=== PATIENT | female | born 1950 | race Caucasian/White ===

== ENCOUNTER → 2020-02-17 08:56 | Outpatient (BNVA) | payer MEDICARE, SELFPAY | PROVIDERS: PCP Family Medicine; Referring Provider Family Medicine; Visit Provider Family Medicine Adult Medicine | DX: M96.1 Postlaminectomy syndrome, not elsewhere classified (principal) | CPT/HCPCS: 99212 ==

== ENCOUNTER → 2020-04-25 08:55 | Outpatient (BNVA) | payer MEDICARE, SELFPAY | PROVIDERS: PCP Family Medicine; Visit Provider Family Medicine Adult Medicine | DX: M96.1 Postlaminectomy syndrome, not elsewhere classified (principal) | CPT/HCPCS: 99212 ==

== ENCOUNTER → 2020-06-08 09:25 | Outpatient (BNVA) | payer MEDICARE, SELFPAY | PROVIDERS: PCP Family Medicine; Visit Provider Family Medicine Adult Medicine | DX: M96.1 Postlaminectomy syndrome, not elsewhere classified (principal) | CPT/HCPCS: 99212 ==

== ENCOUNTER → 2020-07-18 10:34 | Outpatient (BNVA) | payer MEDICARE, SELFPAY | PROVIDERS: PCP Family Medicine; Visit Provider Family Medicine Adult Medicine | DX: M96.1 Postlaminectomy syndrome, not elsewhere classified (principal) | CPT/HCPCS: Q3014 ==

== ENCOUNTER 2020-07-26 15:55 | Outpatient (REF) | payer MEDICARE, SELFPAY ==
--- NOTE | ~2020-07-26 | MM_ITS ---
EXAMINATION: MM SCREENING DIGITAL BREAST TOMOSYNTHESIS, BILATERAL CLINICAL INFORMATION: Screening. Asymptomatic. The lifetime risk of breast cancer based on the Tyrer-Cuzick Model is 5%. COMPARISON: Mammography: 05/11/2019, 04/01/2018, 02/14/2017 TECHNIQUE: Digital breast tomosynthesis is performed in both the craniocaudal and mediolateral oblique views along with computer-aided detection (CAD). Synthesized 2D images are generated from the tomosynthesis. FINDINGS: There are scattered areas of fibroglandular density (ACR BI-RADS breast composition Category b). There are no significant masses, abnormal calcifications, or other abnormalities. There are grouped ductal secretory calcifications anterior central 3:00 left breast. The axilla and skin contours are unremarkable. MM/MM tomosynthesis screening BI IMPRESSION: No mammographic evidence of malignancy. ASSESSMENT: BI-RADS 2: Benign RECOMMENDATION: Routine annual mammography screening. This patient's information was entered into a reminder system with a target due date for their next mammogram.
== END 2020-07-26 15:56 | disposition home or self-care (01) ==
LOC: HO.MAMMO 15:55
PROVIDERS: PCP Family Medicine; Visit Provider Family Medicine
DX: Z12.31 Encounter for screening mammogram for malignant neoplasm of breast (principal)
CPT/HCPCS: 77063; 77067

== ENCOUNTER → 2020-08-29 08:56 | Outpatient (BNVA) | payer MEDICARE, SELFPAY | PROVIDERS: PCP Family Medicine; Visit Provider Family Medicine Adult Medicine | DX: M96.1 Postlaminectomy syndrome, not elsewhere classified (principal) | CPT/HCPCS: 99212 ==

== ENCOUNTER 2020-09-27 08:52 | Outpatient (REF) | payer MEDICARE, SELFPAY ==
--- NOTE | ~2020-09-27 | XR_ITS ---
EXAMINATION: XR CHEST 2 VIEWS CLINICAL INFORMATION: Wheezing and hypertension. COMPARISON: Radiographs dated 05/06/2017. TECHNIQUE: Frontal and lateral views of the chest were obtained. FINDINGS: The heart, great vessels, pulmonary vasculature and mediastinum are normal. The lungs show no focal infiltrate, effusion or pneumothorax. There is no acute osseous abnormality. There is multi-level thoracic degenerative disc disease and spondylosis. There is a mild thoracolumbar dextroscoliosis. XR/XR chest 2V IMPRESSION: No active cardiopulmonary disease.
[2020-09-27 10:05] LABS: MANUAL DIFF FLAG NO
[2020-09-27 10:13] LABS: Basophils Percent Auto 0.5 % (0-2); Eosinophils Absolute Auto 0.2 X10*3/uL (0.0-0.4); Eosinophils Percent Auto 2.8 % (0-4); Hematocrit 38.2 % (37-47); Hemoglobin 12.9 g/dl (12.0-16.0); Imm Gran Abs Auto 0.04 X10*3/uL (0.00-0.03); Imm Gran Pct Auto 0.6 % (0.0-0.4); Lymphocytes Absolute Auto 1.9 X10*3/uL (1.2-4.9); Lymphocytes Percent Auto 29.5 % (20-40); Mean Corpuscular HGB Conc 33.8 g/dl (31.0-35.0); Mean Corpuscular Hemoglobin 31.5 pg (27.0-33.0); Mean Corpuscular Volume 93.4 fL (80-98); Mean Platelet Volume 8.9 fL (9.4-12.3); Monocytes Absolute Auto 0.5 X10*3/uL (0.1-1.2); Monocytes Percent Auto 7.3 % (2-11); Neutrophils Absolute Auto 3.8 X10*3/uL (2.0-8.3); Neutrophils Percent Auto 59.3 % (45-73); Platelet Count 337 X10*3/uL (160-400); Red Blood Count 4.09 X10*6/uL (4.20-5.50); Red Cell Distribution Width 12.9 % (11.0-16.0); White Blood Count 6.5 X10*3/uL (4.8-10.8)
[2020-09-27 10:27] LABS: Anion Gap 11 (12-20); Blood Urea Nitrogen 10 mg/dL (9-16); Carbon Dioxide 27 mmol/L (22-29); Chloride 99 mmol/L (96-108); Estimated Glomerular Filt Rate > 60; Potassium 4.7 mmol/L (3.3-5.1); Sodium 132 mmol/L (135-145)
[2020-09-27 10:50] LABS: Free T4 (Free Thyroxine) 1.36 ng/dL (0.71-1.85); Thyroid Stimulating Hormone 1.59 uIU/mL (0.32-4.0)
== END 2020-09-27 08:53 | disposition home or self-care (01) ==
LOC: HO.LAB 08:52
PROVIDERS: PCP Family Medicine; Visit Provider Family Medicine
DX: R06.2 Wheezing (principal); I10 Essential (primary) hypertension; E03.9 Hypothyroidism, unspecified
CPT/HCPCS: 36415; 71046; 80051; 82565; 84439; 84443; 84520; 85025

== ENCOUNTER → 2020-10-10 09:05 | Outpatient (BNVA) | payer MEDICARE, SELFPAY | PROVIDERS: PCP Family Medicine; Visit Provider Family Medicine Adult Medicine | DX: M96.1 Postlaminectomy syndrome, not elsewhere classified (principal) | CPT/HCPCS: 99212 ==

== ENCOUNTER → 2020-11-07 10:00 | Outpatient (BNVA) | payer MEDICARE, SELFPAY | PROVIDERS: PCP Family Medicine; Visit Provider Family Medicine Adult Medicine | DX: M96.1 Postlaminectomy syndrome, not elsewhere classified (principal); Z79.899 Other long term (current) drug therapy | CPT/HCPCS: 99212 ==

== ENCOUNTER → 2020-12-12 10:03 | Outpatient (BNVA) | payer MEDICARE, SELFPAY | PROVIDERS: PCP Family Medicine; Visit Provider Family Medicine Adult Medicine | DX: M96.1 Postlaminectomy syndrome, not elsewhere classified (principal); Z79.891 Long term (current) use of opiate analgesic | CPT/HCPCS: 99212 ==

== ENCOUNTER → 2021-01-11 09:00 | Outpatient (BNVA) | payer MEDICARE, SELFPAY | PROVIDERS: PCP Family Medicine; Visit Provider Family Medicine Adult Medicine | DX: Z51.81 Encounter for therapeutic drug level monitoring (principal); M96.1 Postlaminectomy syndrome, not elsewhere classified | CPT/HCPCS: 99212 ==

== ENCOUNTER → 2021-02-08 09:29 | Outpatient (BNVA) | payer MEDICARE, SELFPAY | PROVIDERS: PCP Family Medicine; Visit Provider Family Medicine Adult Medicine | DX: Z51.81 Encounter for therapeutic drug level monitoring (principal); M96.1 Postlaminectomy syndrome, not elsewhere classified | CPT/HCPCS: Q3014 ==

== ENCOUNTER → 2021-02-15 10:28 | Outpatient (REF) | payer MEDICARE, SELFPAY ==
--- NOTE | 2021-02-15 10:32 | CA_ITS ---
Acquisition Time: 2021-02-15 10:36:49 Total Exercise Time: 00:04:27 Test Indications: Chest Pain Medications: Protocol: ABELINO Max HR: 122 BPM 81% of Pred: 149 BPM Max BP: 212/064 mmHG Max Work Load: 6.3 METS Exercise stress test with exercise 4 min 27 sec of Abelino protocol, mild sob, no chest discomfort, with request to stop due to leg fatigue, with isolated PVC, then at peak exercise she had 20 seconds of ventricular bigemny, with hypertensive response to exercise with max BP 212/ 64, with nondiagnostic EKG for ischemia due to suboptimal heart rate of 81% MPHR. In recovery her BP returned to 148/60 after 9 min of rest. Test reviewed with Dr Montes. Call placed to Dr Wadsworth office. Report given with recommendation for pharm nuclear stress test and echocardiogram. Referred By: Marcellus Patiño Overread By: ABRAHAM CORREA
== END ==
LOC: HO.CARD 10:28
PROVIDERS: PCP Family Medicine; Visit Provider Family Medicine
DX: R07.89 Other chest pain (principal)
CPT/HCPCS: 93017

== ENCOUNTER 2021-02-19 10:03 | Outpatient (REF) | payer MEDICARE, SELFPAY ==
--- NOTE | 2021-02-19 | PFT_ITS ---
Forced vital capacity, FEV1, [id number], and MVV are normal. Post bronchodilator therapy, there is a slight increase in [id number]. Total lung capacity and residual volume normal. Diffusion capacity only slightly decreased. CONCLUSION: Pulmonary function test is essentially within normal limits except for slight decrease in the diffusion capacity. Clinical correlation is recommended. MD CARLO Almeida/ANDREWS / [phone]
== END 2021-02-19 10:04 | disposition home or self-care (01) ==
LOC: HO.RESP 10:03
PROVIDERS: PCP Family Medicine; Visit Provider Family Medicine
DX: R06.02 Shortness of breath (principal); R06.2 Wheezing; F17.210 Nicotine dependence, cigarettes, uncomplicated
CPT/HCPCS: 94060; 94727; 94729

== ENCOUNTER → 2021-03-08 10:34 | Outpatient (BNVA) | payer MEDICARE, SELFPAY | PROVIDERS: PCP Family Medicine; Visit Provider Family Medicine Adult Medicine | DX: Z51.81 Encounter for therapeutic drug level monitoring (principal); M96.1 Postlaminectomy syndrome, not elsewhere classified | CPT/HCPCS: 99212 ==

== ENCOUNTER 2021-04-04 12:06 | Outpatient (REF) | payer MEDICARE, SELFPAY ==
[2021-04-04 12:51] LABS: Appearance Urine HAZY; Color Urine YELLOW; Glucose Urine UA NEG (NEG); Leukocyte Esterase Urine 3+ (NEG); Nitrite Urine NEG (NEG); UACC Culture Trigger YES; Urine Blood TRACE (NEG); Urine Ketones NEG (NEG); Urine Protein NEG (NEG-TRACE)
[2021-04-04 13:03] LABS: Bacteria Urine TRACE /LPF; Squamous Epithelial Cell Urine 1+ /LPF
[2021-04-04 13:04] LABS: RBC Urine 0 /HPF (0)
== END 2021-04-04 12:07 | disposition home or self-care (01) ==
LOC: HO.LAB 12:06
PROVIDERS: Visit Provider Family Medicine
DX: R30.0 Dysuria (principal)
CPT/HCPCS: 81001; 87086

== ENCOUNTER 2021-04-12 09:32 | Outpatient (REF) | payer MEDICARE, SELFPAY ==
[2021-04-12 10:57] LABS: Appearance Urine HAZY; Color Urine STRAW; Glucose Urine UA NEG (NEG); Leukocyte Esterase Urine 3+ (NEG); Nitrite Urine NEG (NEG); Specific Gravity - Urine 1.015 (1.005-1.025); UACC Culture Trigger YES; Urine Blood 2+ (NEG); Urine Ketones NEG (NEG); Urine Protein TRACE MG/DL (NEG-TRACE)
[2021-04-12 11:14] LABS: RBC Urine 30-49 /HPF (0); Squamous Epithelial Cell Urine 1+ /LPF; WBC Urine 50-75 /HPF (0-4)
[2021-04-12 11:15] LABS: Bacteria Urine TRACE /LPF
== END 2021-04-12 09:33 | disposition home or self-care (01) ==
LOC: CF 09:32
PROVIDERS: PCP Family Medicine; Visit Provider Nurse Practitioner Family
DX: M96.1 Postlaminectomy syndrome, not elsewhere classified (principal); M79.18 Myalgia, other site; R30.0 Dysuria
CPT/HCPCS: 81001; 87086; 99212

== ENCOUNTER → 2021-05-10 10:00 | Outpatient (BNVA) | payer MEDICARE, SELFPAY | PROVIDERS: PCP Family Medicine; Visit Provider Nurse Practitioner Family | DX: Z51.81 Encounter for therapeutic drug level monitoring (principal); F11.20 Opioid dependence, uncomplicated; M96.1 Postlaminectomy syndrome, not elsewhere classified; M79.18 Myalgia, other site; M54.16 Radiculopathy, lumbar region; N39.46 Mixed incontinence | CPT/HCPCS: 99212 ==

== ENCOUNTER → 2021-06-07 09:57 | Outpatient (BNVA) | payer MEDICARE, SELFPAY | PROVIDERS: PCP Family Medicine; Visit Provider Nurse Practitioner Family | DX: Z51.81 Encounter for therapeutic drug level monitoring (principal); F11.20 Opioid dependence, uncomplicated; M25.551 Pain in right hip; M25.552 Pain in left hip; M53.3 Sacrococcygeal disorders, not elsewhere classified; M54.16 Radiculopathy, lumbar region; M79.18 Myalgia, other site; M96.1 Postlaminectomy syndrome, not elsewhere classified | CPT/HCPCS: 99212 ==

== ENCOUNTER 2021-06-11 09:41 | Outpatient (REF) | payer MEDICARE, SELFPAY ==
--- NOTE | ~2021-06-11 | XR_ITS ---
EXAMINATION: XR SACRUM AND COCCYX XR PELVIS AND HIP, BILATERAL CLINICAL INFORMATION: Pain right hip. Sacrococcygeal disorders. COMPARISON: None TECHNIQUE: AP pelvis 3 views. AP pelvis and bilateral hips 5 views. FINDINGS: AP pelvis: There is a total left hip prosthesis. The right hip joint space is normal. No bony erosive changes. There is no lytic or sclerotic process. The soft tissues are normal. Mild right L4-L5 facet joint arthropathy noted. Right hip: AP and frog-leg views of right hip reveal no bony erosive changes. Normal joint space. No spurring. No fracture or dislocation. Left hip: There is a total left hip prosthesis with prosthetic components in satisfactory alignment. There are cerclage wires surrounding the proximal femoral prosthesis and the overlying bone. The soft tissues are normal. Sacrum and/or coccyx: There is normal symmetry of bilateral SI joints without sclerosis. There is no sacral or coccygeal fracture. There is minimal anterior subluxation of coccyx on the distal sacrum of indeterminate age. Soft tissue swelling is seen. XR/XR hip BI w PEL1V IMPRESSION: Mild anterior subluxation of coccyx in relation to the sacrum, ? age. No sacral or right hip fracture. There is a total left hip prosthesis with the prosthetic components in satisfactory alignment. No periprosthetic fracture is seen. The AP pelvis appears unremarkable. The SI joints are symmetrical and normal.
--- NOTE | ~2021-06-11 | XR_ITS ---
EXAMINATION: XR SACRUM AND COCCYX XR PELVIS AND HIP, BILATERAL CLINICAL INFORMATION: Pain right hip. Sacrococcygeal disorders. COMPARISON: None TECHNIQUE: AP pelvis 3 views. AP pelvis and bilateral hips 5 views. FINDINGS: AP pelvis: There is a total left hip prosthesis. The right hip joint space is normal. No bony erosive changes. There is no lytic or sclerotic process. The soft tissues are normal. Mild right L4-L5 facet joint arthropathy noted. Right hip: AP and frog-leg views of right hip reveal no bony erosive changes. Normal joint space. No spurring. No fracture or dislocation. Left hip: There is a total left hip prosthesis with prosthetic components in satisfactory alignment. There are cerclage wires surrounding the proximal femoral prosthesis and the overlying bone. The soft tissues are normal. Sacrum and/or coccyx: There is normal symmetry of bilateral SI joints without sclerosis. There is no sacral or coccygeal fracture. There is minimal anterior subluxation of coccyx on the distal sacrum of indeterminate age. Soft tissue swelling is seen. XR/XR sacrum coccyx min 2V IMPRESSION: Mild anterior subluxation of coccyx in relation to the sacrum, ? age. No sacral or right hip fracture. There is a total left hip prosthesis with the prosthetic components in satisfactory alignment. No periprosthetic fracture is seen. The AP pelvis appears unremarkable. The SI joints are symmetrical and normal.
== END 2021-06-11 09:42 | disposition home or self-care (01) ==
LOC: HO.XRAY 09:41
PROVIDERS: PCP Family Medicine; Visit Provider Nurse Practitioner Family
DX: M25.551 Pain in right hip (principal); M25.552 Pain in left hip; M53.3 Sacrococcygeal disorders, not elsewhere classified
CPT/HCPCS: 72220; 73521

== ENCOUNTER → 2021-06-18 10:31 | Outpatient (BNVA) | payer MEDICARE, SELFPAY | PROVIDERS: PCP Family Medicine; Visit Provider Nurse Practitioner Family | DX: M53.3 Sacrococcygeal disorders, not elsewhere classified (principal); M25.551 Pain in right hip; M25.552 Pain in left hip; Z79.891 Long term (current) use of opiate analgesic | CPT/HCPCS: 99212 ==

== ENCOUNTER → 2021-07-06 10:04 | Outpatient (BNVA) | payer MEDICARE, SELFPAY | PROVIDERS: PCP Family Medicine; Visit Provider Nurse Practitioner Family | DX: Z51.81 Encounter for therapeutic drug level monitoring (principal); F11.20 Opioid dependence, uncomplicated; M53.3 Sacrococcygeal disorders, not elsewhere classified; M54.16 Radiculopathy, lumbar region; M79.18 Myalgia, other site; M96.1 Postlaminectomy syndrome, not elsewhere classified | CPT/HCPCS: 99212 ==

== ENCOUNTER 2021-07-27 10:26 | Day surgery (SDC) | payer MEDICARE, SELFPAY ==
[2021-07-23 11:15] VITALS: BMI 26.8
--- NOTE | 2021-07-26 10:48 | HO.ANESPROP2 ---
Documented by User: Monica Lazar NP 07/26/21 10:48 HPI - Anesthesia Eval Consult details Narrative: 70yo F for Colonoscopy PMFSH Active Problems Active Problems: All Active Problems (Updated 07/23/21 @ 11:12 by Odilia Carbone RN) Myofascial pain (Acute) Urinary incontinence, mixed (Acute) Sacrococcygeal pain (Acute) Hip pain, bilateral (Acute) Coccygeal pain (Acute) Lumbar radiculopathy, chronic (Acute) Failed back syndrome, lumbar (Acute) Past Medical History Medical History (Updated 07/23/21 @ 11:12 by Odilia Carbone RN) Arthritis Benign essential HTN Failed back syndrome, lumbar GERD (gastroesophageal reflux disease) Hypothyroidism Lumbar radiculopathy, chronic Surgical History Surgical History (Updated 07/23/21 @ 11:12 by Odilia Carbone RN) History of hysterectomy History of lumbar surgery History of total left hip replacement Hx of bladder repair surgery Social History Social History (Updated 07/23/21 @ 11:13 by Odilia Carbone RN) Household Members: Spouse Patient Tobacco Use Status: Current everyday Tobacco user Tobacco use type: Cigarette Cigarettes Per Day: 4 Use of substances other than those prescribed or required for medical reasons: Yes Are you DNR?: No Advance Directives: No Advance Directives Information Provided: Yes Recently lost weight without trying: No Nutrition Risks: No Nutritional Risk Meds Allergies Allergy/AdvReac Type Severity Reaction Status Date / Time No Known Allergies Allergy Unknown Verified 07/06/21 10:11 Home Medications Medication Instructions Recorded Confirmed Last Taken Type albuterol sulfate 90 mcg/actuation INHALATION 02/17/20 03/08/21 Unknown History aerosol inhaler cimetidine 300 mg tablet 300 mg PO DAILY 02/17/20 07/23/21 Unknown History flu vacc [id number](65yr up)-PF 240 IM 02/17/20 03/08/21 Unknown History mcg/0.7 mL intramuscular syringe levothyroxine 88 mcg tablet 88 mcg PO DAILY 02/17/20 07/23/21 07/27/21 History lisinopril 10 mg tablet 10 mg PO DAILY 02/17/20 07/23/21 Unknown History lorazepam 0.5 mg tablet 0.5 mg PO DAILY PRN 02/17/20 03/08/21 Unknown History metoprolol succinate 25 mg 1 tab PO BEDTIME 07/23/21 07/23/21 Unknown History tablet,extended release 24 hr Exam Exam Date and Time: July 26, 2021 1048 Height,Weight and Vital Signs: Height 5 ft 1 in Weight 64.41 kg Assessment and Plan Assessment Anesthesia Assessment: Chart Reviewed Documented by User: Prabhakar Kim MD 07/27/21 12:56 PMFSH Past Medical History Medical History (Updated 07/23/21 @ 11:12 by Odilia Carbone RN) Arthritis Benign essential HTN Failed back syndrome, lumbar GERD (gastroesophageal reflux disease) Hypothyroidism Lumbar radiculopathy, chronic Family History Family history of problems with anesthesia: No Surgical History Surgical History (Updated 07/23/21 @ 11:12 by Odilia Carbone RN) History of hysterectomy History of lumbar surgery History of total left hip replacement Hx of bladder repair surgery History of Problems with Anesthesia: No Social History Social History (Updated 07/23/21 @ 11:13 by Odilia Carbone RN) Household Members: Spouse Patient Tobacco Use Status: Current everyday Tobacco user Tobacco use type: Cigarette Cigarettes Per Day: 4 Use of substances other than those prescribed or required for medical reasons: Yes Are you DNR?: No Advance Directives: No Advance Directives Information Provided: Yes Recently lost weight without trying: No Nutrition Risks: No Nutritional Risk Meds Allergies Allergy/AdvReac Type Severity Reaction Status Date / Time No Known Allergies Allergy Unknown Verified 07/06/21 10:11 Home Medications Medication Instructions Recorded Confirmed Last Taken Type albuterol sulfate 90 mcg/actuation INHALATION 02/17/20 03/08/21 Unknown History aerosol inhaler cimetidine 300 mg tablet 300 mg PO DAILY 02/17/20 07/23/21 Unknown History flu vacc [id number](65yr up)-PF 240 IM 02/17/20 03/08/21 Unknown History mcg/0.7 mL intramuscular syringe levothyroxine 88 mcg tablet 88 mcg PO DAILY 10/07/23/21 07/27/21 History lisinopril 10 mg tablet 10 mg PO DAILY 02/17/20 07/23/21 Unknown History lorazepam 0.5 mg tablet 0.5 mg PO DAILY PRN 02/17/20 03/08/21 Unknown History metoprolol succinate 25 mg 1 tab PO BEDTIME 07/23/21 07/23/21 Unknown History tablet,extended release 24 hr Exam Airway Mallampati Class: II TM Dist: >3cm Neck ROM: Full Partial: Upper Loose/Missing/Broken Teeth: Yes Heart: RRR Lungs: b/l breath sounds Assessment and Plan Assessment Anesthesia Assessment: Anesthesia Plan Discussed Final Anesthetic Review Family History of Problems with Anesthesia: No History of Problems with Anesthesia: No NPO: Yes ASA Class: II Final Preanesthetic Review: No Changes in Pt Med Stat, Meds/Allgs Chart Reviewed and Anes Risks/Benef Reviewed Patient Risk: Intermediate Procedure Risk: Intermediate Anesthetic Plan Anesthetic Plan: MAC: Disposition: Standard PACU
[2021-07-27 10:49] VITALS: BMI 26.0
[2021-07-27 10:56] VITALS: BP 143/70; PULSE 64; RESP 16; TEMP 36.9; O2SAT 95
[2021-07-27] MEDS: Lactated Ringers 1,000 ML 100 ML IVCONT (11:18)
--- NOTE | 2021-07-27 11:35 | MHC.SHP ---
Pre-Procedural Eval Section A Date of Service: 07/27/21 The patient is an INPATIENT: No Changes since office visit: No Cold of Flu in the past 2 weeks, No New Medical Problems, No Changes in Medication and No Patient answered all questions The History & Physical has been completed within 30 days and I have reviewed it.: Yes Section B Chief Complaint: screening Allergies: Allergies Allergy/AdvReac Type Severity Reaction Status Date / Time No Known Allergies Allergy Unknown Verified 07/06/21 10:11 Plan I have reviewed the history and physical and performed a pertinent physical examination on my patient. No changes have occurred unless specified.
--- NOTE | 2021-07-27 12:11 | PM.OP ---
Brief Operative Note Date of Service: 07/27/21 Pre-op diagnosis: screening Post-op diagnosis: same Procedure: colonsoocpy Surgeon: Ru Jackson Anesthesia: MAC Was an Instructor Decorating used for this Procedure?: No Estimated blood loss (mL): 0 Pathology: none sent Condition: stable Disposition: PACU
[2021-07-27 12:13] VITALS: BP 96/42; PULSE 78; RESP 17; TEMP 36.2; O2SAT 96
[2021-07-27 12:28] VITALS: BP 135/54; PULSE 66; RESP 18; TEMP 36.2; O2SAT 98
--- NOTE | 2021-07-27 12:37 | OP_ITS ---
SURGEON: Ru Jackson MD INDICATIONS: Colon cancer screening. PREOPERATIVE DIAGNOSIS: POSTOPERATIVE DIAGNOSIS: PROCEDURE PERFORMED: Colonoscopy to the terminal ileum. ESTIMATED BLOOD LOSS: COMPLICATIONS: ANESTHESIA: ASSISTANTS: SPECIMENS: MEDICATIONS: Monitored anesthesia care. DESCRIPTION OF PROCEDURE: History and physical were performed. The risks and benefits of the procedure were explained to the patient. Informed consent was obtained. The patient was placed in the left lateral decubitus position. A digital rectal exam was performed and was found to be normal. The Olympus pediatric video colonoscope was introduced into the rectum and advanced to the cecum without difficulty. The cecum was identified by transillumination, palpation, and identification of ileocecal valve. Examination was performed. The scope was removed. She tolerated the procedure well and was taken to recovery area in stable condition. FINDINGS: The terminal ileum was examined and appeared normal. The visualized colonic mucosa was normal. The quality of the prep was good. No polyps were identified. There was scattered diverticulosis throughout the colon. Retroflexed examination showed some small internal hemorrhoids. IMPRESSION: Normal colonoscopy. RECOMMENDATION: 1. Follow up as needed. 2. Repeat colonoscopy is recommended in 10 years for average risk individuals. This is optional based on her age. MD ROBERT Nathan/ANDREWS / [id number]
== END 2021-07-27 13:34 | disposition home or self-care (01) ==
PROVIDERS: PCP Family Medicine; Visit Provider Internal Medicine Gastroenterology
PROC: 0DJD8ZZ Inspection of Lower Intestinal Tract, Via Natural or Artificial Opening Endoscopic (ICD-10-PCS; CPT 45378; principal; 2021-07-27 11:30)
DX: Z12.11 Encounter for screening for malignant neoplasm of colon (principal); K57.30 Diverticulosis of large intestine without perforation or abscess without bleeding; K64.8 Other hemorrhoids; K21.9 Gastro-esophageal reflux disease without esophagitis; I10 Essential (primary) hypertension; E03.9 Hypothyroidism, unspecified; M19.90 Unspecified osteoarthritis, unspecified site; Z79.899 Other long term (current) drug therapy; Z96.642 Presence of left artificial hip joint; Z98.890 Other specified postprocedural states; F17.210 Nicotine dependence, cigarettes, uncomplicated
CPT/HCPCS: G0121

== ENCOUNTER 2021-08-01 10:11 | Outpatient (REF) | payer MEDICARE, SELFPAY ==
--- NOTE | ~2021-08-01 | MM_ITS ---
EXAMINATION: MM SCREENING DIGITAL BREAST TOMOSYNTHESIS, BILATERAL CLINICAL INFORMATION: Screening. Asymptomatic. The lifetime risk of breast cancer based on the Tyrer-Cuzick Model is 5%. COMPARISON: Mammography: 07/26/2020, 05/11/2019, 04/01/2018 TECHNIQUE: Digital breast tomosynthesis is performed in both the craniocaudal and mediolateral oblique views along with computer-aided detection (CAD). Synthesized 2D images are generated from the tomosynthesis. FINDINGS: There are scattered areas of fibroglandular density (ACR BI-RADS breast composition Category b). There are no significant masses, abnormal calcifications, or other abnormalities. There are grouped ductal secretory calcifications again seen anterior left breast. The bilateral parenchymal pattern is similar to prior studies. Incidental small intramammary node again seen mid upper outer right breast. No significant changes. MM/MM tomosynthesis screening BI IMPRESSION: No mammographic evidence of malignancy. ASSESSMENT: BI-RADS 2: Benign RECOMMENDATION: Routine annual mammography screening. This patient's information was entered into a reminder system with a target due date for their next mammogram.
== END 2021-08-01 10:12 | disposition home or self-care (01) ==
LOC: HO.MAMMO 10:11
PROVIDERS: Visit Provider Family Medicine
DX: Z12.31 Encounter for screening mammogram for malignant neoplasm of breast (principal)
CPT/HCPCS: 77063; 77067

== ENCOUNTER → 2021-08-03 10:04 | Outpatient (BNVA) | payer MEDICARE, SELFPAY | PROVIDERS: PCP Family Medicine; Visit Provider Nurse Practitioner Family | DX: Z51.81 Encounter for therapeutic drug level monitoring (principal); F11.20 Opioid dependence, uncomplicated | CPT/HCPCS: 99211 ==

== ENCOUNTER → 2021-08-31 09:56 | Outpatient (BNVA) | payer MEDICARE, SELFPAY | PROVIDERS: PCP Family Medicine; Visit Provider Nurse Practitioner Family | DX: Z51.81 Encounter for therapeutic drug level monitoring (principal); F11.20 Opioid dependence, uncomplicated; M54.16 Radiculopathy, lumbar region; M79.18 Myalgia, other site; M96.1 Postlaminectomy syndrome, not elsewhere classified | CPT/HCPCS: 99212 ==

== ENCOUNTER 2021-09-18 10:54 | Outpatient (REF) | payer MEDICARE, SELFPAY ==
--- NOTE | ~2021-09-18 | XR_ITS ---
EXAMINATION: XR CHEST CLINICAL INFORMATION: Coughing and wheezing. COMPARISON: 09/27/2018 TECHNIQUE: 2 views of the chest were obtained. FINDINGS: No pleural effusion. Heart and pulmonary vessels are normal. No congestive change. Lungs grossly clear. XR/XR chest 2V IMPRESSION: No active disease.
== END 2021-09-18 10:55 | disposition home or self-care (01) ==
LOC: HO.HMGCX 10:54
PROVIDERS: PCP Family Medicine; Visit Provider Family Medicine
DX: R06.2 Wheezing (principal); R05.9 Cough, unspecified; Z86.16 Personal history of COVID-19
CPT/HCPCS: 71046

== ENCOUNTER → 2021-10-12 10:02 | Outpatient (BNVA) | payer MEDICARE, SELFPAY | PROVIDERS: PCP Family Medicine; Visit Provider Nurse Practitioner Family | DX: M54.16 Radiculopathy, lumbar region (principal); M79.18 Myalgia, other site; M96.1 Postlaminectomy syndrome, not elsewhere classified; Z79.891 Long term (current) use of opiate analgesic | CPT/HCPCS: 99212 ==

== ENCOUNTER → 2021-12-03 09:12 | Outpatient (REF) | payer MEDICARE, SELFPAY ==
--- NOTE | 2021-12-03 09:16 | ECG_ITS ---
Test Reason : bradycardia Blood Pressure : / mmHG Vent. Rate : 042 BPM Atrial Rate : 042 BPM P-R Int : 174 ms QRS Dur : 086 ms QT Int : 496 ms P-R-T Axes : 040 051 070 degrees QTc Int : 414 ms Marked sinus bradycardia Abnormal ECG When compared with ECG of 29-DEC-2015 13:15, Heart rate has decreased Referred By: Danya Llanes Electronically Signed By:MARGARET CHOI
== END ==
LOC: HO.CARD 09:12
PROVIDERS: PCP Family Medicine; Visit Provider Nurse Practitioner Family
DX: R00.1 Bradycardia, unspecified (principal); Z98.891 History of uterine scar from previous surgery
CPT/HCPCS: 93005

== ENCOUNTER → 2021-12-06 10:05 | Outpatient (BNVA) | payer MEDICARE, SELFPAY | PROVIDERS: PCP Family Medicine; Visit Provider Nurse Practitioner Family | DX: Z51.81 Encounter for therapeutic drug level monitoring (principal); Z79.899 Other long term (current) drug therapy | CPT/HCPCS: 99211 ==

== ENCOUNTER → 2022-01-04 09:56 | Outpatient (BNVA) | payer MEDICARE, SELFPAY | PROVIDERS: PCP Family Medicine; Visit Provider Nurse Practitioner Family | DX: M54.16 Radiculopathy, lumbar region (principal); M96.1 Postlaminectomy syndrome, not elsewhere classified; M79.18 Myalgia, other site; Z79.891 Long term (current) use of opiate analgesic | CPT/HCPCS: 99212 ==

== ENCOUNTER → 2022-02-01 09:59 | Outpatient (BNVA) | payer MEDICARE, SELFPAY | PROVIDERS: PCP Family Medicine; Visit Provider Nurse Practitioner Family | DX: Z51.81 Encounter for therapeutic drug level monitoring (principal); Z79.899 Other long term (current) drug therapy | CPT/HCPCS: 99211 ==

== ENCOUNTER → 2022-03-07 09:36 | Outpatient (BNVA) | payer MEDICARE, SELFPAY | PROVIDERS: PCP Family Medicine; Visit Provider Nurse Practitioner Family | DX: Z51.81 Encounter for therapeutic drug level monitoring (principal); F11.20 Opioid dependence, uncomplicated; M54.16 Radiculopathy, lumbar region; M96.1 Postlaminectomy syndrome, not elsewhere classified; M79.18 Myalgia, other site | CPT/HCPCS: 99212 ==

== ENCOUNTER → 2022-04-01 10:29 | Outpatient (BNVA) | payer MEDICARE, SELFPAY | PROVIDERS: PCP Family Medicine; Referring Provider Family Medicine; Visit Provider Internal Medicine Cardiovascular Disease | DX: R00.1 Bradycardia, unspecified (principal) | CPT/HCPCS: 93005; 99202 ==

== ENCOUNTER → 2022-04-04 09:13 | Outpatient (BNVA) | payer MEDICARE, SELFPAY | PROVIDERS: PCP Family Medicine; Visit Provider Nurse Practitioner Family | DX: Z51.81 Encounter for therapeutic drug level monitoring (principal) | CPT/HCPCS: 99211 ==

== ENCOUNTER → 2022-05-01 10:55 | Outpatient (REF) | payer MEDICARE, SELFPAY | LOC: HO.CARD 10:55 | PROVIDERS: PCP Family Medicine; Visit Provider Internal Medicine Cardiovascular Disease | DX: R00.1 Bradycardia, unspecified (principal) | CPT/HCPCS: 93242 ==

== ENCOUNTER → 2022-05-09 13:26 | Outpatient (BNVA) | payer MEDICARE, SELFPAY | PROVIDERS: PCP Family Medicine; Visit Provider Nurse Practitioner Family | DX: M96.1 Postlaminectomy syndrome, not elsewhere classified (principal); M54.16 Radiculopathy, lumbar region; M79.18 Myalgia, other site; Z79.891 Long term (current) use of opiate analgesic | CPT/HCPCS: 99212 ==

== ENCOUNTER → 2022-05-27 09:41 | Outpatient (REF) | payer MEDICARE, SELFPAY ==
--- NOTE | 2022-05-27 09:44 | HM_ITS ---
* Total monitoring time approximately 3 days. * Underlying rhythm is sinus. Average ventricular rate 66/Min. Range 42 to 114/Min. * Rare supraventricular ectopy. Very brief runs. Longest 5 beats. * Rare ventricular ectopy. * No significant pauses or AV blocks. * No patient marker or events in diary. MTDD
[2022-05-27 11:08] LABS: Anion Gap 11 (12-20); Blood Urea Nitrogen 11 mg/dL (9-16); Carbon Dioxide 27 mmol/L (22-29); Chloride 100 mmol/L (96-108); Estimated Glomerular Filt Rate > 60; Potassium 4.4 mmol/L (3.3-5.1); Sodium 134 mmol/L (135-145)
[2022-05-27 11:26] LABS: Free T4 (Free Thyroxine) 1.32 ng/dL (0.71-1.85)
== END ==
LOC: HO.CARD 09:41
PROVIDERS: PCP Family Medicine; Visit Provider Internal Medicine Cardiovascular Disease
DX: R00.1 Bradycardia, unspecified (principal)
CPT/HCPCS: 36415; 80051; 82565; 84439; 84520; 93242

== ENCOUNTER → 2022-06-06 11:31 | Outpatient (BNVA) | payer MEDICARE, SELFPAY | PROVIDERS: PCP Family Medicine; Visit Provider Nurse Practitioner Family | DX: Z51.81 Encounter for therapeutic drug level monitoring (principal); M54.16 Radiculopathy, lumbar region; M96.1 Postlaminectomy syndrome, not elsewhere classified; M79.18 Myalgia, other site; Z79.891 Long term (current) use of opiate analgesic | CPT/HCPCS: 99212 ==

== ENCOUNTER → 2022-07-04 10:08 | Outpatient (BNVA) | payer MEDICARE, SELFPAY | PROVIDERS: PCP Family Medicine; Visit Provider Nurse Practitioner Family | DX: Z79.891 Long term (current) use of opiate analgesic (principal) | CPT/HCPCS: 99211 ==

== ENCOUNTER → 2022-07-11 11:31 | Outpatient (BNVA) | payer MEDICARE, SELFPAY | PROVIDERS: PCP Family Medicine; Referring Provider Family Medicine; Visit Provider Internal Medicine Cardiovascular Disease | DX: R00.1 Bradycardia, unspecified (principal); I10 Essential (primary) hypertension; F17.210 Nicotine dependence, cigarettes, uncomplicated | CPT/HCPCS: 99212 ==

== ENCOUNTER → 2022-08-01 09:59 | Outpatient (BNVA) | payer MEDICARE, SELFPAY | PROVIDERS: PCP Family Medicine; Visit Provider Nurse Practitioner Family | DX: Z51.81 Encounter for therapeutic drug level monitoring (principal); F11.20 Opioid dependence, uncomplicated; M54.16 Radiculopathy, lumbar region; M96.1 Postlaminectomy syndrome, not elsewhere classified; M79.18 Myalgia, other site | CPT/HCPCS: 99212 ==

== ENCOUNTER → 2022-08-26 11:34 | Outpatient (BNVA) | payer MEDICARE, SELFPAY | PROVIDERS: PCP Family Medicine; Visit Provider Nurse Practitioner Family | DX: M96.1 Postlaminectomy syndrome, not elsewhere classified (principal); M54.16 Radiculopathy, lumbar region; M79.18 Myalgia, other site; Z79.891 Long term (current) use of opiate analgesic | CPT/HCPCS: 99212 ==

== ENCOUNTER → 2022-10-01 09:37 | Outpatient (BNVA) | payer MEDICARE, SELFPAY | PROVIDERS: PCP Family Medicine; Visit Provider Nurse Practitioner Family | DX: Z51.81 Encounter for therapeutic drug level monitoring (principal); M54.16 Radiculopathy, lumbar region; M96.1 Postlaminectomy syndrome, not elsewhere classified; M79.18 Myalgia, other site; Z79.891 Long term (current) use of opiate analgesic | CPT/HCPCS: 99212 ==

== ENCOUNTER 2022-10-12 09:57 | Emergency (ER) | payer MEDICARE, SELFPAY ==
--- NOTE | ~2022-10-12 | XR_ITS ---
EXAMINATION: XR CHEST CLINICAL INFORMATION: Left flank pain. General body aches. COMPARISON: Chest x-ray dated 09/18/2021. TECHNIQUE: AP view of the chest was obtained. FINDINGS: The cardiomediastinal silhouette is within normal limits in size. Calcification of the aortic arch is seen. Mild chronic elevation of the right mid diaphragm is seen. Minimal bibasilar linear opacities are noted, consistent with linear atelectasis.. No focal consolidation, effusion or pneumothorax is seen. Bony structures are unremarkable. No definite rib fractures appreciated on portable film. XR/XR chest 1V IMPRESSION: Minimal bibasilar linear atelectasis. No focal pneumonia.
[2022-10-12 10:00] VITALS: BP 135/55; PULSE 68; RESP 16; TEMP 37.1; O2SAT 98; BMI 26.5
--- NOTE | 2022-10-12 10:11 | ECG_ITS ---
Test Reason : GEN BODY ACHES,COUGH,HTN TIMOTEO Blood Pressure : / mmHG Vent. Rate : 072 BPM Atrial Rate : 072 BPM P-R Int : 140 ms QRS Dur : 098 ms QT Int : 424 ms P-R-T Axes : 039 068 105 degrees QTc Int : 464 ms Artifact in tracing Sinus rhythm with Premature atrial complexes Septal infarct , age undetermined Abnormal ECG No significant changes when compared with the previous EKG of 03 dec 2021 Referred By: Generic ED Physician Electronically Signed By:JOSE HARRINGTON
[2022-10-12 10:59] LABS: Basophils Percent Auto 0.2 % (0-2); Eosinophils Percent Auto 0.2 % (0-4); Hematocrit 36.7 % (37.0-47.0); Hemoglobin 12.5 g/dl (12.0-16.0); Imm Gran Abs Auto 0.03 X10*3/uL (0.00-0.03); Imm Gran Pct Auto 0.6 % (0.0-0.4); Lymphocytes Absolute Auto 0.9 X10*3/uL (1.2-4.9); Lymphocytes Percent Auto 16.7 % (20-40); MANUAL DIFF FLAG SCAN; Mean Corpuscular HGB Conc 34.1 g/dl (31.0-35.0); Mean Corpuscular Hemoglobin 30.6 pg (27.0-33.0); Mean Platelet Volume 8.9 fL (9.4-12.3); Monocytes Absolute Auto 0.5 X10*3/uL (0.1-1.2); Monocytes Percent Auto 9.6 % (2-11); Neutrophils Absolute Auto 3.8 x10*3/uL (2.0-8.3); Neutrophils Percent Auto 72.7 % (45-73); Platelet Count 230 X10*3/uL (160-400); Red Blood Count 4.08 X10*6/uL (4.20-5.50); Red Cell Distribution Width 13.1 % (11.0-16.0); SCAN SMEAR FLAG 1; White Blood Count 5.2 X10*3/uL (4.8-10.8)
[2022-10-12 11:15] LABS: Lactic Acid 1.4 mmol/L (0.5-2.0)
[2022-10-12 11:19] LABS: IDNOW Serial# 08D9AD1C; Influenza A Negative (Negative); Influenza B2 Negative (Negative)
[2022-10-12 11:20] LABS: Alanine Aminotransferase 28 U/L (0-31); Alkaline Phosphatase 53 U/L (39-117); Anion Gap 14 (12-20); Aspartate Amino Transferase 29 U/L (5-31); Bilirubin Direct 0.2 mg/dL (0.0-0.5); Bilirubin Total 0.6 mg/dL (0.0-1.0); Blood Urea Nitrogen 8 mg/dL (9-16); Calcium 9.6 mg/dL (8.4-10.2); Carbon Dioxide 25 mmol/L (22-29); Chloride 94 mmol/L (96-108); Creatinine Clr Calc Pharmacy 57.9; Estimated Glomerular Filt Rate > 60; Glucose Random 127 mg/dL (60-115); Lipase 22 U/L (8-78); Potassium 4.2 mmol/L (3.3-5.1); Sodium 129 mmol/L (135-145); Total Protein 7.6 g/dL (6.5-8.0)
[2022-10-12 11:22] LABS: SLIDE REVIEW VERIFIED
[2022-10-12 11:32] LABS: COVID-19 Test Negative (Negative); IDNOW Serial# BCCEAD1C
[2022-10-12 11:34] LABS: Troponin-I High Sensitivity 43.9 ng/L (<3.5-17.0)
--- NOTE | 2022-10-12 11:38 | MHC.EDTECH ---
this pct completed ekg on patient but for some reason it wont cross over RN aware
--- NOTE | 2022-10-12 12:36 | ED_ITS ---
HPI - General Adult General Chief complaint: General Medical Stated complaint: fever chills Time Seen by Provider: 10/12/22 11:57 Source: patient and family Mode of arrival: ambulatory Limitations: no limitations History of Present Illness HPI narrative: 71-year-old female came in for evaluation of 3 days of fever and chills, generalized weakness, decreased p.o. intake. Patient was coughing seen by her PCP will start her on Augmentin. Headache, mild nausea, vomited x1 in the ED, no diarrhea, patient has been co ughing. Related Data Home Medications Medication Instructions Recorded Confirmed albuterol sulfate 90 mcg/actuation inhalation 02/17/20 07/11/22 aerosol inhaler flu vacc [id number](65yr up)-PF 240 IM 02/17/20 07/11/22 mcg/0.7 mL intramuscular syringe levothyroxine 88 mcg tablet 88 mcg PO DAILY 02/17/20 07/11/22 lisinopril 10 mg tablet 10 mg PO DAILY 02/17/20 07/11/22 docusate sodium 100 mg capsule 100 mg PO DAILY diarrhea 10/12/21 07/11/22 azithromycin 250 mg tablet 250 mg PO DAILY 08/01/22 desonide 0.05 % topical ointment topical BID 10/01/22 Previous Rx's Medication Instructions Recorded diclofenac sodium 1 % topical gel 4 g topical QID PRN pain 30 days 06/07/21 (Arthritis Pain (diclofenac)) #100 grams Donut pillow #1 ea 06/18/21 hydrocodone 5 mg-acetaminophen 325 1.5 tab PO DAILY PRN pain 30 days 10/01/22 mg tablet #40 tabs Allergies Allergy/AdvReac Type Severity Reaction Status Date / Time No Known Allergies Allergy Unknown Verified 10/01/22 09:47 Review of Systems Review of Systems: All other systems are reviewed and are negative Constitutional: Reports as per HPI and Reports no additional constitutional complaints Eyes: Reports as per HPI and Reports no additional eye complaints Reports system reviewed and no additional complaints, except as documented Cardiovascular: Reports as per HPI and Reports no additional cardiovascular complaints Respiratory: Reports as per HPI and Reports no additional respiratory complaints Gastrointestinal: Reports as per HPI and Reports no additional gastrointestinal complaints Genitourinary: Reports no additional female genitourinary complaints Musculoskeletal: Reports no additional musculoskeletal complaints Skin/Breast: Reports system reviewed and no additional complaints, except as docu Psychiatric: Reports no additional psychiatric complaints Endocrine: Reports no additional endocrine complaints Hematologic/Lymphatic: Reports no additional hematologic/lymphatic complaints Allergic/Immunologic: Reports no additional allergic/immunologic complaints Reports system reviewed and no additional complaints, except as documented and Reports Abnormal speech present [facility] Past Medical History Medical History Arthritis Benign essential HTN Failed back syndrome, lumbar GERD (gastroesophageal reflux disease) Hypothyroidism Lumbar radiculopathy, chronic Surgical History History of hysterectomy History of lumbar surgery History of total left hip replacement Hx of bladder repair surgery Family History Family History Mother Heart attack Father Pacemaker Leukemia Social History Social History Household Members: Spouse Alcohol intake: never Patient Tobacco Use Status: Current everyday Tobacco user Tobacco use type: Cigarette Cigarettes Per Day: 4 Years Smoked: 40 +/- Smoked in Last 30 Days: Yes Use of substances other than those prescribed or required for medical reasons: Yes Substance Use Type: Marijuana Substance Use Frequency: Occasionally Advance Directives: No Advance Directives Information Provided: No Physical Exam ED Vital Signs: Vital Signs - 24 hr 10/12/22 10:00 10/12/22 14:51 Temperature 98.7 F 101.3 F H Pulse Rate 68 72 Respiratory Rate 16 16 Blood Pressure 135/55 L 157/60 H Pulse Oximetry 98 95 Oxygen Delivery Method Room Air Room Air BMI result Body Mass Index 26.5 Vital signs have been reviewed as appeared to be correct. Blood pressure normal. Heart rate normal. Respiration rate normal. Temperature normal. Oxygen saturation normal. Appearance: Alert. Oriented X3. No acute distress. Head: Normal external exam. Normocephalic. Atraumatic. No Bentley signs noted. No raccoon eyes noted Eyes: PERRLA. EOMI. Conjunctiva and sclera normal. Eyelids normal. ENT: TM's Normal. Pharynx normal. Uvula midline. Moist mucous membranes. No trismus noted. No drooling noted. No muffled voice noted. Neck: Normal inspection. Neck supple. FROM. No adenopathy. Thyroid Normal. No meningeal signs. No neck mass noted. CVS: Normal heart rate and rhythm. Heart sound normal. No murmurs noted. Pulses normal throughout. Respiratory: No respiratory distress. Painless inspiration. Breath sounds normal. No wheezes/rales/rhonchi noted. Chest nontender. No accessory muscle usage noted or decreased air movement noted. Abdomen: Soft and nontender. Bowel sounds normal in all 4 quadrants. No distention noted. No organomegaly noted. No visible injury noted. Back: No CVA tenderness. Full range of motion noted. Skin: Skin warm and dry. Normal skin color. Normal skin turgor. No rashes /lesions/lacerations noted. Extremities: No lower extremity edema. Extremities exhibit normal range of motion. Extremities nontender. Neuro: Oriented X 3. Cranial nerve exam: II-XII are grossly intact No motor deficit. No sensory deficit. Reflexes normal. Course Course Course Narrative: A 71-year-old female came in for fever, generalized weakness, dehydration. Patient is receiving IV hydration still awaiting for UA and repeat electrolytes after hydration, he signed out to . Medications Administered Discontinued Medications Generic Name Dose Route Start Last Admin Trade Name Freq PRN Reason Stop Dose Admin Sodium Chloride 1,000 mls @ 999 mls/hr 10/12/22 12:29 10/12/22 14:02 Ns IV 10/12/22 13:29 Infused .Q1H1M ONE Infusion Sodium Chloride 1,000 mls @ 999 mls/hr 10/12/22 14:45 10/12/22 14:57 Ns IV 10/12/22 15:45 999 mls/hr .Q1H1M ONE Administration Lidocaine 1 patch 10/12/22 12:51 10/12/22 13:11 Lidocaine 4 % Patch Adh..Patch TRANSDERMA 10/12/22 12:52 1 patch ONCE ONE Administration Protocol Morphine Sulfate 1 mg 10/12/22 13:49 10/12/22 14:01 Morphine Sulfate 2 Mg/Ml Cartridge IVPUSH 10/12/22 13:50 1 mg ONCE ONE Administration Protocol Medical Decision Making Differential Diagnosis Differential Diagnoses: The differential diagnosis associated with the presentation includes (Electrolyte abnormalities, dehydration, UTI, pneumonia.) Admission/Observation Consideration of admission/observation: Escalation of care including admission/observation considered Lab Data MDM Lab Attestation statement: I reviewed the patient's lab results. 10/12/22 10:46 10/12/22 10:46 Labs: Lab Results 10/12/22 10/12/22 10/12/22 Range/Units 10:45 10:45 10:45 WBC (4.8-10.8) X10*3/uL RBC (4.20-5.50) X10*6/uL Hgb (12.0-16.0) g/dl Hct (37.0-47.0) % MCV (80.0-98.0) fL MCH (27.0-33.0) pg MCHC (31.0-35.0) g/dl RDW (11.0-16.0) % Plt Count (160-400) X10*3/uL MPV (9.4-12.3) fL Immature Gran % (Auto) (0.0-0.4) % Neut % (Auto) (45-73) % Lymph % (Auto) (20-40) % [place] % (Auto) (2-11) % Eos % (Auto) (0-4) % Baso % (Auto) (0-2) % Lymph # (Auto) (1.2-4.9) X10*3/uL [place] # (Auto) (0.1-1.2) X10*3/uL Eos # (Auto) (0.0-0.4) X10*3/uL Baso # (Auto) (0.0-0.2) X10*3/uL Abs Immat Gran (auto) (0.00-0.03) X10*3/uL Absolute Neuts (auto) (2.0-8.3) x10*3/uL Absolute Nucleated RBC (0.0-0.012) X10*3/uL Nucleated RBC % (auto) (0.0-0.2) /100WBC Smear Tech's Comments Sodium (135-145) mmol/L Potassium (3.3-5.1) mmol/L Chloride (96-108) mmol/L Carbon Dioxide (22-29) mmol/L Anion Gap (12-20) BUN (9-16) mg/dL Creatinine (0.5-1.4) mg/dL Estim Creat Clear Calc Estimated GFR Random Glucose (60-115) mg/dL Lactic Acid 1.4 (0.5-2.0) mmol/L Calcium (8.4-10.2) mg/dL Total Bilirubin (0.0-1.0) mg/dL Direct Bilirubin (0.0-0.5) mg/dL AST (5-31) U/L ALT (0-31) U/L Alkaline Phosphatase (39-117) U/L Troponin I High Sens 43.9 H (<3.5-17.0) ng/L Total Protein (6.5-8.0) g/dL Albumin (3.5-5.0) g/dL Lipase (8-78) U/L COVID-19 ([place]) Negative (Negative) COVID-19 Clin Com See Note Influenza Type A ([facility]) (Negative) Influenza Type B ([facility]) (Negative) Influenza A & B Note 10/12/22 10/12/22 10/12/22 Range/Units 10:46 10:46 10:46 WBC 5.2 (4.8-10.8) X10*3/uL RBC 4.08 L (4.20-5.50) X10*6/uL Hgb 12.5 (12.0-16.0) g/dl Hct 36.7 L (37.0-47.0) % MCV 90.0 (80.0-98.0) fL MCH 30.6 (27.0-33.0) pg MCHC 34.1 (31.0-35.0) g/dl RDW 13.1 (11.0-16.0) % Plt Count 230 (160-400) X10*3/uL MPV 8.9 L (9.4-12.3) fL Immature Gran % (Auto) 0.6 H (0.0-0.4) % Neut % (Auto) 72.7 (45-73) % Lymph % (Auto) 16.7 L (20-40) % [place] % (Auto) 9.6 (2-11) % Eos % (Auto) 0.2 (0-4) % Baso % (Auto) 0.2 (0-2) % Lymph # (Auto) 0.9 L (1.2-4.9) X10*3/uL [place] # (Auto) 0.5 (0.1-1.2) X10*3/uL Eos # (Auto) 0.0 (0.0-0.4) X10*3/uL Baso # (Auto) 0.0 (0.0-0.2) X10*3/uL Abs Immat Gran (auto) 0.03 (0.00-0.03) X10*3/uL Absolute Neuts (auto) 3.8 (2.0-8.3) x10*3/uL Absolute Nucleated RBC 0.000 (0.0-0.012) X10*3/uL Nucleated RBC % (auto) 0.0 (0.0-0.2) /100WBC Smear Tech's Comments VERIFIED Sodium 129 L (135-145) mmol/L Potassium 4.2 (3.3-5.1) mmol/L Chloride 94 L (96-108) mmol/L Carbon Dioxide 25 (22-29) mmol/L Anion Gap 14 (12-20) BUN 8 L (9-16) mg/dL Creatinine 0.75 (0.5-1.4) mg/dL Estim Creat Clear Calc 57.9 Estimated GFR > 60 Random Glucose 127 H (60-115) mg/dL Lactic Acid (0.5-2.0) mmol/L Calcium 9.6 (8.4-10.2) mg/dL Total Bilirubin 0.6 (0.0-1.0) mg/dL Direct Bilirubin 0.2 (0.0-0.5) mg/dL AST 29 (5-31) U/L ALT 28 (0-31) U/L Alkaline Phosphatase 53 (39-117) U/L Troponin I High Sens (<3.5-17.0) ng/L Total Protein 7.6 (6.5-8.0) g/dL Albumin 4.0 (3.5-5.0) g/dL Lipase 22 (8-78) U/L COVID-19 ([place]) (Negative) COVID-19 Clin Com Influenza Type A ([facility]) Negative (Negative) Influenza Type B ([facility]) Negative (Negative) Influenza A & B Note See Note Discharge Plan Discharge Clinical Impression: Fever Patient Disposition: Still a Patient Prescriptions: No Action lisinopril 10 mg tablet 10 mg PO DAILY flu vacc [id number](65yr up)-PF 240 mcg/0.7 mL syringe IM levothyroxine 88 mcg tablet 88 mcg PO DAILY albuterol sulfate 90 mcg/actuation HFA aerosol inhaler inhalation diclofenac sodium [Arthritis Pain (diclofenac)] 1 % gel 4 g topical QID PRN (Reason: pain) 30 Days Qty: 100 0RF Rx Instructions: apply to affected areas as needed up to four times per day. [facility] .Route Qty: 1 0RF Rx Instructions: As directed docusate sodium 100 mg capsule 100 mg PO DAILY azithromycin 250 mg tablet 250 mg PO DAILY desonide 0.05 % ointment topical BID hydrocodone-acetaminophen 5-325 mg tablet 1.5 tab PO DAILY PRN (Reason: pain) 30 Days Qty: 40 0RF Rx Instructions: Partial Fill upon patient request.
[2022-10-12] MEDS: 0.9 % Sodium Chloride 1,000 ML 999 ML IV ×2 (12:49→14:57)
[2022-10-12] MEDS: Lidocaine 4 % Patch ADH..PATCH 1 PATCH TRANSDERMA (13:11)
[2022-10-12] MEDS: Morphine Sulfate 2 MG/ML CARTRIDGE 1 MG IVPUSH (14:01)
[2022-10-12 14:51] VITALS: BP 157/60; PULSE 72; RESP 16; TEMP 38.5; O2SAT 95
[2022-10-12 16:12] VITALS: BP 155/72; PULSE 75; RESP 20; TEMP 37.3; O2SAT 96
[2022-10-12 16:20] LABS: Appearance Urine Clear; Color Urine Yellow; Glucose Urine UA Negative (Negative); Leukocyte Esterase Urine Trace (Negative); Nitrite Urine Negative (Negative); Specific Gravity - Urine 1.015 (1.005-1.025); UMIC TRIGGER UACC YES; Urine Blood Negative (Negative); Urine Ketones 15 mg/dL (Negative); Urine Protein Trace mg/dL (Neg-Trace)
[2022-10-12 16:25] LABS: Bacteria Urine None Seen (None Seen); Hyaline Casts Urine 0-2 /LPF (0-2); Squamous Epithelial Cell Urine 0-2 /HPF (0-2); WBC Urine 0-5 /HPF (0-5)
[2022-10-12 16:26] LABS: Anion Gap 17 (12-20); Blood Urea Nitrogen 8 mg/dL (9-16); Calcium 9.5 mg/dL (8.4-10.2); Carbon Dioxide 22 mmol/L (22-29); Chloride 94 mmol/L (96-108); Creatinine Clr Calc Pharmacy 60.3; Estimated Glomerular Filt Rate > 60; Glucose Random 125 mg/dL (60-115); Potassium 4.3 mmol/L (3.3-5.1); Sodium 129 mmol/L (135-145)
--- NOTE | 2022-10-12 16:28 | PC.NURSE ---
medicated per mar. labs drawn. denies pain. resting comfortably on stretcher in no apparent distress with at bedside. vss. wctm
[2022-10-12 16:33] LABS: Troponin-I High Sensitivity 16.8 ng/L (<3.5-17.0)
[2022-10-12 18:40] VITALS: BP 156/77; PULSE 63; RESP 12; TEMP 38.6; O2SAT 98
[2022-10-12] MEDS: Benzonatate 100 MG CAPSULE 200 MG PO (18:41)
[2022-10-12 18:44] VITALS: RESP 20
[2022-10-12] MEDS: Morphine Sulfate 2 MG/ML CARTRIDGE IVPUSH (18:44)
== END 2022-10-12 19:07 | disposition home or self-care (01) ==
PROVIDERS: Emergency Provider Emergency Medicine; PCP Family Medicine
DX: J40 Bronchitis, not specified as acute or chronic (principal); R50.9 Fever, unspecified; F17.210 Nicotine dependence, cigarettes, uncomplicated; F12.90 Cannabis use, unspecified, uncomplicated; Z20.822 Contact with and (suspected) exposure to COVID-19
CPT/HCPCS: 36415; 71045; 80048; 80076; 81001; 83605; 83690; 84484; 85025; 87040; 87502; 87635; 93005; 96361; 96374; 96376; 99284; J2270

== ENCOUNTER 2022-11-01 14:42 | Outpatient (AMB) | payer MEDICARE, SELFPAY ==
--- NOTE | 2022-11-01 14:44 | A.OFFVIS_ITS ---
Intake Vital Signs 11/01/22 14:52 Height 5 ft 1 in Weight 135 lb 6 oz BMI 25.6 BP 142/62 H Blood Pressure Location Lt brachial Position Sitting Pulse 77 Pulse Source Pulse Oximeter Pulse Oximetry (%) 96 Oxygen Delivery Method Room Air Intake Visit Reasons: Medication Count Intake Note: Katlyn comes in today for a pill count hydrocodone-acetaminophen, patient should have 25 tablets and presents with 36 tablets which she last took last night 10/31/22 at 8pm. 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 Patient is supposed to have #25 pills, in her possession has #36 pills. This demonstrates a responsible attitude in regards to the medication regimen. Patient reports adequate analgesia on her current regimen on as needed basis with no noted side effects. Denies any fever, chills, abdominal pain, dyspnea, chest pain, shortness of breaths, cough, malaise, weight loss, constipation, nausea, sedation, dizziness, or urinary retention. Patient states she has an increased ability to perform activities of daily living, interact socially and be more functional. Patient reports she was seen in [facility] [place] acute [place]itis after recent vacation trip to [place]. She reports catching a cold and COVID prior to vacation and feels exhausted and fatigued since then. [facility] Medical History Arthritis Benign essential HTN Failed back syndrome, lumbar GERD (gastroesophageal reflux disease) Hypothyroidism Lumbar radiculopathy, chronic Surgical History History of hysterectomy History of lumbar surgery History of total left hip replacement Hx of bladder repair surgery Family History Mother Heart attack Father Pacemaker Leukemia Social History Household Members: Spouse Alcohol intake: never Patient Tobacco Use Status: Current everyday Tobacco user Tobacco use type: Cigarette Cigarettes Per Day: 4 Years Smoked: 40 +/- Substance Use Type: Marijuana Review of Systems Const All systems reviewed & are unremarkable except as noted in HPI and below Physical Exam Vital Signs: Last Vital Signs Pulse 77 11/01/22 14:52 BP 142/62 H 11/01/22 14:52 Pulse Ox 96 11/01/22 14:52 Oxygen Delivery Method Room Air 11/01/22 14:52 BMI result Body Mass Index 25.6 General: Appears afebrile. Alert and oriented. Mood and affect appropriate. Follows and participates in conversation appropriately. Respiratory effort is unlabored. No cough. Able to transition from sit to stand unassisted. Ambulates with bilaterally normal heel strike and toe off. Resp Effort & Inspection: normal respiratory effort, able to speak in complete sentences, no audible wheezes, Actively coughing, no respiratory distress and symmetric chest movement Auscultation: diminished lung sounds bilateral in the lower lung espinosa Extrem General: Yes capillary refill normal and Yes no clubbing, cyanosis or edema Psych Appearance: grossly normal and well kempt Mental Status: mental status grossly normal Speech and movement: Normal speech and movement present and Clear speech present Affect: normal affect Attitude: cooperative Thought process: Normal thought process present Thought content: Normal thought content present, suicidality (none), no hallucinations and No Depressive thoughts present Insight: Good insight present (Psych) Judgement: Good judgement present (Psych) Results Reviewed Results Reviewed: XR CHEST 10/12/22 CLINICAL INFORMATION: Left flank pain. General body aches. COMPARISON: Chest x-ray dated 09/18/2021. FINDINGS: The cardiomediastinal silhouette is within normal limits in size. Calcification of the aortic arch is seen. Mild chronic elevation of the right mid diaphragm is seen. Minimal bibasilar linear opacities are noted, consistent with linear atelectasis.. No focal consolidation, effusion or pneumothorax is seen. Bony structures are unremarkable. No definite rib fractures appreciated on portable film. IMPRESSION: Minimal bibasilar linear atelectasis. No focal pneumonia. 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 [employer] reviewed. Will send in a prescription for hydrocodone-acetaminophen 5- 325 mg?#40/30 days with an advanced date of 11/25/22. She is aware of monitoring for side effects. Discussed with the patient the risks associated with benzodiazepine and opioid use. Follow up with your PCP regarding cough and bronchitis symptoms. Patient was instructed on Incentive Spirometry use today to assist her in taking deep, slow breaths and reverse atelectasis as noted on recent CXR in ER on 10/12/22. All questions and concerns were answered and the patient is in agreement with the plan. Will follow up in one month pill count and sooner if needed. Medications: Refilled hydrocodone-acetaminophen 5-325 mg Partial Fill upon patient request. 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
[2022-11-01 14:52] VITALS: BP 142/62; PULSE 77; O2SAT 96; BMI 25.6
== END 2022-11-01 15:15 | disposition home or self-care (01) ==
PROVIDERS: PCP Family Medicine; Visit Provider Nurse Practitioner Family
DX: M54.16 Radiculopathy, lumbar region (principal); Z79.891 Long term (current) use of opiate analgesic; M96.1 Postlaminectomy syndrome, not elsewhere classified; M79.18 Myalgia, other site; J98.11 Atelectasis
CPT/HCPCS: 99214

== ENCOUNTER → 2022-11-01 14:42 | Outpatient (BNVA) | payer MEDICARE, SELFPAY | PROVIDERS: PCP Family Medicine; Visit Provider Nurse Practitioner Family | DX: Z51.81 Encounter for therapeutic drug level monitoring (principal); M54.16 Radiculopathy, lumbar region; M96.1 Postlaminectomy syndrome, not elsewhere classified; M79.18 Myalgia, other site; J98.11 Atelectasis; Z79.891 Long term (current) use of opiate analgesic | CPT/HCPCS: 99212 ==

== ENCOUNTER 2022-11-05 15:39 | Outpatient (REF) | payer MEDICARE, SELFPAY ==
--- NOTE | ~2022-11-05 | XR_ITS ---
EXAMINATION: XR CHEST CLINICAL INFORMATION: Cough COMPARISON: Previous chest x-ray most recent September 2022 TECHNIQUE: 2 views of the chest were obtained. FINDINGS: The cardiac and mediastinal contours are stable. The lungs are clear. No pleural effusion or pneumothorax. Degenerative changes of the spine. XR/XR chest 2V IMPRESSION: No evidence for acute disease in the chest.
== END 2022-11-05 15:40 | disposition home or self-care (01) ==
LOC: HO.XRAY 15:39
PROVIDERS: PCP Family Medicine; Visit Provider Family Medicine
DX: R05.9 Cough, unspecified (principal); R06.2 Wheezing
CPT/HCPCS: 71046

== ENCOUNTER → 2022-12-02 10:07 | Outpatient (BNVA) | payer MEDICARE, SELFPAY | PROVIDERS: PCP Family Medicine; Visit Provider Nurse Practitioner Family | DX: Z79.891 Long term (current) use of opiate analgesic (principal) | CPT/HCPCS: 99211 ==

== ENCOUNTER 2023-01-14 10:31 | Outpatient (AMB) | payer MEDICARE, SELFPAY ==
--- NOTE | 2023-01-14 10:39 | MHC.OFFVIS ---
Intake Vital Signs 01/14/23 10:48 Height 5 ft 1 in Weight 140 lb 2 oz BMI 26.5 BP 140/84 H Blood Pressure Location Rt brachial Position Sitting Pulse 65 Pulse Source Pulse Oximeter Pulse Oximetry (%) 98 Oxygen Delivery Method Room Air Intake Visit Reasons: Pill count/ CONFIRMED Intake Note: Katlyn comes in today for a pill count to hydorcodone-acetaminophen, patient should have 34 tablets and presents with 38 tablets which she last took last night 01/13/23 at 5pm. Pain today 08/28 Columnist/Commentator Required: No Accompanied by: Self / Same As Patient Allergies No Known Allergies Allergy (Unknown, Verified 01/14/23 10:48) HPI HPI Comments History of Present Illness Details Patient returns today for a pill count. Patient is supposed to have #34 pills, in her possession has #38 pills. This demonstrates a responsible attitude in regards to the medication regimen. Patient reports mild to moderate analgesia on her current regimen on as needed basis with no noted side effects. Denies any fever, chills, abdominal pain, dyspnea, chest pain, shortness of breaths, cough, malaise, weight loss, constipation, nausea, sedation, dizziness, or urinary retention. Patient states she has an increased ability to perform activities of daily living, interact socially and be more functional. Patient requests referral for Physical Therapy for low back, bilateral hip and leg pain. She reports feeling physically deconditioned since COVID illness this summer and would like to strengthen her core, back and lower extremities. Denies any radicular symptoms into bilateral lower extremities, denies any bowel or bladder dysfunction or saddle anesthesia. [facility] Medical History Arthritis GERD (gastroesophageal reflux disease) Lumbar radiculopathy, chronic Hypothyroidism Benign essential HTN Failed back syndrome, lumbar Surgical History Hx of bladder repair surgery History of lumbar surgery History of hysterectomy History of total left hip replacement Family History Mother Heart attack Father Pacemaker Leukemia Social History Household Members: Spouse Alcohol intake: never Patient Tobacco Use Status: Current everyday Tobacco user Tobacco use type: Cigarette Cigarettes Per Day: 4 Years Smoked: 40 +/- Substance Use Type: Marijuana Review of Systems Const All systems reviewed & are unremarkable except as noted in HPI and below Physical Exam Vital Signs: Last Vital Signs Pulse 65 01/14/23 10:48 BP 140/84 H 01/14/23 10:48 Pulse Ox 98 01/14/23 10:48 Oxygen Delivery Method Room Air 01/14/23 10:48 BMI result Body Mass Index 26.5 General: Appears afebrile. Alert and oriented. Mood and affect appropriate. Follows and participates in conversation appropriately. Respiratory effort is unlabored. No cough. Able to transition from sit to stand unassisted. Ambulates with bilaterally normal heel strike and toe off. Psych Appearance: grossly normal Mental Status: mental status grossly normal Speech and movement: Normal speech and movement present Affect: normal affect Attitude: cooperative Thought process: Normal thought process present Thought content: Normal thought content present, suicidality (none), no hallucinations and No Depressive thoughts present Insight: Good insight present (Psych) Judgement: Good judgement present (Psych) Assessment & Plan Assessment & Plan (1) Hip pain, bilateral: Code(s): M25.551 - Pain in right hip; M25.552 - Pain in left hip (2) Failed back syndrome, lumbar: Code(s): M96.1 - Postlaminectomy syndrome, not elsewhere classified (3) Low back pain: Code(s): M54.50 - Low back pain, unspecified (4) Opioid contract exists: Code(s): 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 [employer] reviewed. Will send in a prescription for hydrocodone-acetaminophen 5-325 mg?#40/30 days with an advanced date of 02/08/23. She is aware of monitoring for side effects. Discussed with the patient the risks associated with benzodiazepine and opioid use. Script provided for physical therapy at patient's request. All questions and concerns were answered and the patient is in agreement with the plan. Will follow up in one month pill count and sooner if needed. Orders: Orders PT Evaluation and Treatment Today M25.551 - Pain in right hip, M25.552 - Pain in left hip, M54.50 - Low back pain, unspecified, M96.1 - Postlaminectomy syndrome, not elsewhere classified Medications: Refilled hydrocodone-acetaminophen 5-325 mg Partial Fill upon patient request. 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
[2023-01-14 10:48] VITALS: BP 140/84; PULSE 65; O2SAT 98; BMI 26.5
== END 2023-01-14 11:05 | disposition home or self-care (01) ==
PROVIDERS: PCP Family Medicine; Visit Provider Nurse Practitioner Family
DX: M25.551 Pain in right hip (principal); M25.552 Pain in left hip; M96.1 Postlaminectomy syndrome, not elsewhere classified; Z79.891 Long term (current) use of opiate analgesic; M54.50 Low back pain, unspecified; M54.16 Radiculopathy, lumbar region; M79.18 Myalgia, other site
CPT/HCPCS: 99214

== ENCOUNTER → 2023-01-14 10:31 | Outpatient (BNVA) | payer MEDICARE, SELFPAY | PROVIDERS: PCP Family Medicine; Visit Provider Nurse Practitioner Family | DX: M96.1 Postlaminectomy syndrome, not elsewhere classified (principal); M54.50 Low back pain, unspecified; M54.16 Radiculopathy, lumbar region; M25.551 Pain in right hip; M25.552 Pain in left hip; M79.18 Myalgia, other site; Z96.642 Presence of left artificial hip joint; Z79.891 Long term (current) use of opiate analgesic | CPT/HCPCS: 99212 ==

== ENCOUNTER 2023-02-04 10:28 | Outpatient (REF) | payer MEDICARE, SELFPAY ==
--- NOTE | ~2023-02-04 | MM_ITS ---
EXAMINATION: MM SCREENING DIGITAL BREAST TOMOSYNTHESIS, BILATERAL CLINICAL INFORMATION: Screening. Asymptomatic. COMPARISON: Mammography: This study is compared with prior exams dating back to 2017. TECHNIQUE: Digital breast tomosynthesis is performed in both the craniocaudal and mediolateral oblique views along with computer-aided detection (CAD). Synthesized 2D images are generated from the tomosynthesis. FINDINGS: There are scattered areas of fibroglandular density (ACR BI-RADS breast composition Category b). There are no significant masses, abnormal calcifications, or other abnormalities. There are benign secretory calcifications in the upper outer quadrant of the left breast. These have been slowly coarsening over time. MM/MM tomosynthesis screening BI IMPRESSION: No mammographic evidence of malignancy. ASSESSMENT: BI-RADS BI-RADS 2 - Benign Findings RECOMMENDATION: Routine annual mammography screening. 1 year F/U This examination should not preclude the clinical evaluation of a suspicious palpable abnormality. This patient's information was entered into a reminder system with a target due date for their next mammogram.
== END 2023-02-04 10:29 | disposition home or self-care (01) ==
LOC: HO.MAMMO 10:28
PROVIDERS: Visit Provider Family Medicine
DX: Z12.31 Encounter for screening mammogram for malignant neoplasm of breast (principal)
CPT/HCPCS: 77063; 77067

== ENCOUNTER → 2023-02-04 10:30 | Outpatient (BNV) | payer MEDICARE, SELFPAY | PROVIDERS: Visit Provider Radiology Diagnostic Radiology | DX: Z12.31 Encounter for screening mammogram for malignant neoplasm of breast (principal) | CPT/HCPCS: 77063; 77067 ==

== ENCOUNTER 2023-02-17 10:31 | Outpatient (AMB) | payer MEDICARE, SELFPAY ==
[2023-02-17 10:35] VITALS: BP 138/65; PULSE 66; O2SAT 98; BMI 25.6
--- NOTE | 2023-02-17 10:35 | MHC.OFFVIS ---
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 Patient is supposed to have #26.5 pills, in her possession has #32 pills. This demonstrates a responsible attitude in regards to the medication regimen. Patient reports mild to moderate analgesia on her current regimen on as needed basis with no noted side effects. Denies any fever, chills, abdominal pain, dyspnea, chest pain, shortness of breaths, cough, malaise, weight loss, constipation, nausea, sedation, dizziness, or urinary retention. Patient states she has an increased ability to perform activities of daily living, interact socially and be more functional. Patient started Physical Therapy for low back, bilateral hip and leg pain and completed 1 session without significant improvement. Previous lumbar spine MRI was done at 2012 prior to her back surgery by Dr. Ibarra. Denies any radicular symptoms into bilateral lower extremities, denies any bowel or bladder dysfunction or saddle anesthesia. [facility] Medical History Arthritis GERD (gastroesophageal reflux disease) Lumbar radiculopathy, chronic Hypothyroidism Benign essential HTN Failed back syndrome, lumbar Surgical History Hx of bladder repair surgery History of lumbar surgery History of hysterectomy History of total left hip replacement Family History Mother Heart attack Father Pacemaker Leukemia Social History Household Members: Spouse Alcohol intake: never Patient Tobacco Use Status: Current everyday Tobacco user Tobacco use type: Cigarette Cigarettes Per Day: 4 Years Smoked: 40 +/- Substance Use Type: Marijuana Review of Systems Const All systems reviewed & are unremarkable except as noted in HPI and below Physical Exam Vital Signs: Last Vital Signs Pulse 66 02/17/23 10:35 BP 138/65 02/17/23 10:35 Pulse Ox 98 02/17/23 10:35 Oxygen Delivery Method Room Air 02/17/23 10:35 BMI result Body Mass Index 25.6 General: Appears afebrile. Alert and oriented. Mood and affect appropriate. Follows and participates in conversation appropriately. Respiratory effort is unlabored. No cough. Able to transition from sit to stand unassisted. Ambulates with bilaterally normal heel strike and toe off. Back/Spine/Pelvis Cervical Spine: cervical ROM normal and No Cervical spine tenderness Thoracic/Lumbar Spine: thoracic and lumbar spine normal to inspection, Thoracic/lumbar spine scar(s), Lasegue's sign negative, straight leg raise negative bilaterally, pain with thoraco-lumbar ROM, paraspinal muscle tenderness, thoraco-lumbar ROM limited, No thoracic spinal tenderness and lumbar spinal tenderness at L4 and at L5 Sacroiliac joints: on the right nontender and on the left tender to palpation Psych Appearance: grossly normal Mental Status: mental status grossly normal Speech and movement: Normal speech and movement present Affect: normal affect Attitude: cooperative Thought process: Normal thought process present Thought content: Normal thought content present, suicidality (none), no hallucinations and No Depressive thoughts present Insight: Good insight present (Psych) Judgement: Good judgement present (Psych) Results Reviewed Results Reviewed: MRI OF THE LUMBAR SPINE AND SACRUM WITHOUT CONTRAST 06/15/2012 CLINICAL INFORMATION: 61-year-old woman with radiating sacral pain. COMPARISON: None. TECHNIQUE: MRI of the lumbar spine and sacrum was obtained using routine sequences without contrast. FINDINGS: Sacrum: Bone marrow is normal in signal intensity, demonstrating no abnormal edema to suggest an unhealed sacral insufficiency fracture. Exiting sacral nerve roots at S1, S2, S3, and S4 are unremarkable in their MR appearance. The SI joints appear intact and no unhealed superior or inferior pubic rami fractures are visualized. Lumbar spine: On the sagittal images, there is grade 1 anterolisthesis of L4 on L5 and of L5 on S1 without convincing identification of pars defects either side. Vertebral bodies remain normal in height. There is desiccation of the intervertebral discs with mild volume loss at L4-L5. The conus terminates at the L1-L2 level and appears intrinsically normal. There is however a suggestion of some clumping and/or thickening of nerve roots, especially around the L2-L3 level. L1-L2: A small diffuse disc bulge is eccentric to the right. The central and neural foramina remain patent. L2-L3: There is a diffuse disc bulge with a broad-based posterior to right anterolateral disc protrusion. There is moderate facet arthrosis and hypertrophy of the ligamentum flavum. In concert, these findings lead to moderate canal stenosis and mild left and at least moderate right foraminal narrowing with possible mass effect on the exiting right L2 nerve root. L3-L4: There is a small diffuse disc bulge and moderate facet arthrosis. The central canal remains patent. There is mild narrowing of the left neural foramen. L4-L5: The disc is slightly uncovered. There is marked bilateral facet arthrosis and hypertrophy of the ligamentum flavum, right greater than left. These findings lead to mild canal stenosis and also mild narrowing of the left neural foramen. L5-S1: The disc is slightly uncovered with a small superimposed bulge. The central canal remains patent. There is mild left foraminal narrowing. There is marked bilateral facet arthrosis. IMPRESSION: 1. Multifactorial degenerative changes at L2-L3 lead to moderate canal stenosis and mild left and at least moderate right foraminal narrowing with possible mass effect on the exiting right L2 nerve root. There is a suggestion of abnormal clumping/thickening of nerve roots around at this level that could relate to canal stenosis and some motion artifact. However repeat imaging utilizing contrast is probably prudent to exclude underlying pathology. 2. No imaging findings suggestive of an unhealed sacral insufficiency fracture. Assessment & Plan Assessment & Plan (1) Hip pain, bilateral: Code(s): M25.551 - Pain in right hip; M25.552 - Pain in left hip (2) Failed back syndrome, lumbar: Code(s): M96.1 - Postlaminectomy syndrome, not elsewhere classified (3) Low back pain: Code(s): M54.50 - Low back pain, unspecified (4) Opioid contract exists: Code(s): Z79.891 - [facility] (current) use of opiate analgesic (5) Lumbar radiculopathy, chronic: Code(s): M54.16 - Radiculopathy, lumbar region Plan Patient has shown accountability for her medication regimen and the pill count was accurate.?There is no evidence of misuse, abuse or diversion at this time. [employer] reviewed. Will send in a prescription for hydrocodone-acetaminophen 5-325 mg?#40/30 days with an advanced date of 03/11/23. She is aware of monitoring for side effects. Discussed with the patient the risks associated with benzodiazepine and opioid use. Script provided for physical therapy at patient's request. All questions and concerns were answered and the patient is in agreement with the plan. Will follow up in one month pill count and sooner if needed. Medications: Refilled hydrocodone-acetaminophen 5-325 mg Partial Fill upon patient request. 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
== END 2023-02-17 10:51 | disposition home or self-care (01) ==
PROVIDERS: PCP Family Medicine; Visit Provider Nurse Practitioner Family
DX: M25.551 Pain in right hip (principal); M25.552 Pain in left hip; M96.1 Postlaminectomy syndrome, not elsewhere classified; Z79.891 Long term (current) use of opiate analgesic; M54.50 Low back pain, unspecified; M54.16 Radiculopathy, lumbar region
CPT/HCPCS: 99214

== ENCOUNTER → 2023-02-17 10:31 | Outpatient (BNVA) | payer MEDICARE, SELFPAY | PROVIDERS: PCP Family Medicine; Visit Provider Nurse Practitioner Family | DX: Z51.81 Encounter for therapeutic drug level monitoring (principal); M25.551 Pain in right hip; M25.552 Pain in left hip; M96.1 Postlaminectomy syndrome, not elsewhere classified; M54.50 Low back pain, unspecified; M54.16 Radiculopathy, lumbar region; Z79.891 Long term (current) use of opiate analgesic | CPT/HCPCS: 99212 ==

== ENCOUNTER 2023-03-06 09:51 | Outpatient (REF) | payer MEDICARE, SELFPAY ==
[2023-03-06 13:11] LABS: MANUAL DIFF FLAG NO
[2023-03-06 13:24] LABS: Basophils Percent Auto 0.3 % (0-2); Eosinophils Absolute Auto 0.2 X10*3/uL (0.0-0.4); Eosinophils Percent Auto 3.2 % (0-4); Hematocrit 37.6 % (37.0-47.0); Hemoglobin 12.3 g/dl (12.0-16.0); Imm Gran Abs Auto 0.03 X10*3/uL (0.00-0.03); Imm Gran Pct Auto 0.5 % (0.0-0.4); Lymphocytes Absolute Auto 1.5 X10*3/uL (1.2-4.9); Lymphocytes Percent Auto 25.5 % (20-40); Mean Corpuscular HGB Conc 32.7 g/dl (31.0-35.0); Mean Corpuscular Hemoglobin 30.3 pg (27.0-33.0); Mean Corpuscular Volume 92.6 fL (80.0-98.0); Mean Platelet Volume 9.5 fL (9.4-12.3); Monocytes Absolute Auto 0.5 X10*3/uL (0.1-1.2); Monocytes Percent Auto 8.7 % (2-11); Neutrophils Absolute Auto 3.7 x10*3/uL (2.0-8.3); Neutrophils Percent Auto 61.8 % (45-73); Platelet Count 296 X10*3/uL (160-400); Red Blood Count 4.06 X10*6/uL (4.20-5.50); Red Cell Distribution Width 12.8 % (11.0-16.0)
[2023-03-06 13:43] LABS: Alanine Aminotransferase 13 U/L (0-31); Albumin Level 4.1 g/dL (3.5-5.0); Alkaline Phosphatase 60 U/L (39-117); Anion Gap 10 (12-20); Aspartate Amino Transferase 19 U/L (5-31); Bilirubin Total 0.3 mg/dL (0.0-1.0); Blood Urea Nitrogen 10 mg/dL (9-16); Calcium 9.4 mg/dL (8.4-10.2); Carbon Dioxide 26 mmol/L (22-29); Chloride 103 mmol/L (96-108); Estimated Glomerular Filt Rate > 60; Glucose Random 88 mg/dL (60-115); Potassium 4.2 mmol/L (3.3-5.1); Sodium 135 mmol/L (135-145)
== END 2023-03-06 09:52 | disposition home or self-care (01) ==
LOC: HO.HMGCLDS 09:51
PROVIDERS: PCP Family Medicine; Visit Provider Family Medicine
DX: E03.9 Hypothyroidism, unspecified (principal); R53.81 Other malaise; E87.1 Hypo-osmolality and hyponatremia
CPT/HCPCS: 36415; 80053; 84439; 85025

== ENCOUNTER 2023-03-17 11:09 | Outpatient (AMB) | payer MEDICARE, SELFPAY ==
--- NOTE | 2023-03-17 11:10 | MHC.OFFVIS ---
Intake Vital Signs 03/17/23 11:19 Height 5 ft 2 in Weight 137 lb 2 oz BMI 25.1 BP 145/68 H Blood Pressure Location Lt brachial Position Sitting Pulse 68 Pulse Source Pulse Oximeter Pulse Oximetry (%) 97 Oxygen Delivery Method Room Air Intake Visit Reasons: PILL COUNT/lvm Intake Note: Katlyn comes in today for a pill count to hydrocodone-acetaminophen, patient should have 32.5 tablets and presents with 35 tablets which she last took last night 03/16/23 at 7pm. Pain today 06/28 Net Manager Required: No Accompanied by: Self / Same As Patient Allergies No Known Allergies Allergy (Unknown, Verified 03/17/23 11:19) HPI HPI Comments History of Present Illness Details Patient returns today for a pill count. Patient is supposed to have #35 pills, in her possession has #32.5 pills. This demonstrates a responsible attitude in regards to the medication regimen. Patient reports mild to moderate analgesia on her current regimen on as needed basis with no noted side effects. Denies any fever, chills, abdominal pain, dyspnea, chest pain, shortness of breaths, cough, malaise, weight loss, constipation, nausea, sedation, dizziness, or urinary retention. Patient states she has an increased ability to perform activities of daily living, interact socially and be more functional. Patient reports she is completing course of Physical Therapy for low back, bilateral hip and leg pain tomorrow and will continue home exercise program. She notes mild improvement in her symptoms and better functioning. [facility] Medical History Arthritis GERD (gastroesophageal reflux disease) Lumbar radiculopathy, chronic Hypothyroidism Benign essential HTN Failed back syndrome, lumbar Surgical History Hx of bladder repair surgery History of lumbar surgery History of hysterectomy History of total left hip replacement Family History Mother Heart attack Father Pacemaker Leukemia Household Members: Spouse Alcohol intake: never Patient Tobacco Use Status: Current everyday Tobacco user Tobacco use type: Cigarette Cigarettes Per Day: 4 Years Smoked: 40 +/- Substance Use Type: Marijuana Review of Systems Const All systems reviewed & are unremarkable except as noted in HPI and below Physical Exam Vital Signs: Last Vital Signs Pulse 68 03/17/23 11:19 BP 145/68 H 03/17/23 11:19 Pulse Ox 97 03/17/23 11:19 Oxygen Delivery Method Room Air 03/17/23 11:19 BMI result Body Mass Index 25.1 General: Appears afebrile. Alert and oriented. Mood and affect appropriate. Follows and participates in conversation appropriately. Respiratory effort is unlabored. No cough. Able to transition from sit to stand unassisted. Ambulates with bilaterally normal heel strike and toe off. Psych Appearance: grossly normal Mental Status: mental status grossly normal Speech and movement: Normal speech and movement present Affect: normal affect Attitude: cooperative Thought process: Normal thought process present Thought content: Normal thought content present, suicidality (none), no hallucinations and No Depressive thoughts present Insight: Good insight present (Psych) Judgement: Good judgement present (Psych) Results Reviewed Results Reviewed: MRI OF THE LUMBAR SPINE AND SACRUM WITHOUT CONTRAST 06/15/2012 CLINICAL INFORMATION: 61-year-old woman with radiating sacral pain. COMPARISON: None. TECHNIQUE: MRI of the lumbar spine and sacrum was obtained using routine sequences without contrast. FINDINGS: Sacrum: Bone marrow is normal in signal intensity, demonstrating no abnormal edema to suggest an unhealed sacral insufficiency fracture. Exiting sacral nerve roots at S1, S2, S3, and S4 are unremarkable in their MR appearance. The SI joints appear intact and no unhealed superior or inferior pubic rami fractures are visualized. Lumbar spine: On the sagittal images, there is grade 1 anterolisthesis of L4 on L5 and of L5 on S1 without convincing identification of pars defects either side. Vertebral bodies remain normal in height. There is desiccation of the intervertebral discs with mild volume loss at L4-L5. The conus terminates at the L1-L2 level and appears intrinsically normal. There is however a suggestion of some clumping and/or thickening of nerve roots, especially around the L2-L3 level. L1-L2: A small diffuse disc bulge is eccentric to the right. The central and neural foramina remain patent. L2-L3: There is a diffuse disc bulge with a broad-based posterior to right anterolateral disc protrusion. There is moderate facet arthrosis and hypertrophy of the ligamentum flavum. In concert, these findings lead to moderate canal stenosis and mild left and at least moderate right foraminal narrowing with possible mass effect on the exiting right L2 nerve root. L3-L4: There is a small diffuse disc bulge and moderate facet arthrosis. The central canal remains patent. There is mild narrowing of the left neural foramen. L4-L5: The disc is slightly uncovered. There is marked bilateral facet arthrosis and hypertrophy of the ligamentum flavum, right greater than left. These findings lead to mild canal stenosis and also mild narrowing of the left neural foramen. L5-S1: The disc is slightly uncovered with a small superimposed bulge. The central canal remains patent. There is mild left foraminal narrowing. There is marked bilateral facet arthrosis. IMPRESSION: 1. Multifactorial degenerative changes at L2-L3 lead to moderate canal stenosis and mild left and at least moderate right foraminal narrowing with possible mass effect on the exiting right L2 nerve root. There is a suggestion of abnormal clumping/thickening of nerve roots around at this level that could relate to canal stenosis and some motion artifact. However repeat imaging utilizing contrast is probably prudent to exclude underlying pathology. 2. No imaging findings suggestive of an unhealed sacral insufficiency fracture. 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 [employer] reviewed. Script for hydrocodone-acetaminophen 5-325 mg?#40/30 days sent with an advanced date of 04/09/23. She is aware of monitoring for side effects. Discussed with the patient the risks associated with benzodiazepine and opioid use. Script provided for physical therapy at patient's request. All questions and concerns were answered and the patient is in agreement with the plan. Follow up in one month pill count and sooner if needed. Medications: Refilled hydrocodone-acetaminophen 5-325 mg Partial Fill upon patient request. 1.5 tabs PO DAILY PRN 40 tabs 0RF pain 30 days M54.16 - Radiculopathy, lumbar region, M96.1 - Postlaminectomy syndrome, not elsewhere classified, Z79.891 - [facility] ([facility]) use of opiate analgesic Coding Level of Care Code Est Pt Level 4 (53780) Diagnoses Failed back syndrome, lumbar M96.1 Low back pain M54.50 Opioid contract exists Z79.891 Lumbar radiculopathy, chronic M54.16
[2023-03-17 11:19] VITALS: BP 145/68; PULSE 68; O2SAT 97; BMI 25.1
== END 2023-03-17 11:23 | disposition home or self-care (01) ==
PROVIDERS: PCP Family Medicine; Visit Provider Nurse Practitioner Family
DX: M96.1 Postlaminectomy syndrome, not elsewhere classified (principal); M54.50 Low back pain, unspecified; Z79.891 Long term (current) use of opiate analgesic; M54.16 Radiculopathy, lumbar region
CPT/HCPCS: 99214

== ENCOUNTER → 2023-03-17 11:09 | Outpatient (BNVA) | payer MEDICARE, SELFPAY | PROVIDERS: PCP Family Medicine; Visit Provider Nurse Practitioner Family | DX: M54.16 Radiculopathy, lumbar region (principal); M54.50 Low back pain, unspecified; M96.1 Postlaminectomy syndrome, not elsewhere classified; Z79.891 Long term (current) use of opiate analgesic | CPT/HCPCS: 99212 ==

== ENCOUNTER 2023-03-18 10:00 | Outpatient (RCR) | payer MEDICARE, SELFPAY ==
--- NOTE | 2023-02-12 13:14 | MHC.PT.EP ---
[facility] [place] [facility] [place] Office [place] Office [address] Bertrand Lovett [address] [phone] F: [phone] F: [phone] F: [phone] F: [phone] Physical Therapy Plan of Care Date of Evaluation: 02/12/23 Date of Surgery: n/a Diagnosis: LBP, B hip pain Assessment: Patient is a 72 year old female presenting to PT with complaints of pain in her low back and B hips. Pt reports onset of pain began over the summer due to insidious onset but shortly after she was sick. She presents today with impairments in pain, core strength, hip strength, posture. Pt's current occupation is retired, with baseline physical activities including ambulating, stair negotiation, standing, prolonged sitting. Pt expresses snf goal of reducing pain, and is motivated to work towards this in PT. Clinical presentation today is most consistent with signs and sx associated with low back and hip pain and pt will benefit from skilled PT 2 week x 4 weeks to address the following problems and impairments noted upon evaluation: pain, core strength, hip strength, posture. These problems limit the patient with the following functional activities: ambulating, stair negotiation, standing, prolonged sitting. The prescribed treatment plan of care is medically necessary. Co-morbidities of HTN were identified and taken into considerations of plan of care. Pt was educated on HEP, role of PT, prognosis, POC. Frequency and Duration: The patient will be seen 2 x week x 4 weeks Short Term Goals: Pt will demonstrate improved hip abd strength by 1/3 grade in 2 weeks for improved lumbopelvic stability. Pt will demonstrate ability to perform PPT with good core control in 2 weeks. 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 Pt will demonstrate improved LEFI score by 9 points in 4 weeks for improved functional mobility. Pt will report less pain when standing for prolonged periods of time in 4 weeks. Treatment Plan: Modalities to reduce pain, spasms and effusion. Manual therapy to restore motion and function. Therapeutic exercise to improve strength and flexibility. Neuromuscular re-education for posture and balance. Therapeutic activities to return to functional activities of daily living. Electronically signed by: Tiffanie Mac, PT, DPT, ATC Please sign and return to therapist. Thank you for your referral.
--- NOTE | 2023-03-18 10:48 | MHC.PT.DC ---
[facility] [place] Office [place] Office [place] Office [address] Bertrand Lovett [address] [phone] F: [phone] F: [phone] F: [phone] F: [phone] Physical Therapy Discharge Report Diagnosis: LBP, B hip pain Date of Surgery: n/a Date of Evaluation: 02/12/23 Date of Discharge: 03/18/23 Treatments to Date: 4 Cancellations to Date: 0 No Shows to Date: 0 Discharge Status: Improved Function Patient Elected to Stop Discharge Summary: 03/18/2023: Pt reports she is feeling better since start of care. Her pain is slightly better overall but it is still present. She still feels a lot of sensitivity in her lateral thigh. She would prefer to continue with her exercises at home vs in the clinic. I feel this is reasonable as she is compliant with her program. Recommend following up with MD if sx do not continue to improve. Electronically signed by: Tiffanie Mac, PT, DPT, ATC Please sign and return to therapist. Thank you for your referral.
== END 2023-03-18 10:48 | disposition home or self-care (01) ==
LOC: HO.PTCHIC 10:00
PROVIDERS: PCP Family Medicine; Visit Provider Nurse Practitioner Family
DX: M96.1 Postlaminectomy syndrome, not elsewhere classified (principal); M54.50 Low back pain, unspecified; M25.511 Pain in right shoulder
CPT/HCPCS: 97110; 97161

== ENCOUNTER 2023-04-22 09:59 | Outpatient (AMB) | payer MEDICARE, SELFPAY ==
[2023-04-22 10:02] VITALS: BP 143/68; PULSE 72; RESP 12; O2SAT 99; BMI 25.1
--- NOTE | 2023-04-22 10:02 | MHC.OFFVIS ---
Intake Vital Signs 04/22/23 10:02 Height 5 ft 2 in Weight 137 lb BMI 25.1 BP 143/68 H Blood Pressure Location Lt brachial Position Sitting Respiration 12 Pulse 72 Pulse Source Pulse Oximeter Pulse Oximetry (%) 99 Oxygen Delivery Method Room Air Intake Visit Reasons: Medication Count/lvm Intake Note: Pt states she last took vicodin 04/21/23 @ 3:30pm Allergies No Known Allergies Allergy (Unknown, Verified 04/22/23 10:04) Medication List - Last Reconciled 04/22/23 by Sera Manriquez LPN albuterol sulfate 90 mcg/actuation inhalation benzonatate 200 mg PO TID PRN desonide 0.05% topical BID docusate sodium 100 mg PO DAILY Donut pillow As directed hydrocodone-acetaminophen 5-325 mg 1.5 tabs PO DAILY PRN 30 days levothyroxine 88 mcg PO DAILY lisinopril 10 mg PO DAILY HPI HPI Comments History of Present Illness Details Patient returns today for a pill count. Patient is supposed to have #20.5 pills, in her possession has #30 pills. This demonstrates a responsible attitude in regards to the medication regimen. Patient reports adequate analgesia on her current regimen on as needed basis with no noted side effects. Denies any fever, chills, abdominal pain, dyspnea, chest pain, shortness of breaths, weight loss, constipation, nausea, sedation, dizziness, or urinary retention. Patient reports several weeks of coughing and post nasal drip without fever. Reports generalized fatigue but is able to maintain adequate PO intake. She has upcoming follow up for this with her PCP this . Denies any other significant changes in medical history since last office visit. [facility] Medical History Arthritis GERD (gastroesophageal reflux disease) Lumbar radiculopathy, chronic Hypothyroidism Benign essential HTN Failed back syndrome, lumbar Surgical History Hx of bladder repair surgery History of lumbar surgery History of hysterectomy History of total left hip replacement Family History Mother Heart attack Father Pacemaker Leukemia Social History Household Members: Spouse Alcohol intake: never Patient Tobacco Use Status: Current everyday Tobacco user Tobacco use type: Cigarette Cigarettes Per Day: 4 Years Smoked: 40 +/- Substance Use Type: Marijuana Review of Systems Const All systems reviewed & are unremarkable except as noted in HPI and below Reports as per HPI, Denies body aches, Denies chills, Reports difficulty sleeping, Reports fatigue, Denies fever(s), Denies malaise, Denies weakness and Denies weight loss Card Denies chest pain with activity, Denies palpitations, Denies dyspnea and Denies dyspnea on exertion Resp Reports cough, Denies hemoptysis, Denies excessive phlegm production, Denies pain with cough, Denies dyspnea, Denies dyspnea on exertion and Denies wheezing Neuro Denies weakness Endo Reports fatigue and Denies palpitations Aller/Immun Denies wheezing Physical Exam Vital Signs: Last Vital Signs Pulse 72 04/22/23 10:02 Resp 12 04/22/23 10:02 BP 143/68 H 04/22/23 10:02 Pulse Ox 99 04/22/23 10:02 Oxygen Delivery Method Room Air 04/22/23 10:02 BMI result Body Mass Index 25.1 General: Appears afebrile. Alert and oriented. Mood and affect appropriate. Follows and participates in conversation appropriately. Respiratory effort is unlabored. No cough. Able to transition from sit to stand unassisted. Ambulates with bilaterally normal heel strike and toe off. Resp Effort & Inspection: normal respiratory effort, able to speak in complete sentences, Actively coughing Quality: dry, not labored, no respiratory distress and symmetric chest movement Psych Appearance: grossly normal Mental Status: mental status grossly normal Speech and movement: Normal speech and movement present Affect: normal affect Attitude: cooperative Thought process: Normal thought process present Thought content: Normal thought content present, suicidality (none), no hallucinations and No Depressive thoughts present Insight: Good insight present (Psych) Judgement: Good judgement present (Psych) Assessment & Plan Assessment & Plan (1) Failed back syndrome, lumbar: Code(s): M96.1 - Postlaminectomy syndrome, not elsewhere classified (2) Low back pain: Code(s): M54.50 - Low back pain, unspecified (3) Opioid contract exists: Code(s): 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 [employer] reviewed. Script for hydrocodone-acetaminophen 5-325 mg?#40/30 days sent with an advanced date of 05/19/23. Patient is aware of monitoring for side effects. Discussed with the patient the risks associated with benzodiazepine and opioid use. Follow up with PCP re:cough and post-nasal drip as planned. All questions and concerns were answered and the patient is in agreement with the plan. Follow up in one month pill count and sooner if needed. Medications: Refilled hydrocodone-acetaminophen 5-325 mg Partial Fill upon patient request. 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
== END 2023-04-22 10:13 | disposition home or self-care (01) ==
PROVIDERS: PCP Family Medicine; Visit Provider Nurse Practitioner Family
DX: M96.1 Postlaminectomy syndrome, not elsewhere classified (principal); M54.50 Low back pain, unspecified; M54.16 Radiculopathy, lumbar region; Z79.891 Long term (current) use of opiate analgesic
CPT/HCPCS: 99214

== ENCOUNTER → 2023-04-22 09:59 | Outpatient (BNVA) | payer MEDICARE, SELFPAY | PROVIDERS: PCP Family Medicine; Visit Provider Nurse Practitioner Family | DX: M96.1 Postlaminectomy syndrome, not elsewhere classified (principal); M54.16 Radiculopathy, lumbar region; M54.50 Low back pain, unspecified; Z79.891 Long term (current) use of opiate analgesic | CPT/HCPCS: 99212 ==

== ENCOUNTER 2023-05-27 10:02 | Outpatient (AMB) | payer MEDICARE, SELFPAY ==
--- NOTE | 2023-05-27 10:04 | MHC.OFFVIS ---
Intake Vital Signs 05/27/23 10:15 Height 5 ft 2 in Weight 137 lb 6 oz BMI 25.1 BP 140/71 H Blood Pressure Location Lt brachial Position Sitting Pulse 68 Pulse Source Pulse Oximeter Pulse Oximetry (%) 97 Oxygen Delivery Method Room Air Intake Visit Reasons: Medication Count/confirmed Intake Note: Katlyn comes in today for a pill count to hydrocodone-acetaminophe, patient should have 28 tablets and presents with 29 tablets which she last took last night 05/26/23 at 9pm. Pain today 07/29 Vp Marketing Required: No Accompanied by: Self / Same As Patient Allergies No Known Allergies Allergy (Unknown, Verified 05/27/23 10:16) HPI HPI Comments History of Present Illness Details Patient returns today for a pill count. Patient is supposed to have #28 pills, in her possession has #29 pills. This demonstrates a responsible attitude in regards to the medication regimen. Patient reports adequate analgesia on her current regimen on as needed basis with no noted side effects. Denies any fever, chills, abdominal pain, dyspnea, chest pain, shortness of breaths, weight loss, constipation, nausea, sedation, dizziness, or urinary retention. Patient reports increase in her lower back pain that extends to her sacral areas and lateral hips. She has moderate tenderness in the projections of bilateral sacroiliac joint areas and positive provocative testing. Patient reports she has pending lumbar spine xrays which she will complete in our [place] location this week. Patient reports occasional radiations of back pain into her buttocks and posterior thighs but not below knee level. She denies any abdominal or groin pain, weakness, foot drop, numbness, tingling, bladder or bowel dysfunction or saddle anesthesia. [facility] Medical History Arthritis GERD (gastroesophageal reflux disease) Lumbar radiculopathy, chronic Hypothyroidism Benign essential HTN Failed back syndrome, lumbar Surgical History Hx of bladder repair surgery History of lumbar surgery History of hysterectomy History of total left hip replacement Family History Mother Heart attack Father Pacemaker Leukemia Social History (Reviewed 05/27/23 @ 10:15 by LEW Herr Household Members: Spouse Alcohol intake: never Patient Tobacco Use Status: Current everyday Tobacco user Tobacco use type: Cigarette Cigarettes Per Day: 4 Years Smoked: 40 +/- Substance Use Type: Marijuana Review of Systems Const All systems reviewed & are unremarkable except as noted in HPI and below Physical Exam General: Appears afebrile. Alert and oriented. Mood and affect appropriate. Follows and participates in conversation appropriately. Respiratory effort is unlabored. No cough. Able to transition from sit to stand unassisted. Ambulates with bilaterally normal heel strike and toe off. Back/Spine/Pelvis Cervical Spine: cervical ROM normal and No Cervical spine tenderness Thoracic/Lumbar Spine: thoracic and lumbar spine normal to inspection, Lasegue's sign negative, straight leg raise negative bilaterally, pain with thoraco-lumbar ROM, thoraco-lumbar ROM limited, No thoracic spinal tenderness and lumbar spinal tenderness (L4-S1) Pelvis: buttock tenderness bilaterally Sacroiliac joints: bilaterally (+Nithin's, +Stinchfield, +Pelvic compression, left>right) tender to palpation Psych Appearance: grossly normal and well kempt Mental Status: mental status grossly normal Speech and movement: Normal speech and movement present and Clear speech present Affect: normal affect Attitude: cooperative Thought process: Normal thought process present Thought content: Normal thought content present, suicidality (none), no hallucinations and No Depressive thoughts present Insight: Good insight present (Psych) Judgement: Good judgement present (Psych) Results Reviewed Results Reviewed: MRI OF THE LUMBAR SPINE AND SACRUM WITHOUT CONTRAST 06/15/2012 CLINICAL INFORMATION: 61-year-old woman with radiating sacral pain. COMPARISON: None. TECHNIQUE: MRI of the lumbar spine and sacrum was obtained using routine sequences without contrast. FINDINGS: Sacrum: Bone marrow is normal in signal intensity, demonstrating no abnormal edema to suggest an unhealed sacral insufficiency fracture. Exiting sacral nerve roots at S1, S2, S3, and S4 are unremarkable in their MR appearance. The SI joints appear intact and no unhealed superior or inferior pubic rami fractures are visualized. Lumbar spine: On the sagittal images, there is grade 1 anterolisthesis of L4 on L5 and of L5 on S1 without convincing identification of pars defects either side. Vertebral bodies remain normal in height. There is desiccation of the intervertebral discs with mild volume loss at L4-L5. The conus terminates at the L1-L2 level and appears intrinsically normal. There is however a suggestion of some clumping and/or thickening of nerve roots, especially around the L2-L3 level. L1-L2: A small diffuse disc bulge is eccentric to the right. The central and neural foramina remain patent. L2-L3: There is a diffuse disc bulge with a broad-based posterior to right anterolateral disc protrusion. There is moderate facet arthrosis and hypertrophy of the ligamentum flavum. In concert, these findings lead to moderate canal stenosis and mild left and at least moderate right foraminal narrowing with possible mass effect on the exiting right L2 nerve root. L3-L4: There is a small diffuse disc bulge and moderate facet arthrosis. The central canal remains patent. There is mild narrowing of the left neural foramen. L4-L5: The disc is slightly uncovered. There is marked bilateral facet arthrosis and hypertrophy of the ligamentum flavum, right greater than left. These findings lead to mild canal stenosis and also mild narrowing of the left neural foramen. L5-S1: The disc is slightly uncovered with a small superimposed bulge. The central canal remains patent. There is mild left foraminal narrowing. There is marked bilateral facet arthrosis. IMPRESSION: 1. Multifactorial degenerative changes at L2-L3 lead to moderate canal stenosis and mild left and at least moderate right foraminal narrowing with possible mass effect on the exiting right L2 nerve root. There is a suggestion of abnormal clumping/thickening of nerve roots around at this level that could relate to canal stenosis and some motion artifact. However repeat imaging utilizing contrast is probably prudent to exclude underlying pathology. 2. No imaging findings suggestive of an unhealed sacral insufficiency fracture. XR SACRUM AND COCCYX XR PELVIS AND HIP, BILATERAL 06/11/21 CLINICAL INFORMATION: Pain right hip. Sacrococcygeal disorders. FINDINGS: AP pelvis: There is a total left hip prosthesis. The right hip joint space is normal. No bony erosive changes. There is no lytic or sclerotic process. The soft tissues are normal. Mild right L4-L5 facet joint arthropathy noted. Right hip: AP and frog-leg views of right hip reveal no bony erosive changes. Normal joint space. No spurring. No fracture or dislocation. Left hip: There is a total left hip prosthesis with prosthetic components in satisfactory alignment. There are cerclage wires surrounding the proximal femoral prosthesis and the overlying bone. The soft tissues are normal. Sacrum and/or coccyx: There is normal symmetry of bilateral SI joints without sclerosis. There is no sacral or coccygeal fracture. There is minimal anterior subluxation of coccyx on the distal sacrum of indeterminate age. Soft tissue swelling is seen. IMPRESSION: Mild anterior subluxation of coccyx in relation to the sacrum, ? age. No sacral or right hip fracture. There is a total left hip prosthesis with the prosthetic components in satisfactory alignment. No periprosthetic fracture is seen. The AP pelvis appears unremarkable. The SI joints are symmetrical and normal. 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 [employer] reviewed. Script for mild increase in hydrocodone-acetaminophen from 5-325 mg to 7.5-325 mg?#40/30 days sent with an advanced date of 06/13/23. Previous script for 5-325 mg is discontinued. Patient is aware of monitoring for side effects. Discussed with the patient the risks associated with benzodiazepine and opioid use. Patient has pending lumbar xray to address her low back symptoms. All questions and concerns were answered and the patient is in agreement with the plan. Follow up in one month pill count and sooner if needed. Medications: Changed From hydrocodone-acetaminophen 5-325 mg Partial Fill upon patient request. 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
[2023-05-27 10:15] VITALS: BP 140/71; PULSE 68; O2SAT 97; BMI 25.1
== END 2023-05-27 10:35 | disposition home or self-care (01) ==
PROVIDERS: PCP Family Medicine; Visit Provider Nurse Practitioner Family
DX: M54.50 Low back pain, unspecified (principal); Z79.891 Long term (current) use of opiate analgesic; M96.1 Postlaminectomy syndrome, not elsewhere classified; M53.3 Sacrococcygeal disorders, not elsewhere classified; M54.16 Radiculopathy, lumbar region
CPT/HCPCS: 99214

== ENCOUNTER → 2023-05-27 10:02 | Outpatient (BNVA) | payer MEDICARE, SELFPAY | PROVIDERS: PCP Family Medicine; Visit Provider Nurse Practitioner Family | DX: Z51.81 Encounter for therapeutic drug level monitoring (principal); M54.50 Low back pain, unspecified; M96.1 Postlaminectomy syndrome, not elsewhere classified; M53.3 Sacrococcygeal disorders, not elsewhere classified; M54.16 Radiculopathy, lumbar region; Z79.891 Long term (current) use of opiate analgesic | CPT/HCPCS: 99212 ==

== ENCOUNTER 2023-06-13 11:07 | Outpatient (REF) | payer MEDICARE, SELFPAY ==
--- NOTE | ~2023-06-13 | XR_ITS ---
EXAMINATION: Chest and lumbar spine. CLINICAL INDICATIONS: Cough. Low back pain. COMPARISON: Chest 11/05/2022. TECHNIQUE: Lumbar spine 3 views and chest 2 views. FINDINGS: CHEST: The lungs are fairly well-expanded and clear. Heart size and pulmonary vascularity is normal. No gross bony abnormality seen. LUMBAR SPINE: There is normal lumbar lordosis. There is grade 1 anterolisthesis L4-L5 and grade 1 retrolisthesis L2 over L3.. Rest of the vertebral alignment is normal. There is mild loss of L1-L2 and L2-L2 disc heights. No acute fracture, lytic or sclerotic process seen. There is a left total hip prosthesis in alignment. There is mild bilateral L5-S1 and L4-L5 facet joint arthropathy slightly greater on the right. The soft tissues are normal. SI joints are normal. XR/XR lumbar spine 2-3V IMPRESSION: Unremarkable chest exam. Grade 1 anterolisthesis L4 over 5 and grade 1 retrolisthesis L2 over L3. There are degenerative disc changes L1-L2 and L2-L2 disc levels. Moderate bilateral facet joint arthropathy and hypertrophy seen at the L5-S1 and L4-L5 disc levels.
--- NOTE | ~2023-06-13 | XR_ITS ---
EXAMINATION: Chest and lumbar spine. CLINICAL INDICATIONS: Cough. Low back pain. COMPARISON: Chest 11/05/2022. TECHNIQUE: Lumbar spine 3 views and chest 2 views. FINDINGS: CHEST: The lungs are fairly well-expanded and clear. Heart size and pulmonary vascularity is normal. No gross bony abnormality seen. LUMBAR SPINE: There is normal lumbar lordosis. There is grade 1 anterolisthesis L4-L5 and grade 1 retrolisthesis L2 over L3.. Rest of the vertebral alignment is normal. There is mild loss of L1-L2 and L2-L2 disc heights. No acute fracture, lytic or sclerotic process seen. There is a left total hip prosthesis in alignment. There is mild bilateral L5-S1 and L4-L5 facet joint arthropathy slightly greater on the right. The soft tissues are normal. SI joints are normal. XR/XR chest 2V IMPRESSION: Unremarkable chest exam. Grade 1 anterolisthesis L4 over 5 and grade 1 retrolisthesis L2 over L3. There are degenerative disc changes L1-L2 and L2-L2 disc levels. Moderate bilateral facet joint arthropathy and hypertrophy seen at the L5-S1 and L4-L5 disc levels.
== END 2023-06-13 11:08 | disposition home or self-care (01) ==
LOC: HO.HMGCX 11:07
PROVIDERS: PCP Family Medicine; Visit Provider Family Medicine
DX: R05.9 Cough, unspecified (principal); M54.9 Dorsalgia, unspecified; M47.817 Spondylosis without myelopathy or radiculopathy, lumbosacral region; Z96.642 Presence of left artificial hip joint
CPT/HCPCS: 71046; 72100

== ENCOUNTER 2023-06-23 08:43 | Outpatient (AMB) | payer MEDICARE, SELFPAY ==
[2023-06-23 08:49] VITALS: BP 150/84; PULSE 58; BMI 25.4
--- NOTE | 2023-06-23 08:49 | A.OFFVIS_ITS ---
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 Allergies No Known Allergies Allergy (Unknown, Verified 06/23/23 08:51) Medication List - Last Reconciled 06/23/23 by Janice Neri, [employer]-C albuterol sulfate 90 mcg/actuation inhalation aspirin 81 mg PO DAILY desonide 0.05% topical BID docusate sodium 100 mg PO DAILY Donut pillow As directed hydrocodone-acetaminophen 7.5-325 mg 1.5 tabs PO BID PRN 30 days levothyroxine 88 mcg PO DAILY lisinopril 10 mg PO DAILY HPI 1 Yr follow up HPI Details Katlyn is a 72-year-old female past medical history of hypertension, chronic back discomfort, sinus bradycardia who presents for follow-up. Today she reports that she has done well over the last year without any hospitalizations or ER trips. She has had issues with chronic back discomfort and attends the pain clinic here at [facility]. This limits her physical activity. She denies chest discomfort with exertional activities. She did have an episode of chest tightness last week which occurred randomly and lasted a few minutes before relieving. She describes having something similar approximately a year ago. She did have an episode in the past where she had fallen onto her chest after tripping over a dog. Since then she has had issues with muscle cramping in her chest region. She feels this may be contributing to that symptom. No shortness of breath, palpitations, lightheadedness, presyncope, syncope, PND, orthopnea or edema. Taking meds as directed. [facility] Medical History (Updated 06/23/23 @ 09:46 by Janice Neri, STEPHANIE-C) Benign essential HTN Arthritis GERD (gastroesophageal reflux disease) Lumbar radiculopathy, chronic Hypothyroidism Failed back syndrome, lumbar Surgical History Hx of bladder repair surgery History of lumbar surgery History of hysterectomy History of total left hip replacement Family History Mother Heart attack Father Pacemaker Leukemia Social History Household Members: Spouse Alcohol intake: never Patient Tobacco Use Status: Current everyday Tobacco user Tobacco use type: Cigarette Cigarettes Per Day: 4 Years Smoked: 40 +/- Substance Use Type: Marijuana Review of Systems Const All systems reviewed & are unremarkable except as noted in HPI and below ENT Denies dizziness Card Details: episode of tightness around chest Denies chest pain, Denies chest pain at rest, Denies chest pain with activity, Denies rapid heart rate, Denies pedal edema, Denies edema, Denies leg edema, Denies lightheadedness, Denies palpitations, Denies dyspnea, Denies dyspnea on exertion and Denies orthopnea Resp Denies cough, Denies dyspnea and Denies dyspnea on exertion GI Denies hematochezia and Denies change in stool character Musc Details: low back discomfort Denies abnormal gait, Denies limited range of motion, Denies muscle cramps, Denies muscle weakness, Denies numbness, Reports radiating pain into limb, Denies stiffness and Denies tingling Neuro Denies abnormal gait, Denies dizziness, Denies numbness and Denies tingling Endo Denies palpitations Physical Exam Vital Signs: Last Vital Signs Pulse 58 06/23/23 08:49 BP 150/84 H 06/23/23 08:49 BMI result Body Mass Index 25.4 Const General: cooperative, healthy appearing, comfortable and no acute distress Orientation/consciousness: patient oriented x3 Neck Neck: Yes normal visual inspection Resp Effort & Inspection: normal respiratory effort Auscultation: clear to auscultation bilaterally, no crackles, no rales, no rhonchi and no wheezes Cardio Jugular venous distension: no JVD Rate: regular rate Rhythm: regular rhythm Heart sounds: S1 normal heart sound present, S2 normal heart sound present, no murmurs and no rubs Neuro General: patient oriented x3 Extrem General: Yes normal to inspection, No no pedal edema and No calf tenderness Psych Appearance: grossly normal Mental Status: mental status grossly normal Speech and movement: Normal speech and movement present Office Procedures EKG Details: Today, read by me, sinus bradycardia no acute ST/ T wav abn, rate 58 [id number], Complete Assessment & Plan Assessment & Plan (1) Bradycardia: Code(s): R00.1 - Bradycardia, unspecified Plan: History of bradycardia, asymptomatic. Previously had been on metoprolol which was stopped. Her heart rates improved after this change. Last Holter monitor done on 05/27/2022 showed sinus rhythm with average heart rate 66, SVE, rare with brief runs. EKG done today showing sinus bradycardia, no acute ST or T-wave abnormalities, rate 58. No reports of lightheadedness, presyncope, syncope, falls. She has currently not on any rate slowing agents. No changes made at this time. (2) Chest pain, atypical: Code(s): R07.89 - Other chest pain Plan: Report of 1 episode of chest tightness that occurred a week ago. She has no exertional symptoms. Her symptom could be chest wall related. She had a similar episode a year ago. Spent time reviewing signs and symptoms of angina with her. She will call us if she has recurrent episodes of chest tightness or other chest discomfort. At which time a nuclear stress test could be performed. She tells me she would not be able to walk on his treadmill as she has low back discomfort. Emergency care if ever needed for sustained symptoms (3) Benign essential HTN: Code(s): I10 - Essential (primary) hypertension Plan: Mildly elevated initially this visit. Recheck done by me 136/80. Continue current med managed. If blood pressure is more elevated at follow-up visits her lisinopril dose can be increased. Plan Time spent on chart review, documentation, interview and assessment Coding Level of Care Code Est Pt Level 3 (86167) Diagnoses Bradycardia R00.1 Chest pain, atypical R07.89 Benign essential HTN I10 CPT Codes EKG - CPT: [id number], Complete ([id number]) Time Spent (min) 24
== END 2023-06-23 09:19 | disposition home or self-care (01) ==
PROVIDERS: PCP Family Medicine; Visit Provider Nurse Practitioner Family
DX: R00.1 Bradycardia, unspecified (principal); R07.89 Other chest pain; I10 Essential (primary) hypertension
CPT/HCPCS: 93010; 99213

== ENCOUNTER → 2023-06-23 08:43 | Outpatient (BNVA) | payer MEDICARE, SELFPAY | PROVIDERS: PCP Family Medicine; Visit Provider Nurse Practitioner Family | DX: R00.1 Bradycardia, unspecified (principal); R07.89 Other chest pain; I10 Essential (primary) hypertension | CPT/HCPCS: 93005; 99212 ==

== ENCOUNTER 2023-06-26 10:29 | Outpatient (AMB) | payer MEDICARE, SELFPAY ==
--- NOTE | 2023-06-26 10:35 | A.OFFVIS_ITS ---
Intake Vital Signs 06/26/23 10:46 Height 5 ft 2 in Weight 138 lb BMI 25.2 BP 144/68 H Blood Pressure Location Rt brachial Position Sitting Pulse 88 Pulse Source Pulse Oximeter Pulse Oximetry (%) 99 Oxygen Delivery Method Room Air Intake Visit Reasons: Pill Count Intake Note: Katlyn comes in today for a pill count to hydrocodone-acetaminophen. Patient should have 1 tab and presents with 26 tablets which she last took yesterday 06/25/23 at 4pm. Pain today 07/29. Recreation Aide Required: No Accompanied by: Self / Same As Patient Allergies No Known Allergies Allergy (Unknown, Verified 06/26/23 10:47) HPI HPI Comments History of Present Illness Details Patient returns today for a pill count. Patient is supposed to have #1 pills, in her possession has #26 pills. This demonstrates a responsible attitude in regards to the medication regimen. Patient reports adequate analgesia on her current regimen on as needed basis with no noted side effects. Last visit we increased her medication from 5 mg to 7.5 mg tabs with #40 pills per months. Patient reports she has been taking half of tab once to twice daily for most of the days. Denies any fever, chills, abdominal pain, dyspnea, chest pain, shortness of breaths, weight loss, constipation, nausea, sedation, dizziness, or urinary retention. Patient reports increase in her lower back pain that extends to her sacral areas and lateral hips. She has moderate tenderness in the projections of bilateral sacroiliac joint areas. Patient reports occasional radiations of back pain into her buttocks and posterior thighs but not below knee level. Reports increasing left sided radicular symptoms into her posterior RLE. Lumbar xray reviewed today and is noted below. Denies any abdominal or groin pain, weakness, foot drop, numbness, tingling, bladder or bowel dysfunction or saddle anesthesia. [facility], [facility] Medical History Benign essential HTN Arthritis GERD (gastroesophageal reflux disease) Lumbar radiculopathy, chronic Hypothyroidism Failed back syndrome, lumbar Surgical History Hx of bladder repair surgery History of lumbar surgery History of hysterectomy History of total left hip replacement Family History Mother Heart attack Father Pacemaker Leukemia Social History Household Members: Spouse Alcohol intake: never Patient Tobacco Use Status: Current everyday Tobacco user Tobacco use type: Cigarette Cigarettes Per Day: 4 Years Smoked: 40 +/- Substance Use Type: Marijuana Review of Systems Const All systems reviewed & are unremarkable except as noted in HPI and below Physical Exam Vital Signs: Last Vital Signs Pulse 88 06/26/23 10:46 BP 144/68 H 06/26/23 10:46 Pulse Ox 99 06/26/23 10:46 Oxygen Delivery Method Room Air 06/26/23 10:46 BMI result Body Mass Index 25.2 General: Appears afebrile. Alert and oriented. Mood and affect appropriate. Follows and participates in conversation appropriately. Respiratory effort is unlabored. No cough. Able to transition from sit to stand unassisted. Ambulates with bilaterally normal heel strike and toe off. Back/Spine/Pelvis Cervical Spine: cervical ROM normal and No Cervical spine tenderness Thoracic/Lumbar Spine: thoracic and lumbar spine normal to inspection, Lasegue's sign negative, straight leg raise negative bilaterally, pain with thoraco-lumbar ROM, thoraco-lumbar ROM limited, No thoracic spinal tenderness and lumbar spinal tenderness (L4-S1) Pelvis: buttock tenderness bilaterally Sacroiliac joints: bilaterally (+Nithin's, +Stinchfield, +Pelvic compression, left>right) tender to palpation Psych Appearance: grossly normal and well kempt Mental Status: mental status grossly normal Speech and movement: Normal speech and movement present and Clear speech present Affect: normal affect Attitude: cooperative Thought process: Normal thought process present Thought content: Normal thought content present, suicidality (none), no hallucinations and No Depressive thoughts present Insight: Good insight present (Psych) Judgement: Good judgement present (Psych) Results Reviewed Results Reviewed: MRI OF THE LUMBAR SPINE AND SACRUM WITHOUT CONTRAST 06/15/2012 CLINICAL INFORMATION: 61-year-old woman with radiating sacral pain. COMPARISON: None. TECHNIQUE: MRI of the lumbar spine and sacrum was obtained using routine sequences without contrast. FINDINGS: Sacrum: Bone marrow is normal in signal intensity, demonstrating no abnormal edema to suggest an unhealed sacral insufficiency fracture. Exiting sacral nerve roots at S1, S2, S3, and S4 are unremarkable in their MR appearance. The SI joints appear intact and no unhealed superior or inferior pubic rami fractures are visualized. Lumbar spine: On the sagittal images, there is grade 1 anterolisthesis of L4 on L5 and of L5 on S1 without convincing identification of pars defects either side. Vertebral bodies remain normal in height. There is desiccation of the intervertebral discs with mild volume loss at L4-L5. The conus terminates at the L1-L2 level and appears intrinsically normal. There is however a suggestion of some clumping and/or thickening of nerve roots, especially around the L2-L3 level. L1-L2: A small diffuse disc bulge is eccentric to the right. The central and neural foramina remain patent. L2-L3: There is a diffuse disc bulge with a broad-based posterior to right anterolateral disc protrusion. There is moderate facet arthrosis and hypertrophy of the ligamentum flavum. In concert, these findings lead to moderate canal stenosis and mild left and at least moderate right foraminal narrowing with possible mass effect on the exiting right L2 nerve root. L3-L4: There is a small diffuse disc bulge and moderate facet arthrosis. The central canal remains patent. There is mild narrowing of the left neural foramen. L4-L5: The disc is slightly uncovered. There is marked bilateral facet arthrosis and hypertrophy of the ligamentum flavum, right greater than left. These findings lead to mild canal stenosis and also mild narrowing of the left neural foramen. L5-S1: The disc is slightly uncovered with a small superimposed bulge. The central canal remains patent. There is mild left foraminal narrowing. There is marked bilateral facet arthrosis. IMPRESSION: 1. Multifactorial degenerative changes at L2-L3 lead to moderate canal stenosis and mild left and at least moderate right foraminal narrowing with possible mass effect on the exiting right L2 nerve root. There is a suggestion of abnormal clumping/thickening of nerve roots around at this level that could relate to canal stenosis and some motion artifact. However repeat imaging utilizing contrast is probably prudent to exclude underlying pathology. 2. No imaging findings suggestive of an unhealed sacral insufficiency fracture. XR SACRUM AND COCCYX XR PELVIS AND HIP, BILATERAL 06/11/21 CLINICAL INFORMATION: Pain right hip. Sacrococcygeal disorders. FINDINGS: AP pelvis: There is a total left hip prosthesis. The right hip joint space is normal. No bony erosive changes. There is no lytic or sclerotic process. The soft tissues are normal. Mild right L4-L5 facet joint arthropathy noted. Right hip: AP and frog-leg views of right hip reveal no bony erosive changes. Normal joint space. No spurring. No fracture or dislocation. Left hip: There is a total left hip prosthesis with prosthetic components in satisfactory alignment. There are cerclage wires surrounding the proximal femoral prosthesis and the overlying bone. The soft tissues are normal. Sacrum and/or coccyx: There is normal symmetry of bilateral SI joints without sclerosis. There is no sacral or coccygeal fracture. There is minimal anterior subluxation of coccyx on the distal sacrum of indeterminate age. Soft tissue swelling is seen. IMPRESSION: Mild anterior subluxation of coccyx in relation to the sacrum, ? age. No sacral or right hip fracture. There is a total left hip prosthesis with the prosthetic components in satisfactory alignment. No periprosthetic fracture is seen. The AP pelvis appears unremarkable. The SI joints are symmetrical and normal. Chest and lumbar spine. 06/13/23 CLINICAL INDICATIONS: Cough. Low back pain. COMPARISON: Chest 11/05/2022. TECHNIQUE: Lumbar spine 3 views and chest 2 views. FINDINGS: CHEST: The lungs are fairly well-expanded and clear. Heart size and pulmonary vascularity is normal. No gross bony abnormality seen. LUMBAR SPINE: There is normal lumbar lordosis. There is grade 1 anterolisthesis L4-L5 and grade 1 retrolisthesis L2 over L3.. Rest of the vertebral alignment is normal. There is mild loss of L1-L2 and L2-L2 disc heights. No acute fracture, lytic or sclerotic process seen. There is a left total hip prosthesis in alignment. There is mild bilateral L5-S1 and L4-L5 facet joint arthropathy slightly greater on the right. The soft tissues are normal. SI joints are normal. IMPRESSION: Unremarkable chest exam. Grade 1 anterolisthesis L4 over 5 and grade 1 retrolisthesis L2 over L3. There are degenerative disc changes L1-L2 and L2-L2 disc levels. Moderate bilateral facet joint arthropathy and hypertrophy seen at the L5-S1 and L4-L5 disc levels. Assessment & Plan Assessment & Plan (1) Lumbar radiculopathy, chronic: Code(s): M54.16 - Radiculopathy, lumbar region (2) Failed back syndrome, lumbar: Code(s): M96.1 - Postlaminectomy syndrome, not elsewhere classified (3) Low back pain: Code(s): M54.50 - Low back pain, unspecified (4) Opioid contract exists: Code(s): Z79.891 - [facility] (current) use of opiate analgesic (5) Sacroiliac joint pain: Code(s): M53.3 - Sacrococcygeal disorders, not elsewhere classified (6) Spondylolisthesis of lumbar region: Code(s): M43.16 - Spondylolisthesis, lumbar region Plan Patient has shown accountability for her medication regimen and the pill count was accurate.?There is no evidence of misuse, abuse or diversion at this time. [facility] reviewed. I will hold off on refilling her opioid medication due to surplus medication.? Patient will call us to let us know when she is down to 5 pills, and I will send a refill at that time. Patient is aware of monitoring for side effects. Discussed with the patient the risks associated with benzodiazepine and opioid use. MRI of the lumbar spine to assess for neural integrity and compression and follow up on previous MRI and xray findings. All questions and concerns were answered and the patient is in agreement with the plan. Follow up in one month pill count and sooner if needed. Orders: Orders MR lumbar spine wo con Today M54.16 - Radiculopathy, lumbar region, M96.1 - Pos tlaminectomy syndrome, not elsewhere classified Coding Level of Care Code Est Pt Level 4 (26310) Diagnoses Lumbar radiculopathy, chronic M54.16 Failed back syndrome, lumbar M96.1 Low back pain M54.50 Opioid contract exists Z79.891 Sacroiliac joint pain M53.3 Spondylolisthesis of lumbar region M43.16
[2023-06-26 10:46] VITALS: BP 144/68; PULSE 88; O2SAT 99; BMI 25.2
== END 2023-06-26 11:07 | disposition home or self-care (01) ==
PROVIDERS: PCP Family Medicine; Visit Provider Nurse Practitioner Family
DX: M54.16 Radiculopathy, lumbar region (principal); M96.1 Postlaminectomy syndrome, not elsewhere classified; M54.50 Low back pain, unspecified; Z79.891 Long term (current) use of opiate analgesic; M53.3 Sacrococcygeal disorders, not elsewhere classified; M43.16 Spondylolisthesis, lumbar region
CPT/HCPCS: 99214

== ENCOUNTER → 2023-06-26 10:29 | Outpatient (BNVA) | payer MEDICARE, SELFPAY | PROVIDERS: PCP Family Medicine; Visit Provider Nurse Practitioner Family | DX: Z51.81 Encounter for therapeutic drug level monitoring (principal); M54.16 Radiculopathy, lumbar region; M96.1 Postlaminectomy syndrome, not elsewhere classified; M54.50 Low back pain, unspecified; M53.3 Sacrococcygeal disorders, not elsewhere classified; M43.16 Spondylolisthesis, lumbar region; Z79.891 Long term (current) use of opiate analgesic | CPT/HCPCS: 99212 ==

== ENCOUNTER 2023-07-24 09:45 | Outpatient (AMB) | payer MEDICARE, SELFPAY ==
--- NOTE | 2023-07-24 09:44 | A.OFFVIS_ITS ---
Intake Vital Signs 07/24/23 09:52 Height 5 ft 2 in Weight 138 lb BMI 25.2 BP 146/71 H Blood Pressure Location Lt brachial Position Sitting Pulse 75 Pulse Source Pulse Oximeter Pulse Oximetry (%) 96 Oxygen Delivery Method Room Air Intake Visit Reasons: Pill Count Intake Note: Katlyn comes in today for a pill count to hydrocodone-acetaminophen, patient should have 13 tablets and presents with 34 tablets which she last took last night 07/23/23 at 4pm. Pain today 07/29. Retail Performance Specialist Required: No Accompanied by: Self / Same As Patient Allergies No Known Allergies Allergy (Unknown, Verified 07/24/23 09:53) HPI HPI Comments History of Present Illness Details Patient returns today for a pill count. Patient is supposed to have #13 pills, in her possession has #34 pills. This demonstrates a responsible attitude in regards to the medication regimen. Patient reports mild to moderate analgesia on her current regimen on as needed basis with no noted side effects. Last visit we increased her medication from 5 mg to 7.5 mg tabs with #40 pills per months. Patient reports she has been taking half of tab once to twice daily for most of the days. Denies any fever, chills, abdominal pain, dyspnea, chest pain, shortness of breaths, weight loss, constipation, nausea, sedation, dizziness, or urinary retention. Patient continues to endorse worsening low back pain with radiation into her left lower extremity in L5 distribution. She has decreased sensations to left lower extremity with light palpation in comparing with right lower extremity. Reports increased leg cramps in LLE which are similar when she had them prior to her previous back surgery. Reports increased gait imbalances and weakness in left leg with walking. HEP has not improve her functioning or reduce pain symptoms. Unfortunately recent MRI order was denied by her insurance. Patient has completed formal PT and has continued home exercise program at home since 03/18/23 with minimal improvement in her functioning, mobility or pain reduction. I will resubmit lumbar spine MRI for prior authorization. PT discharge summary is noted below. Denies any abdominal or groin pain, weakness, foot drop, numbness, tingling, bladder or bowel dysfunction or saddle anesthesia. Physical Therapy Discharge Report 03/18/23 Diagnosis: LBP, B hip pain Date of Surgery: n/a Date of Evaluation: 02/12/23 Date of Discharge: 03/18/23 Treatments to Date: 4 Cancellations to Date: 0 No Shows to Date: 0 Discharge Status: Improved Function Patient Elected to Stop Discharge Summary: 03/18/2023: Pt reports she is feeling better since start of care. Her pain is slightly better overall but it is still present. She still feels a lot of sensitivity in her lateral thigh. She would prefer to continue with her exercises at home vs in the clinic. I feel this is reasonable as she is compliant with her program. Recommend following up with MD if sx do not continue to improve. Electronically signed by: Tiffanie Mac, PT, DPT, [facility] Medical History Benign essential HTN Arthritis GERD (gastroesophageal reflux disease) Lumbar radiculopathy, chronic Hypothyroidism Failed back syndrome, lumbar Surgical History Hx of bladder repair surgery History of lumbar surgery History of hysterectomy History of total left hip replacement Family History Mother Heart attack Father Pacemaker Leukemia Social History Household Members: Spouse Alcohol intake: never Patient Tobacco Use Status: Current everyday Tobacco user Tobacco use type: Cigarette Cigarettes Per Day: 4 Years Smoked: 40 +/- Substance Use Type: Marijuana Review of Systems Const All systems reviewed & are unremarkable except as noted in HPI and below Physical Exam General: Appears afebrile. Alert and oriented. Mood and affect appropriate. Follows and participates in conversation appropriately. Respiratory effort is unlabored. No cough. Able to transition from sit to stand unassisted. Ambulates with bilaterally normal heel strike and toe off on the right, reports unsteadiness and gait imbalance on the left. Back/Spine/Pelvis Other: Limited lumbar ROM due to pain. Antalgic gait with mild limping. Lumbar flexion and extension reproduce moderate pain. Demonstrates 5/5 right and 4/5 left strength of quadriceps bilaterally as well as flexion/dorsiflexion of bilateral feet against resistance. 2+ pedal pulses bilaterally. Seated straight leg rise with dorsiflexion positive on the left. Diminished patellar and achilles reflexes bilaterally. Facet loading test positive bilaterally. Nithin?s, Pelvic compression and Stinchfield tests are positive on the left, unequivocal. No groin pain with I/E hip rotations. Valsalva maneuver negative. Cervical Spine: cervical ROM normal and No Cervical spine tenderness Thoracic/Lumbar Spine: thoracic and lumbar spine normal to inspection, Thoracic/lumbar spine scar(s), Lasegue's sign positive on the left and diffuse, pain with thoraco-lumbar ROM, paraspinal muscle tenderness on the left greater than right, thoraco-lumbar ROM limited, No thoracic spinal tenderness and lumbar spinal tenderness (L4-S1) Pelvis: buttock tenderness bilaterally Sacroiliac joints: bilaterally (+Nithin's, +Stinchfield, +Pelvic compression, left>right) tender to palpation Psych Appearance: grossly normal and well kempt Mental Status: mental status grossly normal Speech and movement: Normal speech and movement present and Clear speech present Affect: normal affect Attitude: cooperative Thought process: Normal thought process present Thought content: Normal thought content present, suicidality (none), no hallucinations and No Depressive thoughts present Insight: Good insight present (Psych) Judgement: Good judgement present (Psych) Results Reviewed Results Reviewed: MRI OF THE LUMBAR SPINE AND SACRUM WITHOUT CONTRAST 06/15/2012 CLINICAL INFORMATION: 61-year-old woman with radiating sacral pain. COMPARISON: None. TECHNIQUE: MRI of the lumbar spine and sacrum was obtained using routine sequences without contrast. FINDINGS: Sacrum: Bone marrow is normal in signal intensity, demonstrating no abnormal edema to suggest an unhealed sacral insufficiency fracture. Exiting sacral nerve roots at S1, S2, S3, and S4 are unremarkable in their MR appearance. The SI joints appear intact and no unhealed superior or inferior pubic rami fractures are visualized. Lumbar spine: On the sagittal images, there is grade 1 anterolisthesis of L4 on L5 and of L5 on S1 without convincing identification of pars defects either side. Vertebral bodies remain normal in height. There is desiccation of the intervertebral discs with mild volume loss at L4-L5. The conus terminates at the L1-L2 level and appears intrinsically normal. There is however a suggestion of some clumping and/or thickening of nerve roots, especially around the L2-L3 level. L1-L2: A small diffuse disc bulge is eccentric to the right. The central and neural foramina remain patent. L2-L3: There is a diffuse disc bulge with a broad-based posterior to right anterolateral disc protrusion. There is moderate facet arthrosis and hypertrophy of the ligamentum flavum. In concert, these findings lead to moderate canal stenosis and mild left and at least moderate right foraminal narrowing with possible mass effect on the exiting right L2 nerve root. L3-L4: There is a small diffuse disc bulge and moderate facet arthrosis. The central canal remains patent. There is mild narrowing of the left neural foramen. L4-L5: The disc is slightly uncovered. There is marked bilateral facet arthrosis and hypertrophy of the ligamentum flavum, right greater than left. These findings lead to mild canal stenosis and also mild narrowing of the left neural foramen. L5-S1: The disc is slightly uncovered with a small superimposed bulge. The central canal remains patent. There is mild left foraminal narrowing. There is marked bilateral facet arthrosis. IMPRESSION: 1. Multifactorial degenerative changes at L2-L3 lead to moderate canal stenosis and mild left and at least moderate right foraminal narrowing with possible mass effect on the exiting right L2 nerve root. There is a suggestion of abnormal clumping/thickening of nerve roots around at this level that could relate to canal stenosis and some motion artifact. However repeat imaging utilizing contrast is probably prudent to exclude underlying pathology. 2. No imaging findings suggestive of an unhealed sacral insufficiency fracture. XR SACRUM AND COCCYX XR PELVIS AND HIP, BILATERAL 06/11/21 CLINICAL INFORMATION: Pain right hip. Sacrococcygeal disorders. FINDINGS: AP pelvis: There is a total left hip prosthesis. The right hip joint space is normal. No bony erosive changes. There is no lytic or sclerotic process. The soft tissues are normal. Mild right L4-L5 facet joint arthropathy noted. Right hip: AP and frog-leg views of right hip reveal no bony erosive changes. Normal joint space. No spurring. No fracture or dislocation. Left hip: There is a total left hip prosthesis with prosthetic components in satisfactory alignment. There are cerclage wires surrounding the proximal femoral prosthesis and the overlying bone. The soft tissues are normal. Sacrum and/or coccyx: There is normal symmetry of bilateral SI joints without sclerosis. There is no sacral or coccygeal fracture. There is minimal anterior subluxation of coccyx on the distal sacrum of indeterminate age. Soft tissue swelling is seen. IMPRESSION: Mild anterior subluxation of coccyx in relation to the sacrum, ? age. No sacral or right hip fracture. There is a total left hip prosthesis with the prosthetic components in satisfactory alignment. No periprosthetic fracture is seen. The AP pelvis appears unremarkable. The SI joints are symmetrical and normal. Chest and lumbar spine. 06/13/23 CLINICAL INDICATIONS: Cough. Low back pain. COMPARISON: Chest 11/05/2022. TECHNIQUE: Lumbar spine 3 views and chest 2 views. FINDINGS: CHEST: The lungs are fairly well-expanded and clear. Heart size and pulmonary vascularity is normal. No gross bony abnormality seen. LUMBAR SPINE: There is normal lumbar lordosis. There is grade 1 anterolisthesis L4-L5 and grade 1 retrolisthesis L2 over L3.. Rest of the vertebral alignment is normal. There is mild loss of L1-L2 and L2-L2 disc heights. No acute fracture, lytic or sclerotic process seen. There is a left total hip prosthesis in alignment. There is mild bilateral L5-S1 and L4-L5 facet joint arthropathy slightly greater on the right. The soft tissues are normal. SI joints are normal. IMPRESSION: Unremarkable chest exam. Grade 1 anterolisthesis L4 over 5 and grade 1 retrolisthesis L2 over L3. There are degenerative disc changes L1-L2 and L2-L2 disc levels. Moderate bilateral facet joint arthropathy and hypertrophy seen at the L5-S1 and L4-L5 disc levels. Assessment & Plan Assessment & Plan (1) Failed back syndrome, lumbar: Code(s): M96.1 - Postlaminectomy syndrome, not elsewhere classified (2) Opioid contract exists: Code(s): Z79.891 - skilled nursing (current) use of opiate analgesic (3) Sacroiliac joint pain: Code(s): M53.3 - Sacrococcygeal disorders, not elsewhere classified (4) Spondylolisthesis of lumbar region: Code(s): M43.16 - Spondylolisthesis, lumbar region (5) Intractable low back pain: Code(s): M54.59 - Other low back pain Plan Patient has shown accountability for her medication regimen and the pill count was accurate.?There is no evidence of misuse, abuse or diversion at this time. [facility] reviewed. I will hold off on refilling her opioid medication due to surplus medication.? Patient will call us to let us know when she is down to #5 pills, and I will send a refill at that time. Patient is aware of monitoring for side effects. Discussed with the patient the risks associated with benzodiazepine and opioid use. Will resubmit MRI of the lumbar spine to assess for neural integrity and compression and follow up on recent xray findings. All questions and concerns were answered and the patient is in agreement with the plan. Follow up in one month pill count and sooner if needed. Orders: Orders MR lumbar spine wo con Today M43.16 - Spondylolisthesis, lumbar region, M54.16 - Radiculopathy, lumbar region, M54.59 - Other low back pain, M96.1 - Postlaminectomy syndrome, not elsewhere classified Coding Level of Care Code Est Pt Level 4 (66127) Diagnoses Failed back syndrome, lumbar M96.1 Opioid contract exists Z79.891 Sacroiliac joint pain M53.3 Spondylolisthesis of lumbar region M43.16 Intractable low back pain M54.59
[2023-07-24 09:52] VITALS: BP 146/71; PULSE 75; O2SAT 96; BMI 25.2
== END 2023-07-24 10:03 | disposition home or self-care (01) ==
PROVIDERS: PCP Family Medicine; Visit Provider Nurse Practitioner Family
DX: M96.1 Postlaminectomy syndrome, not elsewhere classified (principal); M53.3 Sacrococcygeal disorders, not elsewhere classified; M43.16 Spondylolisthesis, lumbar region; Z79.891 Long term (current) use of opiate analgesic; M54.59 Other low back pain
CPT/HCPCS: 99214

== ENCOUNTER → 2023-07-24 09:45 | Outpatient (BNVA) | payer MEDICARE, SELFPAY | PROVIDERS: PCP Family Medicine; Visit Provider Nurse Practitioner Family | DX: Z51.81 Encounter for therapeutic drug level monitoring (principal); M96.1 Postlaminectomy syndrome, not elsewhere classified; M53.3 Sacrococcygeal disorders, not elsewhere classified; M43.16 Spondylolisthesis, lumbar region; M54.59 Other low back pain; Z79.891 Long term (current) use of opiate analgesic | CPT/HCPCS: 99212 ==

== ENCOUNTER 2023-08-21 09:59 | Outpatient (AMB) | payer MEDICARE, SELFPAY ==
--- NOTE | 2023-08-21 10:00 | MHC.OFFVIS ---
Vital Signs 08/21/23 10:13 Height 5 ft 2 in Weight 137 lb 8 oz BMI 25.1 BP 134/90 H Blood Pressure Location Lt brachial Position Sitting Pulse 64 Pulse Source Pulse Oximeter Pulse Oximetry (%) 98 Oxygen Delivery Method Room Air Intake Visit Reasons: PILL COUNT Intake Note: Katlyn comes in today for a pill count to hydrocodone-acetaminophen, patient should have 19 tablets and presents with 34 tablets which she last took last night 08/20/23 at 6pm. Pain today 06/28 Capture Manager Required: No Accompanied by: Self / Same As Patient Allergies No Known Allergies Allergy (Unknown, Verified 08/21/23 10:13) HPI Comments Details: Katlyn is a very pleasant 72 year old female who presents to the office today for follow up chronic pain and chronic opioid medication management. Patient is prescribed hydrocodone acetaminophen 7.5-325mg take 1.5 tablets twice a day as needed. Patient arrived today with the expectation of having 19 pills, she presented 34 pills which were counted in the presence of 2 staff and return to the patient in the original prescription bottle. This demonstrates responsible attitude toward patient's opioid medications. Pain is reported today as 06/28 and last dose of pain medication was taken at 6pm yesterday. Pain is well managed on current opioid regimen. Patient denies any recent changes or exacerbations of chronic back pain and states she is able to engage in activities of daily living with minimal interruption due to chronic pain. Patient denies side effects including somnolence, constipation, itching, dyspnea, rash, dizziness or weakness. Prior visit with Danya Chin NP: Patient returns today for a pill count. Patient is supposed to have #13 pills, in her possession has #34 pills. This demonstrates a responsible attitude in regards to the medication regimen. Patient reports mild to moderate analgesia on her current regimen on as needed basis with no noted side effects. Last visit we increased her medication from 5 mg to 7.5 mg tabs with #40 pills per months. Patient reports she has been taking half of tab once to twice daily for most of the days. Denies any fever, chills, abdominal pain, dyspnea, chest pain, shortness of breaths, weight loss, constipation, nausea, sedation, dizziness, or urinary retention. Patient continues to endorse worsening low back pain with radiation into her left lower extremity in L5 distribution. She has decreased sensations to left lower extremity with light palpation in comparing with right lower extremity. Reports increased leg cramps in LLE which are similar when she had them prior to her previous back surgery. Reports increased gait imbalances and weakness in left leg with walking. HEP has not improve her functioning or reduce pain symptoms. Unfortunately recent MRI order was denied by her insurance. Patient has completed formal PT and has continued home exercise program at home since 03/18/23 with minimal improvement in her functioning, mobility or pain reduction. I will resubmit lumbar spine MRI for prior authorization. PT discharge summary is noted below. Denies any abdominal or groin pain, weakness, foot drop, numbness, tingling, bladder or bowel dysfunction or saddle anesthesia. Physical Therapy Discharge Report 03/18/23 Diagnosis: LBP, B hip pain Date of Surgery: n/a Date of Evaluation: 02/12/23 Date of Discharge: 03/18/23 Treatments to Date: 4 Cancellations to Date: 0 No Shows to Date: 0 Discharge Status: Improved Function Patient Elected to Stop Discharge Summary: 03/18/2023: Pt reports she is feeling better since start of care. Her pain is slightly better overall but it is still present. She still feels a lot of sensitivity in her lateral thigh. She would prefer to continue with her exercises at home vs in the clinic. I feel this is reasonable as she is compliant with her program. Recommend following up with MD if sx do not continue to improve. Electronically signed by: Tiffanie Mac, PT, DPT, ATC [facility] Medical History Benign essential HTN Arthritis GERD (gastroesophageal reflux disease) Lumbar radiculopathy, chronic Hypothyroidism Failed back syndrome, lumbar Surgical History Hx of bladder repair surgery History of lumbar surgery History of hysterectomy History of total left hip replacement Family History Mother Heart attack Father Pacemaker Leukemia Social History Household Members: Spouse Alcohol intake: never Patient Tobacco Use Status: Current everyday Tobacco user Tobacco use type: Cigarette Cigarettes Per Day: 4 Years Smoked: 40 +/- Substance Use Type: Marijuana Review of Systems Const All systems reviewed & are unremarkable except as noted in HPI and below Physical Exam Vital Signs: Last Vital Signs Pulse 64 08/21/23 10:13 BP 134/90 H 08/21/23 10:13 Pulse Ox 98 08/21/23 10:13 Oxygen Delivery Method Room Air 08/21/23 10:13 BMI result Body Mass Index 25.1 General: awake, alert, oriented. Answers questions appropriately. Fully engaged in examination. Skin: warm, dry, intact HEENT: Normocephalic. Hearing intact. Cardiac: External chest normal in appearance. Respiratory: No cough, audible wheezing or stridor. Abdomen: without gross distension. MS: No obvious swelling or deformities. Able to transition from sit to stand unassisted. Ambulates with bilaterally normal heel strike and toe off Neurological: Oriented to person, place, time and situation. Thought process intact. No gait abnormalities appreciated. Psychiatric: Appropriate mood and affect. Good judgment and insight. Results Reviewed Results Reviewed: MRI OF THE LUMBAR SPINE AND SACRUM WITHOUT CONTRAST 06/15/2012 CLINICAL INFORMATION: 61-year-old woman with radiating sacral pain. COMPARISON: None. TECHNIQUE: MRI of the lumbar spine and sacrum was obtained using routine sequences without contrast. FINDINGS: Sacrum: Bone marrow is normal in signal intensity, demonstrating no abnormal edema to suggest an unhealed sacral insufficiency fracture. Exiting sacral nerve roots at S1, S2, S3, and S4 are unremarkable in their MR appearance. The SI joints appear intact and no unhealed superior or inferior pubic rami fractures are visualized. Lumbar spine: On the sagittal images, there is grade 1 anterolisthesis of L4 on L5 and of L5 on S1 without convincing identification of pars defects either side. Vertebral bodies remain normal in height. There is desiccation of the intervertebral discs with mild volume loss at L4-L5. The conus terminates at the L1-L2 level and appears intrinsically normal. There is however a suggestion of some clumping and/or thickening of nerve roots, especially around the L2-L3 level. L1-L2: A small diffuse disc bulge is eccentric to the right. The central and neural foramina remain patent. L2-L3: There is a diffuse disc bulge with a broad-based posterior to right anterolateral disc protrusion. There is moderate facet arthrosis and hypertrophy of the ligamentum flavum. In concert, these findings lead to moderate canal stenosis and mild left and at least moderate right foraminal narrowing with possible mass effect on the exiting right L2 nerve root. L3-L4: There is a small diffuse disc bulge and moderate facet arthrosis. The central canal remains patent. There is mild narrowing of the left neural foramen. L4-L5: The disc is slightly uncovered. There is marked bilateral facet arthrosis and hypertrophy of the ligamentum flavum, right greater than left. These findings lead to mild canal stenosis and also mild narrowing of the left neural foramen. L5-S1: The disc is slightly uncovered with a small superimposed bulge. The central canal remains patent. There is mild left foraminal narrowing. There is marked bilateral facet arthrosis. IMPRESSION: 1. Multifactorial degenerative changes at L2-L3 lead to moderate canal stenosis and mild left and at least moderate right foraminal narrowing with possible mass effect on the exiting right L2 nerve root. There is a suggestion of abnormal clumping/thickening of nerve roots around at this level that could relate to canal stenosis and some motion artifact. However repeat imaging utilizing contrast is probably prudent to exclude underlying pathology. 2. No imaging findings suggestive of an unhealed sacral insufficiency fracture. XR SACRUM AND COCCYX XR PELVIS AND HIP, BILATERAL 06/11/21 CLINICAL INFORMATION: Pain right hip. Sacrococcygeal disorders. FINDINGS: AP pelvis: There is a total left hip prosthesis. The right hip joint space is normal. No bony erosive changes. There is no lytic or sclerotic process. The soft tissues are normal. Mild right L4-L5 facet joint arthropathy noted. Right hip: AP and frog-leg views of right hip reveal no bony erosive changes. Normal joint space. No spurring. No fracture or dislocation. Left hip: There is a total left hip prosthesis with prosthetic components in satisfactory alignment. There are cerclage wires surrounding the proximal femoral prosthesis and the overlying bone. The soft tissues are normal. Sacrum and/or coccyx: There is normal symmetry of bilateral SI joints without sclerosis. There is no sacral or coccygeal fracture. There is minimal anterior subluxation of coccyx on the distal sacrum of indeterminate age. Soft tissue swelling is seen. IMPRESSION: Mild anterior subluxation of coccyx in relation to the sacrum, ? age. No sacral or right hip fracture. There is a total left hip prosthesis with the prosthetic components in satisfactory alignment. No periprosthetic fracture is seen. The AP pelvis appears unremarkable. The SI joints are symmetrical and normal. Chest and lumbar spine. 06/13/23 CLINICAL INDICATIONS: Cough. Low back pain. COMPARISON: Chest 11/05/2022. TECHNIQUE: Lumbar spine 3 views and chest 2 views. FINDINGS: CHEST: The lungs are fairly well-expanded and clear. Heart size and pulmonary vascularity is normal. No gross bony abnormality seen. LUMBAR SPINE: There is normal lumbar lordosis. There is grade 1 anterolisthesis L4-L5 and grade 1 retrolisthesis L2 over L3.. Rest of the vertebral alignment is normal. There is mild loss of L1-L2 and L2-L2 disc heights. No acute fracture, lytic or sclerotic process seen. There is a left total hip prosthesis in alignment. There is mild bilateral L5-S1 and L4-L5 facet joint arthropathy slightly greater on the right. The soft tissues are normal. SI joints are normal. IMPRESSION: Unremarkable chest exam. Grade 1 anterolisthesis L4 over 5 and grade 1 retrolisthesis L2 over L3. There are degenerative disc changes L1-L2 and L2-L2 disc levels. Moderate bilateral facet joint arthropathy and hypertrophy seen at the L5-S1 and L4-L5 disc levels. Assessment & Plan Assessment & Plan (1) Failed back syndrome, lumbar: Code(s): M96.1 - Postlaminectomy syndrome, not elsewhere classified Category: Medical (2) Opioid contract exists: Code(s): Z79.891 - terminal manager (current) use of opiate analgesic Category: Medical (3) Sacroiliac joint pain: Code(s): M53.3 - Sacrococcygeal disorders, not elsewhere classified Category: Medical (4) Spondylolisthesis of lumbar region: Code(s): M43.16 - Spondylolisthesis, lumbar region Category: Medical (5) Intractable low back pain: Code(s): M54.59 - Other low back pain Category: Medical Plan [place] was reviewed and without concerns. No obvious signs of diversion, abuse or misuse of the opioid medications. Patient has excess pills. she only takes as needed. Patient will call the office when she has 3-5 days of medication left and refill will be sent at that time. Patient to follow-up in the office in 1 month, sooner if needed. All questions and concerns have been answered and patient agrees with the plan. Coding Level of Care Code Est Pt Level 4 (22260) Diagnoses Failed back syndrome, lumbar M96.1 Opioid contract exists Z79.891 Sacroiliac joint pain M53.3 Spondylolisthesis of lumbar region M43.16 Intractable low back pain M54.59
[2023-08-21 10:13] VITALS: BP 134/90; PULSE 64; O2SAT 98; BMI 25.1
== END 2023-08-21 10:27 | disposition home or self-care (01) ==
PROVIDERS: PCP Family Medicine; Visit Provider Registered Nurse Emergency
DX: M96.1 Postlaminectomy syndrome, not elsewhere classified (principal); Z79.891 Long term (current) use of opiate analgesic; M53.3 Sacrococcygeal disorders, not elsewhere classified; M43.16 Spondylolisthesis, lumbar region; M54.59 Other low back pain
CPT/HCPCS: 99214

== ENCOUNTER → 2023-08-21 09:59 | Outpatient (BNVA) | payer MEDICARE, SELFPAY | PROVIDERS: PCP Family Medicine; Visit Provider Registered Nurse Emergency | DX: Z51.81 Encounter for therapeutic drug level monitoring (principal); M96.1 Postlaminectomy syndrome, not elsewhere classified; M53.3 Sacrococcygeal disorders, not elsewhere classified; M43.16 Spondylolisthesis, lumbar region; M54.59 Other low back pain; Z79.891 Long term (current) use of opiate analgesic | CPT/HCPCS: 99212 ==

== ENCOUNTER 2023-09-18 10:05 | Outpatient (REF) | payer MEDICARE, SELFPAY ==
--- NOTE | ~2023-09-18 | XR_ITS ---
EXAMINATION: XR CERVICAL SPINE CLINICAL INFORMATION: Spondylosis without myelopathy or radiculopathy, cervical region COMPARISON: None available. TECHNIQUE: 4 views of the cervical spine were obtained. FINDINGS: The tip of the odontoid is obscured on the open-mouth view. The bones are diffusely demineralized. No fracture. Prevertebral soft tissues are within normal limits. The height of vertebral bodies is well-maintained. There is marked disc space narrowing with anterior marginal osteophyte formation at C3-C4, C4-C5, C5-C6 and C6-C7 there is mild retrolisthesis of C3 with respect to C4, C4 respect to C5 and C5 respect to C6. XR/XR cervical spine 3V IMPRESSION: 1. Marked multilevel degenerative disc disease. 2. Multilevel retrolisthesis.
--- NOTE | ~2023-09-18 | XR_ITS ---
EXAMINATION: XR SHOULDER, RIGHT CLINICAL INFORMATION: Pain in right shoulder COMPARISON: None available. TECHNIQUE: AP external rotation, Grashey, scapular Y, and axillary views of the right shoulder. FINDINGS: The bones are diffusely demineralized. No fracture. Glenohumeral and acromioclavicular alignment is anatomic with normal glenohumeral joint space. There is mild degenerative change of the acromioclavicular joint. No abnormal soft tissue calcifications. XR/XR shoulder RT min 2V IMPRESSION: Mild degenerative change of the acromioclavicular joint.
== END 2023-09-18 10:06 | disposition home or self-care (01) ==
LOC: HO.XRAY 10:05
PROVIDERS: PCP Family Medicine; Visit Provider Nurse Practitioner Family
DX: M47.812 Spondylosis without myelopathy or radiculopathy, cervical region (principal); M79.18 Myalgia, other site; M54.2 Cervicalgia; M25.511 Pain in right shoulder; M54.50 Low back pain, unspecified; M96.1 Postlaminectomy syndrome, not elsewhere classified; M54.16 Radiculopathy, lumbar region; Z51.81 Encounter for therapeutic drug level monitoring; Z79.891 Long term (current) use of opiate analgesic
CPT/HCPCS: 72040; 73030; 99212

== ENCOUNTER 2023-09-18 10:05 | Outpatient (AMB) | payer MEDICARE, SELFPAY ==
--- NOTE | 2023-09-18 10:06 | MHC.OFFVIS ---
Vital Signs 09/18/23 10:14 Height 5 ft 2 in Weight 137 lb BMI 25.1 BP 136/62 Blood Pressure Location Lt brachial Position Sitting Pulse 70 Pulse Source Pulse Oximeter Pulse Oximetry (%) 98 Oxygen Delivery Method Room Air Intake Visit Reasons: PILL COUNT Intake Note: Katlyn comes in today for a pill count to hydrocodone-acetaminophen, patient should have 31 tablets and presents with 34 tablets which last took yesterday 09/17/23 at 5pm. Director Presales Required: No Accompanied by: Self / Same As Patient Allergies No Known Allergies Allergy (Unknown, Verified 09/18/23 10:15) HPI Comments Details: Patient returns today for a pill count. Patient is supposed to have #31 pills, in her possession has #34 pills. This demonstrates a responsible attitude in regards to the medication regimen. Patient reports mild to moderate analgesia on her current regimen on as needed basis with no noted side effects. Denies any fever, chills, abdominal pain, dyspnea, chest pain, shortness of breaths, weight loss, constipation, nausea, sedation, dizziness, or urinary retention. Patient reports increased neck and right shoulder pain for past few weeks. Denies any inciting events. Reports she recently started home exercises program with lifting weights. Denies any recent cough, cold, infection, fever, any significant changes in her medical history, medications or recent hospitalizations. PRIOR: Katlyn is a very pleasant 72 year old female who presents to the office today for follow up chronic pain and chronic opioid medication management. Patient is prescribed hydrocodone acetaminophen 7.5-325mg take 1.5 tablets twice a day as needed. Patient arrived today with the expectation of having 19 pills, she presented 34 pills which were counted in the presence of 2 staff and return to the patient in the original prescription bottle. This demonstrates responsible attitude toward patient's opioid medications. Pain is reported today as 3/10 and last dose of pain medication was taken at 6pm yesterday. Pain is well managed on current opioid regimen. Patient denies any recent changes or exacerbations of chronic back pain and states she is able to engage in activities of daily living with minimal interruption due to chronic pain. Patient denies side effects including somnolence, constipation, itching, dyspnea, rash, dizziness or weakness. Prior visit with Danya Chin NP: Patient returns today for a pill count. Patient is supposed to have #13 pills, in her possession has #34 pills. This demonstrates a responsible attitude in regards to the medication regimen. Patient reports mild to moderate analgesia on her current regimen on as needed basis with no noted side effects. Last visit we increased her medication from 5 mg to 7.5 mg tabs with #40 pills per months. Patient reports she has been taking half of tab once to twice daily for most of the days. Denies any fever, chills, abdominal pain, dyspnea, chest pain, shortness of breaths, weight loss, constipation, nausea, sedation, dizziness, or urinary retention. Patient continues to endorse worsening low back pain with radiation into her left lower extremity in L5 distribution. She has decreased sensations to left lower extremity with light palpation in comparing with right lower extremity. Reports increased leg cramps in LLE which are similar when she had them prior to her previous back surgery. Reports increased gait imbalances and weakness in left leg with walking. HEP has not improve her functioning or reduce pain symptoms. Unfortunately recent MRI order was denied by her insurance. Patient has completed formal PT and has continued home exercise program at home since 03/18/23 with minimal improvement in her functioning, mobility or pain reduction. I will resubmit lumbar spine MRI for prior authorization. PT discharge summary is noted below. Denies any abdominal or groin pain, weakness, foot drop, numbness, tingling, bladder or bowel dysfunction or saddle anesthesia. Physical Therapy Discharge Report 03/18/23 Diagnosis: LBP, B hip pain Date of Surgery: n/a Date of Evaluation: 02/12/23 Date of Discharge: 03/18/23 Treatments to Date: 4 Cancellations to Date: 0 No Shows to Date: 0 Discharge Status: Improved Function Patient Elected to Stop Discharge Summary: 03/18/2023: Pt reports she is feeling better since start of care. Her pain is slightly better overall but it is still present. She still feels a lot of sensitivity in her lateral thigh. She would prefer to continue with her exercises at home vs in the clinic. I feel this is reasonable as she is compliant with her program. Recommend following up with MD if sx do not continue to improve. Electronically signed by: Tiffanie Mac, PT, DPT, ATC [facility] Medical History Benign essential HTN Arthritis GERD (gastroesophageal reflux disease) Lumbar radiculopathy, chronic Hypothyroidism Failed back syndrome, lumbar Surgical History Hx of bladder repair surgery History of lumbar surgery History of hysterectomy History of total left hip replacement Family History Mother Heart attack Father Pacemaker Leukemia Social History Household Members: Spouse Alcohol intake: never Patient Tobacco Use Status: Current everyday Tobacco user Tobacco use type: Cigarette Cigarettes Per Day: 4 Years Smoked: 40 +/- Substance Use Type: Marijuana Review of Systems Const All systems reviewed & are unremarkable except as noted in HPI and below Physical Exam Vital Signs: Last Vital Signs Pulse 70 09/18/23 10:14 BP 136/62 09/18/23 10:14 Pulse Ox 98 09/18/23 10:14 Oxygen Delivery Method Room Air 09/18/23 10:14 BMI result Body Mass Index 25.1 General: Appears afebrile. Alert and oriented. Mood and affect appropriate. Follows and participates in conversation appropriately. Respiratory effort is unlabored. No cough. Able to transition from sit to stand unassisted. Ambulates with bilaterally normal heel strike and toe off on the right, reports unsteadiness and gait imbalance on the left. Neck Neck: Yes no lymphadenopathy, Yes supple, Yes anterior neck swelling and Yes no JVD Back/Spine/Pelvis Cervical Spine: cervical muscular tenderness, pain with cervical ROM, No Cervical spine scars present and No Cervical spine tenderness Thoracic/Lumbar Spine: thoracic and lumbar spine normal to inspection, Thoracic/lumbar spine scar(s), Lasegue's sign negative, pain with thoraco-lumbar ROM, paraspinal muscle tenderness on the left greater than right, thoraco-lumbar ROM limited, No thoracic spinal tenderness and lumbar spinal tenderness (L4-S1) Extrem General: Yes capillary refill normal, Yes no clubbing, cyanosis or edema and Yes no calf tenderness Right upper extremity: shoulder/upper arm (Limited ROM, difficulty with overhead reach or reaching her back pockets.) Details: tenderness Location: of the A-C joint, over the biceps tendon and over the subacromial bursa and crepitus; no swelling, no ecchymosis and no unusual warmth Psych Appearance: grossly normal Mental Status: mental status grossly normal Speech and movement: Normal speech and movement present Affect: normal affect Attitude: cooperative Thought process: Normal thought process present Thought content: Normal thought content present, suicidality (none), no hallucinations and Depressive thoughts present Insight: Good insight present (Psych) Judgement: Good judgement present (Psych) Results Reviewed Results Reviewed: No imaging reports are available for review. Assessment & Plan Assessment & Plan (1) Myofascial pain: Code(s): M79.18 - Myalgia, other site Category: Medical (2) Cervicalgia: Code(s): M54.2 - Cervicalgia Category: Medical (3) Cervical spondylosis: Code(s): M47.812 - Spondylosis without myelopathy or radiculopathy, cervical region Category: Medical (4) Right shoulder pain: Code(s): M25.511 - Pain in right shoulder Category: Medical (5) Low back pain: Code(s): M54.50 - Low back pain, unspecified Category: Medical (6) Opioid contract exists: Code(s): Z79.891 - terminal operations supervisor (current) use of opiate analgesic Category: Medical (7) Failed back syndrome, lumbar: Code(s): M96.1 - Postlaminectomy syndrome, not elsewhere classified Category: Medical (8) Lumbar radiculopathy, chronic: Code(s): M54.16 - Radiculopathy, lumbar region Category: Medical Plan Patient has shown accountability for her medication regimen and the pill count was accurate.?There is no evidence of misuse, abuse or diversion at this time. [employer] reviewed. Script for hydrocodone-acetaminophen 7.5-325 mg?#40/30 days sent with an advanced date of 10/12/23. Patient is aware of monitoring for side effects. Discussed with the patient the risks associated with benzodiazepine and opioid use. Cervical spine and right shoulder imaging to assess degree of degenerative changes, any subluxation, listhesis, compression fractures or pars defects.?Briefly discussed interventional treatments for both acute pain generators. Recommend formal PT and HEP. All questions and concerns were answered and the patient is in agreement with the plan. Follow up in one month pill count and sooner if needed. Orders: Orders XR cervical spine 3V Today M25.511 - Pain in right shoulder, M47.812 - Spondylosis without myelopathy or radiculopathy, cervical region, M54.2 - Cervicalgia XR shoulder RT min 2V Today M25.511 - Pain in right shoulder, M47.812 - Spondylosis without myelopathy or radiculopathy, cervical region, M54.2 - Cervicalgia Medications: Refilled hydrocodone-acetaminophen 7.5-325 mg Partial Fill upon patient request. 1.5 tabs PO BID 30 days PRN 40 tabs 0RF pain M53.3 - Sacrococcygeal disorders, not elsewhere classified, M54.50 - Low back pain, unspecified, M96.1 - Postlaminectomy syndrome, not elsewhere classified, Z79.891 - terminal operations supervisor (current) use of opiate analgesic Coding Level of Care Code Est Pt Level 4 (74116) Diagnoses Myofascial pain M79.18 Cervicalgia M54.2 Cervical spondylosis M47.812 Right shoulder pain M25.511 Low back pain M54.50 Opioid contract exists Z79.891 Failed back syndrome, lumbar M96.1 Lumbar radiculopathy, chronic M54.16
[2023-09-18 10:14] VITALS: BP 136/62; PULSE 70; O2SAT 98; BMI 25.1
== END 2023-09-18 10:31 | disposition home or self-care (01) ==
PROVIDERS: PCP Family Medicine; Visit Provider Nurse Practitioner Family
DX: M79.18 Myalgia, other site (principal); M54.2 Cervicalgia; M47.812 Spondylosis without myelopathy or radiculopathy, cervical region; Z79.891 Long term (current) use of opiate analgesic; M25.511 Pain in right shoulder; M54.50 Low back pain, unspecified; M96.1 Postlaminectomy syndrome, not elsewhere classified; M54.16 Radiculopathy, lumbar region
CPT/HCPCS: 99214

== ENCOUNTER 2023-10-16 09:58 | Outpatient (AMB) | payer MEDICARE, SELFPAY ==
--- NOTE | 2023-10-16 09:59 | MHC.OFFVIS ---
Vital Signs 10/16/23 10:06 Height 5 ft 2 in Weight 138 lb BMI 25.2 BP 163/72 H Blood Pressure Location Lt brachial Position Sitting Pulse 61 Pulse Source Pulse Oximeter Pulse Oximetry (%) 98 Oxygen Delivery Method Room Air Intake Visit Reasons: PILL COUNT Intake Note: Katlyn comes in today for a pill count to hydrocodone-acetaminophen. Patient should have 34 tablets and presents with 37 tablets which she last took last night 10/15/23 at 5pm. Pain today 08/28 Allergies No Known Allergies Allergy (Unknown, Verified 10/16/23 10:07) HPI Comments Details: Patient returns today for a pill count. Patient is supposed to have #34 pills, in her possession has #37 pills. This demonstrates a responsible attitude in regards to the medication regimen. Patient reports mild to moderate analgesia on her current regimen on as needed basis with no noted side effects. Denies any fever, chills, abdominal pain, dyspnea, chest pain, shortness of breaths, weight loss, constipation, nausea, sedation, dizziness, or urinary retention. Patient reports continues to endorse neck and right shoulder and upper arm pain. Denies any inciting events. Attributes pain started last month after home exercises program with lifting weights. Patient is interested to start physical therapy prior to interventional treatments. Xray results were reviewed with patient and are noted below. Denies any recent cough, cold, infection, fever, any significant changes in her medical history, medications or recent hospitalizations. [facility]LY [facility] Medical History Benign essential HTN Arthritis GERD (gastroesophageal reflux disease) Lumbar radiculopathy, chronic Hypothyroidism Failed back syndrome, lumbar Surgical History Hx of bladder repair surgery History of lumbar surgery History of hysterectomy History of total left hip replacement Family History Mother Heart attack Father Pacemaker Leukemia Social History Household Members: Spouse Alcohol intake: never Patient Tobacco Use Status: Current everyday Tobacco user Tobacco use type: Cigarette Cigarettes Per Day: 4 Years Smoked: 40 +/- Substance Use Type: Marijuana Review of Systems Const All systems reviewed & are unremarkable except as noted in HPI and below Physical Exam Vital Signs: Last Vital Signs Pulse 61 10/16/23 10:06 BP 163/72 H 10/16/23 10:06 Pulse Ox 98 10/16/23 10:06 Oxygen Delivery Method Room Air 10/16/23 10:06 BMI result Body Mass Index 25.2 General: Appears afebrile. Alert and oriented. Mood and affect appropriate. Follows and participates in conversation appropriately. Respiratory effort is unlabored. No cough. Able to transition from sit to stand unassisted. Ambulates with bilaterally normal heel strike and toe off on the right, reports unsteadiness and gait imbalance on the left. Neck Neck: Yes normal visual inspection, Yes no lymphadenopathy, Yes supple, Yes anterior neck swelling and Yes no JVD Back/Spine/Pelvis Cervical Spine: loss of normal cervical lordosis, cervical muscular tenderness, pain with cervical ROM, No Cervical spine scars present, No Cervical spine tenderness and No step off deformity Thoracic/Lumbar Spine: thoracic and lumbar spine normal to inspection, Thoracic/lumbar spine scar(s), Lasegue's sign negative, pain with thoraco-lumbar ROM, paraspinal muscle tenderness on the left greater than right, thoraco-lumbar ROM limited, No thoracic spinal tenderness and lumbar spinal tenderness (L4-S1) Extrem General: Yes capillary refill normal, Yes no clubbing, cyanosis or edema and Yes no calf tenderness Right upper extremity: shoulder/upper arm (Limited ROM, difficulty with overhead reach or reaching her back pockets.) Details: tenderness Location: of the A-C joint, over the biceps tendon and over the subacromial bursa and crepitus; no swelling, no ecchymosis and no unusual warmth Psych Appearance: grossly normal and well kempt Mental Status: mental status grossly normal Speech and movement: Normal speech and movement present and Clear speech present Affect: normal affect Attitude: cooperative Thought process: Normal thought process present Thought content: Normal thought content present, suicidality (none), no hallucinations and Depressive thoughts present Insight: Good insight present (Psych) Judgement: Good judgement present (Psych) Results Reviewed Results Reviewed: XR CERVICAL SPINE 09/18/23 CLINICAL INFORMATION: Spondylosis without myelopathy or radiculopathy, cervical region FINDINGS: The tip of the odontoid is obscured on the open-mouth view. The bones are diffusely demineralized. No fracture. Prevertebral soft tissues are within normal limits. The height of vertebral bodies is well-maintained. There is marked disc space narrowing with anterior marginal osteophyte formation at C3-C4, C4-C5, C5-C6 and C6-C7 there is mild retrolisthesis of C3 with respect to C4, C4 respect to C5 and C5 respect to C6. IMPRESSION: 1. Marked multilevel degenerative disc disease. 2. Multilevel retrolisthesis. XR SHOULDER, RIGHT 09/18/23 CLINICAL INFORMATION: Pain in right shoulder FINDINGS: The bones are diffusely demineralized. No fracture. Glenohumeral and acromioclavicular alignment is anatomic with normal glenohumeral joint space. There is mild degenerative change of the acromioclavicular joint. No abnormal soft tissue calcifications. IMPRESSION: Mild degenerative change of the acromioclavicular joint. Assessment & Plan Assessment & Plan (1) Cervical spondylosis: Code(s): M47.812 - Spondylosis without myelopathy or radiculopathy, cervical region Category: Medical (2) Right shoulder pain: Code(s): M25.511 - Pain in right shoulder Category: Medical (3) Degeneration, intervertebral disc, cervical: Code(s): M50.30 - Other cervical disc degeneration, unspecified cervical region Category: Medical (4) Biceps tendonitis on right: Code(s): M75.21 - Bicipital tendinitis, right shoulder Category: Medical (5) Myofascial pain: Code(s): M79.18 - Myalgia, other site Category: Medical (6) Opioid contract exists: Code(s): 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 [employer] reviewed. Script for hydrocodone-acetaminophen 7.5-325 mg?#40/30 days sent with an advanced date of 11/10/23. Patient is aware of monitoring for side effects. Discussed with the patient the risks associated with benzodiazepine and opioid use. Cervical spine and right shoulder imaging reviewed today. Recommend formal PT and HEP. Script provided. If no pain relief or function improvement, will consider interventional treatments as indicated. All questions and concerns were answered and the patient is in agreement with the plan. Follow up in one month pill count and sooner if needed. Orders: Orders PT Evaluation and Treatment Today M25.511 - Pain in right shoulder, M47.812 - Spondylosis without myelopathy or radiculopathy, cervical region, M50.30 - Other cervical disc degeneration, unspecified cervical region, M54.2 - Cervicalgia, M75.21 - Bicipital tendinitis, right shoulder Medications: Refilled hydrocodone-acetaminophen 7.5-325 mg Partial Fill upon patient request. 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
[2023-10-16 10:06] VITALS: BP 163/72; PULSE 61; O2SAT 98; BMI 25.2
== END 2023-10-16 10:23 | disposition home or self-care (01) ==
PROVIDERS: PCP Family Medicine; Visit Provider Nurse Practitioner Family
DX: M47.812 Spondylosis without myelopathy or radiculopathy, cervical region (principal); M25.511 Pain in right shoulder; M50.30 Other cervical disc degeneration, unspecified cervical region; M75.21 Bicipital tendinitis, right shoulder; M79.18 Myalgia, other site; Z79.891 Long term (current) use of opiate analgesic; M96.1 Postlaminectomy syndrome, not elsewhere classified
CPT/HCPCS: 99214

== ENCOUNTER → 2023-10-16 09:58 | Outpatient (BNVA) | payer MEDICARE, SELFPAY | PROVIDERS: PCP Family Medicine; Visit Provider Nurse Practitioner Family | DX: M25.511 Pain in right shoulder (principal); M75.21 Bicipital tendinitis, right shoulder; M50.30 Other cervical disc degeneration, unspecified cervical region; M47.812 Spondylosis without myelopathy or radiculopathy, cervical region; M79.18 Myalgia, other site; M96.1 Postlaminectomy syndrome, not elsewhere classified; Z79.891 Long term (current) use of opiate analgesic | CPT/HCPCS: 99212 ==

== ENCOUNTER → 2023-11-13 10:01 | Outpatient (BNVA) | payer MEDICARE, SELFPAY | PROVIDERS: PCP Family Medicine; Visit Provider Nurse Practitioner Family ==

== ENCOUNTER 2023-12-03 16:33 | Outpatient (REF) | payer MEDICARE, SELFPAY ==
--- NOTE | ~2023-12-03 | MR_ITS ---
EXAMINATION: MR LUMBAR SPINE WITHOUT CONTRAST CLINICAL INFORMATION: Spondylolisthesis COMPARISON: Lumbar spine radiographs June 13, 2023. Images from prior lumbar spine MRI from June 13, 2012 are not available in PACS at time of dictation TECHNIQUE: MRI of the lumbar spine was obtained using routine sequences without contrast. FINDINGS: Slight lumbar levocurvature. Preserved lumbar lordosis. Grade 1 retrolisthesis at L1-L2 3 and grade 1 anterolisthesis at L4-L5 and L5-S1. Vertebral body heights are maintained. There is no suspicious osseous lesion. Diffusely coarsened appearance of the bony trabeculae throughout the spinal column and imaged pelvis can be correlated clinically for osteopenia. Diffuse desiccation with moderate to severe disc height loss posteriorly at L2-L3, to a lesser extent at L1-L2, and otherwise mild multilevel disc height loss. Marginally edematous Schmorl's node along the left aspect of the posterior L2 inferior endplate. Trace type I endplate changes posteriorly at L1-L2. Multilevel anterior osteophytic spurring is seen. Stress related marrow edema within the bilateral L5 pedicles. Level by level detail as follows: L1-L2: Disc bulge with superiorly migrated right subarticular/foraminal disc extrusion and moderate bilateral facet arthrosis with ligamentum flavum thickening. Moderate to severe spinal canal stenosis and asymmetric right subarticular zone narrowing with compression along the traversing right L2 nerve root. Severe right neural foraminal stenosis with compression of the exiting right L1 nerve root and mild left neural foraminal stenosis. L2-L3: Post laminectomy changes. Retrolisthesis with disc osteophyte complex. Moderate right and mild left facet arthrosis. The spinal canal is decompressed. Moderate to severe left and moderate right neural foraminal stenosis with mass effect along the exiting left greater than right L2 nerve roots. L3-L4: Disc bulge eccentric to the right with ventral annular fissure and moderate facet arthrosis with ligamentum flavum thickening. Mild spinal canal and mild bilateral neural foraminal narrowing. L4-L5: Advanced bilateral facet arthrosis with ligament flavum thickening, diastatic right facet joint effusion, and 1.0 cm craniocaudal dorsal epidural cyst presumably reflecting interspinous bursitis. Hypertrophied L4 and L5 spinous processes with obliterated interspinous interval and fluid distended interspinous bursa projecting into the adjacent paraspinal soft tissues. Unroofing of posterior disc material. 7 mm synovial cyst along the ventrolateral margin of the left facet joint projecting into the posterior left neural foramen. Moderate spinal canal and mild left greater than right neural foraminal stenosis. L5-S1: Advanced bilateral facet arthrosis with unroofing of posterior disc material. No spinal canal stenosis. Mild left without right neural foraminal stenosis. The conus medullaris terminates at the level of L1. The distal spinal cord is normal in appearance. No epidural fluid collection, hematoma, or mass. Moderate to severe fatty atrophy of the lower paraspinal musculature. Limited evaluation of the intra-abdominal structures without significant abnormalities. The abdominal aorta is of normal contour and caliber. Susceptibility artifact from left hip arthroplasty with asymmetric atrophy of the short left-sided external rotator and left psoas/iliopsoas muscles. Degenerative osteophytosis bridging the ventral sacroiliac joints. MR/MR lumbar spine wo con IMPRESSION: 1. At L1-L2, there is a superiorly migrated right subarticular/foraminal disc extrusion contributing to moderate to severe spinal canal stenosis and asymmetric right lateral recess narrowing with compression along the traversing right L2 nerve root. Severe right neural foraminal stenosis with compression of the exiting right L1 nerve root. 2. At L2-L3, there are post laminectomy changes. Moderate to severe left and moderate right neural foraminal stenosis with mass effect along the exiting left greater than right L2 nerve roots. 3. At L4-L5, there is advanced bilateral facet arthrosis with a diastatic right facet joint effusion which may reflect hypermobility and can be correlated with flexion and extension views. 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 7 mm synovial cyst along the ventrolateral margin of the left facet joint projecting into the posterior left neural foramen. Moderate spinal canal stenosis and mild left greater than right neural foraminal stenosis. 4. Diffusely coarsened appearance of the bony trabeculae throughout the spinal column and imaged pelvis can be correlated clinically for osteopenia. Electronically signed by: Rashida Campbell MD 12/18/2023 07:46 PM EDT
== END 2023-12-03 16:34 | disposition home or self-care (01) ==
LOC: HO.MRI 16:33
PROVIDERS: PCP Family Medicine; Visit Provider Nurse Practitioner Family
DX: M43.16 Spondylolisthesis, lumbar region (principal); M54.59 Other low back pain; M54.16 Radiculopathy, lumbar region; M96.1 Postlaminectomy syndrome, not elsewhere classified
CPT/HCPCS: 72148

== ENCOUNTER → 2023-12-04 10:47 | Outpatient (BNVA) | payer MEDICARE, SELFPAY | PROVIDERS: PCP Family Medicine; Visit Provider Nurse Practitioner Family ==

== ENCOUNTER → 2023-12-05 09:49 | Outpatient (BNVA) | payer MEDICARE, SELFPAY | PROVIDERS: PCP Family Medicine; Visit Provider Nurse Practitioner Family ==

== ENCOUNTER 2024-01-01 10:01 | Outpatient (AMB) | payer MEDICARE, SELFPAY ==
--- NOTE | 2024-01-01 10:10 | MHC.OFFVIS ---
Vital Signs 01/01/24 10:19 Height 5 ft 2 in Weight 132 lb 8 oz BMI 24.2 BP 142/74 H Blood Pressure Location Lt brachial Position Sitting Pulse 72 Pulse Source Pulse Oximeter Pulse Oximetry (%) 98 Oxygen Delivery Method Room Air Intake Visit Reasons: Pill Count Intake Note: Katlyn comes in today for ap ill count to hydrocodone-acetaminophen, patient should have 10 tablets and presents with 20 tablets which she last took 1/2 tablet yesterday 12/31/23 at 6pm. Pain today 08/28 Pump Rebuilder Required: No Accompanied by: Self / Same As Patient Allergies No Known Allergies Allergy (Unknown, Verified 01/01/24 10:19) HPI Comments Details: Patient returns today for a pill count. Patient is supposed to have #10 pills, in her possession has #20 pills. This demonstrates a responsible attitude in regards to the medication regimen. Patient reports mild to moderate analgesia on her current regimen on as needed basis with no noted side effects. Denies any fever, chills, abdominal pain, dyspnea, chest pain, shortness of breaths, weight loss, constipation, nausea, sedation, dizziness, or urinary retention. Patient reports continues to endorse neck and right shoulder, upper arm pain and low back pain. She started physical therapy for neck and shoulder. Recent lumbar spine MRI resutls were discussed with patient on 12/19/2023 and neurosurgical referral was placed. Patient reports she also made appointment with Dr. Ibarra last and was recommended to start physical therapy. Patient also has pending evaluation by Dr. Mohamud on 01/16/2024 and would like to keep that appointment as well. Denies any recent cough, cold, infection, fever, any significant changes in her medical history, medications or recent hospitalizations. [facility] Medical History Benign essential HTN Arthritis GERD (gastroesophageal reflux disease) Lumbar radiculopathy, chronic Hypothyroidism Failed back syndrome, lumbar Surgical History Hx of bladder repair surgery History of lumbar surgery History of hysterectomy History of total left hip replacement Family History Mother Heart attack Father Pacemaker Leukemia Social History Household Members: Spouse Alcohol intake: never Patient Tobacco Use Status: Current everyday Tobacco user Tobacco use type: Cigarette Cigarettes Per Day: 4 Years Smoked: 40 +/- Substance Use Type: Marijuana Review of Systems Const All systems reviewed & are unremarkable except as noted in HPI and below Physical Exam Vital Signs: Last Vital Signs Pulse 72 01/01/24 10:19 BP 142/74 H 01/01/24 10:19 Pulse Ox 98 01/01/24 10:19 Oxygen Delivery Method Room Air 01/01/24 10:19 BMI result Body Mass Index 24.2 General: Appears afebrile. Alert and oriented. Mood and affect appropriate. Follows and participates in conversation appropriately. Respiratory effort is unlabored. No cough. Able to transition from sit to stand unassisted. Ambulates with bilaterally normal heel strike and toe off on the right, reports unsteadiness and gait imbalance on the left. Neck Neck: Yes normal visual inspection, Yes no lymphadenopathy, Yes supple, Yes anterior neck swelling and Yes no JVD Back/Spine/Pelvis Cervical Spine: loss of normal cervical lordosis, cervical muscular tenderness, pain with cervical ROM, No Cervical spine scars present, No Cervical spine tenderness and No step off deformity Thoracic/Lumbar Spine: thoracic and lumbar spine normal to inspection, Thoracic/lumbar spine scar(s), Lasegue's sign negative, pain with thoraco-lumbar ROM, paraspinal muscle tenderness on the left greater than right, thoraco-lumbar ROM limited, No thoracic spinal tenderness and lumbar spinal tenderness (L4-S1) Extrem General: Yes capillary refill normal, Yes no clubbing, cyanosis or edema and Yes no calf tenderness Right upper extremity: shoulder/upper arm (Limited ROM, difficulty with overhead reach or reaching her back pockets.) Details: tenderness Location: of the A-C joint, over the biceps tendon and over the subacromial bursa and crepitus; no swelling, no ecchymosis and no unusual warmth Psych Appearance: grossly normal and well kempt Mental Status: mental status grossly normal Speech and movement: Normal speech and movement present and Clear speech present Affect: normal affect Attitude: cooperative Thought process: Normal thought process present Thought content: Normal thought content present, suicidality (none), no hallucinations and Depressive thoughts present Insight: Good insight present (Psych) Judgement: Good judgement present (Psych) Results Reviewed Results Reviewed: XR CERVICAL SPINE 09/18/23 CLINICAL INFORMATION: Spondylosis without myelopathy or radiculopathy, cervical region FINDINGS: The tip of the odontoid is obscured on the open-mouth view. The bones are diffusely demineralized. No fracture. Prevertebral soft tissues are within normal limits. The height of vertebral bodies is well-maintained. There is marked disc space narrowing with anterior marginal osteophyte formation at C3-C4, C4-C5, C5-C6 and C6-C7 there is mild retrolisthesis of C3 with respect to C4, C4 respect to C5 and C5 respect to C6. IMPRESSION: 1. Marked multilevel degenerative disc disease. 2. Multilevel retrolisthesis. XR SHOULDER, RIGHT 09/18/23 CLINICAL INFORMATION: Pain in right shoulder FINDINGS: The bones are diffusely demineralized. No fracture. Glenohumeral and acromioclavicular alignment is anatomic with normal glenohumeral joint space. There is mild degenerative change of the acromioclavicular joint. No abnormal soft tissue calcifications. IMPRESSION: Mild degenerative change of the acromioclavicular joint. MR LUMBAR SPINE WITHOUT CONTRAST 12/03/23 CLINICAL INFORMATION: Spondylolisthesis COMPARISON: Lumbar spine radiographs June 13, 2023. Images from prior lumbar spine MRI from June 13, 2012 are not available in PACS at time of dictation FINDINGS: Slight lumbar levocurvature. Preserved lumbar lordosis. Grade 1 retrolisthesis at L1-L2 3 and grade 1 anterolisthesis at L4-L5 and L5-S1. Vertebral body heights are maintained. There is no suspicious osseous lesion. Diffusely coarsened appearance of the bony trabeculae throughout the spinal column and imaged pelvis can be correlated clinically for osteopenia. Diffuse desiccation with moderate to severe disc height loss posteriorly at L2-L3, to a lesser extent at L1-L2, and otherwise mild multilevel disc height loss. Marginally edematous Schmorl's node along the left aspect of the posterior L2 inferior endplate. Trace type I endplate changes posteriorly at L1-L2. Multilevel anterior osteophytic spurring is seen. Stress related marrow edema within the bilateral L5 pedicles. Level by level detail as follows: L1-L2: Disc bulge with superiorly migrated right subarticular/foraminal disc extrusion and moderate bilateral facet arthrosis with ligamentum flavum thickening. Moderate to severe spinal canal stenosis and asymmetric right subarticular zone narrowing with compression along the traversing right L2 nerve root. Severe right neural foraminal stenosis with compression of the exiting right L1 nerve root and mild left neural foraminal stenosis. L2-L3: Post laminectomy changes. Retrolisthesis with disc osteophyte complex. Moderate right and mild left facet arthrosis. The spinal canal is decompressed. Moderate to severe left and moderate right neural foraminal stenosis with mass effect along the exiting left greater than right L2 nerve roots. L3-L4: Disc bulge eccentric to the right with ventral annular fissure and moderate facet arthrosis with ligamentum flavum thickening. Mild spinal canal and mild bilateral neural foraminal narrowing. L4-L5: Advanced bilateral facet arthrosis with ligament flavum thickening, diastatic right facet joint effusion, and 1.0 cm craniocaudal dorsal epidural cyst presumably reflecting interspinous bursitis. Hypertrophied L4 and L5 spinous processes with obliterated interspinous interval and fluid distended interspinous bursa projecting into the adjacent paraspinal soft tissues. Unroofing of posterior disc material. 7 mm synovial cyst along the ventrolateral margin of the left facet joint projecting into the posterior left neural foramen. Moderate spinal canal and mild left greater than right neural foraminal stenosis. L5-S1: Advanced bilateral facet arthrosis with unroofing of posterior disc material. No spinal canal stenosis. Mild left without right neural foraminal stenosis. The conus medullaris terminates at the level of L1. The distal spinal cord is normal in appearance. No epidural fluid collection, hematoma, or mass. Moderate to severe fatty atrophy of the lower paraspinal musculature. Limited evaluation of the intra-abdominal structures without significant abnormalities. The abdominal aorta is of normal contour and caliber. Susceptibility artifact from left hip arthroplasty with asymmetric atrophy of the short left-sided external rotator and left psoas/iliopsoas muscles. Degenerative osteophytosis bridging the ventral sacroiliac joints. IMPRESSION: 1. At L1-L2, there is a superiorly migrated right subarticular/foraminal disc extrusion contributing to moderate to severe spinal canal stenosis and asymmetric right lateral recess narrowing with compression along the traversing right L2 nerve root. Severe right neural foraminal stenosis with compression of the exiting right L1 nerve root. 2. At L2-L3, there are post laminectomy changes. Moderate to severe left and moderate right neural foraminal stenosis with mass effect along the exiting left greater than right L2 nerve roots. 3. At L4-L5, there is advanced bilateral facet arthrosis with a diastatic right facet joint effusion which may reflect hypermobility and can be correlated with flexion and extension views. 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 7 mm synovial cyst along the ventrolateral margin of the left facet joint projecting into the posterior left neural foramen. Moderate spinal canal stenosis and mild left greater than right neural foraminal stenosis. 4. Diffusely coarsened appearance of the bony trabeculae throughout the spinal column and imaged pelvis can be correlated clinically for osteopenia. Assessment & Plan Assessment & Plan (1) Low back pain: Code(s): M54.50 - Low back pain, unspecified Category: Medical (2) Sacroiliac joint pain: Code(s): M53.3 - Sacrococcygeal disorders, not elsewhere classified Category: Medical (3) Lumbar radiculopathy: Code(s): M54.16 - Radiculopathy, lumbar region Category: Medical (4) Lumbar spinal stenosis: Code(s): M48.061 - Spinal stenosis, lumbar region without neurogenic claudication Category: Medical (5) Cervical spondylosis: Code(s): M47.812 - Spondylosis without myelopathy or radiculopathy, cervical region Category: Medical (6) Right shoulder pain: Code(s): M25.511 - Pain in right shoulder Category: Medical (7) Degeneration, intervertebral disc, cervical: Code(s): M50.30 - Other cervical disc degeneration, unspecified cervical region Category: Medical (8) Opioid contract exists: Code(s): Z79.891 - intermediate (current) use of opiate analgesic Category: Medical (9) Failed back syndrome, lumbar: Code(s): M96.1 - Postlaminectomy syndrome, not elsewhere classified Category: Medical Plan Patient has shown accountability for her medication regimen and the pill count was accurate.?There is no evidence of misuse, abuse or diversion at this time. [employer] reviewed. Script for hydrocodone-acetaminophen 7.5-325 mg?#40/30 days sent with an advanced date of 01/10/24. Patient is aware of monitoring for side effects. Discussed with the patient the risks associated with benzodiazepine and opioid use. Lumbar spine MRI results were discussed with patient on 12/19/23 and Neurosurgery referral was placed. She was seen by Dr. Ibarra at [facility] last week and was recommended to start PT. Patient is also scheduled to see Dr. Mohamud on 01/16/24 for second opinion. She is currently in PT for shoulder and neck pain. PT script provided for lower back pain. All questions and concerns were answered and the patient is in agreement with the plan. Follow up in one month pill count and sooner if needed. Orders: Orders PT Evaluation and Treatment Today M48.061 - Spinal stenosis, lumbar region without neurogenic claudication, M53.3 - Sacrococcygeal disorders, not elsewhere classified, M54.16 - Radiculopathy, lumbar region, M54.50 - Low back pain, unspecified Medications: Refilled hydrocodone-acetaminophen 7.5-325 mg Partial Fill upon patient request. 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
[2024-01-01 10:19] VITALS: BP 142/74; PULSE 72; O2SAT 98; BMI 24.2
== END 2024-01-01 10:37 | disposition home or self-care (01) ==
PROVIDERS: PCP Family Medicine; Visit Provider Nurse Practitioner Family
DX: M54.50 Low back pain, unspecified (principal); M53.3 Sacrococcygeal disorders, not elsewhere classified; M54.16 Radiculopathy, lumbar region; M48.061 Spinal stenosis, lumbar region without neurogenic claudication; M47.812 Spondylosis without myelopathy or radiculopathy, cervical region; M25.511 Pain in right shoulder; M50.30 Other cervical disc degeneration, unspecified cervical region; Z79.891 Long term (current) use of opiate analgesic; M96.1 Postlaminectomy syndrome, not elsewhere classified
CPT/HCPCS: 99214; G2211

== ENCOUNTER → 2024-01-01 10:01 | Outpatient (BNVA) | payer MEDICARE, SELFPAY | PROVIDERS: PCP Family Medicine; Visit Provider Nurse Practitioner Family | DX: M54.50 Low back pain, unspecified (principal); M53.3 Sacrococcygeal disorders, not elsewhere classified; M54.16 Radiculopathy, lumbar region; M48.061 Spinal stenosis, lumbar region without neurogenic claudication; M47.812 Spondylosis without myelopathy or radiculopathy, cervical region; M25.511 Pain in right shoulder; M50.30 Other cervical disc degeneration, unspecified cervical region; M96.1 Postlaminectomy syndrome, not elsewhere classified; Z79.891 Long term (current) use of opiate analgesic | CPT/HCPCS: 99212 ==

== ENCOUNTER 2024-01-07 10:00 | Outpatient (RCR) | payer MEDICARE, SELFPAY ==
--- NOTE | 2023-11-19 11:35 | MHC.PT.EP ---
[facility] [place] [facility] [place] [facility] [place] [facility] [address] Bertrand Lovett [address] [phone] F: [phone] F: [phone] F: [phone] F: [phone] Physical Therapy Plan of Care Date of Evaluation: 11/19/23 Date of Surgery: Diagnosis: cervical spondylosis without myelopathy or radiculopathy, cervicalgia, RIGHT shoulder pain (MD Dx) cervical radiculopathy (PT Dx) On cervical x-ray; anterior marginal osteophyte formation at C3-C7 there is mild retrolisthesis of C3-C6 Assessment: Patient is a pleasant 72 y.o. female who is referred to PT by Dr. Danya Llanes MD of [facility] with Dx of cervical spondylosis without myelopathy or radiculopathy, cervicalgia, RIGHT shoulder pain. Her x-ray imaging reveals; There is marked disc space narrowing with anterior marginal osteophyte formation at C3-C4, C4-C5, C5-C6 and C6-C7 there is mild retrolisthesis of C3 with respect to C4, C4 respect to C5 and C5 respect to C6. She does appear to have impingement occurring in bilateral shoulders which also cannot be ruled out as cervical radiculopathy due to being bilateral in nature. Patient impairments include neck and shoulder pain, limited cervical and shoulder ROM, weakness in shoulders and scapular stabilizers, poor posture. Patient current functional limitations are lift/carry groceries, difficulty getting on bra, reach overhead, prolonged sitting/standing, driving. Patient will benefit from skilled PT to address aforementioned impairments and functional limitations to meet established goals. Frequency and Duration: The patient will be seen 1-2x/week for 4 weeks Short Term Goals: 2 weeks Patient demonstrates consistency and independence with HEP to self manage symptoms and reduce familiar pain by 2 points on NPRS. Patient presents with improves posture without elevated shoulder girdle and cervical spine in neutral to improve sitting posture and tolerance for prolonged sitting. Longterm Goals: 4 weeks Patient presents with increased bilateral shoulder flexion 4+/5 to be able to reach overhead to put 2# on high shelf. Patient presents with increased cervical rotation 55 degrees bilaterally to improve driving. Treatment Plan: Modalities to reduce pain, spasms and effusion. Manual therapy to restore motion and function. Therapeutic exercise to improve strength and flexibility. Neuromuscular re-education for posture and balance. Therapeutic activities to return to functional activities of daily living. Electronically signed by: Marshall Melo PT, DPT Please sign and return to therapist. Thank you for your referral.
--- NOTE | 2024-03-24 09:27 | MHC.PT.DC ---
[facility] [place] Office [place] Office [place] Office [address] Bertrand Lovett [address] [phone] F: [phone] F: [phone] F: [phone] F: [phone] Physical Therapy Discharge Report Diagnosis: cervical spondylosis without myelopathy or radiculopathy, cervicalgia, RIGHT shoulder pain (MD Dx) cervical radiculopathy (PT Dx) On cervical x-ray; anterior marginal osteophyte formation at C3-C7 there is mild retrolisthesis of C3-C6 Date of Surgery: Date of Evaluation: 11/19/23 Date of Discharge: 03/24/24 Treatments to Date: 6 Cancellations to Date: 2 No Shows to Date: 0 Discharge Status: Independent with HEP Patient Elected to Stop Discharge Summary: Pt reported mild relief with PT interventions including modalities, manual therapy, therapautic exercise and activities. She ceased attending on her own accord as of 01/07/24 as she called to cancel her visits due to being hospitalized. Therefore she is dsicharged from PT at this time. Electronically signed by: Marshall Melo, PT, DPT Please sign and return to therapist. Thank you for your referral.
== END 2024-03-24 09:27 | disposition home or self-care (01) ==
LOC: HO.PT 10:00
PROVIDERS: PCP Family Medicine; Visit Provider Nurse Practitioner Family
DX: M47.812 Spondylosis without myelopathy or radiculopathy, cervical region (principal); M54.2 Cervicalgia; M25.511 Pain in right shoulder
CPT/HCPCS: 97035; 97110; 97140; 97162

== ENCOUNTER 2024-01-16 10:17 | Outpatient (REF) | payer MEDICARE, SELFPAY ==
--- NOTE | ~2024-01-16 | XR_ITS ---
EXAMINATION: XR LUMBOSACRAL SPINE CLINICAL INFORMATION: M85.80 - Other specified disorders of bone density and structure, unspec... COMPARISON: X-ray dated June 13, 2023. TECHNIQUE: Three views of the lumbosacral spine. FINDINGS: Submitted for interpretation on March 26, 2024. Multilevel endplate sclerosis and decreased intervertebral disc height. Grade 1 anterolisthesis L4-5 and L5-S1 levels. Grade 1 retrolisthesis L1-2 and L2 3 levels. No acute cortical disruption. No lytic or blastic lesions. Levoconvex curvature apex at L4. Facet joint hypertrophy at L5-S1. Osteopenia versus osteoporosis. Vascular calcifications. Metallic prosthesis left hip no fully included. XR/XR lumbar spine 2-3V IMPRESSION: Multilevel thoracolumbar spondylosis resulting in grade 1 anterolisthesis L4-5 and L5-S1 and grade 1 retrolisthesis L2-3 and L1-2 Electronically signed by: Zaid Russo MD 03/26/2024 02:46 PM KAIT
== END 2024-01-16 10:18 | disposition home or self-care (01) ==
LOC: HO.HOSX 10:17
PROVIDERS: PCP Family Medicine; Visit Provider Neurological Surgery
DX: M54.59 Other low back pain (principal); M85.80 Other specified disorders of bone density and structure, unspecified site
CPT/HCPCS: 72100; 99202

== ENCOUNTER 2024-01-16 10:17 | Outpatient (AMB) | payer MEDICARE, SELFPAY ==
--- NOTE | 2024-01-16 10:26 | A.SPINEOV_ITS ---
Intake Visit Reasons: low and mid back pain/burning sensation lower back Intake Note: Ms. Annabelle Rdz is here today c/o low and mif back pain with burning sensation. [employer] Required: No Allergies No Known Allergies Allergy (Unknown, Verified 01/01/24 10:19) Assessment & Plan Assessment & Plan (1) Intractable low back pain: Code(s): M54.59 - Other low back pain Category: Medical Plan Dear colleague Thank you for referring Katlyn Rich for 2nd opinion to the office today with a chief complaint of back pain. HPI: This 73-year-old female developed a red acute burning pain in the upper lumbar region 2 or 3 months ago. The pain was severe and unbearable. She saw Dr. Giang, at [facility] who did her previous lumbar laminotomy, who recommended physical therapy. No imaging was obtained. The patient denies radiation down her legs. The good news is, that the pain disappeared 2 weeks ago. The patient has a known history of decreased bone density and is scheduled for a bone scan. On exam, she is awake alert. She ambulates without difficulties. There are no deficits for motor sensation or reflexes. Radiological Studies: MRI done at [facility] on 12/15/2023 shows moderate to severe L4- 5 spinal stenosis. There is also a right-sided L1-L2 disc herniation. Impression/Plan: This patient is suffering from acute burning pain in her back. Differential diagnosis is a small compression fracture or maybe the L1-L2 disc herniation with symptomatic. The good news is that her symptoms have improved spontaneously. I recommend no further treatment. I did order an x-ray of the lumbar spine to rule out a compression fracture. Thank you for allowing me to participate in your patients care. total time spent was 40 minutes in counseling ,coordination of plan, personal review of imaging, surgical decision making and subsequent plan Kailash Mohamud MD, PhD Spine Fellowship Trained Neurosurgeon Director, [facility] Orders: Orders XR lumbar spine 2-3V Today M85.80 - Other specified disorders of bone density and structure, unspecified site Coding Level of Care Code New Pt Level 3 (42040) Diagnoses Intractable low back pain M54.59
== END 2024-01-16 11:47 | disposition home or self-care (01) ==
PROVIDERS: PCP Family Medicine; Referring Provider Nurse Practitioner Family; Visit Provider Neurological Surgery
DX: M54.59 Other low back pain (principal)
CPT/HCPCS: 99203

== ENCOUNTER → 2024-01-16 11:00 | Outpatient (BNV) | payer MEDICARE, SELFPAY | PROVIDERS: PCP Family Medicine; Visit Provider Radiology Diagnostic Radiology | DX: M85.80 Other specified disorders of bone density and structure, unspecified site (principal) | CPT/HCPCS: 72100 ==

== ENCOUNTER 2024-02-12 13:06 | Outpatient (AMB) | payer MEDICARE, SELFPAY ==
--- NOTE | 2024-02-12 13:07 | MHC.OFFVIS ---
Vital Signs 02/12/24 13:09 Height 5 ft 2 in Weight 132 lb 11.492 oz BMI 24.3 BP 120/66 Blood Pressure Location Lt brachial Position Sitting Pulse 73 Pulse Source Pulse Oximeter Intake Visit Reasons: f/up- Cath/[facility] discharge Police Judge Required: No Accompanied by: Spouse Allergies No Known Allergies Allergy (Unknown, Verified 01/01/24 10:19) Medication List - Last Reconciled 02/12/24 by Bobo Montes MD albuterol sulfate 90 mcg/actuation inhalation aspirin 81 mg PO DAILY atorvastatin 80 mg PO DAILY clopidogrel (Plavix) 75 mg PO DAILY desonide 0.05% topical BID docusate sodium 100 mg PO DAILY Donut pillow As directed hydrocodone-acetaminophen 7.5-325 mg 1.5 tabs PO DAILY PRN 30 days levothyroxine 88 mcg PO DAILY lisinopril 10 mg PO DAILY nitroglycerin 0.4 mg sublingual Q5M PRN HPI Comments Details: Pleasant 73-year-old female who is referred to us for sinus bradycardia. She was seen previously in another office primarily for fatigue and was noticed to have a heart rate of 40. She said she was on metoprolol which was stopped and heart rate recovered and her symptoms also improved. She had syncope in the past year or 2 ago when she had severe abdominal pain and she passed out at that stage which sounds like vasovagal syncope. Otherwise she does not have any dizziness or lightheadedness. She has had lower heart rates are her life and has never had any issues with that. When her heart rate was 40 she was feeling fatigue and tired but since stopping the metoprolol her symptoms have improved significantly. She is here for follow-up. Her heart rate in the office 68 beats per minute. She has no chest discomfort shortness of breath. No dizziness or syncope in recently. Exercising and has no exertional symptoms. 02/13/24: She is here for f/u. She was [facility] when she had CP and burning sensation. She was taken to hospital and ruled in for NSTEMI. Cath was done which showed plaque rupture in the dominant LCx which was treated with NEHEMIAH. Echo EF was preserved. She has been doing well since then. She has been taking medications regularly. She is interested in cardiac rehab. [facility] Medical History (Updated 02/12/24 @ 13:38 by Bobo Montes MD) Benign essential HTN Arthritis GERD (gastroesophageal reflux disease) Lumbar radiculopathy, chronic Hypothyroidism Failed back syndrome, lumbar Surgical History (Updated 02/12/24 @ 13:38 by Bobo Montes MD) History of cardiac cath Hx of bladder repair surgery History of lumbar surgery History of hysterectomy History of total left hip replacement Family History Mother Heart attack Father Pacemaker Leukemia Social History (Updated 02/12/24 @ 13:15 by Salena Pedroza CMA) Household Members: Spouse Alcohol intake: never Patient Tobacco Use Status: Former Tobacco user Tobacco use type: Cigarette Cigarettes Per Day: 4 Years Smoked: 40 +/- Substance Use Type: Marijuana Review of Systems Const Denies chills, Denies fatigue, Denies fever(s), Denies weight gain and Denies weight loss ENT Denies dizziness Card Denies chest pain, Denies leg edema, Denies lightheadedness, Denies palpitations, Denies dyspnea on exertion, Denies orthopnea and Denies other Resp Denies cough and Denies dyspnea on exertion GI Denies hematochezia and Denies change in stool character Musc Denies abnormal gait, Denies muscle weakness, Denies numbness, Denies radiating pain into limb and Denies tingling Neuro Denies abnormal gait, Denies dizziness, Denies numbness and Denies tingling Endo Denies fatigue and Denies palpitations Physical Exam Vital Signs: Last Vital Signs Pulse 73 02/12/24 13:09 BP 120/66 02/12/24 13:09 BMI result Body Mass Index 24.3 GENERAL APPEARANCE: in no acute distress, pleasant. NECK: no carotid bruit, no jugular venous distention. SKIN: no suspicious lesions, warm and dry. HEART: no murmurs, regular rate and rhythm. LUNGS: clear to auscultation bilaterally. ABDOMEN: soft, nontender. EXTREMITIES: no edema. PERIPHERAL PULSES: equal. NEUROLOGIC: No gross deficits, AAO X 3 Assessment & Plan Assessment & Plan (1) S/P coronary angioplasty: Code(s): Z98.61 - Coronary angioplasty status Category: Surgical (2) NSTEMI (non-ST elevated myocardial infarction): Code(s): I21.4 - Non-ST elevation (NSTEMI) myocardial infarction Category: Medical Plan 73 female with recent NSTEMI. She is on ASA and Plavix. Clinically stable. Refer to cardiac rehab. Echo EF was preserved. f/u 3-4 months. Orders: Orders Cardiac Rehab 02/12/24 Z98.61 - Coronary angioplasty status Coding Level of Care Code Est Pt Level 4 (79323) Diagnoses S/P coronary angioplasty Z98.61 NSTEMI (non-ST elevated myocardial infarction) I21.4
[2024-02-12 13:09] VITALS: BP 120/66; PULSE 73; BMI 24.3
== END 2024-02-12 13:40 | disposition home or self-care (01) ==
PROVIDERS: PCP Family Medicine; Visit Provider Internal Medicine Cardiovascular Disease
DX: Z98.61 Coronary angioplasty status (principal); I21.4 Non-ST elevation (NSTEMI) myocardial infarction
CPT/HCPCS: 99214

== ENCOUNTER → 2024-02-12 13:06 | Outpatient (BNVA) | payer MEDICARE, SELFPAY | PROVIDERS: PCP Family Medicine; Visit Provider Internal Medicine Cardiovascular Disease | DX: I21.4 Non-ST elevation (NSTEMI) myocardial infarction (principal); Z98.61 Coronary angioplasty status | CPT/HCPCS: 99212 ==

== ENCOUNTER 2024-02-13 11:03 | Outpatient (AMB) | payer MEDICARE, SELFPAY ==
--- NOTE | 2024-02-13 11:05 | A.OFFVIS_ITS ---
Vital Signs 02/13/24 11:14 Height 5 ft 2 in Weight 132 lb BMI 24.1 BP 158/70 H Blood Pressure Location Lt brachial Position Sitting Pulse 76 Pulse Source Pulse Oximeter Pulse Oximetry (%) 98 Oxygen Delivery Method Room Air Intake Visit Reasons: Pill count Intake Note: Katlyn comes in today for a pill count to hydrocodone-acetaminophen, patient should have 0 tablets and presents with 16 tablets which she last took 1/2 tablet on 02/12/24 at 1pm. 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 Patient is supposed to have #0 pills, in her possession has #16 pills. This demonstrates a responsible attitude in regards to the medication regimen. Patient reports mild analgesia on her current regimen on as needed basis with no noted side effects. Denies any fever, chills, abdominal pain, dyspnea, chest pain, shortness of breaths, weight loss, constipation, nausea, sedation, dizziness, or urinary retention. Patient reports she was recently admitted to [facility] due to chest pain with burning sensation and was diagnosed with NSTEMI. She underwent cardiac catheterization which showed plaque which was treated with drug eluting stents. Her Echo EF was preserved. She continues to take Aspirin and Plavix and will be starting Cardiac Rehab per recent evaluation by Cardiology. Patient reports her right hip and lower back pain has been significantly exacerbated by recent hospital stay when she was on bed rest for 5 days. She also suffers from significant multi-level spinal stenosis as noted on recent lumbar MRI and was seen by Dr. Mohamud on 01/16/24 at which time her symptoms significantly improved and no surgical intervention was indicated. [facility] Medical History Benign essential HTN Arthritis GERD (gastroesophageal reflux disease) Lumbar radiculopathy, chronic Hypothyroidism Failed back syndrome, lumbar Surgical History History of cardiac cath Hx of bladder repair surgery History of lumbar surgery History of hysterectomy History of total left hip replacement Family History Mother Heart attack Father Pacemaker Leukemia Social History Household Members: Spouse Alcohol intake: never Patient Tobacco Use Status: Former Tobacco user Tobacco use type: Cigarette Cigarettes Per Day: 4 Years Smoked: 40 +/- Substance Use Type: Marijuana Review of Systems Const All systems reviewed & are unremarkable except as noted in HPI and below Card Reports as per HPI, Denies chest pain at rest, Denies chest pain with activity, Denies leg edema and Denies dyspnea on exertion Resp Denies dyspnea on exertion Physical Exam Vital Signs: Last Vital Signs Pulse 76 02/13/24 11:14 BP 158/70 H 02/13/24 11:14 Pulse Ox 98 02/13/24 11:14 Oxygen Delivery Method Room Air 02/13/24 11:14 BMI result Body Mass Index 24.1 General: Appears afebrile. Alert and oriented. Mood and affect appropriate. Follows and participates in conversation appropriately. Respiratory effort is unlabored. No cough. Able to transition from sit to stand unassisted. Ambulates with bilaterally normal heel strike and toe off on the right, reports unsteadiness and gait imbalance on the left. Resp Effort & Inspection: able to speak in complete sentences, no audible wheezes, no cough, no respiratory distress and symmetric chest movement Back/Spine/Pelvis Cervical Spine: loss of normal cervical lordosis, cervical muscular tenderness, pain with cervical ROM, No Cervical spine scars present, No Cervical spine tenderness and No step off deformity Thoracic/Lumbar Spine: thoracic and lumbar spine normal to inspection, Thoracic/lumbar spine scar(s), Lasegue's sign negative, pain with thoraco-lumbar ROM, paraspinal muscle tenderness on the left greater than right, thoraco-lumbar ROM limited, No thoracic spinal tenderness and lumbar spinal tenderness (L4-S1) Extrem General: Yes capillary refill normal, Yes no clubbing, cyanosis or edema and Yes no calf tenderness Psych Appearance: grossly normal and well kempt Mental Status: mental status grossly normal Speech and movement: Normal speech and movement present and Clear speech present Affect: normal affect Attitude: cooperative Thought process: Normal thought process present Thought content: Normal thought content present, suicidality (none), no hallucinations and Depressive thoughts present Insight: Good insight present (Psych) Judgement: Good judgement present (Psych) Results Reviewed Results Reviewed: MR LUMBAR SPINE WITHOUT CONTRAST 12/03/23 CLINICAL INFORMATION: Spondylolisthesis COMPARISON: Lumbar spine radiographs June 13, 2023. Images from prior lumbar spine MRI from June 13, 2012 are not available in PACS at time of dictation TECHNIQUE: MRI of the lumbar spine was obtained using routine sequences without contrast. FINDINGS: Slight lumbar levocurvature. Preserved lumbar lordosis. Grade 1 retrolisthesis at L1-L2 3 and grade 1 anterolisthesis at L4-L5 and L5-S1. Vertebral body heights are maintained. There is no suspicious osseous lesion. Diffusely coarsened appearance of the bony trabeculae throughout the spinal column and imaged pelvis can be correlated clinically for osteopenia. Diffuse desiccation with moderate to severe disc height loss posteriorly at L2-L3, to a lesser extent at L1-L2, and otherwise mild multilevel disc height loss. Marginally edematous Schmorl's node along the left aspect of the posterior L2 inferior endplate. Trace type I endplate changes posteriorly at L1-L2. Multilevel anterior osteophytic spurring is seen. Stress related marrow edema within the bilateral L5 pedicles. Level by level detail as follows: L1-L2: Disc bulge with superiorly migrated right subarticular/foraminal disc extrusion and moderate bilateral facet arthrosis with ligamentum flavum thickening. Moderate to severe spinal canal stenosis and asymmetric right subarticular zone narrowing with compression along the traversing right L2 nerve root. Severe right neural foraminal stenosis with compression of the exiting right L1 nerve root and mild left neural foraminal stenosis. L2-L3: Post laminectomy changes. Retrolisthesis with disc osteophyte complex. Moderate right and mild left facet arthrosis. The spinal canal is decompressed. Moderate to severe left and moderate right neural foraminal stenosis with mass effect along the exiting left greater than right L2 nerve roots. L3-L4: Disc bulge eccentric to the right with ventral annular fissure and moderate facet arthrosis with ligamentum flavum thickening. Mild spinal canal and mild bilateral neural foraminal narrowing. L4-L5: Advanced bilateral facet arthrosis with ligament flavum thickening, diastatic right facet joint effusion, and 1.0 cm craniocaudal dorsal epidural cyst presumably reflecting interspinous bursitis. Hypertrophied L4 and L5 spinous processes with obliterated interspinous interval and fluid distended interspinous bursa projecting into the adjacent paraspinal soft tissues. Unroofing of posterior disc material. 7 mm synovial cyst along the ventrolateral margin of the left facet joint projecting into the posterior left neural foramen. Moderate spinal canal and mild left greater than right neural foraminal stenosis. L5-S1: Advanced bilateral facet arthrosis with unroofing of posterior disc material. No spinal canal stenosis. Mild left without right neural foraminal stenosis. The conus medullaris terminates at the level of L1. The distal spinal cord is normal in appearance. No epidural fluid collection, hematoma, or mass. Moderate to severe fatty atrophy of the lower paraspinal musculature. Limited evaluation of the intra-abdominal structures without significant abnormalities. The abdominal aorta is of normal contour and caliber. Susceptibility artifact from left hip arthroplasty with asymmetric atrophy of the short left-sided external rotator and left psoas/iliopsoas muscles. Degenerative osteophytosis bridging the ventral sacroiliac joints. IMPRESSION: 1. At L1-L2, there is a superiorly migrated right subarticular/foraminal disc extrusion contributing to moderate to severe spinal canal stenosis and asymmetric right lateral recess narrowing with compression along the traversing right L2 nerve root. Severe right neural foraminal stenosis with compression of the exiting right L1 nerve root. 2. At L2-L3, there are post laminectomy changes. Moderate to severe left and moderate right neural foraminal stenosis with mass effect along the exiting left greater than right L2 nerve roots. 3. At L4-L5, there is advanced bilateral facet arthrosis with a diastatic right facet joint effusion which may reflect hypermobility and can be correlated with flexion and extension views. 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 7 mm synovial cyst along the ventrolateral margin of the left facet joint projecting into the posterior left neural foramen. Moderate spinal canal stenosis and mild left greater than right neural foraminal stenosis. 4. Diffusely coarsened appearance of the bony trabeculae throughout the spinal column and imaged pelvis can be correlated clinically for osteopenia. Assessment & Plan Assessment & Plan (1) Sacroiliac joint pain: Code(s): M53.3 - Sacrococcygeal disorders, not elsewhere classified Category: Medical (2) Lumbar radiculopathy: Code(s): M54.16 - Radiculopathy, lumbar region Category: Medical (3) Lumbar spinal stenosis: Code(s): M48.061 - Spinal stenosis, lumbar region without neurogenic claudication Category: Medical (4) Degeneration, intervertebral disc, cervical: Code(s): M50.30 - Other cervical disc degeneration, unspecified cervical region Category: Medical (5) Opioid contract exists: Code(s): Z79.891 - skilled nursing (current) use of opiate analgesic Category: Medical (6) Failed back syndrome, lumbar: Code(s): M96.1 - Postlaminectomy syndrome, not elsewhere classified Category: Medical Plan Patient has shown accountability for her medication regimen and the pill count was accurate.?There is no evidence of misuse, abuse or diversion at this time. [employer] reviewed. Script for hydrocodone-acetaminophen 7.5-325 mg?#40/30 days sent with an advanced date of 02/21/24. Patient is aware of monitoring for side effects. Discussed with the patient the risks associated with benzodiazepine and opioid use. All questions and concerns were answered and the patient is in agreement with the plan. Follow up in one month pill count and sooner if needed. Medications: Refilled hydrocodone-acetaminophen 7.5-325 mg Partial Fill upon patient request. 1.5 tabs PO DAILY 30 days PRN 40 tabs 0RF pain M53.3 - Sacrococcygeal disorders, not elsewhere classified, M54.50 - Low back pain, unspecified, M96.1 - Postlaminectomy syndrome, not elsewhere classified, Z79.891 - skilled nursing (current) use of opiate analgesic Coding Level of Care Code Est Pt Level 4 (02768) Complex EM visit Add On G2211 Diagnoses Sacroiliac joint pain M53.3 Lumbar radiculopathy M54.16 Lumbar spinal stenosis M48.061 Degeneration, intervertebral disc, cervical M50.30 Opioid contract exists Z79.891 Failed back syndrome, lumbar M96.1
[2024-02-13 11:14] VITALS: BP 158/70; PULSE 76; O2SAT 98; BMI 24.1
== END 2024-02-13 11:27 | disposition home or self-care (01) ==
PROVIDERS: PCP Family Medicine; Visit Provider Nurse Practitioner Family
DX: M53.3 Sacrococcygeal disorders, not elsewhere classified (principal); M54.16 Radiculopathy, lumbar region; M48.061 Spinal stenosis, lumbar region without neurogenic claudication; M50.30 Other cervical disc degeneration, unspecified cervical region; Z79.891 Long term (current) use of opiate analgesic; M96.1 Postlaminectomy syndrome, not elsewhere classified
CPT/HCPCS: 99214; G2211

== ENCOUNTER → 2024-02-13 11:03 | Outpatient (BNVA) | payer MEDICARE, SELFPAY | PROVIDERS: PCP Family Medicine; Visit Provider Nurse Practitioner Family | DX: Z51.81 Encounter for therapeutic drug level monitoring (principal); M53.3 Sacrococcygeal disorders, not elsewhere classified; M54.16 Radiculopathy, lumbar region; M48.061 Spinal stenosis, lumbar region without neurogenic claudication; M50.30 Other cervical disc degeneration, unspecified cervical region; Z79.891 Long term (current) use of opiate analgesic | CPT/HCPCS: 99212 ==

== ENCOUNTER 2024-03-11 09:56 | Outpatient (AMB) | payer MEDICARE, SELFPAY ==
--- NOTE | 2024-03-11 09:58 | MHC.OFFVIS ---
Vital Signs 03/11/24 10:06 Height 5 ft 2 in Weight 132 lb BMI 24.1 BP 148/70 H Blood Pressure Location Lt brachial Position Sitting Pulse 65 Pulse Source Pulse Oximeter Pulse Oximetry (%) 97 Oxygen Delivery Method Room Air Intake Visit Reasons: Pill Count Intake Note: Katlyn comes in today for a pill count to hydrocodone-acetaminophen, patient should have 11.5 tablets and presents with 26 tablets which she last took last night 03/10/24 at 6:30pm. 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 Patient is supposed to have #11.5 pills, in her possession has #26 pills. This demonstrates a responsible attitude in regards to the medication regimen. Patient reports reasonable analgesia on her current regimen on as needed basis with no noted side effects. Denies any fever, chills, abdominal pain, dyspnea, chest pain, shortness of breaths, weight loss, constipation, nausea, sedation, dizziness, or urinary retention. She is awaiting to start cardiac rehab s/p having NSTEMI and cardiac catheterization in January. Patient also suffers from significant multi-level spinal stenosis as noted on recent lumbar MRI and was seen by Dr. Mohamud on 01/16/24 at which time her symptoms significantly improved and no surgical intervention was indicated. [facility] Medical History Benign essential HTN Arthritis GERD (gastroesophageal reflux disease) Lumbar radiculopathy, chronic Hypothyroidism Failed back syndrome, lumbar Surgical History History of cardiac cath Hx of bladder repair surgery History of lumbar surgery History of hysterectomy History of total left hip replacement Family History Mother Heart attack Father Pacemaker Leukemia Social History Household Members: Spouse Alcohol intake: never Patient Tobacco Use Status: Former Tobacco user Tobacco use type: Cigarette Cigarettes Per Day: 4 Years Smoked: 40 +/- Substance Use Type: Marijuana Review of Systems Const All systems reviewed & are unremarkable except as noted in HPI and below Physical Exam Vital Signs: Last Vital Signs Pulse 65 03/11/24 10:06 BP 148/70 H 03/11/24 10:06 Pulse Ox 97 03/11/24 10:06 Oxygen Delivery Method Room Air 03/11/24 10:06 BMI result Body Mass Index 24.1 General: Appears afebrile. Alert and oriented. Mood and affect appropriate. Follows and participates in conversation appropriately. Respiratory effort is unlabored. No cough. Able to transition from sit to stand unassisted. Ambulates with normal heel strike and toe off on the right, reports occasional unsteadiness on the left with pain. Neck Neck: Yes no lymphadenopathy, Yes supple, No anterior neck swelling, Yes no JVD and No prominent dorsocervical fat pad Resp Effort & Inspection: able to speak in complete sentences, no audible wheezes, no cough, no respiratory distress and symmetric chest movement Back/Spine/Pelvis Cervical Spine: loss of normal cervical lordosis, cervical muscular tenderness, pain with cervical ROM, No Cervical spine tenderness and No step off deformity Thoracic/Lumbar Spine: thoracic and lumbar spine normal to inspection, Thoracic/lumbar spine scar(s), Lasegue's sign negative, pain with thoraco-lumbar ROM, paraspinal muscle tenderness on the left greater than right, thoraco-lumbar ROM limited, No thoracic spinal tenderness and lumbar spinal tenderness (L4-S1) Extrem General: Yes capillary refill normal, Yes no clubbing, cyanosis or edema and Yes no calf tenderness Psych Appearance: grossly normal and well kempt Mental Status: mental status grossly normal Speech and movement: Normal speech and movement present and Clear speech present Affect: normal affect and Sad affect present Attitude: cooperative Thought process: Normal thought process present Thought content: Normal thought content present, suicidality (none), no hallucinations and Depressive thoughts present Insight: Good insight present (Psych) Judgement: Good judgement present (Psych) Results Reviewed Results Reviewed: MR LUMBAR SPINE WITHOUT CONTRAST 12/03/23 CLINICAL INFORMATION: Spondylolisthesis COMPARISON: Lumbar spine radiographs June 13, 2023. Images from prior lumbar spine MRI from June 13, 2012 are not available in PACS at time of dictation TECHNIQUE: MRI of the lumbar spine was obtained using routine sequences without contrast. FINDINGS: Slight lumbar levocurvature. Preserved lumbar lordosis. Grade 1 retrolisthesis at L1-L2 3 and grade 1 anterolisthesis at L4-L5 and L5-S1. Vertebral body heights are maintained. There is no suspicious osseous lesion. Diffusely coarsened appearance of the bony trabeculae throughout the spinal column and imaged pelvis can be correlated clinically for osteopenia. Diffuse desiccation with moderate to severe disc height loss posteriorly at L2-L3, to a lesser extent at L1-L2, and otherwise mild multilevel disc height loss. Marginally edematous Schmorl's node along the left aspect of the posterior L2 inferior endplate. Trace type I endplate changes posteriorly at L1-L2. Multilevel anterior osteophytic spurring is seen. Stress related marrow edema within the bilateral L5 pedicles. Level by level detail as follows: L1-L2: Disc bulge with superiorly migrated right subarticular/foraminal disc extrusion and moderate bilateral facet arthrosis with ligamentum flavum thickening. Moderate to severe spinal canal stenosis and asymmetric right subarticular zone narrowing with compression along the traversing right L2 nerve root. Severe right neural foraminal stenosis with compression of the exiting right L1 nerve root and mild left neural foraminal stenosis. L2-L3: Post laminectomy changes. Retrolisthesis with disc osteophyte complex. Moderate right and mild left facet arthrosis. The spinal canal is decompressed. Moderate to severe left and moderate right neural foraminal stenosis with mass effect along the exiting left greater than right L2 nerve roots. L3-L4: Disc bulge eccentric to the right with ventral annular fissure and moderate facet arthrosis with ligamentum flavum thickening. Mild spinal canal and mild bilateral neural foraminal narrowing. L4-L5: Advanced bilateral facet arthrosis with ligament flavum thickening, diastatic right facet joint effusion, and 1.0 cm craniocaudal dorsal epidural cyst presumably reflecting interspinous bursitis. Hypertrophied L4 and L5 spinous processes with obliterated interspinous interval and fluid distended interspinous bursa projecting into the adjacent paraspinal soft tissues. Unroofing of posterior disc material. 7 mm synovial cyst along the ventrolateral margin of the left facet joint projecting into the posterior left neural foramen. Moderate spinal canal and mild left greater than right neural foraminal stenosis. L5-S1: Advanced bilateral facet arthrosis with unroofing of posterior disc material. No spinal canal stenosis. Mild left without right neural foraminal stenosis. The conus medullaris terminates at the level of L1. The distal spinal cord is normal in appearance. No epidural fluid collection, hematoma, or mass. Moderate to severe fatty atrophy of the lower paraspinal musculature. Limited evaluation of the intra-abdominal structures without significant abnormalities. The abdominal aorta is of normal contour and caliber. Susceptibility artifact from left hip arthroplasty with asymmetric atrophy of the short left-sided external rotator and left psoas/iliopsoas muscles. Degenerative osteophytosis bridging the ventral sacroiliac joints. IMPRESSION: 1. At L1-L2, there is a superiorly migrated right subarticular/foraminal disc extrusion contributing to moderate to severe spinal canal stenosis and asymmetric right lateral recess narrowing with compression along the traversing right L2 nerve root. Severe right neural foraminal stenosis with compression of the exiting right L1 nerve root. 2. At L2-L3, there are post laminectomy changes. Moderate to severe left and moderate right neural foraminal stenosis with mass effect along the exiting left greater than right L2 nerve roots. 3. At L4-L5, there is advanced bilateral facet arthrosis with a diastatic right facet joint effusion which may reflect hypermobility and can be correlated with flexion and extension views. 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 7 mm synovial cyst along the ventrolateral margin of the left facet joint projecting into the posterior left neural foramen. Moderate spinal canal stenosis and mild left greater than right neural foraminal stenosis. 4. Diffusely coarsened appearance of the bony trabeculae throughout the spinal column and imaged pelvis can be correlated clinically for osteopenia. 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 [employer] reviewed. Script for hydrocodone-acetaminophen 7.5-325 mg?#40/30 days sent with an advanced date of 03/24/24. Patient is aware of monitoring for side effects. Discussed with the patient the risks associated with benzodiazepine and opioid use. All questions and concerns were answered and the patient is in agreement with the plan. Follow up in one month pill count and sooner if needed. Medications: Refilled hydrocodone-acetaminophen 7.5-325 mg Partial Fill upon patient request. 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
[2024-03-11 10:06] VITALS: BP 148/70; PULSE 65; O2SAT 97; BMI 24.1
== END 2024-03-11 10:24 | disposition home or self-care (01) ==
PROVIDERS: PCP Family Medicine; Visit Provider Nurse Practitioner Family
DX: M53.3 Sacrococcygeal disorders, not elsewhere classified (principal); M54.16 Radiculopathy, lumbar region; M48.061 Spinal stenosis, lumbar region without neurogenic claudication; M50.30 Other cervical disc degeneration, unspecified cervical region; Z79.891 Long term (current) use of opiate analgesic; M96.1 Postlaminectomy syndrome, not elsewhere classified
CPT/HCPCS: 99214; G2211

== ENCOUNTER → 2024-03-11 09:56 | Outpatient (BNVA) | payer MEDICARE, SELFPAY | PROVIDERS: PCP Family Medicine; Visit Provider Nurse Practitioner Family | DX: Z51.81 Encounter for therapeutic drug level monitoring (principal); M53.3 Sacrococcygeal disorders, not elsewhere classified; M54.16 Radiculopathy, lumbar region; M48.061 Spinal stenosis, lumbar region without neurogenic claudication; M50.30 Other cervical disc degeneration, unspecified cervical region; M96.1 Postlaminectomy syndrome, not elsewhere classified; Z79.891 Long term (current) use of opiate analgesic | CPT/HCPCS: 99212 ==

== ENCOUNTER 2024-03-23 13:12 | Outpatient (REF) | payer MEDICARE, SELFPAY ==
--- NOTE | ~2024-03-23 | MM_ITS ---
EXAMINATION: MM SCREENING DIGITAL BREAST TOMOSYNTHESIS, BILATERAL CLINICAL INFORMATION: Screening. Asymptomatic. COMPARISON: Mammography: Comparison is made with available priors TECHNIQUE: Digital breast mammography with tomosynthesis is performed in both the craniocaudal and mediolateral oblique views along with computer-aided detection (CAD). FINDINGS: There are scattered areas of fibroglandular density (ACR BI-RADS breast composition Category b). Left retroareolar calcifications probable secretory and stable dating back to 2019. There are no significant masses, abnormal calcifications, or other abnormalities. MM/MM tomosynthesis screening BI IMPRESSION: No mammographic evidence of malignancy. ASSESSMENT: BI-RADS BI-RADS 2 - Benign Findings RECOMMENDATION: Routine annual mammography screening. 1 year F/U This examination should not preclude the clinical evaluation of a suspicious palpable abnormality. This patient's information was entered into a reminder system with a target due date for their next mammogram. Electronically signed by: Roseanna Parham DO 03/29/2024 05:25 PM [facility]
--- NOTE | ~2024-03-23 | MM_ITS ---
EXAMINATION: BONE DENSITOMETRY CLINICAL INDICATION: Other specified disorders of bone density and structure, unspecified site. COMPARISON: This is the patient's baseline examination. TECHNIQUE: Using a [employer] DXA System (software version: 13.1) manufactured by [employer], dual-energy x-ray absorptiometry was performed of the lumbar spine and right hip. The patient has had a left hip replacement. The images are of good technical quality. Summary results are attached. FINDINGS: AP SPINE L1-L4: BMD 1.182 g/cm2, Z-score 1.9, T-score 0.0, normal. RIGHT FEMUR, NECK: BMD 0.698 g/cm2, Z-score -0.5, T-score -2.4, osteopenia. RIGHT FEMUR, TOTAL: BMD 0.747 g/cm2, Z-score -0.3, T-score -2.1, osteopenia. IDENTIFIED RISK FACTORS: Height loss. Low calcium intake. Menopause. Hysterectomy. HISTORY OF FRACTURE: None listed. MEDICATIONS: None listed. MM/XR DEXA axial skeleton IMPRESSION: 1. DIAGNOSIS: Osteopenia based on the lowest T-score value of -2.4 in the femoral neck applying World Health Organization criteria. 2. 10-YEAR FRACTURE RISK PREDICTION, FRAX: Major osteoporotic fracture (clinical spine, forearm, hip or shoulder) 16.3%. Hip fracture 5.0%. 3. Treatment Recommendations: NOF guidelines recommend consideration for treatment in postmenopausal women and men age 50 and older presenting with the following: -A hip or vertebral (clinical or morphometric) fracture. -T-score less than or equal to -2.5 at the femoral neck or spine after appropriate evaluation to exclude secondary causes. -Low bone mass at the hip or spine and a 10-year fracture probability by FRAX of greater than or equal to 3% for hip fracture or greater than or equal to 20% for major osteoporotic fracture based on the [place] adapted WHO algorithm. 4. Other Recommendations: All treatment decisions require clinical judgment and consideration of individual patient factors, including patient preferences, comorbidities, previous drug use, risk factors not captured in the FRAX model (e.g. frailty, falls, vitamin D deficiency, increased bone turnover, interval significant decline in bone density) and possible under or overestimation of fracture risk by FRAX. Additional medical evaluation for secondary cause of low bone mineral density may be appropriate. FUTURE SCAN RECOMMENDATION: People with diagnosed cases of osteoporosis or at high risk for fracture should have regular bone mineral density tests. For patients eligible for Medicare, routine testing is allowed once every 2 years. The testing frequency can be increased to one year for patients who have rapidly progressing disease, those who are receiving or discontinuing medical therapy to restore bone mass, or have additional risk factors. Electronically signed by: Clyde Leon MD 03/23/2024 02:37 PM [facility]
== END 2024-03-23 13:13 | disposition home or self-care (01) ==
LOC: HO.MAMMO 13:12
PROVIDERS: PCP Family Medicine; Visit Provider Nurse Practitioner Family
DX: Z12.31 Encounter for screening mammogram for malignant neoplasm of breast (principal); Z13.820 Encounter for screening for osteoporosis; Z78.0 Asymptomatic menopausal state; M85.80 Other specified disorders of bone density and structure, unspecified site
CPT/HCPCS: 77063; 77067; 77080

== ENCOUNTER → 2024-03-23 13:15 | Outpatient (BNV) | payer MEDICARE, SELFPAY | PROVIDERS: PCP Family Medicine; Visit Provider Internal Medicine | DX: Z12.31 Encounter for screening mammogram for malignant neoplasm of breast (principal) | CPT/HCPCS: 77063; 77067 ==

== ENCOUNTER 2024-03-30 13:01 | Outpatient (REF) | payer MEDICARE, SELFPAY ==
--- NOTE | ~2024-03-30 | XR_ITS ---
EXAMINATION: XR CHEST CLINICAL INFORMATION: COUGH, WHEEZE, COPD COMPARISON: Most recent chest radiograph dated 06/13/2023. TECHNIQUE: 2 views of the chest were obtained. FINDINGS: The lungs are clear. The cardiomediastinal silhouette is normal in size. There is no pleural effusion or pneumothorax. No acute osseous abnormality. XR/XR chest 2V IMPRESSION: No acute cardiopulmonary findings. Electronically signed by: Davy Cui MD 03/30/2024 04:13 PM [facility]
== END 2024-03-30 13:02 | disposition home or self-care (01) ==
LOC: HO.XRAY 13:01
PROVIDERS: PCP Family Medicine; Visit Provider Family Medicine
DX: R05.9 Cough, unspecified (principal); J44.9 Chronic obstructive pulmonary disease, unspecified; R06.2 Wheezing
CPT/HCPCS: 71046

== ENCOUNTER 2024-04-08 10:19 | Outpatient (AMB) | payer MEDICARE, SELFPAY ==
--- NOTE | 2024-04-08 10:21 | A.OFFVIS_ITS ---
Vital Signs 04/08/24 10:29 Height 5 ft 2 in Weight 133 lb BMI 24.3 BP 132/61 Blood Pressure Location Lt brachial Position Sitting Pulse 66 Pulse Source Pulse Oximeter Pulse Oximetry (%) 97 Oxygen Delivery Method Room Air Intake Visit Reasons: Medication Count Intake Note: Katlyn comes in today for a pill count to hydrocodone-acetaminophen, patient should have 19 tablets and presents with 26 tablets which she last took last night 04/07/24 at 5pm. Pain today 5/10 Supervisor Volunteer Services Required: No Accompanied by: Self / Same As Patient Allergies No Known Allergies Allergy (Unknown, Verified 04/08/24 10:29) HPI Comments Details: Patient returns today for a pill count. Patient is supposed to have #19 pills, in her possession has #26 pills. This demonstrates a responsible attitude in regards to the medication regimen. Patient reports reasonable analgesia on her current regimen on as needed basis with no noted side effects. Pain is rated at 5/10. Denies any fever, chills, abdominal pain, dyspnea, chest pain, shortness of breaths, weight loss, constipation, nausea, sedation, dizziness, or urinary retention except recently treated for bronchitis with Amoxicillin, albuterol, and tessalon perles. She continues with non-productive cough and takes guifanacin syrup as needed with mild relief. Reports intermittent wheezing. Declined Pulmonary evaluation as she recently started cardiac rehab s/p having NSTEMI and cardiac catheterization in January. Patient also suffers from significant multi-level spinal stenosis as noted on recent lumbar MRI and was seen by Dr. Mohamud on 01/16/24 at which time her symptoms significantly improved and no surgical intervention was indicated. [facility] Medical History Benign essential HTN Arthritis GERD (gastroesophageal reflux disease) Lumbar radiculopathy, chronic Hypothyroidism Failed back syndrome, lumbar Surgical History History of cardiac cath Hx of bladder repair surgery History of lumbar surgery History of hysterectomy History of total left hip replacement Family History Mother Heart attack Father Pacemaker Leukemia Social History Household Members: Spouse Alcohol intake: never Patient Tobacco Use Status: Former Tobacco user Tobacco use type: Cigarette Cigarettes Per Day: 4 Years Smoked: 40 +/- Substance Use Type: Marijuana Review of Systems Const All systems reviewed & are unremarkable except as noted in HPI and below Physical Exam Vital Signs: Last Vital Signs Pulse 66 04/08/24 10:29 BP 132/61 04/08/24 10:29 Pulse Ox 97 04/08/24 10:29 Oxygen Delivery Method Room Air 04/08/24 10:29 BMI result Body Mass Index 24.3 General: Appears afebrile. Alert and oriented. Mood and affect appropriate. Follows and participates in conversation appropriately. Respiratory effort is unlabored. No cough. Able to transition from sit to stand unassisted. Ambulates with normal heel strike and toe off on the right, reports occasional unsteadiness on the left with pain. Neck Neck: Yes no lymphadenopathy, Yes supple, No anterior neck swelling, Yes no JVD and No prominent dorsocervical fat pad Resp Effort & Inspection: able to speak in complete sentences, no audible wheezes, Actively coughing Quality: dry, not labored, no nasal flaring, no respiratory distress, no stridor, No prolonged expiratory phase and symmetric chest movement Back/Spine/Pelvis Cervical Spine: pain with cervical ROM and No Cervical spine tenderness Thoracic/Lumbar Spine: thoracic and lumbar spine normal to inspection, pain with thoraco-lumbar ROM, thoraco-lumbar ROM limited, No thoracic spinal tenderness and No lumbar spinal tenderness Extrem General: Yes capillary refill normal, Yes no clubbing, cyanosis or edema and Yes no calf tenderness Psych Appearance: grossly normal and well kempt Mental Status: mental status grossly normal Speech and movement: Normal speech and movement present and Clear speech present Affect: normal affect and Sad affect present Attitude: cooperative Thought process: Normal thought process present Thought content: Normal thought content present, suicidality (none), no hallucinations and Depressive thoughts present Insight: Good insight present (Psych) Judgement: Good judgement present (Psych) Results Reviewed Results Reviewed: MR LUMBAR SPINE WITHOUT CONTRAST 12/03/23 CLINICAL INFORMATION: Spondylolisthesis COMPARISON: Lumbar spine radiographs June 13, 2023. Images from prior lumbar spine MRI from June 13, 2012 are not available in PACS at time of dictation TECHNIQUE: MRI of the lumbar spine was obtained using routine sequences without contrast. FINDINGS: Slight lumbar levocurvature. Preserved lumbar lordosis. Grade 1 retrolisthesis at L1-L2 3 and grade 1 anterolisthesis at L4-L5 and L5-S1. Vertebral body heights are maintained. There is no suspicious osseous lesion. Diffusely coarsened appearance of the bony trabeculae throughout the spinal column and imaged pelvis can be correlated clinically for osteopenia. Diffuse desiccation with moderate to severe disc height loss posteriorly at L2-L3, to a lesser extent at L1-L2, and otherwise mild multilevel disc height loss. Marginally edematous Schmorl's node along the left aspect of the posterior L2 inferior endplate. Trace type I endplate changes posteriorly at L1-L2. Multilevel anterior osteophytic spurring is seen. Stress related marrow edema within the bilateral L5 pedicles. Level by level detail as follows: L1-L2: Disc bulge with superiorly migrated right subarticular/foraminal disc extrusion and moderate bilateral facet arthrosis with ligamentum flavum thickening. Moderate to severe spinal canal stenosis and asymmetric right subarticular zone narrowing with compression along the traversing right L2 nerve root. Severe right neural foraminal stenosis with compression of the exiting right L1 nerve root and mild left neural foraminal stenosis. L2-L3: Post laminectomy changes. Retrolisthesis with disc osteophyte complex. Moderate right and mild left facet arthrosis. The spinal canal is decompressed. Moderate to severe left and moderate right neural foraminal stenosis with mass effect along the exiting left greater than right L2 nerve roots. L3-L4: Disc bulge eccentric to the right with ventral annular fissure and moderate facet arthrosis with ligamentum flavum thickening. Mild spinal canal and mild bilateral neural foraminal narrowing. L4-L5: Advanced bilateral facet arthrosis with ligament flavum thickening, diastatic right facet joint effusion, and 1.0 cm craniocaudal dorsal epidural cyst presumably reflecting interspinous bursitis. Hypertrophied L4 and L5 spinous processes with obliterated interspinous interval and fluid distended interspinous bursa projecting into the adjacent paraspinal soft tissues. Unroofing of posterior disc material. 7 mm synovial cyst along the ventrolateral margin of the left facet joint projecting into the posterior left neural foramen. Moderate spinal canal and mild left greater than right neural foraminal stenosis. L5-S1: Advanced bilateral facet arthrosis with unroofing of posterior disc material. No spinal canal stenosis. Mild left without right neural foraminal stenosis. The conus medullaris terminates at the level of L1. The distal spinal cord is normal in appearance. No epidural fluid collection, hematoma, or mass. Moderate to severe fatty atrophy of the lower paraspinal musculature. Limited evaluation of the intra-abdominal structures without significant abnormalities. The abdominal aorta is of normal contour and caliber. Susceptibility artifact from left hip arthroplasty with asymmetric atrophy of the short left-sided external rotator and left psoas/iliopsoas muscles. Degenerative osteophytosis bridging the ventral sacroiliac joints. IMPRESSION: 1. At L1-L2, there is a superiorly migrated right subarticular/foraminal disc extrusion contributing to moderate to severe spinal canal stenosis and asymmetric right lateral recess narrowing with compression along the traversing right L2 nerve root. Severe right neural foraminal stenosis with compression of the exiting right L1 nerve root. 2. At L2-L3, there are post laminectomy changes. Moderate to severe left and moderate right neural foraminal stenosis with mass effect along the exiting left greater than right L2 nerve roots. 3. At L4-L5, there is advanced bilateral facet arthrosis with a diastatic right facet joint effusion which may reflect hypermobility and can be correlated with flexion and extension views. 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 7 mm synovial cyst along the ventrolateral margin of the left facet joint projecting into the posterior left neural foramen. Moderate spinal canal stenosis and mild left greater than right neural foraminal stenosis. 4. Diffusely coarsened appearance of the bony trabeculae throughout the spinal column and imaged pelvis can be correlated clinically for osteopenia. 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 [employer] reviewed. Script for hydrocodone-acetaminophen 7.5-325 mg?#40/30 days sent with an advanced date of 04/23/24. Patient is aware of monitoring for side effects. Discussed with the patient the risks associated with benzodiazepine and opioid use. Patient is aware to follow up with PCP or go to ER/Urgent Clinic if cough symptoms are worsening. All questions and concerns were answered and the patient is in agreement with the plan. Follow up in 4-5 weeks pill count and sooner if needed. Medications: Refilled hydrocodone-acetaminophen 7.5-325 mg Partial Fill upon patient request. 1.5 tabs PO DAILY 30 days PRN 40 tabs 0RF pain M53.3 - Sacrococcygeal disorders, not elsewhere classified, M54.50 - Low back pain, unspecified, M96.1 - Postlaminectomy syndrome, not elsewhere classified, Z79.891 - half-way (current) use of opiate analgesic Coding Level of Care Code Est Pt Level 4 (56834) Complex EM visit Add On G2211 Diagnoses Lumbar radiculopathy M54.16 Lumbar spinal stenosis M48.061 Degeneration, intervertebral disc, cervical M50.30 Opioid contract exists Z79.891 Failed back syndrome, lumbar M96.1
[2024-04-08 10:29] VITALS: BP 132/61; PULSE 66; O2SAT 97; BMI 24.3
== END 2024-04-08 10:40 | disposition home or self-care (01) ==
PROVIDERS: PCP Family Medicine; Visit Provider Nurse Practitioner Family
DX: M54.16 Radiculopathy, lumbar region (principal); M48.061 Spinal stenosis, lumbar region without neurogenic claudication; M50.30 Other cervical disc degeneration, unspecified cervical region; Z79.891 Long term (current) use of opiate analgesic; M96.1 Postlaminectomy syndrome, not elsewhere classified
CPT/HCPCS: 99214; G2211

== ENCOUNTER → 2024-04-08 10:19 | Outpatient (BNVA) | payer MEDICARE, SELFPAY | PROVIDERS: PCP Family Medicine; Visit Provider Nurse Practitioner Family | DX: M54.16 Radiculopathy, lumbar region (principal); M48.061 Spinal stenosis, lumbar region without neurogenic claudication; M50.30 Other cervical disc degeneration, unspecified cervical region; M96.1 Postlaminectomy syndrome, not elsewhere classified; Z51.81 Encounter for therapeutic drug level monitoring; Z79.891 Long term (current) use of opiate analgesic | CPT/HCPCS: 99212 ==

== ENCOUNTER 2024-04-16 13:29 | Outpatient (REF) | payer MEDICARE, SELFPAY ==
--- NOTE | ~2024-04-16 | XR_ITS ---
EXAMINATION: XR CHEST CLINICAL INFORMATION: Cough. Coronary artery disease. Wheezing. COMPARISON: Rest recent chest radiograph dated 03/30/2024. TECHNIQUE: 2 views of the chest were obtained. FINDINGS: The lungs are clear. The cardiomediastinal silhouette is normal in size. There is no pleural effusion or pneumothorax. No acute osseous abnormality. XR/XR chest 2V IMPRESSION: No acute cardiopulmonary findings. Electronically signed by: Davy Cui MD 04/16/2024 02:20 PM [facility]
== END 2024-04-16 13:30 | disposition home or self-care (01) ==
LOC: HO.XRAY 13:29
PROVIDERS: PCP Family Medicine; Visit Provider Family Medicine
DX: R05.9 Cough, unspecified (principal); R06.2 Wheezing; I25.10 Atherosclerotic heart disease of native coronary artery without angina pectoris
CPT/HCPCS: 71046

== ENCOUNTER 2024-04-22 10:41 | Outpatient (REF) | payer MEDICARE, SELFPAY ==
--- NOTE | ~2024-04-22 | CT_ITS ---
EXAMINATION: CT CHEST WITHOUT AND WITH CONTRAST CLINICAL INFORMATION: Chronic cough, shortness of breath COMPARISON: None available. TECHNIQUE: Multidetector volumetric CT imaging of the chest was obtained before and after the administration of 50 mL of Omnipaque 350 intravenous contrast without immediate adverse reactions. Axial MIP volume rendering provided. Sagittal and coronal reformatted images were obtained. This CT examination was performed using dose optimization techniques as appropriate, variously including the following: *Automated exposure control *Adjustment of mA and/or kV according to patient size (this includes techniques or standardized protocols for targeted exams where dose is matched to indication/reason for exam; i.e. extremities or head) *Use of iterative reconstruction technique FINDINGS: SHOER: Unremarkable. LUNGS: The lungs are well-expanded and clear acute pneumonic process. There is left basilar platelike atelectasis. There is a 3 mm nodule left lung base image 40/8 . No additional nodule seen. There is left lower lobe medial basal segment platelike atelectasis. MEDIASTINUM: The thyroid lobes are symmetric and normal. The central trachea and the bronchi are widely patent. Heart size and the great vessels are normal caliber. No pericardial effusion seen. Central trachea and the bronchi is widely patent. CORONARY ARTERY CALCIFICATION: There is mild coronary artery calcifications present. PLEURA: There is no pleural effusion. No pleural mass or thickening. AXILLA: No lymphadenopathy. UPPER ABDOMEN: Visualized liver, spleen, pancreas and adrenal glands are unremarkable. No radiopaque gallstones seen. OSSEOUS STRUCTURES: There is exaggerated thoracic kyphosis. Vertebral heights and alignment is normal. There is ventral spondylosis mid dorsal spine. No lytic or sclerotic process seen. CT/CT chest wo/w IV con IMPRESSION: 3 mm pulmonary nodule left lower lobe. No abnormal mediastinal adenopathy. No acute intrathoracic process seen. Fleischner guidelines were followed. Electronically signed by: Ephraim Ace MD 04/22/2024 03:58 PM [facility]
[2024-04-22 11:04] LABS: MANUAL DIFF FLAG NO
[2024-04-22 11:17] LABS: Basophils Percent Auto 0.4 % (0-2); Eosinophils Absolute Auto 0.2 X10*3/uL (0.0-0.4); Eosinophils Percent Auto 2.8 % (0-4); Hematocrit 36.6 % (37.0-47.0); Hemoglobin 12.2 g/dl (12.0-16.0); Imm Gran Abs Auto 0.11 X10*3/uL (0.00-0.03); Imm Gran Pct Auto 1.5 % (0.0-0.4); Lymphocytes Absolute Auto 1.6 X10*3/uL (1.2-4.9); Lymphocytes Percent Auto 21.7 % (20-40); Mean Corpuscular HGB Conc 33.3 g/dl (31.0-35.0); Mean Corpuscular Hemoglobin 31.6 pg (27.0-33.0); Mean Corpuscular Volume 94.8 fL (80.0-98.0); Mean Platelet Volume 8.2 fL (9.4-12.3); Monocytes Absolute Auto 0.7 X10*3/uL (0.1-1.2); Monocytes Percent Auto 10.1 % (2-11); Neutrophils Absolute Auto 4.5 x10*3/uL (2.0-8.3); Neutrophils Percent Auto 63.5 % (45-73); Platelet Count 340 X10*3/uL (160-400); Red Blood Count 3.86 X10*6/uL (4.20-5.50); Red Cell Distribution Width 13.9 % (11.0-16.0); White Blood Count 7.1 X10*3/uL (4.8-10.8)
[2024-04-22 11:49] LABS: Alanine Aminotransferase 23 U/L (0-31); Anion Gap 10 (12-20); Aspartate Amino Transferase 28 U/L (5-31); Blood Urea Nitrogen 12 mg/dL (9-16); Carbon Dioxide 27 mmol/L (22-29); Chloride 105 mmol/L (96-108); Cholesterol 140 mg/dL (<200); Estimated Glomerular Filt Rate > 60; HDL Cholesterol 63 mg/dL (>40); LDL Cholesterol Calculated 39 mg/dL (<100); Potassium 4.7 mmol/L (3.3-5.1); Sodium 137 mmol/L (135-145); Triglycerides 190 mg/dL (<150)
[2024-04-22] MEDS: iohexoL 350 MG/ML 100 ML INFUS..BTL IV (14:08)
== END 2024-04-22 10:42 | disposition home or self-care (01) ==
LOC: HO.CT 10:41
PROVIDERS: PCP Family Medicine; Visit Provider Family Medicine
DX: R05.3 Chronic cough (principal); R06.02 Shortness of breath; I10 Essential (primary) hypertension; D64.9 Anemia, unspecified; E78.00 Pure hypercholesterolemia, unspecified; Z87.891 Personal history of nicotine dependence; Z79.899 Other long term (current) drug therapy
CPT/HCPCS: 36415; 71270; 80051; 80061; 82550; 82565; 84450; 84460; 84520; 85025; Q9967

== ENCOUNTER → 2024-04-22 11:10 | Outpatient (BNV) | payer MEDICARE, SELFPAY | PROVIDERS: PCP Family Medicine; Visit Provider Radiology Diagnostic Radiology | DX: R91.1 Solitary pulmonary nodule (principal) | CPT/HCPCS: 71270 ==

== ENCOUNTER 2024-04-28 13:08 | Outpatient (AMB) | payer MEDICARE, SELFPAY ==
[2024-04-28 13:37] VITALS: BP 120/62; PULSE 57; BMI 24.9
--- NOTE | 2024-04-28 13:37 | MHC.OFFVIS ---
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 Accompanied by: Self / Same As Patient Allergies No Known Allergies Allergy (Unknown, Verified 04/08/24 10:29) Medication List - Last Reconciled 04/28/24 by Bobo Montes MD albuterol sulfate 90 mcg/actuation inhalation aspirin 81 mg PO DAILY atorvastatin 80 mg PO DAILY clopidogrel (Plavix) 75 mg PO DAILY desonide 0.05% topical BID docusate sodium 100 mg PO DAILY Donut pillow As directed hydrocodone-acetaminophen 7.5-325 mg 1.5 tabs PO DAILY PRN 30 days levothyroxine 88 mcg PO DAILY lisinopril 10 mg PO DAILY nitroglycerin 0.4 mg sublingual Q5M PRN HPI Comments Details: Pleasant 73-year-old female who is referred to us for sinus bradycardia. She was seen previously in another office primarily for fatigue and was noticed to have a heart rate of 40. She said she was on metoprolol which was stopped and heart rate recovered and her symptoms also improved. She had syncope in the past year or 2 ago when she had severe abdominal pain and she passed out at that stage which sounds like vasovagal syncope. Otherwise she does not have any dizziness or lightheadedness. She has had lower heart rates are her life and has never had any issues with that. When her heart rate was 40 she was feeling fatigue and tired but since stopping the metoprolol her symptoms have improved significantly. She is here for follow-up. Her heart rate in the office 68 beats per minute. She has no chest discomfort shortness of breath. No dizziness or syncope in recently. Exercising and has no exertional symptoms. 02/13/24: She is here for f/u. She was in [facility] recently when she had CP and burning sensation. She was taken to hospital and ruled in for NSTEMI. Cath was done which showed plaque rupture in the dominant LCx which was treated with NEHEMIAH. Echo EF was preserved. She has been doing well since then. She has been taking medications regularly. She is interested in cardiac rehab. 04/28/2024: On April 14 she had chest discomfort lasting for 5 minutes. She took 2 nitroglycerin tablets. She said she was down with a viral illness and stayed sick for long time requiring antibiotics as well as steroids. She has not had any further chest discomfort. She is still recovering from the viral illness at this stage. [facility] Medical History Benign essential HTN Arthritis GERD (gastroesophageal reflux disease) Lumbar radiculopathy, chronic Hypothyroidism Failed back syndrome, lumbar Surgical History History of cardiac cath Hx of bladder repair surgery History of lumbar surgery History of hysterectomy History of total left hip replacement Family History Mother Heart attack Father Pacemaker Leukemia Social History Household Members: Spouse Alcohol intake: never Patient Tobacco Use Status: Former Tobacco user Tobacco use type: Cigarette Cigarettes Per Day: 4 Years Smoked: 40 +/- Substance Use Type: Marijuana Review of Systems Const Denies chills, Denies fatigue, Denies fever(s), Denies frequent falls, Denies weakness, Denies weight gain and Denies weight loss ENT Denies dizziness Card Denies chest pain, Denies leg edema, Denies lightheadedness, Denies palpitations, Denies dyspnea and Denies dyspnea on exertion Resp Denies cough, Denies dyspnea and Denies dyspnea on exertion GI Denies hematochezia Musc Denies abnormal gait, Denies muscle weakness, Denies numbness, Denies radiating pain into limb and Denies tingling Neuro Denies abnormal gait, Denies dizziness, Denies frequent falls, Denies numbness, Denies tingling and Denies weakness Endo Denies fatigue and Denies palpitations Physical Exam Vital Signs: Last Vital Signs Pulse 57 04/28/24 13:37 BP 120/62 04/28/24 13:37 BMI result Body Mass Index 24.9 GENERAL APPEARANCE: in no acute distress, pleasant. NECK: no carotid bruit, no jugular venous distention. SKIN: no suspicious lesions, warm and dry. HEART: no murmurs, regular rate and rhythm. LUNGS: clear to auscultation bilaterally. ABDOMEN: soft, nontender. EXTREMITIES: no edema. PERIPHERAL PULSES: equal. NEUROLOGIC: No gross deficits, AAO X 3 Office Procedures EKG Details: Sinus bradycardia 57 beats per minute, normal axis, normal ECG, QTC 434 milliseconds. [id number], Complete Assessment & Plan Assessment & Plan (1) S/P coronary angioplasty: Code(s): Z98.61 - Coronary angioplasty status Category: Medical (2) Stable angina: Code(s): I20.89 - Other forms of angina pectoris Category: Medical Plan 73 year female who is here for follow-up. She had NSTEMI recently and underwent circumflex PCI. She is on aspirin and Plavix. In March she had viral illness and bronchitis. She was quite sick and required antibiotics as well as prednisone. She had 1 episode of chest tightness. She has not had any further chest discomfort. EKGs normal. Currently I do not advise doing any stress testing. As she recovers completely from the viral illness then we can consider stress testing if she has recurrent symptoms. She will report to us if she has any further episode of chest discomfort. Thank you for allowing me to participate in the care of your patient. Please feel free to contact me if you have any questions. Coding Level of Care Code Est Pt Level 4 (10903) Diagnoses S/P coronary angioplasty Z98.61 Stable angina I20.89 CPT Codes EKG - CPT: [id number], Complete ([id number])
== END 2024-04-28 14:19 | disposition home or self-care (01) ==
PROVIDERS: PCP Family Medicine; Visit Provider Internal Medicine Cardiovascular Disease
DX: Z98.61 Coronary angioplasty status (principal); I20.89 Other forms of angina pectoris
CPT/HCPCS: 93010; 99214

== ENCOUNTER → 2024-04-28 13:08 | Outpatient (BNVA) | payer MEDICARE, SELFPAY | PROVIDERS: PCP Family Medicine; Visit Provider Internal Medicine Cardiovascular Disease | DX: I20.89 Other forms of angina pectoris (principal); Z98.61 Coronary angioplasty status; R00.1 Bradycardia, unspecified | CPT/HCPCS: 93005; 99212 ==

== ENCOUNTER 2024-05-06 10:32 | Outpatient (AMB) | payer MEDICARE, SELFPAY ==
--- NOTE | 2024-05-06 10:34 | MHC.OFFVIS ---
Vital Signs 05/06/24 10:45 05/06/24 10:46 Height 5 ft 2 in Weight 137 lb BMI 25.1 BP 150/70 H 125/63 Blood Pressure Location Rt brachial Lt brachial Position Sitting Sitting Pulse 66 Pulse Source Pulse Oximeter Pulse Oximetry (%) 97 Oxygen Delivery Method Room Air Comment bp recheck Intake Visit Reasons: Pill Count/ random UDS Intake Note: Katlyn comes in today for a pill count to hydrocodone-acetaminophen, patient should have 22 tablets and presents with 30 tablets which she last took last night 05/05/24 at dinner time. Pain today 4 Patient resigned opioid contract in office today, copy of signed contract was provided to patient. Katlyn was also sent for a random UDS, aware that she will need to go to the lab on the first floor of this building today 05/06/24 before 12pm. Felt Strip Finisher Required: No Accompanied by: Self / Same As Patient Allergies No Known Allergies Allergy (Unknown, Verified 05/06/24 10:46) HPI Comments Details: Patient returns today for a pill count. Patient is supposed to have #22 pills, in her possession has #30 pills. This demonstrates a responsible attitude in regards to the medication regimen. Patient reports reasonable analgesia on her current regimen on as needed basis with no noted side effects. Pain is rated at 4/10. Denies any fever, cough, chills, abdominal pain, dyspnea, chest pain, shortness of breaths, weight loss, constipation, nausea, sedation, dizziness, or urinary retention. She recently started Cardiac rehab at [facility] rehab s/p having NSTEMI and cardiac catheterization in January. Patient reports she is still recovering from viral upper respiratory illness and bronchitis last month which required treatment with antibiotics and prednisone. [facility], [facility] Medical History Benign essential HTN Arthritis GERD (gastroesophageal reflux disease) Lumbar radiculopathy, chronic Hypothyroidism Failed back syndrome, lumbar Surgical History History of cardiac cath Hx of bladder repair surgery History of lumbar surgery History of hysterectomy History of total left hip replacement Family History Mother Heart attack Father Pacemaker Leukemia Social History Household Members: Spouse Alcohol intake: never Patient Tobacco Use Status: Former Tobacco user Tobacco use type: Cigarette Cigarettes Per Day: 4 Years Smoked: 40 +/- Substance Use Type: Marijuana Review of Systems Const All systems reviewed & are unremarkable except as noted in HPI and below Physical Exam Vital Signs: Last Vital Signs Pulse 66 05/06/24 10:45 BP 125/63 05/06/24 10:46 Pulse Ox 97 05/06/24 10:45 Oxygen Delivery Method Room Air 05/06/24 10:45 BMI result Body Mass Index 25.1 General: Appears afebrile. No acute distress. Alert and oriented. Mood and affect appropriate. Follows and participates in conversation appropriately. Respiratory effort is unlabored. No cough. Able to transition from sit to stand unassisted. Ambulates with normal heel strike and toe off on the right, reports occasional unsteadiness on the left with pain. Neck Neck: Yes no lymphadenopathy, Yes supple, No anterior neck swelling, Yes no JVD and No prominent dorsocervical fat pad Resp Effort & Inspection: normal respiratory effort, no cough, not labored, no respiratory distress and symmetric chest movement Back/Spine/Pelvis Cervical Spine: pain with cervical ROM and No Cervical spine tenderness Thoracic/Lumbar Spine: thoracic and lumbar spine normal to inspection, pain with thoraco-lumbar ROM, thoraco-lumbar ROM limited, No thoracic spinal tenderness and No lumbar spinal tenderness Extrem General: Yes capillary refill normal, Yes no clubbing, cyanosis or edema and Yes no calf tenderness Psych Appearance: grossly normal and well kempt Mental Status: mental status grossly normal Speech and movement: Normal speech and movement present and Clear speech present Affect: normal affect and Sad affect present Attitude: cooperative Thought process: Normal thought process present Thought content: Normal thought content present, suicidality (none), no hallucinations and Depressive thoughts present Insight: Good insight present (Psych) Judgement: Good judgement present (Psych) Results Reviewed Results Reviewed: MR LUMBAR SPINE WITHOUT CONTRAST 12/03/23 CLINICAL INFORMATION: Spondylolisthesis COMPARISON: Lumbar spine radiographs June 13, 2023. Images from prior lumbar spine MRI from June 13, 2012 are not available in PACS at time of dictation TECHNIQUE: MRI of the lumbar spine was obtained using routine sequences without contrast. FINDINGS: Slight lumbar levocurvature. Preserved lumbar lordosis. Grade 1 retrolisthesis at L1-L2 3 and grade 1 anterolisthesis at L4-L5 and L5-S1. Vertebral body heights are maintained. There is no suspicious osseous lesion. Diffusely coarsened appearance of the bony trabeculae throughout the spinal column and imaged pelvis can be correlated clinically for osteopenia. Diffuse desiccation with moderate to severe disc height loss posteriorly at L2-L3, to a lesser extent at L1-L2, and otherwise mild multilevel disc height loss. Marginally edematous Schmorl's node along the left aspect of the posterior L2 inferior endplate. Trace type I endplate changes posteriorly at L1-L2. Multilevel anterior osteophytic spurring is seen. Stress related marrow edema within the bilateral L5 pedicles. Level by level detail as follows: L1-L2: Disc bulge with superiorly migrated right subarticular/foraminal disc extrusion and moderate bilateral facet arthrosis with ligamentum flavum thickening. Moderate to severe spinal canal stenosis and asymmetric right subarticular zone narrowing with compression along the traversing right L2 nerve root. Severe right neural foraminal stenosis with compression of the exiting right L1 nerve root and mild left neural foraminal stenosis. L2-L3: Post laminectomy changes. Retrolisthesis with disc osteophyte complex. Moderate right and mild left facet arthrosis. The spinal canal is decompressed. Moderate to severe left and moderate right neural foraminal stenosis with mass effect along the exiting left greater than right L2 nerve roots. L3-L4: Disc bulge eccentric to the right with ventral annular fissure and moderate facet arthrosis with ligamentum flavum thickening. Mild spinal canal and mild bilateral neural foraminal narrowing. L4-L5: Advanced bilateral facet arthrosis with ligament flavum thickening, diastatic right facet joint effusion, and 1.0 cm craniocaudal dorsal epidural cyst presumably reflecting interspinous bursitis. Hypertrophied L4 and L5 spinous processes with obliterated interspinous interval and fluid distended interspinous bursa projecting into the adjacent paraspinal soft tissues. Unroofing of posterior disc material. 7 mm synovial cyst along the ventrolateral margin of the left facet joint projecting into the posterior left neural foramen. Moderate spinal canal and mild left greater than right neural foraminal stenosis. L5-S1: Advanced bilateral facet arthrosis with unroofing of posterior disc material. No spinal canal stenosis. Mild left without right neural foraminal stenosis. The conus medullaris terminates at the level of L1. The distal spinal cord is normal in appearance. No epidural fluid collection, hematoma, or mass. Moderate to severe fatty atrophy of the lower paraspinal musculature. Limited evaluation of the intra-abdominal structures without significant abnormalities. The abdominal aorta is of normal contour and caliber. Susceptibility artifact from left hip arthroplasty with asymmetric atrophy of the short left-sided external rotator and left psoas/iliopsoas muscles. Degenerative osteophytosis bridging the ventral sacroiliac joints. IMPRESSION: 1. At L1-L2, there is a superiorly migrated right subarticular/foraminal disc extrusion contributing to moderate to severe spinal canal stenosis and asymmetric right lateral recess narrowing with compression along the traversing right L2 nerve root. Severe right neural foraminal stenosis with compression of the exiting right L1 nerve root. 2. At L2-L3, there are post laminectomy changes. Moderate to severe left and moderate right neural foraminal stenosis with mass effect along the exiting left greater than right L2 nerve roots. 3. At L4-L5, there is advanced bilateral facet arthrosis with a diastatic right facet joint effusion which may reflect hypermobility and can be correlated with flexion and extension views. 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 7 mm synovial cyst along the ventrolateral margin of the left facet joint projecting into the posterior left neural foramen. Moderate spinal canal stenosis and mild left greater than right neural foraminal stenosis. 4. Diffusely coarsened appearance of the bony trabeculae throughout the spinal column and imaged pelvis can be correlated clinically for osteopenia. Assessment & Plan Assessment & Plan (1) Lumbar radiculopathy: Code(s): M54.16 - Radiculopathy, lumbar region Category: Medical (2) Lumbar spinal stenosis: Code(s): M48.061 - Spinal stenosis, lumbar region without neurogenic claudication Category: Medical (3) Degeneration, intervertebral disc, cervical: Code(s): M50.30 - Other cervical disc degeneration, unspecified cervical region Category: Medical (4) Opioid contract exists: Code(s): Z79.891 - [facility]-way (current) use of opiate analgesic Category: Medical (5) Failed back syndrome, lumbar: Code(s): M96.1 - Postlaminectomy syndrome, not elsewhere classified Category: Medical Plan Patient has shown accountability for her medication regimen and the pill count was accurate.?There is no evidence of misuse, abuse or diversion at this time. [employer] reviewed. Script for hydrocodone-acetaminophen 7.5-325 mg?#40/30 days sent with an advanced date of 05/24/24. Patient is aware of monitoring for side effects. Discussed with the patient the risks associated with benzodiazepine and opioid use. All questions and concerns were answered and the patient is in agreement with the plan. Follow up in one month pill count and sooner if needed. Medications: New naloxone 4 mg/actuation (Narcan) spray 1 dose into ONE nostril; alternate nostrils w each dose until help arrives 4 mg intranasal Q2M PRN 2 ea 0RF opioid overdose Refilled hydrocodone-acetaminophen 7.5-325 mg Partial Fill upon patient request. 1.5 tabs PO DAILY 30 days PRN 40 tabs 0RF pain M53.3 - Sacrococcygeal disorders, not elsewhere classified, M54.50 - Low back pain, unspecified, M96.1 - Postlaminectomy syndrome, not elsewhere classified, Z79.891 - [employer] (current) use of opiate analgesic Coding Level of Care Code Est Pt Level 4 (67595) Complex EM visit Add On G2211 Diagnoses Lumbar radiculopathy M54.16 Lumbar spinal stenosis M48.061 Degeneration, intervertebral disc, cervical M50.30 Opioid contract exists Z79.891 Failed back syndrome, lumbar M96.1
[2024-05-06 10:45] VITALS: BP 150/70; PULSE 66; O2SAT 97; BMI 25.1
[2024-05-06 10:46] VITALS: BP 125/63
== END 2024-05-06 10:54 | disposition home or self-care (01) ==
PROVIDERS: PCP Family Medicine; Visit Provider Nurse Practitioner Family
DX: M54.16 Radiculopathy, lumbar region (principal); M48.061 Spinal stenosis, lumbar region without neurogenic claudication; M50.30 Other cervical disc degeneration, unspecified cervical region; Z79.891 Long term (current) use of opiate analgesic; M96.1 Postlaminectomy syndrome, not elsewhere classified
CPT/HCPCS: 99214; G2211

== ENCOUNTER → 2024-05-06 10:32 | Outpatient (BNVA) | payer MEDICARE, SELFPAY | PROVIDERS: PCP Family Medicine; Visit Provider Nurse Practitioner Family | DX: M54.16 Radiculopathy, lumbar region (principal); M48.061 Spinal stenosis, lumbar region without neurogenic claudication; M50.30 Other cervical disc degeneration, unspecified cervical region; M96.1 Postlaminectomy syndrome, not elsewhere classified; M53.3 Sacrococcygeal disorders, not elsewhere classified; Z51.81 Encounter for therapeutic drug level monitoring; Z79.891 Long term (current) use of opiate analgesic | CPT/HCPCS: 99212 ==

== ENCOUNTER 2024-06-10 10:28 | Outpatient (AMB) | payer MEDICARE, SELFPAY ==
--- NOTE | 2024-06-10 10:30 | MHC.OFFVIS ---
Vital Signs 06/10/24 10:38 06/10/24 10:39 Height 5 ft 2 in Weight 137 lb BMI 25.1 BP 173/74 H 134/69 Blood Pressure Location Lt brachial Rt brachial Position Sitting Sitting Pulse 67 Pulse Source Pulse Oximeter Pulse Oximetry (%) 95 Oxygen Delivery Method Room Air Comment bp recheck Intake Visit Reasons: Pill Count Intake Note: Katlyn comes in today for a pill count to hydrocodone-acetaminophen, patient should have 14.5 tablets and presents with 26 tablets which she last took yesterday 06/09/24 at 5pm. Malware Analyst Required: No Accompanied by: Self / Same As Patient Allergies No Known Allergies Allergy (Unknown, Verified 06/10/24 10:39) HPI Comments Details: Patient returns today for a pill count. Patient is supposed to have #14.5 pills, in her possession has #26 pills. This demonstrates a responsible attitude in regards to the medication regimen. Patient reports reasonable analgesia on her current regimen on as needed basis with no noted side effects. Pain is rated at 4/10. Patient also utilizes marijuana edibles and smokes a joint which she obtains in local dispensary and has medical marijuana card. Denies any fever, cough, chills, abdominal pain, dyspnea, chest pain, shortness of breaths, weight loss, constipation, nausea, sedation, dizziness, or urinary retention. [facility] Medical History Benign essential HTN Arthritis GERD (gastroesophageal reflux disease) Lumbar radiculopathy, chronic Hypothyroidism Failed back syndrome, lumbar Surgical History History of cardiac cath Hx of bladder repair surgery History of lumbar surgery History of hysterectomy History of total left hip replacement Family History Mother Heart attack Father Pacemaker Leukemia Social History Household Members: Spouse Alcohol intake: never Patient Tobacco Use Status: Former Tobacco user Tobacco use type: Cigarette Cigarettes Per Day: 4 Years Smoked: 40 +/- Substance Use Type: Marijuana Review of Systems Const All systems reviewed & are unremarkable except as noted in HPI and below Physical Exam Vital Signs: Last Vital Signs Pulse 67 06/10/24 10:38 BP 134/69 06/10/24 10:39 Pulse Ox 95 06/10/24 10:38 Oxygen Delivery Method Room Air 06/10/24 10:38 BMI result Body Mass Index 25.1 General: Appears afebrile. No acute distress. Alert and oriented. Mood and affect appropriate. Follows and participates in conversation appropriately. Respiratory effort is unlabored. No cough. Able to transition from sit to stand unassisted. Ambulates with normal heel strike and toe off on the right, reports occasional unsteadiness on the left with pain. Neck Neck: Yes no lymphadenopathy, Yes supple, No anterior neck swelling, Yes no JVD and No prominent dorsocervical fat pad Resp Effort & Inspection: normal respiratory effort, no cough, not labored, no respiratory distress and symmetric chest movement Back/Spine/Pelvis Cervical Spine: pain with cervical ROM and No Cervical spine tenderness Thoracic/Lumbar Spine: thoracic and lumbar spine normal to inspection, pain with thoraco-lumbar ROM, thoraco-lumbar ROM limited, No thoracic spinal tenderness and No lumbar spinal tenderness Extrem General: Yes capillary refill normal, Yes no clubbing, cyanosis or edema and Yes no calf tenderness Psych Appearance: grossly normal and well kempt Mental Status: mental status grossly normal Speech and movement: Normal speech and movement present and Clear speech present Affect: normal affect and Sad affect present Attitude: cooperative Thought process: Normal thought process present Thought content: Normal thought content present, suicidality (none), no hallucinations and Depressive thoughts present Insight: Good insight present (Psych) Judgement: Good judgement present (Psych) Results Reviewed Results Reviewed: MR LUMBAR SPINE WITHOUT CONTRAST 12/03/23 CLINICAL INFORMATION: Spondylolisthesis COMPARISON: Lumbar spine radiographs June 13, 2023. Images from prior lumbar spine MRI from June 13, 2012 are not available in PACS at time of dictation TECHNIQUE: MRI of the lumbar spine was obtained using routine sequences without contrast. FINDINGS: Slight lumbar levocurvature. Preserved lumbar lordosis. Grade 1 retrolisthesis at L1-L2 3 and grade 1 anterolisthesis at L4-L5 and L5-S1. Vertebral body heights are maintained. There is no suspicious osseous lesion. Diffusely coarsened appearance of the bony trabeculae throughout the spinal column and imaged pelvis can be correlated clinically for osteopenia. Diffuse desiccation with moderate to severe disc height loss posteriorly at L2-L3, to a lesser extent at L1-L2, and otherwise mild multilevel disc height loss. Marginally edematous Schmorl's node along the left aspect of the posterior L2 inferior endplate. Trace type I endplate changes posteriorly at L1-L2. Multilevel anterior osteophytic spurring is seen. Stress related marrow edema within the bilateral L5 pedicles. Level by level detail as follows: L1-L2: Disc bulge with superiorly migrated right subarticular/foraminal disc extrusion and moderate bilateral facet arthrosis with ligamentum flavum thickening. Moderate to severe spinal canal stenosis and asymmetric right subarticular zone narrowing with compression along the traversing right L2 nerve root. Severe right neural foraminal stenosis with compression of the exiting right L1 nerve root and mild left neural foraminal stenosis. L2-L3: Post laminectomy changes. Retrolisthesis with disc osteophyte complex. Moderate right and mild left facet arthrosis. The spinal canal is decompressed. Moderate to severe left and moderate right neural foraminal stenosis with mass effect along the exiting left greater than right L2 nerve roots. L3-L4: Disc bulge eccentric to the right with ventral annular fissure and moderate facet arthrosis with ligamentum flavum thickening. Mild spinal canal and mild bilateral neural foraminal narrowing. L4-L5: Advanced bilateral facet arthrosis with ligament flavum thickening, diastatic right facet joint effusion, and 1.0 cm craniocaudal dorsal epidural cyst presumably reflecting interspinous bursitis. Hypertrophied L4 and L5 spinous processes with obliterated interspinous interval and fluid distended interspinous bursa projecting into the adjacent paraspinal soft tissues. Unroofing of posterior disc material. 7 mm synovial cyst along the ventrolateral margin of the left facet joint projecting into the posterior left neural foramen. Moderate spinal canal and mild left greater than right neural foraminal stenosis. L5-S1: Advanced bilateral facet arthrosis with unroofing of posterior disc material. No spinal canal stenosis. Mild left without right neural foraminal stenosis. The conus medullaris terminates at the level of L1. The distal spinal cord is normal in appearance. No epidural fluid collection, hematoma, or mass. Moderate to severe fatty atrophy of the lower paraspinal musculature. Limited evaluation of the intra-abdominal structures without significant abnormalities. The abdominal aorta is of normal contour and caliber. Susceptibility artifact from left hip arthroplasty with asymmetric atrophy of the short left-sided external rotator and left psoas/iliopsoas muscles. Degenerative osteophytosis bridging the ventral sacroiliac joints. IMPRESSION: 1. At L1-L2, there is a superiorly migrated right subarticular/foraminal disc extrusion contributing to moderate to severe spinal canal stenosis and asymmetric right lateral recess narrowing with compression along the traversing right L2 nerve root. Severe right neural foraminal stenosis with compression of the exiting right L1 nerve root. 2. At L2-L3, there are post laminectomy changes. Moderate to severe left and moderate right neural foraminal stenosis with mass effect along the exiting left greater than right L2 nerve roots. 3. At L4-L5, there is advanced bilateral facet arthrosis with a diastatic right facet joint effusion which may reflect hypermobility and can be correlated with flexion and extension views. 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 7 mm synovial cyst along the ventrolateral margin of the left facet joint projecting into the posterior left neural foramen. Moderate spinal canal stenosis and mild left greater than right neural foraminal stenosis. 4. Diffusely coarsened appearance of the bony trabeculae throughout the spinal column and imaged pelvis can be correlated clinically for osteopenia. Assessment & Plan Assessment & Plan (1) Lumbar radiculopathy: Code(s): M54.16 - Radiculopathy, lumbar region Category: Medical (2) Lumbar spinal stenosis: Code(s): M48.061 - Spinal stenosis, lumbar region without neurogenic claudication Category: Medical (3) Degeneration, intervertebral disc, cervical: Code(s): M50.30 - Other cervical disc degeneration, unspecified cervical region Category: Medical (4) Opioid contract exists: Code(s): Z79.891 - [facility] (current) use of opiate analgesic Category: Medical (5) Failed back syndrome, lumbar: Code(s): M96.1 - Postlaminectomy syndrome, not elsewhere classified Category: Medical Plan Patient has shown accountability for her medication regimen and the pill count was accurate.?There is no evidence of misuse, abuse or diversion at this time. [employer] reviewed. Script for hydrocodone-acetaminophen 7.5-325 mg?#40/30 days sent with an advanced date of 06/22/24. Patient is aware of monitoring for side effects. Discussed with the patient the risks associated with benzodiazepine and opioid use. All questions and concerns were answered and the patient is in agreement with the plan. Follow up in one month pill count and sooner if needed. Medications: Refilled hydrocodone-acetaminophen 7.5-325 mg Partial Fill upon patient request. 1.5 tabs PO DAILY PRN 40 tabs 0RF pain 30 days M53.3 - Sacrococcygeal disorders, not elsewhere classified, M54.50 - Low back pain, unspecified, M96.1 - Postlaminectomy syndrome, not elsewhere classified, Z79.891 - [facility] (current) use of opiate analgesic Coding Level of Care Code Est Pt Level 4 (88010) Complex EM visit Add On G2211 Diagnoses Lumbar radiculopathy M54.16 Lumbar spinal stenosis M48.061 Degeneration, intervertebral disc, cervical M50.30 Opioid contract exists Z79.891 Failed back syndrome, lumbar M96.1
[2024-06-10 10:38] VITALS: BP 173/74; PULSE 67; O2SAT 95; BMI 25.1
[2024-06-10 10:39] VITALS: BP 134/69
--- OUTSIDE RECORDS SUMMARY | 2024-06-10 11:39 | XMS_ITS | Patient Health Record ---
Author Organization [facility] Address [address] [place] [address] Care Team Providers Care Sustainability Manager Name Role Phone Haroon JACKSON, Marcellus Primary Care Provider Ru Rollins Jr Unavailable ALLERGIES Allergen (clinical drug ingredient) Drug/Non Drug Allergy documented on EMR Reaction Allergy Type Onset Date Status zinc oxide Skin Protectant Unknown Drug Allergy Active REASON FOR REFERRAL No Information MEDICATIONS Medication SIG (Take, Route, Frequency, Duration) Notes Start Date End Date Status Lisinopril 10 MG TAKE 1 TABLET BY MILAGRO TH ONCE A DAY Oral for 90 Active HYDROcodone-Acetaminophen 7.5-325 MG Oral for 30 Active Diclofenac Sodium 1 % External for 30 Active Metoprolol Succinate ER 25 MG TAKE 1 TABLET BY MOUTH EVERY DAY AT BEDTIME DIRECTED Oral for 90 Active Golytely 236 GM as directed before colonoscopy Orally every 15 minutes for 1 day(s) 07/02/2021 Active Cimetidine 300 MG TAKE 1 TABLET BY MILAGRO TH EVERY DAY Oral for 90 Active Levothyroxine Sodium 88 MCG TAKE 1 TABLE T BY MOUTH EVERY DAY Oral for 90 Active IMMUNIZATIONS Vaccine Route Administration Date Status Comme nts Influenza Unknown 02/07/2021 Administered SOCIAL HISTORY Tobacco Use: Social History Observation Description Date Details (start date - stop date) Current Smoker NA - NA Sex Assigned At : Social History Observation Description Sex Assigned At Unknown Tobacco Use/Smoking Question Answer Notes Patient is a current smoker How often do you smoke cigarettes? every day How many cigarettes a day do you smoke? 5 or les s How soon after you wake up do you smoke your fir st cigarette? 31-60 minutes Alcohol Screen Question Answer Notes Did you have a drink containing alcohol in the p ast year? No Points 0 Interpretation Negative PROBLEMS Problem Type ICD Code Onset Dates Problem Status W/U Status Risk SNOMED Code Notes Problem Colon cancer screening (Z12.11) Active confirmed 944697371 Problem Constipation, unspecified constipation type (K59.00) Active confirmed 96490681 PLAN OF TREATMENT Future Test Test Name Order Date COLONOSCOPY 07/02/2021 Insurance Providers Payer Name Payer Address Payer Phone Subscriber Number Group Number Insured Name Patient Relationship to Insured Coverage Start Date Coverage End Date [facility] [address] [place] [phone] [id number] JIM MCGINNIS Self - patient is the insured MEDICAL (GENERAL) HISTORY Medical History History ICD Code Hypothyroidism Hypertension Arthritis Gastroesophageal reflux disease Surgical History Surgery Date(Month/Year) hysterectomy , uterine prolapse 2008 back surgery 2012 hip replacement 2019
--- OUTSIDE RECORDS SUMMARY | 2024-06-10 11:39 | XMS_ITS | Clinical Summary ---
Author Organization [facility] ity Address [address] [place] [address] Care Team Providers Care Supervisor Joiners Name Role Phone Unavailable Primary Care Provider Unavailabl e Social History Tobacco Use Types Packs/Day Years Used Date Smoking Tobacco: Never Assessed Comments Unknown Sex and Gender Information Value Date Recorded Sex Assigned at Not on file Legal Sex Female 11:39 AM EDT Gender Identity Not on file Sexual Orientation Not on file Plan of Treatment Health Maintenance Due Date Last Done Comments Breast Cancer Screening 1950 DTaP,Tdap,and Td Vaccines (1 - Tdap) 1968 Pneumococcal Vaccine: 50+ Ye ars (1 of 1 - PCV) 11/28/1999 Zoster Vaccines (1 of 2) 11/28/1999 COVID-19 Vaccine ( - 2023-2 5 season) 2023 Influenza Vaccine (#1) 2023 Colorectal Cancer Screening: Colonoscopy 01/29/2024 Depression Screening 01/29/2024 Falls Risk Assessment 01/29/2024 Hepatitis C Screening 01/29/2024 Osteoporosis Screening (Bone Density Screening) 01/29/2024 Social Influencers of Health Screening 01/29/2024 RSV Immunization Patients 60 + Years Old (1 - 1-dose 75+ series) 2024 HIB Vaccines Aged Out No longer eligi ble based on patient's age to complete this topic HPV Vaccines Aged Out No longer eligi ble based on patient's age to complete this topic Hepatitis A Vaccines Aged Out No long er eligible based on patient's age to complete this topic Hepatitis B Vaccines Aged Out No long er eligible based on patient's age to complete this topic IPV Vaccines Aged Out No longer eligi ble based on patient's age to complete this topic MMR Vaccines Aged Out No longer eligi ble based on patient's age to complete this topic Meningococcal ACWY Vaccine Aged Out N o longer eligible based on patient's age to complete this topic Meningococcal B Vacine Aged Out No lo nger eligible based on patient's age to complete this topic RSV Immunization Patients Un ailyn 20 months Aged Out No longer eligible b ased on patient's age to complete this topic Varicella Vaccines Aged Out No longer eligible based on patient's age to complete this topic
== END 2024-06-10 10:58 | disposition home or self-care (01) ==
PROVIDERS: PCP Family Medicine; Visit Provider Nurse Practitioner Family
DX: M54.16 Radiculopathy, lumbar region (principal); M48.061 Spinal stenosis, lumbar region without neurogenic claudication; M50.30 Other cervical disc degeneration, unspecified cervical region; Z79.891 Long term (current) use of opiate analgesic; M96.1 Postlaminectomy syndrome, not elsewhere classified
CPT/HCPCS: 99214; G2211

== ENCOUNTER → 2024-06-10 10:28 | Outpatient (BNVA) | payer MEDICARE, SELFPAY | PROVIDERS: PCP Family Medicine; Visit Provider Nurse Practitioner Family | DX: Z51.81 Encounter for therapeutic drug level monitoring (principal); M48.061 Spinal stenosis, lumbar region without neurogenic claudication; M54.16 Radiculopathy, lumbar region; M50.30 Other cervical disc degeneration, unspecified cervical region; M96.1 Postlaminectomy syndrome, not elsewhere classified; Z79.891 Long term (current) use of opiate analgesic | CPT/HCPCS: 99212 ==

== ENCOUNTER 2024-06-29 10:27 | Outpatient (AMB) | payer MEDICARE, SELFPAY ==
--- NOTE | 2024-06-29 10:28 | A.OFFVIS_ITS ---
Vital Signs 06/29/24 10:29 Height 5 ft 2 in Weight 141 lb 1.533 oz BMI 25.8 BP 140/92 H Blood Pressure Location Rt brachial Position Sitting Pulse 58 Pulse Source Pulse Oximeter Pulse Oximetry (%) 98 Oxygen Delivery Method Room Air Intake Visit Reasons: copd/cough Allergies No Known Allergies Allergy (Unknown, Verified 06/29/24 10:32) HPI Comments Details: The patient is here for pulmonary evaluation. The patient is a 73 year woman who is a former smoker. She quit back in January when she developed a heart attack. She has been having increasing cough chest congestion and episodes of bronchitis. Because of the frequent episodes she was referred to Pulmonary. Apparently the patient has had multiple x-rays back in March because of worsening cough. Ultimately in April she did undergo a CT scan of the chest demonstrating a pulmonary nodule measuring about 4 mm in size. I did personally reviewed. No significant other findings except for some emphysema and some atherosclerosis. The patient also had pulmonary function studies back in 2020 demonstrating no obstructive ventilatory defect that time. She is participating in the cardiac rehabilitation at this time. Will have her get PFTs again in the near future and then likely pulmonary rehabilitation will be also helpful for her. For now she can continue her rescue inhaler as needed and will provide her with an Acapella valve for her chronic bronchitis. [facility] Medical History (Updated 06/29/24 @ 21:39 by Bimal Ivan MD) Pulmonary nodule Chronic cough Chronic bronchitis Benign essential HTN Arthritis GERD (gastroesophageal reflux disease) Lumbar radiculopathy, chronic Hypothyroidism Failed back syndrome, lumbar Surgical History History of cardiac cath Hx of bladder repair surgery History of lumbar surgery History of hysterectomy History of total left hip replacement Family History Mother Heart attack Father Pacemaker Leukemia Social History Household Members: Spouse Alcohol intake: never Patient Tobacco Use Status: Former Tobacco user Tobacco use type: Cigarette Cigarettes Per Day: 4 Years Smoked: 40 +/- Substance Use Type: Marijuana Review of Systems Const Denies fatigue and Denies fever(s) ENT Denies dizziness Card Denies chest pain and Denies dyspnea on exertion Resp Reports chest congestion, Reports cough and Denies dyspnea on exertion GI Denies hematochezia Musc Denies abnormal gait and Denies muscle weakness Neuro Denies abnormal gait and Denies dizziness Endo Denies fatigue Physical Exam Vital Signs: Last Vital Signs Pulse 58 06/29/24 10:29 BP 140/92 H 06/29/24 10:29 Pulse Ox 98 06/29/24 10:29 Oxygen Delivery Method Room Air 06/29/24 10:29 BMI result Body Mass Index 25.8 Const General: comfortable HEENT Head: Yes normocephalic Neck Neck: Yes supple Chest Chest palpation & inspection: normal inspection of the chest Resp Effort & Inspection: normal respiratory effort Auscultation: no rales, no rhonchi, no wheezes and diminished lung sounds Cardio Heart sounds: S1 normal heart sound present and S2 normal heart sound present GI Palpation (GI): Soft to palpation Skin General skin exam: no rashes or lesions noted Extrem General: Yes no clubbing, cyanosis or edema Assessment & Plan Assessment & Plan (1) Chronic bronchitis: Code(s): J42 - Unspecified chronic bronchitis Category: Medical Qualifiers: Chronic bronchitis type: mixed simple and mucopurulent Qualified Code(s): J41.8 - Mixed simple and mucopurulent chronic bronchitis (2) Chronic cough: Code(s): R05.3 - Chronic cough Category: Medical (3) Pulmonary nodule: Comment: 4-5mm LLL Code(s): R91.1 - Solitary pulmonary nodule Category: Medical Plan [place] as needed consider maintenace inhaler PFTs CPT with acapella valve F/U 3-[address] chest 04/2025 F/U 3-4 months Orders: Orders CT chest wo IV con 04/25/25 R91.1 - Solitary pulmonary nodule PFT pulmonary function test 3 Months R05.3 - Chronic cough Coding Level of Care Code New Pt Level 4 (98779) Diagnoses Mixed simple and mucopurulent chronic bronchitis J41.8 Chronic bronchitis type: mixed simple and mucopurulent Chronic cough R05.3 Pulmonary nodule R91.1 Time Spent (min) 45
[2024-06-29 10:29] VITALS: BP 140/92; PULSE 58; O2SAT 98; BMI 25.8
--- OUTSIDE RECORDS SUMMARY | 2024-06-29 12:31 | XMS_ITS | Clinical Summary ---
Author Organization [facility] ity Address [address] [place] [address] Care Team Providers Care Wringer And Setter Name Role Phone Unavailable Primary Care Provider [...]
--- OUTSIDE RECORDS SUMMARY | 2024-06-29 12:31 | XMS_ITS | Patient Health Record ---
Author Organization [facility] Address [address] [place] [address] Care Team Providers Care Oil Field Equipment Mechanic Name Role Phone Haroon JACKSON, Marcellus Primary Care Provider Ru Rollins Jr Unavailable Allergies Allergen (clinical drug ingredient) Drug/Non Drug Allergy documented on EMR Reaction Allergy Type Onset Date Status zinc oxide Skin Protectant Unknown Drug Allergy Active Reason For Referral No Information Medications Medication SIG (Take, Route, Frequency, Duration) Notes [...] MOUTH EVERY DAY Oral for 90 Active Immunizations Vaccine Route Administration Date Status Comme nts Influenza Unknown 02/07/2021 Administered Social History Tobacco Use: Social History Observation Description Date Details (start date - stop date) Current Smoker NA - NA Tobacco Use/Smoking Question Answer Notes Patient is [...] ast year? No Points 0 Interpretation Negative Problems Problem Type SNOMED Code ICD Code Onset Dates Problem Status W/U Status Risk Notes Problem [id number] Colon cancer screening (Z12.11) Active confirmed Problem [id number] Constipation, unspecified constipation type (K59.00) Active confirmed Plan Of Treatment Future Test Test Name Order Date COLONOSCOPY 07/02/2021 Insurance Providers Payer Name Payer Address Payer Phone Subscriber Number Group Number Insured Name Patient Relationship to Insured Coverage Start Date Coverage End Date [facility] [address] [place] [address] [id number] JIM MCGINNIS Self - patient is the insured Medical (General) History Medical History History ICD Code Hypothyroidism Hypertension Arthritis Gastroesophageal reflux disease Surgical History Surgery Date(Month/Year) hysterectomy , uterine prolapse 2008 back surgery 2012 hip replacement 2019
== END 2024-06-29 10:57 | disposition home or self-care (01) ==
LOC: HO.HPS 10:28
PROVIDERS: PCP Family Medicine; Visit Provider Hospitalist
DX: J41.8 Mixed simple and mucopurulent chronic bronchitis (principal); R05.3 Chronic cough; R91.1 Solitary pulmonary nodule
CPT/HCPCS: 99204

== ENCOUNTER → 2024-06-29 10:27 | Outpatient (BNVA) | payer MEDICARE, SELFPAY | PROVIDERS: PCP Family Medicine; Visit Provider Hospitalist | DX: J41.8 Mixed simple and mucopurulent chronic bronchitis (principal); R91.1 Solitary pulmonary nodule; R05.3 Chronic cough | CPT/HCPCS: 99202 ==

== ENCOUNTER 2024-07-08 10:13 | Outpatient (AMB) | payer MEDICARE, SELFPAY ==
--- NOTE | 2024-07-08 10:19 | A.OFFVIS_ITS ---
Vital Signs 07/08/24 10:27 Height 5 ft 2 in Weight 139 lb 2 oz BMI 25.4 BP 152/72 H Blood Pressure Location Rt brachial Position Sitting Pulse 67 Pulse Source Pulse Oximeter Pulse Oximetry (%) 97 Oxygen Delivery Method Room Air Intake Visit Reasons: Pill count form Intake Note: Katlyn comes in today for a pill count to hydrocodone-acetaminophen, patient should have 16 tablets and presents with 25 tablets which she last took last night 07/07/24 at 6pm. Pain today 5/10 Grinder Operator Tool Required: No Accompanied by: Self / Same As Patient Allergies No Known Allergies Allergy (Unknown, Verified 07/08/24 10:27) HPI Comments Details: Patient returns today for a pill count. Patient is supposed to have #16 pills, in her possession has #25 pills. This demonstrates a responsible attitude in regards to the medication regimen. Patient reports reasonable analgesia on her current regimen on as needed basis with no noted side effects. Pain is rated at 5/10. Patient also utilizes marijuana edibles and smokes a joint which she obtains in local dispensary and has medical marijuana card. Despite continuing with her medication as prescribed and also takes OTC Tylenol and Ibuprofen, the patient experiences soreness and and general tiredness, with a notable impact on her back, left knee and left thigh during activity and exercises on elliptical machine. She engages in biweekly cardio rehabilitation but finds that certain activities exacerbate her symptoms, specifically causing her left knee and anterior left thigh to burn. Previous attempts at pain relief through back injections were unsuccessful. While surgical intervention was discussed with Dr. Mohamud, it was agreed that if the symptoms do not worsen, they will refrain from pursuing this option at present. Her condition remains without serious neurological deficits, as she denies numbness, tingling, or incontinence. Denies any fever, cough, chills, abdominal pain, dyspnea, chest pain, shortness of breaths, weight loss, constipation, nausea, sedation, dizziness, or urinary retention. [facility] Medical History (Updated 06/29/24 @ 21:39 by Bimal Ivan MD) Pulmonary nodule Chronic cough Chronic bronchitis Benign essential HTN Arthritis GERD (gastroesophageal reflux disease) Lumbar radiculopathy, chronic Hypothyroidism Failed back syndrome, lumbar Surgical History History of cardiac cath Hx of bladder repair surgery History of lumbar surgery History of hysterectomy History of total left hip replacement Family History Mother Heart attack Father Pacemaker Leukemia Social History Household Members: Spouse Alcohol intake: never Patient Tobacco Use Status: Former Tobacco user Tobacco use type: Cigarette Cigarettes Per Day: 4 Years Smoked: 40 +/- Substance Use Type: Marijuana Review of Systems Const All systems reviewed & are unremarkable except as noted in HPI and below Physical Exam Vital Signs: Last Vital Signs Pulse 67 07/08/24 10:27 BP 152/72 H 07/08/24 10:27 Pulse Ox 97 07/08/24 10:27 Oxygen Delivery Method Room Air 07/08/24 10:27 BMI result Body Mass Index 25.4 General: Appears afebrile. No acute distress. Alert and oriented. Mood and affect appropriate. Follows and participates in conversation appropriately. Respiratory effort is unlabored. No cough. Able to transition from sit to stand unassisted. Ambulates with normal heel strike and toe off on the right, reports occasional unsteadiness on the left with pain. Neck Neck: Yes no lymphadenopathy, Yes supple, No anterior neck swelling, Yes no JVD and No prominent dorsocervical fat pad Resp Effort & Inspection: normal respiratory effort, no cough, not labored, no respiratory distress and symmetric chest movement Back/Spine/Pelvis Cervical Spine: pain with cervical ROM and No Cervical spine tenderness Thoracic/Lumbar Spine: thoracic and lumbar spine normal to inspection, Lasegue's sign positive on the left and localized, pain with thoraco-lumbar ROM, thoraco- lumbar ROM limited, No thoracic spinal tenderness and lumbar spinal tenderness at L3, at L4 and at L5 Pelvis: no buttock tenderness Sacroiliac joints: bilaterally nontender Extrem General: Yes capillary refill normal, Yes no clubbing, cyanosis or edema and Yes no calf tenderness Psych Appearance: grossly normal and well kempt Mental Status: mental status grossly normal Speech and movement: Normal speech and movement present and Clear speech present Affect: normal affect and Sad affect present Attitude: cooperative Thought process: Normal thought process present Thought content: Normal thought content present, suicidality (none), no hallucinations and Depressive thoughts present Insight: Good insight present (Psych) Judgement: Good judgement present (Psych) Results Reviewed Results Reviewed: MR LUMBAR SPINE WITHOUT CONTRAST 12/03/23 CLINICAL INFORMATION: Spondylolisthesis COMPARISON: Lumbar spine radiographs June 13, 2023. Images from prior lumbar spine MRI from June 13, 2012 are not available in PACS at time of dictation TECHNIQUE: MRI of the lumbar spine was obtained using routine sequences without contrast. FINDINGS: Slight lumbar levocurvature. Preserved lumbar lordosis. Grade 1 retrolisthesis at L1-L2 3 and grade 1 anterolisthesis at L4-L5 and L5-S1. Vertebral body heights are maintained. There is no suspicious osseous lesion. Diffusely coarsened appearance of the bony trabeculae throughout the spinal column and imaged pelvis can be correlated clinically for osteopenia. Diffuse desiccation with moderate to severe disc height loss posteriorly at L2-L3, to a lesser extent at L1-L2, and otherwise mild multilevel disc height loss. Marginally edematous Schmorl's node along the left aspect of the posterior L2 inferior endplate. Trace type I endplate changes posteriorly at L1-L2. Multilevel anterior osteophytic spurring is seen. Stress related marrow edema within the bilateral L5 pedicles. Level by level detail as follows: L1-L2: Disc bulge with superiorly migrated right subarticular/foraminal disc extrusion and moderate bilateral facet arthrosis with ligamentum flavum thickening. Moderate to severe spinal canal stenosis and asymmetric right subarticular zone narrowing with compression along the traversing right L2 nerve root. Severe right neural foraminal stenosis with compression of the exiting right L1 nerve root and mild left neural foraminal stenosis. L2-L3: Post laminectomy changes. Retrolisthesis with disc osteophyte complex. Moderate right and mild left facet arthrosis. The spinal canal is decompressed. Moderate to severe left and moderate right neural foraminal stenosis with mass effect along the exiting left greater than right L2 nerve roots. L3-L4: Disc bulge eccentric to the right with ventral annular fissure and moderate facet arthrosis with ligamentum flavum thickening. Mild spinal canal and mild bilateral neural foraminal narrowing. L4-L5: Advanced bilateral facet arthrosis with ligament flavum thickening, diastatic right facet joint effusion, and 1.0 cm craniocaudal dorsal epidural cyst presumably reflecting interspinous bursitis. Hypertrophied L4 and L5 spinous processes with obliterated interspinous interval and fluid distended interspinous bursa projecting into the adjacent paraspinal soft tissues. Unroofing of posterior disc material. 7 mm synovial cyst along the ventrolateral margin of the left facet joint projecting into the posterior left neural foramen. Moderate spinal canal and mild left greater than right neural foraminal stenosis. L5-S1: Advanced bilateral facet arthrosis with unroofing of posterior disc material. No spinal canal stenosis. Mild left without right neural foraminal stenosis. The conus medullaris terminates at the level of L1. The distal spinal cord is normal in appearance. No epidural fluid collection, hematoma, or mass. Moderate to severe fatty atrophy of the lower paraspinal musculature. Limited evaluation of the intra-abdominal structures without significant abnormalities. The abdominal aorta is of normal contour and caliber. Susceptibility artifact from left hip arthroplasty with asymmetric atrophy of the short left-sided external rotator and left psoas/iliopsoas muscles. Degenerative osteophytosis bridging the ventral sacroiliac joints. IMPRESSION: 1. At L1-L2, there is a superiorly migrated right subarticular/foraminal disc extrusion contributing to moderate to severe spinal canal stenosis and asymmetric right lateral recess narrowing with compression along the traversing right L2 nerve root. Severe right neural foraminal stenosis with compression of the exiting right L1 nerve root. 2. At L2-L3, there are post laminectomy changes. Moderate to severe left and moderate right neural foraminal stenosis with mass effect along the exiting left greater than right L2 nerve roots. 3. At L4-L5, there is advanced bilateral facet arthrosis with a diastatic right facet joint effusion which may reflect hypermobility and can be correlated with flexion and extension views. 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 7 mm synovial cyst along the ventrolateral margin of the left facet joint projecting into the posterior left neural foramen. Moderate spinal canal stenosis and mild left greater than right neural foraminal stenosis. 4. Diffusely coarsened appearance of the bony trabeculae throughout the spinal column and imaged pelvis can be correlated clinically for osteopenia. Assessment & Plan Assessment & Plan (1) Lumbar radiculopathy: Code(s): M54.16 - Radiculopathy, lumbar region Category: Medical (2) Lumbar spinal stenosis: Code(s): M48.061 - Spinal stenosis, lumbar region without neurogenic claudication Category: Medical (3) Degeneration, intervertebral disc, cervical: Code(s): M50.30 - Other cervical disc degeneration, unspecified cervical region Category: Medical (4) Opioid contract exists: Code(s): Z79.891 - senior living (current) use of opiate analgesic Category: Medical (5) Failed back syndrome, lumbar: Code(s): M96.1 - Postlaminectomy syndrome, not elsewhere classified Category: Medical Plan Patient has shown accountability for her medication regimen and the pill count was accurate.?There is no evidence of misuse, abuse or diversion at this time. [employer] reviewed. Script for hydrocodone-acetaminophen 7.5-325 mg?#40/30 days sent with an advanced date of 07/23/24. Patient is aware of monitoring for side effects. Discussed with the patient the risks associated with benzodiazepine and opioid use. All questions and concerns were answered and the patient is in agreement with the plan. Follow up in one month pill count and sooner if needed. Patient was informed and verbally consented to the use of an ambient scribe for clinic note documentation during this visit. Medications: Refilled hydrocodone-acetaminophen 7.5-325 mg Partial Fill upon patient request. 1.5 tabs PO DAILY 30 days PRN 40 tabs 0RF pain M53.3 - Sacrococcygeal disorders, not elsewhere classified, M54.50 - Low back pain, unspecified, M96.1 - Postlaminectomy syndrome, not elsewhere classified, Z79.891 - senior living (current) use of opiate analgesic Patient Instructions: - Continue taking hydrocodone/acetaminophen as prescribed. - Activity restrictions as tolerated; avoid exercises and activities that exacerbate pain. - Monitor for any signs of neurological changes, such as numbness, weakness, gait disturbance, saddle anesthesia or incontinence, and seek immediate attention if these arise. - Follow up in 4-5 weeks or sooner if symptoms worsen or new symptoms develop. Coding Level of Care Code Est Pt Level 4 (01253) Complex EM visit Add On G2211 Diagnoses Lumbar radiculopathy M54.16 Lumbar spinal stenosis M48.061 Degeneration, intervertebral disc, cervical M50.30 Opioid contract exists Z79.891 Failed back syndrome, lumbar M96.1
[2024-07-08 10:27] VITALS: BP 152/72; PULSE 67; O2SAT 97; BMI 25.4
--- OUTSIDE RECORDS SUMMARY | 2024-07-08 11:38 | XMS_ITS | Clinical Summary ---
Author Organization [facility] ity Address [address] [place] [address] Care Team Providers Care Rehabilitation Manager Name Role Phone Unavailable Primary Care Provider [...]
--- OUTSIDE RECORDS SUMMARY | 2024-07-08 11:38 | XMS_ITS | Patient Health Record ---
Author Organization [facility] Address [address] [place] [address] Care Team Providers Care Thread Checker Name Role Phone Haroon JACKSON, Marcellus Primary Care Provider Ru Rollins Jr Unavailable [phone] Allergies Allergen (clinical drug ingredient) Drug/Non Drug [...] Problem Status W/U Status Risk Notes Problem [id number] Colon cancer screening (Z12.11) Active confirmed Problem [id number] Constipation, unspecified constipation type (K59.00) Active confirmed Plan Of Treatment Future Test Test Name Order Date COLONOSCOPY 07/02/2021 Insurance Providers Payer Name Payer Address Payer Phone Subscriber Number Group Number Insured Name Patient Relationship to Insured Coverage Start Date Coverage End Date [facility] [address] [place] [address] [id number] JIM MCGINNIS Self - patient is the insured Medical (General) History Medical History History ICD Code Hypothyroidism Hypertension Arthritis Gastroesophageal reflux disease Surgical History Surgery Date(Month/Year) hysterectomy , uterine prolapse 2008 back surgery 2012 hip replacement 2019
== END 2024-07-08 10:39 | disposition home or self-care (01) ==
LOC: HO.PMC 10:13
PROVIDERS: PCP Family Medicine; Visit Provider Nurse Practitioner Family
DX: M54.16 Radiculopathy, lumbar region (principal); M48.061 Spinal stenosis, lumbar region without neurogenic claudication; M50.30 Other cervical disc degeneration, unspecified cervical region; Z79.891 Long term (current) use of opiate analgesic; M96.1 Postlaminectomy syndrome, not elsewhere classified
CPT/HCPCS: 99214; G2211

== ENCOUNTER → 2024-07-08 10:13 | Outpatient (BNVA) | payer MEDICARE, SELFPAY | PROVIDERS: PCP Family Medicine; Visit Provider Nurse Practitioner Family | DX: Z51.81 Encounter for therapeutic drug level monitoring (principal); M54.16 Radiculopathy, lumbar region; M48.061 Spinal stenosis, lumbar region without neurogenic claudication; M50.30 Other cervical disc degeneration, unspecified cervical region; M96.1 Postlaminectomy syndrome, not elsewhere classified; Z79.891 Long term (current) use of opiate analgesic | CPT/HCPCS: 99212 ==

== ENCOUNTER 2024-07-19 11:09 | Outpatient (AMB) | payer MEDICARE, SELFPAY ==
--- NOTE | 2024-07-19 11:34 | A.OFFVIS_ITS ---
VS Expanded 07/19/24 11:37 07/19/24 11:47 Height 5 ft 2 in 5 ft 2 in Weight 139 lb 5.314 oz 139 lb BMI 25.5 25.4 Intake Visit Reasons: Non-ST elevation (NSTEMI) myocardial infarction Allergies No Known Allergies Allergy (Unknown, Verified 07/08/24 10:27) Nutrition Presentation Details: Pt presents for MNT for non St elevated myocardial infarction Pt reports having stopped smoking and now is working on reducing on sugars has increased appetite, in between meals 9 am B: oatmeal/yogurt/banana or toast with butter, coffee 1/2 and half 11:30- 12:30: sandwiches 2pmcookie, pasta salad or fast food meal eating out 1-2 (pizza) water/caffeine free diet sodas participating in cardiac rehab food frequency fruit 0-1/d vex/d dairy 3+ starches>20 fish:0-1/wk BS Monitoring Most Recent Diabetes Results: No Data to Display PVC-Larzwsa-Wz.Jeor Equation Height: 5 ft 2 in Weight: 139 lb Resting Metabolic Rate: 1089.03 Calculated Activity Level: Sedentary Calories Needed to Maintain Weight: 1306.84 Diagnosis Nutrition problem #1: altered nutrition labs As related to (etiology) #1: diagnosis As evidenced by (sign/symptom) #1: knowledge deficit of diet [facility] Medical History (Updated 07/19/24 @ 13:44 by Bobo Montes MD) Pulmonary nodule Chronic cough Chronic bronchitis Benign essential HTN Arthritis GERD (gastroesophageal reflux disease) Lumbar radiculopathy, chronic Hypothyroidism Failed back syndrome, lumbar Surgical History History of cardiac cath Hx of bladder repair surgery History of lumbar surgery History of hysterectomy History of total left hip replacement Family History Mother Heart attack Father Pacemaker Leukemia Social History Household Members: Spouse Alcohol intake: never Patient Tobacco Use Status: Former Tobacco user Tobacco use type: Cigarette Cigarettes Per Day: 4 Years Smoked: 40 +/- Substance Use Type: Marijuana Assessment & Plan Assessment & Plan (1) Essential hypertension: Code(s): I10 - Essential (primary) hypertension Category: Medical Plan wt 63kg (07/13) est kcal needs: 9020-3625 est fluid needs 1900 (30 ml/kg bw) est prot needs 63 g/d (1g/kg bw) Recommend fiber intake : 8-10 g per day and gradually increase to 25-28 g per day for women and 35-38 g for men or as tolerated Recommend sodium intake per day : less than 2000 mg Educated patient on: ( R = reviewed V = verbalizes understanding N/R = needs review N/A = not applicable * Food sources of carbohydrate, adequate serving sizes and its role in various health conditions: R * Differences between complex carbohydrates a simple carbohydrates, role of fiber in diet: R * Lean protein sources of foods: R * Differences between types of fats and role in diet (mono on saturated fat fatty acids, saturated fatty acids, trans fats): R V N/R * Food sources of sodium in salt and healthy modifications for heart health in kidney health: R basic naturally low Na * Vitamins and minerals: R V N/R * Healthy plate method concept: R * Physical activity: Benefits a precaution: R V N/R * Patient Instructions: Have yogurt with nuts as mid afternoon snack see meal ideas /snack ideas as reference Coding Level of Care Code Nutr Indiv Intake (52821) Diagnoses Essential hypertension I10
[2024-07-19 11:37] VITALS: BMI 25.5
[2024-07-19 11:47] VITALS: BMI 25.4
--- OUTSIDE RECORDS SUMMARY | 2024-07-19 12:46 | XMS_ITS | Patient Health Record ---
Author Organization [facility] Address [address] [place] [address] Care Team Providers Care Helix Coil Winder Name Role Phone Haroon JACKSON, Marcellus Primary [...] Problem Status W/U Status Risk Notes Problem [id number] Colon cancer screening (Z12.11) Active confirmed Problem 08095830 Constipation, unspecified constipation type (K59.00) Active confirmed Plan Of Treatment Future Test Test Name Order Date COLONOSCOPY 07/02/2021 Insurance Providers Payer Name Payer Address Payer Phone Subscriber Number Group Number Insured Name Patient Relationship to Insured Coverage Start Date Coverage End Date [facility] [address] [facility] [place] [address] [id number] JIM MCGINNIS Self - patient is the insured Medical (General) History Medical History History ICD Code Hypothyroidism Hypertension Arthritis Gastroesophageal reflux disease Surgical History Surgery Date(Month/Year) hysterectomy , uterine prolapse 2008 back surgery 2012 hip replacement 2019
--- OUTSIDE RECORDS SUMMARY | 2024-07-19 12:46 | XMS_ITS | Clinical Summary ---
Author Organization [facility] ity Address [address] [place] [address] Care Team Providers Care Slip Presser Name Role Phone Unavailable Primary Care Provider [...]
== END 2024-07-19 12:13 | disposition home or self-care (01) ==
LOC: HO.ENCR 11:10
PROVIDERS: PCP Family Medicine; Visit Provider Dietitian, Registered
DX: I10 Essential (primary) hypertension (principal)

== ENCOUNTER 2024-07-19 13:12 | Outpatient (AMB) | payer MEDICARE, SELFPAY ==
--- NOTE | 2024-07-19 13:20 | MHC.OFFVIS ---
Vital Signs 07/19/24 13:22 Height 5 ft 2 in Weight 139 lb 5.314 oz BMI 25.5 BP 132/60 Blood Pressure Location Lt brachial Position Sitting Pulse 74 Pulse Source Pulse Oximeter Intake Visit Reasons: 2 mth f/up Intake Note: 2 mth f/up Turkey Egg Gatherer Required: No Accompanied by: Self / Same As Patient Allergies No Known Allergies Allergy (Unknown, Verified 07/08/24 10:27) Medication List - Last Reconciled 07/19/24 by Bobo Montes MD albuterol sulfate 90 mcg/actuation inhalation aspirin 81 mg PO DAILY atorvastatin 80 mg PO DAILY clopidogrel (Plavix) 75 mg PO DAILY desonide 0.05% topical BID docusate sodium 100 mg PO DAILY Donut pillow As directed hydrocodone-acetaminophen 7.5-325 mg 1.5 tabs PO DAILY PRN 30 days levothyroxine 88 mcg PO DAILY lisinopril 10 mg PO DAILY nitroglycerin 0.4 mg sublingual Q5M PRN ondansetron HCl mg PO HPI Comments Details: Pleasant 73-year-old female who is referred to us for sinus bradycardia. She was seen previously in another office primarily for fatigue and was noticed to have a heart rate of 40. She said she was on metoprolol which was stopped and heart rate recovered and her symptoms also improved. She had syncope in the past year or 2 ago when she had severe abdominal pain and she passed out at that stage which sounds like vasovagal syncope. Otherwise she does not have any dizziness or lightheadedness. She has had lower heart rates are her life and has never had any issues with that. When her heart rate was 40 she was feeling fatigue and tired but since stopping the metoprolol her symptoms have improved significantly. She is here for follow-up. Her heart rate in the office 68 beats per minute. She has no chest discomfort shortness of breath. No dizziness or syncope in recently. Exercising and has no exertional symptoms. 02/13/24: She is here for f/u. She was in [facility] recently when she had CP and burning sensation. She was taken to hospital and ruled in for NSTEMI. Cath was done which showed plaque rupture in the dominant LCx which was treated with NEHEMIAH. Echo EF was preserved. She has been doing well since then. She has been taking medications regularly. She is interested in cardiac rehab. 04/28/2024: On April 14 she had chest discomfort lasting for 5 minutes. She took 2 nitroglycerin tablets. She said she was down with a viral illness and stayed sick for long time requiring antibiotics as well as steroids. She has not had any further chest discomfort. She is still recovering from the viral illness at this stage. 07/19/2024: She is here for follow-up. She has been doing well since she recovered from the viral illness. No further chest discomfort. She is going to cardiac rehabilitation and exercising regularly without any exertional symptoms. [facility] Medical History (Updated 07/19/24 @ 13:44 by Bobo Montes MD) Pulmonary nodule Chronic cough Chronic bronchitis Benign essential HTN Arthritis GERD (gastroesophageal reflux disease) Lumbar radiculopathy, chronic Hypothyroidism Failed back syndrome, lumbar Surgical History History of cardiac cath Hx of bladder repair surgery History of lumbar surgery History of hysterectomy History of total left hip replacement Family History Mother Heart attack Father Pacemaker Leukemia Social History Household Members: Spouse Alcohol intake: never Patient Tobacco Use Status: Former Tobacco user Tobacco use type: Cigarette Cigarettes Per Day: 4 Years Smoked: 40 +/- Substance Use Type: Marijuana Review of Systems Const Denies chills, Denies fatigue, Denies fever(s), Denies frequent falls, Denies weakness, Denies weight gain and Denies weight loss ENT Denies dizziness Card Denies chest pain, Denies leg edema, Denies lightheadedness, Denies palpitations, Denies dyspnea and Denies dyspnea on exertion Resp Denies cough, Denies dyspnea and Denies dyspnea on exertion GI Denies hematochezia Musc Denies abnormal gait, Denies muscle weakness, Denies numbness, Denies radiating pain into limb and Denies tingling Neuro Denies abnormal gait, Denies dizziness, Denies frequent falls, Denies numbness, Denies tingling and Denies weakness Endo Denies fatigue and Denies palpitations Physical Exam Vital Signs: Last Vital Signs Pulse 74 07/19/24 13:22 BP 132/60 07/19/24 13:22 BMI result Body Mass Index 25.5 GENERAL APPEARANCE: in no acute distress, pleasant. NECK: no carotid bruit, no jugular venous distention. SKIN: no suspicious lesions, warm and dry. HEART: no murmurs, regular rate and rhythm. LUNGS: clear to auscultation bilaterally. ABDOMEN: soft, nontender. EXTREMITIES: no edema. PERIPHERAL PULSES: equal. NEUROLOGIC: No gross deficits, AAO X 3 Assessment & Plan Assessment & Plan (1) S/P coronary angioplasty: Code(s): Z98.61 - Coronary angioplasty status Category: Medical (2) Essential hypertension: Code(s): I10 - Essential (primary) hypertension Category: Medical Plan Pleasant 73-year-old lady who is here for follow-up. She had NSTEMI while she was in [facility] and had circumflex PCI. She has been on aspirin and Plavix. Her last. She was complaining of some chest discomfort for which she took nitroglycerin. She was actively sick with flu-like illness at that time. She said since she recovered from the viral illness she has not had any further symptoms. Clinically stable. Same medications for now. Blood pressure well controlled. We will see her back in 4 months. She will continue cardiac rehabilitation as before. Thank you for allowing me to participate in the care of your patient. Please feel free to contact me if you have any questions. Coding Level of Care Code Est Pt Level 4 (19889) Complex EM visit Add On G2211 Diagnoses S/P coronary angioplasty Z98.61 Essential hypertension I10
[2024-07-19 13:22] VITALS: BP 132/60; PULSE 74; BMI 25.5
--- OUTSIDE RECORDS SUMMARY | 2024-07-19 14:56 | XMS_ITS | Clinical Summary ---
Author Organization [facility] Address [address] [place] [address] Care Team Providers Care Optical Element Coater Name Role Phone Unavailable Primary Care Provider [...]
== END 2024-07-19 13:42 | disposition home or self-care (01) ==
PROVIDERS: PCP Family Medicine; Visit Provider Internal Medicine Cardiovascular Disease
DX: Z98.61 Coronary angioplasty status (principal); I10 Essential (primary) hypertension
CPT/HCPCS: 99214; G2211

== ENCOUNTER → 2024-07-19 13:12 | Outpatient (BNVA) | payer MEDICARE, SELFPAY | PROVIDERS: PCP Family Medicine; Visit Provider Internal Medicine Cardiovascular Disease | DX: I10 Essential (primary) hypertension (principal); I25.2 Old myocardial infarction; Z87.891 Personal history of nicotine dependence; Z98.61 Coronary angioplasty status; Z71.3 Dietary counseling and surveillance | CPT/HCPCS: 97802; 99212 ==

== ENCOUNTER 2024-08-12 10:12 | Outpatient (AMB) | payer MEDICARE, SELFPAY ==
--- NOTE | 2024-08-12 10:15 | MHC.OFFVIS ---
Vital Signs 08/12/24 10:21 Height 5 ft 2 in Weight 138 lb 6 oz BMI 25.3 BP 138/92 H Blood Pressure Location Lt brachial Position Sitting Pulse 64 Pulse Source Pulse Oximeter Pulse Oximetry (%) 98 Oxygen Delivery Method Room Air Intake Visit Reasons: Pill count Intake Note: Katlyn comes in today for a pill count to hydrocodone-acetaminophen, patient should have 8.5 tablets and presents with 20 tablets which she last took last night 08/11/24 at 5pm. Pain today 07/29 Delivery Specialist Required: No Accompanied by: Self / Same As Patient Allergies No Known Allergies Allergy (Unknown, Verified 08/12/24 10:22) HPI Comments Details: Patient returns today for a pill count. Patient is supposed to have #8.5 pills, in her possession has #20 pills. This demonstrates a responsible attitude in regards to the medication regimen. Patient reports adequate analgesia on her current regimen on as needed basis with no noted side effects. Pain is rated at 4-5/10, worse in her lower back with left sided radiculopathy, has resulted in occasional disruptions to her balance due to associated foot issues. She has upcoming Podiatry evaluation per patient. Patient also utilizes marijuana edibles and smokes a joint which she obtains in local dispensary and has medical marijuana card. The chronic pain is longstanding, with no recent significant changes in her general medical history or additional procedures, aside from continuous participation in cardiac rehabilitation. Given additional lumbar MRI studies suggestions, the patient has undergone neurosurgery evaluation with Dr. Mohamud last fall, however expressing a preference for continuing with conservative management therapies like physical therapy and potential injections if needed. There is an acknowledgment that if pain exacerbates and becomes unmanageable, further interventions may be necessary. Previous attempts at pain relief through back injections were unsuccessful. Her condition remains without serious neurological deficits, as she denies numbness, tingling, or incontinence. Denies any fever, cough, chills, abdominal pain, dyspnea, chest pain, shortness of breaths, weight loss, constipation, nausea, sedation, dizziness, or urinary retention. [facility] Medical History Pulmonary nodule Chronic cough Chronic bronchitis Benign essential HTN Arthritis GERD (gastroesophageal reflux disease) Lumbar radiculopathy, chronic Hypothyroidism Failed back syndrome, lumbar Surgical History History of cardiac cath Hx of bladder repair surgery History of lumbar surgery History of hysterectomy History of total left hip replacement Family History Mother Heart attack Father Pacemaker Leukemia Social History Household Members: Spouse Alcohol intake: never Patient Tobacco Use Status: Former Tobacco user Tobacco use type: Cigarette Cigarettes Per Day: 4 Years Smoked: 40 +/- Substance Use Type: Marijuana Review of Systems Const All systems reviewed & are unremarkable except as noted in HPI and below Physical Exam Vital Signs: Last Vital Signs Pulse 64 08/12/24 10:21 BP 138/92 H 08/12/24 10:21 Pulse Ox 98 08/12/24 10:21 Oxygen Delivery Method Room Air 08/12/24 10:21 BMI result Body Mass Index 25.3 General: Appears afebrile. No acute distress. Alert and oriented. Mood and affect appropriate. Follows and participates in conversation appropriately. Respiratory effort is unlabored. No cough. Able to transition from sit to stand unassisted. Ambulates with normal heel strike and toe off on the right, reports occasional unsteadiness on the left with pain. Neck Neck: Yes no lymphadenopathy, Yes supple, No anterior neck swelling, Yes no JVD and No prominent dorsocervical fat pad Resp Effort & Inspection: normal respiratory effort, no cough, not labored, no respiratory distress and symmetric chest movement General: Yes no CVA tenderness Back/Spine/Pelvis Other: Limited lumbar ROM due to pain. Lumbar flexion, bending and axial rotations reproduce moderate pain. Positive facet loading bilaterally. Back: no CVA tenderness Cervical Spine: cervical ROM normal, cervical muscular tenderness, pain with cervical ROM and No Cervical spine tenderness Thoracic/Lumbar Spine: thoracic and lumbar spine normal to inspection, Lasegue's sign positive on the left and localized, pain with thoraco-lumbar ROM, thoraco-lumbar ROM limited, No thoracic spinal tenderness and lumbar spinal tenderness at L3, at L4 and at L5 Pelvis: no buttock tenderness Sacroiliac joints: bilaterally nontender Extrem General: Yes capillary refill normal, Yes no clubbing, cyanosis or edema and Yes no calf tenderness Psych Appearance: grossly normal and well kempt Mental Status: mental status grossly normal Speech and movement: Normal speech and movement present and Clear speech present Affect: normal affect and Sad affect present Attitude: cooperative Thought process: Normal thought process present Thought content: Normal thought content present, suicidality (none), no hallucinations and Depressive thoughts present Insight: Good insight present (Psych) Judgement: Good judgement present (Psych) Assessment & Plan Assessment & Plan (1) Lumbar radiculopathy: Code(s): M54.16 - Radiculopathy, lumbar region Category: Medical (2) Lumbar spinal stenosis: Code(s): M48.061 - Spinal stenosis, lumbar region without neurogenic claudication Category: Medical (3) Degeneration, intervertebral disc, cervical: Code(s): M50.30 - Other cervical disc degeneration, unspecified cervical region Category: Medical (4) Opioid contract exists: Code(s): Z79.891 - halfway (current) use of opiate analgesic Category: Medical (5) Failed back syndrome, lumbar: Code(s): M96.1 - Postlaminectomy syndrome, not elsewhere classified Category: Medical Plan Patient has shown accountability for her medication regimen and the pill count was accurate.?There is no evidence of misuse, abuse or diversion at this time. [employer] reviewed. Script for hydrocodone-acetaminophen 7.5-325 mg?#4030 days sent with an advanced date of 08/26/24. Patient is aware of monitoring for side effects. Discussed with the patient the risks associated with benzodiazepine and opioid use. In today's appointment, I reviewed the patient's medication regimen for pain management and emphasized the importance of responsible Vicodin use given her ongoing surplus. We discussed non-surgical options to address her chronic neck and left leg pain, such as physical therapy and injections, underscoring the potential risks and benefits of escalating treatment if pain becomes intractable. The importance of monitoring for any abrupt neurological changes was underscored, ensuring timely medical intervention if necessary. We agreed on a follow-up visit in five weeks, providing an interval for the patient to monitor her pain levels and report any significant changes in her condition. All questions and concerns were answered and the patient is in agreement with the plan. Follow up in one month pill count and sooner if needed. Patient was informed and verbally consented to the use of an ambient scribe for clinic note documentation during this visit. Medications: Refilled hydrocodone-acetaminophen 7.5-325 mg Partial Fill upon patient request. 1.5 tabs PO DAILY 30 days PRN 40 tabs 0RF pain M53.3 - Sacrococcygeal disorders, not elsewhere classified, M54.50 - Low back pain, unspecified, M96.1 - Postlaminectomy syndrome, not elsewhere classified, Z79.891 - halfway (current) use of opiate analgesic Coding Level of Care Code Est Pt Level 4 (89670) Complex EM visit Add On G2211 Diagnoses Lumbar radiculopathy M54.16 Lumbar spinal stenosis M48.061 Degeneration, intervertebral disc, cervical M50.30 Opioid contract exists Z79.891 Failed back syndrome, lumbar M96.1
[2024-08-12 10:21] VITALS: BP 138/92; PULSE 64; O2SAT 98; BMI 25.3
--- OUTSIDE RECORDS SUMMARY | 2024-08-12 11:43 | XMS_ITS | Patient Health Record ---
Author Organization [facility] Address [address] [place] [address] Care Team Providers Care Applications Support Specialist Name Role Phone Haroon JAKCSON, Marcellus Primary Care Provider Ru Rollins Jr [...] Problem Status W/U Status Risk Notes Problem [id number] Colon cancer screening (Z12.11) Active confirmed Problem 85403687 Constipation, unspecified constipation type (K59.00) Active confirmed Plan Of Treatment Future Test Test Name Order Date COLONOSCOPY 07/02/2021 Insurance Providers Payer Name Payer Address Payer Phone Subscriber Number Group Number Insured Name Patient Relationship to Insured Coverage Start Date Coverage End Date [facility] [address] [place] [address] [id number] JIM MCGINNIS Self - patient is the insured Medical (General) History Medical History History ICD Code Hypothyroidism Hypertension Arthritis Gastroesophageal reflux disease Surgical History Surgery Date(Month/Year) hysterectomy , uterine prolapse 2008 back surgery 2012 hip replacement 2019
--- OUTSIDE RECORDS SUMMARY | 2024-08-12 11:43 | XMS_ITS | Clinical Summary ---
Author Organization [facility] ity Address [address] [place] [address] Care Team Providers Care Cns Name Role Phone Unavailable Primary Care Provider [...] Vaccine ( - 2023-2 5 season) 2023 Colorectal Cancer Screening: Colonoscopy 01/29/2024 Depression Screening 01/29/2024 Falls Risk Assessment 01/29/2024 Hepatitis C Screening 01/29/2024 Osteoporosis Screening (Bone Density Screening) 01/29/2024 Social Influencers of Health Screening 01/29/2024 RSV Immunization Adult Patie nts (1 - 1-dose 75+ series) 2024 Influenza Vaccine (Season Ended) 2024 HIB Vaccines Aged Out No longer [...] age to complete this topic Meningococcal B Vaccine Aged Out No l onger eligible based on patient's age to complete this topic RSV Immunization Patients Un ailyn 20 months Aged Out No longer eligible b ased on patient's age to complete this topic Varicella Vaccines Aged Out No longer eligible based on patient's age to complete this topic
== END 2024-08-12 10:36 | disposition home or self-care (01) ==
LOC: HO.PMC 10:12
PROVIDERS: PCP Family Medicine; Visit Provider Nurse Practitioner Family
DX: M54.16 Radiculopathy, lumbar region (principal); M48.061 Spinal stenosis, lumbar region without neurogenic claudication; M50.30 Other cervical disc degeneration, unspecified cervical region; Z79.891 Long term (current) use of opiate analgesic; M96.1 Postlaminectomy syndrome, not elsewhere classified
CPT/HCPCS: 99214; G2211

== ENCOUNTER → 2024-08-12 10:12 | Outpatient (BNVA) | payer MEDICARE, SELFPAY | PROVIDERS: PCP Family Medicine; Visit Provider Nurse Practitioner Family | DX: M54.16 Radiculopathy, lumbar region (principal); M50.30 Other cervical disc degeneration, unspecified cervical region; M96.1 Postlaminectomy syndrome, not elsewhere classified; M48.061 Spinal stenosis, lumbar region without neurogenic claudication; M53.3 Sacrococcygeal disorders, not elsewhere classified; M54.50 Low back pain, unspecified; Z51.81 Encounter for therapeutic drug level monitoring; Z79.891 Long term (current) use of opiate analgesic | CPT/HCPCS: 99212 ==

== ENCOUNTER 2024-09-06 10:00 | Outpatient (RCR) | payer MEDICARE, SELFPAY | END 2024-09-16 13:29 | disposition home or self-care (01) | LOC: HO.CR 10:00 | PROVIDERS: PCP Family Medicine; Visit Provider Internal Medicine Cardiovascular Disease | DX: Z98.61 Coronary angioplasty status (principal) | CPT/HCPCS: 93798 ==

== ENCOUNTER 2024-09-06 10:47 | Emergency (ER) | payer MEDICARE, SELFPAY ==
--- NOTE | ~2024-09-06 | XR_ITS ---
EXAMINATION: XR HIP 1 VIEW LEFT WITH PELVIS HISTORY: Fall COMPARISON: Comparison is made with the prior examination dated 06/11/2021. FINDINGS: A single AP view of the pelvis and 2 views of the left hip are submitted. The patient is again noted to be status post left total hip arthroplasty. The orthopedic elements are in anatomic alignment. There is no radiographic evidence of loosening. There is no fracture or dislocation. There are vascular calcifications. XR/XR hip LT w PEL1V IMPRESSION: Status post left total hip arthroplasty. Electronically signed by: Hola Dunham MD 09/06/2024 01:28 PM EDT
--- NOTE | ~2024-09-06 | XR_ITS ---
EXAMINATION: XR KNEE 3 VIEWS LEFT, XR TIBIA FIBULA 2 VIEWS LEFT HISTORY: Fall COMPARISON: There are no prior studies available for comparison. FINDINGS: Four views of the left knee and AP and lateral views of the left tibia and fibula are submitted. The bones are osteopenic. There is no fracture or dislocation. The joint spaces are preserved. There are vascular calcifications. XR/XR knee LT 3V IMPRESSION: Osteopenia. No evidence of fracture of the left knee or tibia and fibula. Electronically signed by: Hola Dunham MD 09/06/2024 01:32 PM EDT
--- NOTE | ~2024-09-06 | XR_ITS ---
EXAMINATION: XR FINGERS RIGHT HISTORY: 3rd digit pain COMPARISON: There are no prior studies available for comparison. FINDINGS: Three views of the right middle finger are submitted. The bones are osteopenic. There is no fracture or dislocation. 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 The soft tissues are unremarkable. XR/XR finger RT min 2V IMPRESSION: Osteopenia. 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 Electronically signed by: Hola Dunham MD 09/06/2024 01:29 PM EDT
--- NOTE | ~2024-09-06 | XR_ITS ---
EXAMINATION: XR KNEE 3 VIEWS LEFT, XR TIBIA FIBULA 2 VIEWS LEFT HISTORY: Fall COMPARISON: There are no prior studies available for comparison. FINDINGS: Four views of the left knee and AP and lateral views of the left tibia and fibula are submitted. The bones are osteopenic. There is no fracture or dislocation. The joint spaces are preserved. There are vascular calcifications. XR/XR tibia fibula LT 2V IMPRESSION: Osteopenia. No evidence of fracture of the left knee or tibia and fibula. Electronically signed by: Hola Dunham MD 09/06/2024 01:32 PM EDT
[2024-09-06 11:05] VITALS: BP 144/58; PULSE 64; RESP 18; TEMP 36.2; O2SAT 97; BMI 25.7
--- OUTSIDE RECORDS SUMMARY | 2024-09-06 12:01 | XMS_ITS | Clinical Summary ---
Author Organization [facility] it[facility] Address [address] [place] [address] Care Team Providers Care Managing Manager Name Role Phone Unavailable Primary Care [...]
--- OUTSIDE RECORDS SUMMARY | 2024-09-06 12:01 | XMS_ITS | Patient Health Record ---
Author Organization [facility] Address [address] [place] [address] Care Team Providers Care Oracle Adf Developer Name Role Phone Haroon JACKSON, Marcellus Primary Care Provider Ru Rollins Jr Unavailable [phone] Allergies Allergen (clinical drug ingredient) Drug/Non Drug [...] Problem Status W/U Status Risk Notes Problem [id number] Colon cancer screening (Z12.11) Active confirmed Problem 32113653 Constipation, unspecified constipation type (K59.00) Active confirmed Plan Of Treatment Future Test Test Name Order Date COLONOSCOPY 07/02/2021 Insurance Providers Payer Name Payer Address Payer Phone Subscriber Number Group Number Insured Name Patient Relationship to Insured Coverage Start Date Coverage End Date [facility] [address] [facility] [place] [address] [phone] [id number] JIM MCGINNIS Self - patient is the insured Medical (General) History Medical History History ICD Code Hypothyroidism Hypertension Arthritis Gastroesophageal reflux disease Surgical History Surgery Date(Month/Year) hysterectomy , uterine prolapse 2008 back surgery 2012 hip replacement 2019
--- NOTE | 2024-09-06 12:10 | ECG_ITS ---
Test Reason : FALL Blood Pressure : */* mmHG Vent. Rate : 57 BPM Atrial Rate : 57 BPM P-R Int : 186 ms QRS Dur : 96 ms QT Int : 454 ms P-R-T Axes : 65 29 54 degrees QTcB Int : 441 ms Sinus bradycardia Otherwise normal ECG When compared with ECG of 12-Oct-2022 10:21, No significant changes seen Referred By: Generic ED Physician Electronically Signed By: Bobo Montes
[2024-09-06 12:41] VITALS: BP 199/87; PULSE 68; RESP 18; TEMP 36.4; O2SAT 98
--- NOTE | 2024-09-06 12:58 | ED.GENADULT ---
HPI - General Adult General Chief complaint: Fall Stated complaint: Fall at Cardiac Rehab Time Seen by Provider: 09/06/24 11:35 History of Present Illness ED Provider: Dr. Mittal HPI narrative: 73 y/o F patient; PMH HTN, CAD; presents from the cardiac rehab center for an accidental fall immediately prior to arrival. The patient states she was walking on the treadmill when she turned to answer her phone and fell onto her left-side. She did not hit her head or lose consciousness. She primarily complains of right forearm pain, right knee pain, and right calf pain. She has been ambulatory since the event. She also reports a fall yesterday in which she tripped over a curb. She injured her right middle finger at that time. She otherwise denies: nausea/vomiting, abdominal pain, neck pain, SOB, cough/congestion, chest pain, headache, neck pain. Related Data Home Medications ?Medication ?Instructions ?Recorded ?Confirmed albuterol sulfate 90 mcg/actuation inhalation 02/17/20 07/19/24 aerosol inhaler levothyroxine 88 mcg tablet 88 mcg PO DAILY 02/17/20 07/19/24 lisinopril 10 mg tablet 10 mg PO DAILY 02/17/20 07/19/24 docusate sodium 100 mg capsule 100 mg PO DAILY diarrhea 10/12/21 07/19/24 desonide 0.05 % topical ointment topical BID 10/01/22 07/19/24 aspirin 81 mg tablet,delayed 81 mg PO DAILY 06/23/23 07/19/24 release nitroglycerin 0.4 mg sublingual 0.4 mg sublingual Q5M PRN 02/12/24 07/19/24 tablet ondansetron HCl 4 mg tablet mg PO 05/06/24 07/19/24 Previous Rx's ?Medication ?Instructions ?Recorded Donut pillow #1 ea 06/18/21 atorvastatin 80 mg tablet 80 mg PO DAILY #90 tabs 05/06/24 clopidogrel 75 mg tablet (Plavix) 75 mg PO DAILY #90 tabs 05/06/24 hydrocodone 7.5 mg-acetaminophen 1.5 tab PO DAILY PRN pain 30 days 08/12/24 325 mg tablet #40 tabs Allergies Allergy/AdvReac Type Severity Reaction Status Date / Time No Known Allergies Allergy Unknown Verified 09/06/24 11:11 Review of Systems Review of Systems: Yes all other systems are reviewed and are negative [facility] Past Medical History Attestation statement: The following information was validated with the patient. Source: old records reviewed Medical History Pulmonary nodule Chronic cough Chronic bronchitis Benign essential HTN Arthritis GERD (gastroesophageal reflux disease) Lumbar radiculopathy, chronic Hypothyroidism Failed back syndrome, lumbar Surgical History History of cardiac cath Hx of bladder repair surgery History of lumbar surgery History of hysterectomy History of total left hip replacement Family History Family History Mother Heart attack Father Pacemaker Leukemia Social History Social History Household Members: Spouse Alcohol intake: never Patient Tobacco Use Status: Former Tobacco user Tobacco use type: Cigarette Cigarettes Per Day: 4 Years Smoked: 40 +/- Substance Use Type: Marijuana Advance Directives: No Advance Directives Information Provided: Yes Physical Exam ED Vital Signs: Vital Signs - 24 hr 09/06/24 11:05 09/06/24 12:41 Temperature 97.2 F 97.5 F Pulse Rate 64 68 Respiratory Rate 18 18 Blood Pressure 144/58 H 199/87 H Pulse Oximetry 97 98 Oxygen Delivery Method Room Air Room Air BMI result Body Mass Index 25.7 Patient is afebrile and hemodynamically stable. Const General: cooperative and no acute distress HENMT Head: Yes normal to inspection and Yes atraumatic Eyes General: appearance normal, both eyes and all related structures Pupils: Equal, round and reactive pupils present EOM: EOMs intact bilaterally Neck Neck: Yes normal visual inspection, Yes full ROM, Yes supple and No tender Chest Chest palpation & inspection: normal inspection of the chest and normal palpation of entire chest wall Resp Effort & Inspection: normal respiratory effort, able to speak in complete sentences, no cough and no respiratory distress Auscultation: clear to auscultation bilaterally Cardio Palpation: normal PMI Rate: regular rate Peripheral pulses: Peripheral pulses 2+ throughout GI Inspection: Yes normal to inspection, No Abdominal wall edema and No distended Palpation (GI): Soft to palpation, not firm, nontender, no guarding and not rigid Auscultation: normal bowel sounds Back/Spine/Pelvis Back: No back tenderness Neuro Cranial nerves: Yes Equal, round and reactive pupils present Extrem Other: Right 3rd digit ecchymosis and mild swelling, FROM. Right forearm ecchymosis and swelling, FROM, no focal wrist or elbow tenderness. Left lateral knee and lateral calf tenderness without ecchymosis, has FROM. NVI. Able to ambulate with limping gait. Course Course Course Narrative: Patient is afebrile and hemodynamically stable. Ordered for XR Right 3rd digit, XR Left Pelvis/Knee/Tibia/Fibula. Provided tylenol for pain control. Reviewed patient's XRs which are negative for fx or dislocation. Patient is ambulating with a steady gait. Khoa wrap applied to right knee for comfort. Plan: Discharge to home with PCP follow up Return precautions given Medical Decision Making Independent Interpretation I performed an independent interpretation of an: EKG Interpretation: NSR 57BPM without ischemic changes, normal intervals Radiology Impression Discussion of test interpretation with radiology: I have reviewed the radiologist's reading. Radiologist Impression: EXAMINATION: XR HIP 1 VIEW LEFT WITH PELVIS HISTORY: Fall COMPARISON: Comparison is made with the prior examination dated 06/11/2021. FINDINGS: A single AP view of the pelvis and 2 views of the left hip are submitted. The patient is again noted to be status post left total hip arthroplasty. The orthopedic elements are in anatomic alignment. There is no radiographic evidence of loosening. There is no fracture or dislocation. There are vascular calcifications. XR/XR hip LT w PEL1V IMPRESSION: Status post left total hip arthroplasty. Electronically signed by: Hola Dunham MD 09/06/2024 01:28 PM EDT EXAMINATION: XR FINGERS RIGHT HISTORY: 3rd digit pain COMPARISON: There are no prior studies available for comparison. FINDINGS: Three views of the right middle finger are submitted. The bones are osteopenic. There is no fracture or dislocation. 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 The soft tissues are unremarkable. XR/XR finger RT min 2V IMPRESSION: Osteopenia. 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 Electronically signed by: Hola Dunham MD 09/06/2024 01:29 PM EDT EXAMINATION: XR KNEE 3 VIEWS LEFT, XR TIBIA FIBULA 2 VIEWS LEFT HISTORY: Fall COMPARISON: There are no prior studies available for comparison. FINDINGS: Four views of the left knee and AP and lateral views of the left tibia and fibula are submitted. The bones are osteopenic. There is no fracture or dislocation. The joint spaces are preserved. There are vascular calcifications. XR/XR knee LT 3V IMPRESSION: Osteopenia. No evidence of fracture of the left knee or tibia and fibula. Electronically signed by: Hola Dunham MD 09/06/2024 01:32 PM EDT RP Discharge Plan Discharge Clinical Impression: Fall Patient Disposition: Home, Self-Care Instructions: Knee Sprain (ED) Prescriptions: No Action clopidogrel [Plavix] 75 mg tablet 75 mg PO DAILY Qty: 90 2RF atorvastatin 80 mg tablet 80 mg PO DAILY Qty: 90 2RF lisinopril 10 mg tablet 10 mg PO DAILY levothyroxine 88 mcg tablet 88 mcg PO DAILY albuterol sulfate 90 mcg/actuation HFA aerosol inhaler inhalation (DME) [facility] [place] .Route Qty: 1 0RF Rx Instructions: As directed docusate sodium 100 mg capsule 100 mg PO DAILY ondansetron HCl 4 mg tablet PO hydrocodone-acetaminophen 7.5-325 mg tablet 1.5 tab PO DAILY PRN (Reason: pain) 30 Days Qty: 40 0RF Rx Instructions: Partial Fill upon patient request. desonide 0.05 % ointment topical BID aspirin 81 mg tablet,delayed release (DR/EC) 81 mg PO DAILY nitroglycerin 0.4 mg tablet, sublingual 0.4 mg sublingual Q5M PRN Rx Instructions: do not exceed 3 doses per episode Print Language: Canadian
[2024-09-06] MEDS: Acetaminophen 325 MG TABLET 975 MG PO (14:23)
[2024-09-06 14:24] VITALS: BP 199/87; PULSE 68; RESP 18; TEMP 36.4; O2SAT 98
--- NOTE | 2024-09-06 14:24 | PC.NURSE ---
Did not have working computer/scanner to scan medication. Given three (325mg per tablet) tablets, total 975mg PO with water per orders. Manually overrode medication administration. Patient is in [address]. Discharge paperwork reviewed.
== END 2024-09-06 14:24 | disposition home or self-care (01) ==
PROVIDERS: Emergency Provider Emergency Medicine; PCP Family Medicine
DX: M79.632 Pain in left forearm (principal); M79.661 Pain in right lower leg; M79.605 Pain in left leg; M79.641 Pain in right hand; R00.1 Bradycardia, unspecified; M79.604 Pain in right leg; I25.10 Atherosclerotic heart disease of native coronary artery without angina pectoris; Z79.899 Other long term (current) drug therapy; Z87.891 Personal history of nicotine dependence
CPT/HCPCS: 73140; 73502; 73562; 73590; 93005; 99283; 99284

== ENCOUNTER → 2024-09-06 12:10 | Outpatient (BNV) | payer MEDICARE, SELFPAY | PROVIDERS: Emergency Provider Emergency Medicine; PCP Family Medicine; Visit Provider Internal Medicine Cardiovascular Disease | DX: R00.1 Bradycardia, unspecified (principal) | CPT/HCPCS: 93010 ==

== ENCOUNTER → 2024-09-06 12:31 | Outpatient (BNV) | payer MEDICARE, SELFPAY | PROVIDERS: Emergency Provider Emergency Medicine; PCP Family Medicine; Visit Provider Radiology Diagnostic Radiology | DX: Z96.642 Presence of left artificial hip joint (principal); M85.862 Other specified disorders of bone density and structure, left lower leg; M19.041 Primary osteoarthritis, right hand; M85.841 Other specified disorders of bone density and structure, right hand; W19.XXXA Unspecified fall, initial encounter | CPT/HCPCS: 73140; 73502; 73562; 73590 ==

== ENCOUNTER 2024-09-16 09:38 | Outpatient (AMB) | payer MEDICARE, SELFPAY ==
--- NOTE | 2024-09-16 09:41 | A.OFFVIS_ITS ---
Vital Signs 09/16/24 09:48 Height 5 ft 1 in Weight 139 lb 4 oz BMI 26.3 BP 127/76 Blood Pressure Location Lt brachial Position Sitting Pulse 79 Pulse Source Pulse Oximeter Pulse Oximetry (%) 97 Oxygen Delivery Method Room Air Intake Visit Reasons: Pill Count Intake Note: Katlyn comes in today for a pill count to hydrocodone-acetaminophen, patient should have 10 tablets and presents with 20 tablets which she last took last night 09/15/24 at 7:30pm. 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 Patient is supposed to have #10 pills, in her possession has #20 pills. This demonstrates a responsible attitude in regards to the medication regimen. Patient reports adequate analgesia on her current regimen on as needed basis with no noted side effects. Pain is rated at 4/10, worse in her lower back with chronic left sided radiculopathy, has resulted in occasional disruptions to her balance. Patient also utilizes marijuana edibles which she obtains in local dispensary and has medical marijuana card. Patient reports 2 weeks ago, she fell during cardiac rehabilitation while on a treadmill, after turning around suddenly. She was evaluated in the emergency room, and no fractures were identified. The patient has a history of left hip replacement, and imaging confirmed the hardware's integrity. The day before the treadmill incident, she experienced another fall at home after tripping over a curb. She also experiences a current rash due to emotional stress, having consulted a legal recovery specialist for the issue. The patient denies dizziness, significant bruising, or changes in her medical history. She does not require physical therapy at this moment and maintains her current regimen without any new medications. Denies any fever, cough, chills, abdominal pain, dyspnea, chest pain, shortness of breaths, weight loss, constipation, nausea, sedation, dizziness, or urinary retention. [facility] Medical History Pulmonary nodule Chronic cough Chronic bronchitis Benign essential HTN Arthritis GERD (gastroesophageal reflux disease) Lumbar radiculopathy, chronic Hypothyroidism Failed back syndrome, lumbar Surgical History History of cardiac cath Hx of bladder repair surgery History of lumbar surgery History of hysterectomy History of total left hip replacement Family History Mother Heart attack Father Pacemaker Leukemia Social History Household Members: Spouse Alcohol intake: never Patient Tobacco Use Status: Former Tobacco user Tobacco use type: Cigarette Cigarettes Per Day: 4 Years Smoked: 40 +/- Substance Use Type: Marijuana Review of Systems Const Details: - Musculoskeletal: Denies fractures, significant bruising, or changes in gait. - Dermatologic: Reports rash likely due to stress. - Neurological: Denies loss of consciousness, dizziness. - Psychiatric: Reports emotional stress. All systems reviewed & are unremarkable except as noted in HPI and below Physical Exam Vital Signs: Last Vital Signs Pulse 79 09/16/24 09:48 BP 127/76 09/16/24 09:48 Pulse Ox 97 09/16/24 09:48 Oxygen Delivery Method Room Air 09/16/24 09:48 BMI result Body Mass Index 26.3 General: Appears afebrile. No acute distress. Alert and oriented. Mood and affect appropriate. Follows and participates in conversation appropriately. Respiratory effort is unlabored. No cough. Able to transition from sit to stand unassisted. Ambulates with normal heel strike and toe off on the right, reports occasional unsteadiness on the left with pain. HEENT Head: Yes normal to inspection, Yes No palpable skull fracture present, Yes n ormocephalic, No occipital foramen tenderness, No scalp tenderness and No periorbital ecchymosis Back/Spine/Pelvis Other: Limited lumbar ROM due to pain. Lumbar flexion, bending and axial rotations reproduce moderate pain. Positive facet loading bilaterally. Cervical Spine: cervical ROM normal, cervical muscular tenderness, pain with cervical ROM and No Cervical spine tenderness Thoracic/Lumbar Spine: thoracic and lumbar spine normal to inspection, Lasegue's sign positive on the left and localized, pain with thoraco-lumbar ROM, thoraco- lumbar ROM limited, No thoracic spinal tenderness and lumbar spinal tenderness at L3, at L4 and at L5 Pelvis: no buttock tenderness Sacroiliac joints: bilaterally nontender Extrem General: Yes capillary refill normal, Yes no clubbing, cyanosis or edema and Yes no calf tenderness Psych Appearance: grossly normal and well kempt Mental Status: mental status grossly normal Speech and movement: Normal speech and movement present and Clear speech present Affect: normal affect and Sad affect present Attitude: cooperative Thought process: Normal thought process present Thought content: Normal thought content present, suicidality (none), no halluc inations and Depressive thoughts present Insight: Good insight present (Psych) Judgement: Good judgement present (Psych) Results Reviewed Results Reviewed: MR LUMBAR SPINE WITHOUT CONTRAST 12/03/23 CLINICAL INFORMATION: Spondylolisthesis COMPARISON: Lumbar spine radiographs June 13, 2023. Images from prior lumbar spine MRI from June 13, 2012 are not available in PACS at time of dictation TECHNIQUE: MRI of the lumbar spine was obtained using routine sequences without contrast. FINDINGS: Slight lumbar levocurvature. Preserved lumbar lordosis. Grade 1 retrolisthesis at L1-L2 3 and grade 1 anterolisthesis at L4-L5 and L5-S1. Vertebral body heights are maintained. There is no suspicious osseous lesion. Diffusely coarsened appearance of the bony trabeculae throughout the spinal column and imaged pelvis can be correlated clinically for osteopenia. Diffuse desiccation with moderate to severe disc height loss posteriorly at L2-L3, to a lesser extent at L1-L2, and otherwise mild multilevel disc height loss. Marginally edematous Schmorl's node along the left aspect of the posterior L2 inferior endplate. Trace type I endplate changes posteriorly at L1-L2. Multilevel anterior osteophytic spurring is seen. Stress related marrow edema within the bilateral L5 pedicles. Level by level detail as follows: L1-L2: Disc bulge with superiorly migrated right subarticular/foraminal disc extrusion and moderate bilateral facet arthrosis with ligamentum flavum thickening. Moderate to severe spinal canal stenosis and asymmetric right subarticular zone narrowing with compression along the traversing right L2 nerve root. Severe right neural foraminal stenosis with compression of the exiting right L1 nerve root and mild left neural foraminal stenosis. L2-L3: Post laminectomy changes. Retrolisthesis with disc osteophyte complex. Moderate right and mild left facet arthrosis. The spinal canal is decompressed. Moderate to severe left and moderate right neural foraminal stenosis with mass effect along the exiting left greater than right L2 nerve roots. L3-L4: Disc bulge eccentric to the right with ventral annular fissure and moderate facet arthrosis with ligamentum flavum thickening. Mild spinal canal and mild bilateral neural foraminal narrowing. L4-L5: Advanced bilateral facet arthrosis with ligament flavum thickening, diastatic right facet joint effusion, and 1.0 cm craniocaudal dorsal epidural cyst presumably reflecting interspinous bursitis. Hypertrophied L4 and L5 spinous processes with obliterated interspinous interval and fluid distended interspinous bursa projecting into the adjacent paraspinal soft tissues. Unroofing of posterior disc material. 7 mm synovial cyst along the ventrolateral margin of the left facet joint projecting into the posterior left neural foramen. Moderate spinal canal and mild left greater than right neural foraminal stenosis. L5-S1: Advanced bilateral facet arthrosis with unroofing of posterior disc material. No spinal canal stenosis. Mild left without right neural foraminal stenosis. The conus medullaris terminates at the level of L1. The distal spinal cord is normal in appearance. No epidural fluid collection, hematoma, or mass. Moderate to severe fatty atrophy of the lower paraspinal musculature. Limited evaluation of the intra-abdominal structures without significant abnormalities. The abdominal aorta is of normal contour and caliber. Susceptibility artifact from left hip arthroplasty with asymmetric atrophy of the short left-sided external rotator and left psoas/iliopsoas muscles. Degenerative osteophytosis bridging the ventral sacroiliac joints. IMPRESSION: 1. At L1-L2, there is a superiorly migrated right subarticular/foraminal disc extrusion contributing to moderate to severe spinal canal stenosis and asymmetric right lateral recess narrowing with compression along the traversing right L2 nerve root. Severe right neural foraminal stenosis with compression of the exiting right L1 nerve root. 2. At L2-L3, there are post laminectomy changes. Moderate to severe left and moderate right neural foraminal stenosis with mass effect along the exiting left greater than right L2 nerve roots. 3. At L4-L5, there is advanced bilateral facet arthrosis with a diastatic right facet joint effusion which may reflect hypermobility and can be correlated with flexion and extension views. 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 7 mm synovial cyst along the ventrolateral margin of the left facet joint projecting into the posterior left neural foramen. Moderate spinal canal stenosis and mild left greater than right neural foraminal stenosis. 4. Diffusely coarsened appearance of the bony trabeculae throughout the spinal column and imaged pelvis can be correlated clinically for osteopenia. XR HIP 1 VIEW LEFT WITH PELVIS 09/06/24 HISTORY: Fall COMPARISON: Comparison is made with the prior examination dated 06/11/2021. FINDINGS: A single AP view of the pelvis and 2 views of the left hip are submitted. The patient is again noted to be status post left total hip arthroplasty. The orthopedic elements are in anatomic alignment. There is no radiographic evidence of loosening. There is no fracture or dislocation. There are vascular calcifications. IMPRESSION: Status post left total hip arthroplasty. XR KNEE 3 VIEWS LEFT, XR TIBIA FIBULA 2 VIEWS LEFT 09/06/24 HISTORY: Fall COMPARISON: There are no prior studies available for comparison. FINDINGS: Four views of the left knee and AP and lateral views of the left tibia and fibula are submitted. The bones are osteopenic. There is no fracture or dislocation. The joint spaces are preserved. There are vascular calcifications. IMPRESSION: Osteopenia. No evidence of fracture of the left knee or tibia and fibula. XR FINGERS RIGHT 09/06/24 HISTORY: 3rd digit pain COMPARISON: There are no prior studies available for comparison. FINDINGS: Three views of the right middle finger are submitted. The bones are osteopenic. There is no fracture or dislocation. 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 The soft tissues are unremarkable. IMPRESSION: Osteopenia. 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 [employer] reviewed. Script for hydrocodone-acetaminophen 7.5-325 mg?#40/30 days sent with an advanced date of 10/02/24. Patient is aware of monitoring for side effects. Discussed with the patient the risks associated with benzodiazepine and opioid use. All questions and concerns were answered and the patient is in agreement with the plan. Follow up in one month pill count and sooner if needed. Patient was informed and verbally consented to the use of an ambient scribe for clinic note documentation during this visit. Medications: Refilled hydrocodone-acetaminophen 7.5-325 mg Partial Fill upon patient request. 1.5 tabs PO DAILY 30 days PRN 40 tabs 0RF pain M53.3 - Sacrococcygeal disorders, not elsewhere classified, M54.50 - Low back pain, unspecified, M96.1 - Postlaminectomy syndrome, not elsewhere classified, Z79.891 - oil heaterman (current) use of opiate analgesic Patient Instructions: The patient's recent falls and chronic pain management are the primary focus of the visit. Imaging confirmed no fractures, and her left hip replacement hardware is intact. She is to continue her current pain management with Vicodin, using it sparingly, and is advised on the importance of seeking emergency care if any further falls occur. Her stress-related rash is being managed with dermatological care, and she is encouraged to manage stress levels. Patient is advised on proper medication refills. Follow-up is recommended if there are changes in her pain or condition. Coding Level of Care Code Est Pt Level 4 (20688) Complex EM visit Add On G2211 Diagnoses Lumbar radiculopathy M54.16 Lumbar spinal stenosis M48.061 Degeneration, intervertebral disc, cervical M50.30 Opioid contract exists Z79.891 Failed back syndrome, lumbar M96.1 Hip pain, bilateral M25.551; M25.552 History of recent fall Z91.81
[2024-09-16 09:48] VITALS: BP 127/76; PULSE 79; O2SAT 97; BMI 26.3
--- OUTSIDE RECORDS SUMMARY | 2024-09-16 09:57 | XMS_ITS | Patient Health Record ---
Author Organization [facility] Address [address] [place] [address] Care Team Providers Care Container Shop Welder Name Role Phone Haroon JACKSON, Marcellus Primary [...] Problem Status W/U Status Risk Notes Problem [id number] Colon cancer screening (Z12.11) Active confirmed Problem [id number] Constipation, unspecified constipation type (K59.00) Active confirmed Plan Of Treatment Future Test Test Name Order Date COLONOSCOPY 07/02/2021 Insurance Providers Payer Name Payer Address Payer Phone Subscriber Number Group Number Insured Name Patient Relationship to Insured Coverage Start Date Coverage End Date [facility] [address] [place] [address] [id number] JIM MCGINNIS Self - patient is the insured Medical (General) History Medical History History ICD Code Hypothyroidism Hypertension Arthritis Gastroesophageal reflux disease Surgical History Surgery Date(Month/Year) hysterectomy , uterine prolapse 2008 back surgery 2012 hip replacement 2019
== END 2024-09-16 10:21 | disposition home or self-care (01) ==
LOC: HO.PMC 09:39
PROVIDERS: PCP Family Medicine; Visit Provider Nurse Practitioner Family
DX: M54.16 Radiculopathy, lumbar region (principal); M48.061 Spinal stenosis, lumbar region without neurogenic claudication; M50.30 Other cervical disc degeneration, unspecified cervical region; Z79.891 Long term (current) use of opiate analgesic; M96.1 Postlaminectomy syndrome, not elsewhere classified; M25.551 Pain in right hip; M25.552 Pain in left hip; Z91.81 History of falling
CPT/HCPCS: 99214; G2211

== ENCOUNTER → 2024-09-16 09:38 | Outpatient (BNVA) | payer MEDICARE, SELFPAY | PROVIDERS: PCP Family Medicine; Visit Provider Nurse Practitioner Family | DX: M54.16 Radiculopathy, lumbar region (principal); M48.061 Spinal stenosis, lumbar region without neurogenic claudication; M50.30 Other cervical disc degeneration, unspecified cervical region; M96.1 Postlaminectomy syndrome, not elsewhere classified; M25.552 Pain in left hip; M25.551 Pain in right hip; M53.3 Sacrococcygeal disorders, not elsewhere classified; Z91.81 History of falling; Z51.81 Encounter for therapeutic drug level monitoring; Z79.891 Long term (current) use of opiate analgesic | CPT/HCPCS: 99212 ==

== ENCOUNTER 2024-09-27 09:19 | Outpatient (REF) | payer MEDICARE, SELFPAY ==
--- OUTSIDE RECORDS SUMMARY | 2024-09-27 09:49 | XMS_ITS | Patient Health Record ---
Author Organization [facility] Address [address] [place] [address] Care Team Providers Care Run Boat Operator Name Role Phone Haroon JACKSON, Marcellus Primary Care Provider Ru Rollins Jr Unavailable [phone] Allergies Allergen (clinical drug ingredient) Drug/Non Drug [...] Problem Status W/U Status Risk Notes Problem [id number] Colon cancer screening (Z12.11) Active confirmed Problem 64730054 Constipation, unspecified constipation type (K59.00) Active confirmed Plan Of Treatment Future Test Test Name Order Date COLONOSCOPY 07/02/2021 Insurance Providers Payer Name Payer Address Payer Phone Subscriber Number Group Number Insured Name Patient Relationship to Insured Coverage Start Date Coverage End Date [facility] [address] [place] [address] [id number] JIM MCGINNIS Self - patient is the insured Medical (General) History Medical History History ICD Code Hypothyroidism Hypertension Arthritis Gastroesophageal reflux disease Surgical History Surgery Date(Month/Year) hysterectomy , uterine prolapse 2008 back surgery 2012 hip replacement 2019
[2024-09-27 15:10] LABS: Alanine Aminotransferase 23 U/L (0-31); Anion Gap 11 (12-20); Aspartate Amino Transferase 36 U/L (5-31); Blood Urea Nitrogen 11 mg/dL (9-16); Carbon Dioxide 22 mmol/L (22-29); Chloride 101 mmol/L (96-108); Estimated Glomerular Filt Rate > 60; Potassium 4.2 mmol/L (3.3-5.1); Sodium 130 mmol/L (135-145)
== END 2024-09-27 09:20 | disposition home or self-care (01) ==
LOC: HO.CHCLDS 09:19
PROVIDERS: Visit Provider Family Medicine
DX: I10 Essential (primary) hypertension (principal); E78.00 Pure hypercholesterolemia, unspecified
CPT/HCPCS: 36415; 80051; 82550; 82565; 84450; 84460; 84520

== ENCOUNTER 2024-09-30 11:10 | Outpatient (REF) | payer MEDICARE, SELFPAY ==
--- OUTSIDE RECORDS SUMMARY | 2024-09-30 13:06 | XMS_ITS | Patient Health Record ---
Author Organization [facility] Address [address] [place] [address] Care Team Providers Care Security Lead Name Role Phone Haroon JACKSON, Marcellus Primary Care Provider Ru Rollins Jr Unavailable [phone] Allergies Allergen (clinical drug ingredient) Drug/Non Drug [...] Problem Status W/U Status Risk Notes Problem [id number] Colon cancer screening (Z12.11) Active confirmed Problem 20433625 Constipation, unspecified constipation type (K59.00) Active confirmed Plan Of Treatment Future Test Test Name Order Date COLONOSCOPY 07/02/2021 Insurance Providers Payer Name Payer Address Payer Phone Subscriber Number Group Number Insured Name Patient Relationship to Insured Coverage Start Date Coverage End Date [facility] [address] [place] [address] [id number] JIM MCGINNIS Self - patient is the insured Medical (General) History Medical History History ICD Code Hypothyroidism Hypertension Arthritis Gastroesophageal reflux disease Surgical History Surgery Date(Month/Year) hysterectomy , uterine prolapse 2008 back surgery 2012 hip replacement 2019
[2024-09-30 14:08] LABS: Free T4 (Free Thyroxine) 1.37 ng/dL (0.71-1.85); Thyroid Stimulating Hormone 0.89 uIU/mL (0.32-4.0)
== END 2024-09-30 11:11 | disposition home or self-care (01) ==
LOC: HO.10HDL 11:10
PROVIDERS: Visit Provider Family Medicine
DX: E03.9 Hypothyroidism, unspecified (principal)
CPT/HCPCS: 36415; 84439; 84443

== ENCOUNTER 2024-10-12 10:14 | Outpatient (REF) | payer MEDICARE, SELFPAY ==
--- OUTSIDE RECORDS SUMMARY | 2024-10-12 11:21 | XMS_ITS | Patient Health Record ---
Author Organization [facility] Address [address] [place] [address] Care Team Providers Care Warehouse Consultant Name Role Phone Haroon JACKSON, Marcellus Primary Care Provider Ru Rollins Jr Unavailable [phone] Allergies Allergen (clinical drug ingredient) Drug/Non Drug [...] Problem Status W/U Status Risk Notes Problem [id number] Colon cancer screening (Z12.11) Active confirmed Problem 74139924 Constipation, unspecified constipation type (K59.00) Active confirmed Plan Of Treatment Future Test Test Name Order Date COLONOSCOPY 07/02/2021 Insurance Providers Payer Name Payer Address Payer Phone Subscriber Number Group Number Insured Name Patient Relationship to Insured Coverage Start Date Coverage End Date [facility] [address] [place] [address] [phone] [id number] JIM MCGINNIS Self - patient is the insured Medical (General) History Medical History History ICD Code Hypothyroidism Hypertension Arthritis Gastroesophageal reflux disease Surgical History Surgery Date(Month/Year) hysterectomy , uterine prolapse 2008 back surgery 2012 hip replacement 2019
[2024-10-12 14:20] LABS: Appearance Urine Clear; Color Urine Dark Yellow; Glucose Urine UA Negative (Negative); Leukocyte Esterase Urine Large (3+) (Negative); Nitrite Urine Positive (Negative); Specific Gravity - Urine 1.015 (1.005-1.025); UMIC TRIGGER UA YES; Urine Blood Negative (Negative); Urine Ketones Negative (Negative); Urine Protein Negative (Neg-Trace)
[2024-10-12 14:24] LABS: Bacteria Urine Trace (None Seen); Hyaline Casts Urine 0-2 /LPF (0-2); RBC Urine 0-2 /HPF (0-2); Squamous Epithelial Cell Urine 0-2 /HPF (0-2); WBC Urine >50 /HPF (0-5)
== END 2024-10-12 10:15 | disposition home or self-care (01) ==
LOC: HO.CHCLDS 10:14
PROVIDERS: Visit Provider Family Medicine
DX: Z13.89 Encounter for screening for other disorder (principal)
CPT/HCPCS: 81001; 87086; 87088; 87186

== ENCOUNTER 2024-10-21 10:18 | Outpatient (AMB) | payer MEDICARE, SELFPAY ==
--- NOTE | 2024-10-21 10:22 | MHC.OFFVIS ---
Vital Signs 10/21/24 10:29 Height 5 ft 1 in Weight 138 lb 6 oz BMI 26.1 BP 153/69 H Blood Pressure Location Lt brachial Position Sitting Pulse 60 Pulse Source Pulse Oximeter Pulse Oximetry (%) 97 Oxygen Delivery Method Room Air Intake Visit Reasons: PILL COUNT Intake Note: Sonam comes in today for a pill count to hydrocodone-acetaminophen, patient should have 22 tablets and presents with 27 tablets which she last took last night 10/20/24 at 7pm. 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 Patient is supposed to have #22 pills, in her possession has #27 pills. This demonstrates a responsible attitude in regards to the medication regimen. Patient reports adequate analgesia on her current regimen on as needed basis with no noted significant side effects. The patient experiences occasional constipation as a side effect of her opioid medication, which she manages with a stool supplement taken nightly. The pain is rated at 4/10 and affects both the back and neck, as well as the legs. The patient also reports experiencing depression, which she feels is mostly under control, although she is considering seeing a counselor again. She has seen counselors in the past. Denies any fever, cough, chills, abdominal pain, dyspnea, chest pain, shortness of breaths, weight loss, constipation, nausea, sedation, dizziness, or urinary retention. PFSH Medical History Pulmonary nodule Chronic cough Chronic bronchitis Benign essential HTN Arthritis GERD (gastroesophageal reflux disease) Lumbar radiculopathy, chronic Hypothyroidism Failed back syndrome, lumbar Surgical History History of cardiac cath Hx of bladder repair surgery History of lumbar surgery History of hysterectomy History of total left hip replacement Family History Mother Heart attack Father Pacemaker Leukemia Social History Household Members: Spouse Alcohol intake: never Patient Tobacco Use Status: Former Tobacco user Tobacco use type: Cigarette Cigarettes Per Day: 4 Years Smoked: 40 +/- Substance Use Type: Marijuana Review of Systems Const All systems reviewed & are unremarkable except as noted in HPI and below Physical Exam Vital Signs: Last Vital Signs Pulse 60 10/21/24 10:29 BP 153/69 H 10/21/24 10:29 Pulse Ox 97 10/21/24 10:29 Oxygen Delivery Method Room Air 10/21/24 10:29 BMI result Body Mass Index 26.1 General: Appears afebrile. Alert and oriented. Mood and affect appropriate. Follows and participates in conversation appropriately. Respiratory effort is unlabored. No cough. Able to transition from sit to stand unassisted. Ambulates with normal heel strike and toe off on the right. HEENT Head: Yes normal to inspection, Yes No palpable skull fracture present, Yes normocephalic, No occipital foramen tenderness, No scalp tenderness and No periorbital ecchymosis Eyes General: appearance normal, both eyes and all related structures Back/Spine/Pelvis Other: Limited lumbar ROM due to pain. Lumbar flexion, bending and axial rotations reproduce moderate pain. Positive facet loading bilaterally. Cervical Spine: cervical muscular tenderness, pain with cervical ROM and No Cervical spine tenderness Thoracic/Lumbar Spine: thoracic and lumbar spine normal to inspection, pain with thoraco-lumbar ROM, thoraco-lumbar ROM limited, No thoracic spinal tenderness and lumbar spinal tenderness at L3, at L4 and at L5 Sacroiliac joints: bilaterally nontender Extrem General: Yes capillary refill normal, Yes no clubbing, cyanosis or edema and Yes no calf tenderness Psych Appearance: grossly normal and well kempt Mental Status: mental status grossly normal Speech and movement: Normal speech and movement present and Clear speech present Affect: normal affect Attitude: cooperative Thought process: Normal thought process present Thought content: Normal thought content present, suicidality (none), no hallucinations and Depressive thoughts present Insight: Good insight present (Psych) Judgement: Good judgement present (Psych) Results Reviewed Results Reviewed: MR LUMBAR SPINE WITHOUT CONTRAST 12/03/23 CLINICAL INFORMATION: Spondylolisthesis COMPARISON: Lumbar spine radiographs June 13, 2023. Images from prior lumbar spine MRI from June 13, 2012 are not available in PACS at time of dictation TECHNIQUE: MRI of the lumbar spine was obtained using routine sequences without contrast. FINDINGS: Slight lumbar levocurvature. Preserved lumbar lordosis. Grade 1 retrolisthesis at L1-L2 3 and grade 1 anterolisthesis at L4-L5 and L5-S1. Vertebral body heights are maintained. There is no suspicious osseous lesion. Diffusely coarsened appearance of the bony trabeculae throughout the spinal column and imaged pelvis can be correlated clinically for osteopenia. Diffuse desiccation with moderate to severe disc height loss posteriorly at L2-L3, to a lesser extent at L1-L2, and otherwise mild multilevel disc height loss. Marginally edematous Schmorl's node along the left aspect of the posterior L2 inferior endplate. Trace type I endplate changes posteriorly at L1-L2. Multilevel anterior osteophytic spurring is seen. Stress related marrow edema within the bilateral L5 pedicles. Level by level detail as follows: L1-L2: Disc bulge with superiorly migrated right subarticular/foraminal disc extrusion and moderate bilateral facet arthrosis with ligamentum flavum thickening. Moderate to severe spinal canal stenosis and asymmetric right subarticular zone narrowing with compression along the traversing right L2 nerve root. Severe right neural foraminal stenosis with compression of the exiting right L1 nerve root and mild left neural foraminal stenosis. L2-L3: Post laminectomy changes. Retrolisthesis with disc osteophyte complex. Moderate right and mild left facet arthrosis. The spinal canal is decompressed. Moderate to severe left and moderate right neural foraminal stenosis with mass effect along the exiting left greater than right L2 nerve roots. L3-L4: Disc bulge eccentric to the right with ventral annular fissure and moderate facet arthrosis with ligamentum flavum thickening. Mild spinal canal and mild bilateral neural foraminal narrowing. L4-L5: Advanced bilateral facet arthrosis with ligament flavum thickening, diastatic right facet joint effusion, and 1.0 cm craniocaudal dorsal epidural cyst presumably reflecting interspinous bursitis. Hypertrophied L4 and L5 spinous processes with obliterated interspinous interval and fluid distended interspinous bursa projecting into the adjacent paraspinal soft tissues. Unroofing of posterior disc material. 7 mm synovial cyst along the ventrolateral margin of the left facet joint projecting into the posterior left neural foramen. Moderate spinal canal and mild left greater than right neural foraminal stenosis. L5-S1: Advanced bilateral facet arthrosis with unroofing of posterior disc material. No spinal canal stenosis. Mild left without right neural foraminal stenosis. The conus medullaris terminates at the level of L1. The distal spinal cord is normal in appearance. No epidural fluid collection, hematoma, or mass. Moderate to severe fatty atrophy of the lower paraspinal musculature. Limited evaluation of the intra-abdominal structures without significant abnormalities. The abdominal aorta is of normal contour and caliber. Susceptibility artifact from left hip arthroplasty with asymmetric atrophy of the short left-sided external rotator and left psoas/iliopsoas muscles. Degenerative osteophytosis bridging the ventral sacroiliac joints. IMPRESSION: 1. At L1-L2, there is a superiorly migrated right subarticular/foraminal disc extrusion contributing to moderate to severe spinal canal stenosis and asymmetric right lateral recess narrowing with compression along the traversing right L2 nerve root. Severe right neural foraminal stenosis with compression of the exiting right L1 nerve root. 2. At L2-L3, there are post laminectomy changes. Moderate to severe left and moderate right neural foraminal stenosis with mass effect along the exiting left greater than right L2 nerve roots. 3. At L4-L5, there is advanced bilateral facet arthrosis with a diastatic right facet joint effusion which may reflect hypermobility and can be correlated with flexion and extension views. 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 7 mm synovial cyst along the ventrolateral margin of the left facet joint projecting into the posterior left neural foramen. Moderate spinal canal stenosis and mild left greater than right neural foraminal stenosis. 4. Diffusely coarsened appearance of the bony trabeculae throughout the spinal column and imaged pelvis can be correlated clinically for osteopenia. XR HIP 1 VIEW LEFT WITH PELVIS 09/06/24 HISTORY: Fall COMPARISON: Comparison is made with the prior examination dated 06/11/2021. FINDINGS: A single AP view of the pelvis and 2 views of the left hip are submitted. The patient is again noted to be status post left total hip arthroplasty. The orthopedic elements are in anatomic alignment. There is no radiographic evidence of loosening. There is no fracture or dislocation. There are vascular calcifications. IMPRESSION: Status post left total hip arthroplasty. XR KNEE 3 VIEWS LEFT, XR TIBIA FIBULA 2 VIEWS LEFT 09/06/24 HISTORY: Fall COMPARISON: There are no prior studies available for comparison. FINDINGS: Four views of the left knee and AP and lateral views of the left tibia and fibula are submitted. The bones are osteopenic. There is no fracture or dislocation. The joint spaces are preserved. There are vascular calcifications. IMPRESSION: Osteopenia. No evidence of fracture of the left knee or tibia and fibula. XR FINGERS RIGHT 09/06/24 HISTORY: 3rd digit pain COMPARISON: There are no prior studies available for comparison. FINDINGS: Three views of the right middle finger are submitted. The bones are osteopenic. There is no fracture or dislocation. 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 The soft tissues are unremarkable. IMPRESSION: Osteopenia. 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 Assessment & Plan Assessment & Plan (1) Lumbar radiculopathy: Code(s): M54.16 - Radiculopathy, lumbar region Category: Medical (2) Lumbar spinal stenosis: Code(s): M48.061 - Spinal stenosis, lumbar region without neurogenic claudication Category: Medical (3) Degeneration, intervertebral disc, cervical: Code(s): M50.30 - Other cervical disc degeneration, unspecified cervical region Category: Medical (4) Opioid contract exists: Code(s): Z79.891 - senior living (current) use of opiate analgesic Category: Medical (5) Failed back syndrome, lumbar: Code(s): M96.1 - Postlaminectomy syndrome, not elsewhere classified Category: Medical Plan Patient has shown accountability for her medication regimen and the pill count was accurate.?There is no evidence of misuse, abuse or diversion at this time. [email or web address] reviewed. Script for hydrocodone-acetaminophen 7.5-325 mg?#40/30 days sent with an advanced date of 11/06/24. Patient is aware of monitoring for side effects. Discussed with the patient the risks associated with benzodiazepine and opioid use. All questions and concerns were answered and the patient is in agreement with the plan. Follow up in one month pill count and sooner if needed. Patient was informed and verbally consented to the use of an ambient scribe for clinic note documentation during this visit. Medications: Refilled hydrocodone-acetaminophen 7.5-325 mg Partial Fill upon patient request. 1.5 tabs PO DAILY PRN 40 tabs 0RF pain 30 days M53.3 - Sacrococcygeal disorders, not elsewhere classified, M54.50 - Low back pain, unspecified, M96.1 - Postlaminectomy syndrome, not elsewhere classified, Z79.891 - senior living (current) use of opiate analgesic Coding Level of Care Code Est Pt Level 4 (74044) Complex EM visit Add On G2211 Diagnoses Lumbar radiculopathy M54.16 Lumbar spinal stenosis M48.061 Degeneration, intervertebral disc, cervical M50.30 Opioid contract exists Z79.891 Failed back syndrome, lumbar M96.1
[2024-10-21 10:29] VITALS: BP 153/69; PULSE 60; O2SAT 97; BMI 26.1
--- OUTSIDE RECORDS SUMMARY | 2024-10-21 11:01 | XMS_ITS | Patient Health Record ---
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 Name Role Phone Haroon JACKSON, Marcellus Primary [...] Problem Status W/U Status Risk Notes Problem [id number] Colon cancer screening (Z12.11) Active confirmed Problem [id number] Constipation, unspecified constipation type (K59.00) Active confirmed Plan Of Treatment Future Test Test Name Order Date COLONOSCOPY 07/02/2021 Insurance Providers Payer Name Payer Address Payer Phone Subscriber Number Group Number Insured Name Patient Relationship to Insured Coverage Start Date Coverage End Date [facility] [address] [place] [phone] [id number] JIM MCGINNIS Self - patient is the insured Medical (General) History Medical History History ICD Code Hypothyroidism Hypertension Arthritis Gastroesophageal reflux disease Surgical History Surgery Date(Month/Year) hysterectomy , uterine prolapse 2008 back surgery 2012 hip replacement 2019
== END 2024-10-21 10:37 | disposition home or self-care (01) ==
LOC: HO.PMC 10:19
PROVIDERS: PCP Family Medicine; Visit Provider Nurse Practitioner Family
DX: M54.16 Radiculopathy, lumbar region (principal); M48.061 Spinal stenosis, lumbar region without neurogenic claudication; M50.30 Other cervical disc degeneration, unspecified cervical region; Z79.891 Long term (current) use of opiate analgesic; M96.1 Postlaminectomy syndrome, not elsewhere classified
CPT/HCPCS: 99214; G2211

== ENCOUNTER → 2024-10-21 10:18 | Outpatient (BNVA) | payer MEDICARE, SELFPAY | PROVIDERS: PCP Family Medicine; Visit Provider Nurse Practitioner Family | DX: M48.061 Spinal stenosis, lumbar region without neurogenic claudication (principal); M51.360 Other intervertebral disc degeneration, lumbar region with discogenic back pain only; M50.30 Other cervical disc degeneration, unspecified cervical region; Z79.891 Long term (current) use of opiate analgesic; M96.1 Postlaminectomy syndrome, not elsewhere classified | CPT/HCPCS: 99212 ==

== ENCOUNTER 2024-11-25 10:13 | Outpatient (AMB) | payer MEDICARE, SELFPAY ==
--- NOTE | 2024-11-25 10:14 | MHC.OFFVIS ---
Vital Signs 11/25/24 10:25 Height 5 ft 1 in Weight 137 lb 2 oz BMI 25.9 BP 136/63 Blood Pressure Location Lt brachial Position Sitting Pulse 64 Pulse Source Pulse Oximeter Pulse Oximetry (%) 97 Oxygen Delivery Method Room Air Intake Visit Reasons: Pill Count Intake Note: Katlyn comes in today for a pill count to hydrocodone-acetaminophen, patient should have 13 tablets and presents with 23 tablets which she last took last night 11/24/24 at 6pm. 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 Patient is supposed to have #13 pills, in her possession has #23 pills. This demonstrates a responsible attitude in regards to the medication regimen. Patient reports adequate analgesia on her current regimen on as needed basis with no noted significant side effects. The patient experiences occasional constipation as a side effect of her opioid medication, which she manages with a stool supplement taken nightly. The pain is rated at 3/10 and affects both the back and neck, as well as left leg. Denies any fever, cough, chills, abdominal pain, dyspnea, chest pain, shortness of breaths, weight loss, constipation, nausea, sedation, dizziness, or urinary retention. [facility] Medical History Pulmonary nodule Chronic cough Chronic bronchitis Benign essential HTN Arthritis GERD (gastroesophageal reflux disease) Lumbar radiculopathy, chronic Hypothyroidism Failed back syndrome, lumbar Surgical History History of cardiac cath Hx of bladder repair surgery History of lumbar surgery History of hysterectomy History of total left hip replacement Family History Mother Heart attack Father Pacemaker Leukemia Social History Household Members: Spouse Alcohol intake: never Patient Tobacco Use Status: Former Tobacco user Tobacco use type: Cigarette Cigarettes Per Day: 4 Years Smoked: 40 +/- Substance Use Type: Marijuana Review of Systems Const All systems reviewed & are unremarkable except as noted in HPI and below Physical Exam General: Appears afebrile. Alert and oriented. Mood and affect appropriate. Follows and participates in conversation appropriately. Respiratory effort is unlabored. No cough. Able to transition from sit to stand unassisted. Ambulates with normal heel strike and toe off on the right. Eyes General: appearance normal, both eyes and all related structures Psych Appearance: grossly normal and well kempt Mental Status: mental status grossly normal Speech and movement: Normal speech and movement present and Clear speech present Affect: normal affect Attitude: cooperative Thought process: Normal thought process present Thought content: Normal thought content present, suicidality (none), no hallucinations and Depressive thoughts present Insight: Good insight present (Psych) Judgement: Good judgement present (Psych) Results Reviewed Results Reviewed: MR LUMBAR SPINE WITHOUT CONTRAST 12/03/23 CLINICAL INFORMATION: Spondylolisthesis COMPARISON: Lumbar spine radiographs June 13, 2023. Images from prior lumbar spine MRI from June 13, 2012 are not available in PACS at time of dictation TECHNIQUE: MRI of the lumbar spine was obtained using routine sequences without contrast. FINDINGS: Slight lumbar levocurvature. Preserved lumbar lordosis. Grade 1 retrolisthesis at L1-L2 3 and grade 1 anterolisthesis at L4-L5 and L5-S1. Vertebral body heights are maintained. There is no suspicious osseous lesion. Diffusely coarsened appearance of the bony trabeculae throughout the spinal column and imaged pelvis can be correlated clinically for osteopenia. Diffuse desiccation with moderate to severe disc height loss posteriorly at L2-L3, to a lesser extent at L1-L2, and otherwise mild multilevel disc height loss. Marginally edematous Schmorl's node along the left aspect of the posterior L2 inferior endplate. Trace type I endplate changes posteriorly at L1-L2. Multilevel anterior osteophytic spurring is seen. Stress related marrow edema within the bilateral L5 pedicles. Level by level detail as follows: L1-L2: Disc bulge with superiorly migrated right subarticular/foraminal disc extrusion and moderate bilateral facet arthrosis with ligamentum flavum thickening. Moderate to severe spinal canal stenosis and asymmetric right subarticular zone narrowing with compression along the traversing right L2 nerve root. Severe right neural foraminal stenosis with compression of the exiting right L1 nerve root and mild left neural foraminal stenosis. L2-L3: Post laminectomy changes. Retrolisthesis with disc osteophyte complex. Moderate right and mild left facet arthrosis. The spinal canal is decompressed. Moderate to severe left and moderate right neural foraminal stenosis with mass effect along the exiting left greater than right L2 nerve roots. L3-L4: Disc bulge eccentric to the right with ventral annular fissure and moderate facet arthrosis with ligamentum flavum thickening. Mild spinal canal and mild bilateral neural foraminal narrowing. L4-L5: Advanced bilateral facet arthrosis with ligament flavum thickening, diastatic right facet joint effusion, and 1.0 cm craniocaudal dorsal epidural cyst presumably reflecting interspinous bursitis. Hypertrophied L4 and L5 spinous processes with obliterated interspinous interval and fluid distended interspinous bursa projecting into the adjacent paraspinal soft tissues. Unroofing of posterior disc material. 7 mm synovial cyst along the ventrolateral margin of the left facet joint projecting into the posterior left neural foramen. Moderate spinal canal and mild left greater than right neural foraminal stenosis. L5-S1: Advanced bilateral facet arthrosis with unroofing of posterior disc material. No spinal canal stenosis. Mild left without right neural foraminal stenosis. The conus medullaris terminates at the level of L1. The distal spinal cord is normal in appearance. No epidural fluid collection, hematoma, or mass. Moderate to severe fatty atrophy of the lower paraspinal musculature. Limited evaluation of the intra-abdominal structures without significant abnormalities. The abdominal aorta is of normal contour and caliber. Susceptibility artifact from left hip arthroplasty with asymmetric atrophy of the short left-sided external rotator and left psoas/iliopsoas muscles. Degenerative osteophytosis bridging the ventral sacroiliac joints. IMPRESSION: 1. At L1-L2, there is a superiorly migrated right subarticular/foraminal disc extrusion contributing to moderate to severe spinal canal stenosis and asymmetric right lateral recess narrowing with compression along the traversing right L2 nerve root. Severe right neural foraminal stenosis with compression of the exiting right L1 nerve root. 2. At L2-L3, there are post laminectomy changes. Moderate to severe left and moderate right neural foraminal stenosis with mass effect along the exiting left greater than right L2 nerve roots. 3. At L4-L5, there is advanced bilateral facet arthrosis with a diastatic right facet joint effusion which may reflect hypermobility and can be correlated with flexion and extension views. 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 7 mm synovial cyst along the ventrolateral margin of the left facet joint projecting into the posterior left neural foramen. Moderate spinal canal stenosis and mild left greater than right neural foraminal stenosis. 4. Diffusely coarsened appearance of the bony trabeculae throughout the spinal column and imaged pelvis can be correlated clinically for osteopenia. XR HIP 1 VIEW LEFT WITH PELVIS 09/06/24 HISTORY: Fall COMPARISON: Comparison is made with the prior examination dated 06/11/2021. FINDINGS: A single AP view of the pelvis and 2 views of the left hip are submitted. The patient is again noted to be status post left total hip arthroplasty. The orthopedic elements are in anatomic alignment. There is no radiographic evidence of loosening. There is no fracture or dislocation. There are vascular calcifications. IMPRESSION: Status post left total hip arthroplasty. XR KNEE 3 VIEWS LEFT, XR TIBIA FIBULA 2 VIEWS LEFT 09/06/24 HISTORY: Fall COMPARISON: There are no prior studies available for comparison. FINDINGS: Four views of the left knee and AP and lateral views of the left tibia and fibula are submitted. The bones are osteopenic. There is no fracture or dislocation. The joint spaces are preserved. There are vascular calcifications. IMPRESSION: Osteopenia. No evidence of fracture of the left knee or tibia and fibula. XR FINGERS RIGHT 09/06/24 HISTORY: 3rd digit pain COMPARISON: There are no prior studies available for comparison. FINDINGS: Three views of the right middle finger are submitted. The bones are osteopenic. There is no fracture or dislocation. 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 The soft tissues are unremarkable. IMPRESSION: Osteopenia. 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 Assessment & Plan Assessment & Plan (1) Lumbar radiculopathy: Code(s): M54.16 - Radiculopathy, lumbar region Category: Medical (2) Lumbar spinal stenosis: Code(s): M48.061 - Spinal stenosis, lumbar region without neurogenic claudication Category: Medical (3) Degeneration, intervertebral disc, cervical: Code(s): M50.30 - Other cervical disc degeneration, unspecified cervical region Category: Medical (4) Opioid contract exists: Code(s): Z79.891 - intermediate designer (current) use of opiate analgesic Category: Medical (5) Failed back syndrome, lumbar: Code(s): M96.1 - Postlaminectomy syndrome, not elsewhere classified Category: Medical Plan Patient has shown accountability for her medication regimen and the pill count was accurate.?There is no evidence of misuse, abuse or diversion at this time. [facility] reviewed. Script for hydrocodone-acetaminophen 7.5-325 mg?#40/30 days sent with an advanced date of 12/08/24. Patient is aware of monitoring for side effects. Discussed with the patient the risks associated with benzodiazepine and opioid use. All questions and concerns were answered and the patient is in agreement with the plan. Follow up in 4-5 weeks pill count and sooner if needed. Patient was informed and verbally consented to the use of an ambient scribe for clinic note documentation during this visit. Medications: Refilled hydrocodone-acetaminophen 7.5-325 mg Partial Fill upon patient request. 1.5 tabs PO DAILY PRN 40 tabs 0RF pain 30 days M53.3 - Sacrococcygeal disorders, not elsewhere classified, M54.50 - Low back pain, unspecified, M96.1 - Postlaminectomy syndrome, not elsewhere classified, Z79.891 - intermediate designer (current) use of opiate analgesic Coding Level of Care Code Est Pt Level 4 (39410) Complex EM visit Add On G2211 Diagnoses Lumbar radiculopathy M54.16 Lumbar spinal stenosis M48.061 Degeneration, intervertebral disc, cervical M50.30 Opioid contract exists Z79.891 Failed back syndrome, lumbar M96.1
[2024-11-25 10:25] VITALS: BP 136/63; PULSE 64; O2SAT 97; BMI 25.9
--- OUTSIDE RECORDS SUMMARY | 2024-11-25 10:43 | XMS_ITS | Clinical Summary ---
Author Organization [facility] ity Address [address] [place] [address] Care Team Providers Care Telecommunications Support Name Role Phone Unavailable Primary Care Provider [...] season) 2023 Colorectal Cancer Screening: Colonoscopy 01/29/2024 Falls Risk Assessment 01/29/2024 Hepatitis C Screening 01/29/2024 Osteoporosis Screening (Bone Density Screening) 01/29/2024 Social Influencers of Health Screening 01/29/2024 Depression Screening 04/21/2024 RSV Immunization Adult Patie nts (1 - 1-dose 75+ series) 2024 Influenza Vaccine (#1) 2024 HIB Vaccines Aged Out No longer [...]
--- OUTSIDE RECORDS SUMMARY | 2024-11-25 10:43 | XMS_ITS | Patient Health Record ---
Author Organization [facility] Address [address] [place] [address] Care Team Providers Care Wired Music Operator Name Role Phone Haroon (RETIRED) Marcellus JACKSON Primary Care Provider Unavailable Ru Jackson Jr Unavailable Allergies Allergen (clinical drug ingredient) [...] Problem Status W/U Status Risk Notes Problem [id number] Colon cancer screening (Z12.11) Active confirmed Problem [id number] Constipation, unspecified constipation type (K59.00) Active confirmed Plan Of Treatment Future Test Test Name Order Date COLONOSCOPY 07/02/2021 Insurance Providers Payer Name Payer Address Payer Phone Subscriber Number Group Number Insured Name Patient Relationship to Insured Coverage Start Date Coverage End Date [facility] [address] [place] [phone] [id number] JIM MCGINNIS Self - patient is the insured Medical (General) History Medical History History ICD Code Hypothyroidism Hypertension Arthritis Gastroesophageal reflux disease Surgical History Surgery Date(Month/Year) hysterectomy , uterine prolapse 2008 back surgery 2012 hip replacement 2019
== END 2024-11-25 10:31 | disposition home or self-care (01) ==
LOC: HO.PMC 10:13
PROVIDERS: PCP Family Medicine; Visit Provider Nurse Practitioner Family
DX: M54.16 Radiculopathy, lumbar region (principal); M48.061 Spinal stenosis, lumbar region without neurogenic claudication; M50.30 Other cervical disc degeneration, unspecified cervical region; Z79.891 Long term (current) use of opiate analgesic; M96.1 Postlaminectomy syndrome, not elsewhere classified
CPT/HCPCS: 99214; G2211

== ENCOUNTER → 2024-11-25 10:13 | Outpatient (BNVA) | payer MEDICARE, SELFPAY | PROVIDERS: PCP Family Medicine; Visit Provider Nurse Practitioner Family | DX: M54.16 Radiculopathy, lumbar region (principal); M48.061 Spinal stenosis, lumbar region without neurogenic claudication; M50.30 Other cervical disc degeneration, unspecified cervical region; Z79.891 Long term (current) use of opiate analgesic; M96.1 Postlaminectomy syndrome, not elsewhere classified | CPT/HCPCS: 99212 ==

== ENCOUNTER 2024-12-14 10:56 | Outpatient (REF) | payer MEDICARE, SELFPAY ==
--- NOTE | 2024-12-14 10:58 | PFT_ITS ---
Flows: FEV1: 99 % of predicted at 1.84 L FVC: 106 % of predicted at 2.54 L FEV1/FVC: 72 % Bronchodilator response: Present in small to medium airways only Volumes: Total lung capacity: 88 % of predicted at 3.91 L Residual volume: 71 % of predicted at 1.32 L Slow vital capacity: 103 % of predicted at 2.59 L Expiratory reserve volume: 82 % of predicted at 0.48 L Diffusion capacity: Mildly decreased. Impression: Reversible mild obstructive ventilatory defect with bronchodilator response present in small to medium airways only. Decreased diffusion capacity suggests emphysema. MTDD
[2024-12-14 11:36] VITALS: PULSE 59; O2SAT 100
--- OUTSIDE RECORDS SUMMARY | 2024-12-14 11:49 | XMS_ITS | Clinical Summary ---
Author Organization [facility] ity Address [address] [place] [address] Care Team Providers Care Head Of Mathematics Name Role Phone Unavailable Primary Care Provider Unavailabl e Social History Tobacco Use Types Packs/Day Years Used Date Smoking Tobacco: Never Assessed Comments Unknown Sex and Gender Information Value Date Recorded Sex Assigned at Not on file Legal Sex Female 11:39 AM EDT Gender Identity Not on file Sexual Orientation Not on file Plan of Treatment Health Maintenance Due Date Last Done Comments DTaP,Tdap,and Td Vaccines (1 - Tdap) 1969 Pneumococcal Vaccine: 50+ Ye ars (1 of 1 - PCV) 11/28/1999 Zoster Vaccines (1 of 2) 11/28/1999 COVID-19 Vaccine (2023-2 5 season) 2023 Colorectal Cancer Screening: Colonoscopy [...]
--- OUTSIDE RECORDS SUMMARY | 2024-12-14 11:49 | XMS_ITS | Patient Health Record ---
Author Organization [facility] Address [address] [place] [address] Care Team Providers Care Microbial Specialist Name Role Phone Haroon (RETIRED) Marcellus JACKSON Primary Care Provider Unavailable Ru Jackson Jr Unavailable [phone] Allergies Allergen (clinical drug ingredient) Drug/Non Drug [...] Problem Status W/U Status Risk Notes Problem [id number] Colon cancer screening (Z12.11) Active confirmed Problem [id number] Constipation, unspecified constipation type (K59.00) Active confirmed Plan Of Treatment Future Test Test Name Order Date COLONOSCOPY 07/02/2021 Insurance Providers Payer Name Payer Address Payer Phone Subscriber Number Group Number Insured Name Patient Relationship to Insured Coverage Start Date Coverage End Date [facility] [address] [place] [phone] [id number] JIM MCGINNIS Self - patient is the insured Medical (General) History Medical History History ICD Code Hypothyroidism Hypertension Arthritis Gastroesophageal reflux disease Surgical History Surgery Date(Month/Year) hysterectomy , uterine prolapse 2008 back surgery 2012 hip replacement 2019
== END 2024-12-14 10:57 | disposition home or self-care (01) ==
LOC: HO.RESP 10:56
PROVIDERS: PCP Physician Assistant Medical; Visit Provider Hospitalist
DX: R05.3 Chronic cough (principal)
CPT/HCPCS: 94010; 94640; 94727; 94729

== ENCOUNTER → 2024-12-14 10:58 | Outpatient (BNV) | payer MEDICARE, SELFPAY | PROVIDERS: PCP Physician Assistant Medical; Visit Provider Internal Medicine Pulmonary Disease | DX: R06.00 Dyspnea, unspecified (principal) | CPT/HCPCS: 94060; 94727; 94729 ==

== ENCOUNTER 2024-12-15 14:40 | Outpatient (AMB) | payer MEDICARE, SELFPAY ==
--- NOTE | 2024-12-15 15:06 | MHC.OFFVIS ---
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 Required: No Accompanied by: Significant Other Allergies No Known Allergies Allergy (Unknown, Verified 11/25/24 10:25) Medication List - Last Reconciled 12/15/24 by Bobo Montes MD albuterol sulfate 90 mcg/actuation inhalation aspirin 81 mg PO DAILY atorvastatin 80 mg PO DAILY clopidogrel (Plavix) 75 mg PO DAILY desonide 0.05% topical BID docusate sodium 100 mg PO DAILY Donut pillow As directed hydrocodone-acetaminophen 7.5-325 mg 1.5 tabs PO DAILY PRN 30 days levothyroxine 88 mcg PO DAILY lisinopril 10 mg PO DAILY nitroglycerin 0.4 mg sublingual Q5M PRN ondansetron HCl mg PO HPI Comments Details: Pleasant 74-year-old female who is referred to us for sinus bradycardia. She was seen previously in another office primarily for fatigue and was noticed to have a heart rate of 40. She said she was on metoprolol which was stopped and heart rate recovered and her symptoms also improved. She had syncope in the past year or 2 ago when she had severe abdominal pain and she passed out at that stage which sounds like vasovagal syncope. Otherwise she does not have any dizziness or lightheadedness. She has had lower heart rates are her life and has never had any issues with that. When her heart rate was 40 she was feeling fatigue and tired but since stopping the metoprolol her symptoms have improved significantly. She is here for follow-up. Her heart rate in the office 68 beats per minute. She has no chest discomfort shortness of breath. No dizziness or syncope in recently. Exercising and has no exertional symptoms. 02/13/24: She is here for f/u. She was in [facility] recently when she had CP and burning sensation. She was taken to hospital and ruled in for NSTEMI. Cath was done which showed plaque rupture in the dominant LCx which was treated with NEHEMIAH. Echo EF was preserved. She has been doing well since then. She has been taking medications regularly. She is interested in cardiac rehab. 04/28/2024: On April 14 she had chest discomfort lasting for 5 minutes. She took 2 nitroglycerin tablets. She said she was down with a viral illness and stayed sick for long time requiring antibiotics as well as steroids. She has not had any further chest discomfort. She is still recovering from the viral illness at this stage. 07/19/2024: She is here for follow-up. She has been doing well since she recovered from the viral illness. No further chest discomfort. She is going to cardiac rehabilitation and exercising regularly without any exertional symptoms. 12/15/2024: She is here for follow-up. She has no chest pain or shortness of breath. Her main complaint is fatigue. She has not been exercising regularly. Taking medications regularly. No bleeding concerns currently. [facility] Medical History Pulmonary nodule Chronic cough Chronic bronchitis Benign essential HTN Arthritis GERD (gastroesophageal reflux disease) Lumbar radiculopathy, chronic Hypothyroidism Failed back syndrome, lumbar Surgical History History of cardiac cath Hx of bladder repair surgery History of lumbar surgery History of hysterectomy History of total left hip replacement Family History Mother Heart attack Father Pacemaker Leukemia Social History Household Members: Spouse Alcohol intake: never Patient Tobacco Use Status: Former Tobacco user Tobacco use type: Cigarette Cigarettes Per Day: 4 Years Smoked: 40 +/- Substance Use Type: Marijuana Review of Systems Const Denies chills, Denies fatigue, Denies fever(s), Denies frequent falls, Denies weakness, Denies weight gain and Denies weight loss ENT Denies dizziness Card Denies chest pain, Denies leg edema, Denies lightheadedness, Denies palpitations, Denies dyspnea and Denies dyspnea on exertion Resp Denies cough, Denies dyspnea and Denies dyspnea on exertion GI Denies hematochezia Musc Denies abnormal gait, Denies muscle weakness, Denies numbness, Denies radiating pain into limb and Denies tingling Neuro Denies abnormal gait, Denies dizziness, Denies frequent falls, Denies numbness, Denies tingling and Denies weakness Endo Denies fatigue and Denies palpitations Physical Exam Vital Signs: Last Vital Signs Pulse 64 12/15/24 15:09 BP 130/70 12/15/24 15:09 BMI result Body Mass Index 26.3 GENERAL APPEARANCE: in no acute distress, pleasant. NECK: no carotid bruit, no jugular venous distention. SKIN: no suspicious lesions, warm and dry. HEART: no murmurs, regular rate and rhythm. LUNGS: clear to auscultation bilaterally. ABDOMEN: soft, nontender. EXTREMITIES: no edema. PERIPHERAL PULSES: equal. NEUROLOGIC: No gross deficits, AAO X 3 Assessment & Plan Assessment & Plan (1) S/P coronary angioplasty: Code(s): Z98.61 - Coronary angioplasty status Category: Medical (2) Essential hypertension: Code(s): I10 - Essential (primary) hypertension Category: Medical Plan Pleasant 74-year-old lady who is here for follow-up. She had NSTEMI while she was in [facility] and had circumflex PCI. She has been on aspirin and Plavix. She has been stable from cardiovascular point of view. She had some chest discomfort during a viral illness but did not have any further chest pain since then. Clinically stable at this point and I have advised her to continue same medications for now. Blood pressure well controlled. Follow up with us in 4 months. Thank you for allowing me to participate in the care of your patient. Please feel free to contact me if you have any questions. Coding Level of Care Code Est Pt Level 4 (74191) Diagnoses S/P coronary angioplasty Z98.61 Essential hypertension I10
[2024-12-15 15:09] VITALS: BP 130/70; PULSE 64; BMI 26.3
--- OUTSIDE RECORDS SUMMARY | 2024-12-15 15:58 | XMS_ITS | Clinical Summary ---
Author Organization [facility] ity Address [address] [place] [address] Care Team Providers Care Armhole Baster Hand Name Role Phone Unavailable Primary Care Provider [...]
--- OUTSIDE RECORDS SUMMARY | 2024-12-15 15:58 | XMS_ITS | Patient Health Record ---
Author Organization [facility] Address [address] [place] [address] Care Team Providers Care Director Life Name Role Phone Haroon (RETIRED) Marcellus JACKSON [...] Problem Status W/U Status Risk Notes Problem [id number] Colon cancer screening (Z12.11) Active confirmed Problem 78008077 Constipation, unspecified constipation type (K59.00) Active confirmed Plan Of Treatment Future Test Test Name Order Date COLONOSCOPY 07/02/2021 Insurance Providers Payer Name Payer Address Payer Phone Subscriber Number Group Number Insured Name Patient Relationship to Insured Coverage Start Date Coverage End Date [facility] [address] [place] [phone] [id number] JIM MCGINNIS Self - patient is the insured Medical (General) History Medical History History ICD Code Hypothyroidism Hypertension Arthritis Gastroesophageal reflux disease Surgical History Surgery Date(Month/Year) hysterectomy , uterine prolapse 2008 back surgery 2012 hip replacement 2019
== END 2024-12-15 15:31 | disposition home or self-care (01) ==
LOC: HO.HCS 14:40
PROVIDERS: PCP Family Medicine; Visit Provider Internal Medicine Cardiovascular Disease
DX: Z98.61 Coronary angioplasty status (principal); I10 Essential (primary) hypertension
CPT/HCPCS: 99214

== ENCOUNTER → 2024-12-15 14:40 | Outpatient (BNVA) | payer MEDICARE, SELFPAY | PROVIDERS: PCP Family Medicine; Visit Provider Internal Medicine Cardiovascular Disease | DX: I10 Essential (primary) hypertension (principal); Z98.61 Coronary angioplasty status | CPT/HCPCS: 99212 ==

== ENCOUNTER 2024-12-23 10:26 | Outpatient (AMB) | payer MEDICARE, SELFPAY ==
[2024-12-23 10:29] VITALS: BP 164/71; PULSE 61; O2SAT 96; BMI 26.3
--- NOTE | 2024-12-23 10:29 | A.OFFVIS_ITS ---
Vital Signs 12/23/24 10:29 12/23/24 10:50 Height 5 ft 1 in Weight 139 lb 2 oz BMI 26.3 BP 164/71 H 142/68 H Blood Pressure Location Rt brachial Lt brachial Position Sitting Sitting Respiration 16 Pulse 61 62 Pulse Source Monitor Pulse Oximeter Pulse Oximetry (%) 96 98 Oxygen Delivery Method Room Air Room Air Intake Visit Reasons: Pill Count Intake Note: pt last taken hydrocodone 12/22/24 masspat stats pt should have 17.5 and pt presents with 27 Allergies No Known Allergies Allergy (Unknown, Verified 11/25/24 10:25) HPI Comments Details: Patient returns today for a pill count. Patient is supposed to have #17.5 pills, in her possession has #27 pills. This demonstrates a responsible attitude in regards to the medication regimen. Patient reports adequate analgesia on her current regimen on as needed basis with no noted significant side effects. The pain is rated at 5/10 and affects both the back and neck, as well as left hip and leg. The pain worsens by the end of the day and is not relieved by rest or sitting on bleachers. Despite these challenges, she finds her current pain relief regimen sufficient and denies constipation. She does occasionally take stool softener as needed. Denies any fever, cough, chills, abdominal pain, dyspnea, chest pain, shortness of breaths, weight loss, constipation, nausea, sedation, dizziness, or urinary retention. [facility] Medical History Pulmonary nodule Chronic cough Chronic bronchitis Benign essential HTN Arthritis GERD (gastroesophageal reflux disease) Lumbar radiculopathy, chronic Hypothyroidism Failed back syndrome, lumbar Surgical History History of cardiac cath Hx of bladder repair surgery History of lumbar surgery History of hysterectomy History of total left hip replacement Family History Mother Heart attack Father Pacemaker Leukemia Social History Household Members: Spouse Alcohol intake: never Patient Tobacco Use Status: Former Tobacco user Tobacco use type: Cigarette Cigarettes Per Day: 4 Years Smoked: 40 +/- Substance Use Type: Marijuana Review of Systems Const Details: - Musculoskeletal: Reports chronic pain in the back, neck, and left leg; occasional hip pain. - Gastrointestinal: Denies constipation. - Neurological: Reports insomnia, waking at 5:00 AM and unable to return to sleep. All systems reviewed & are unremarkable except as noted in HPI and below Physical Exam Vital Signs: Last Vital Signs Pulse 62 12/23/24 10:50 Resp 16 12/23/24 10:50 BP 142/68 H 12/23/24 10:50 Pulse Ox 98 12/23/24 10:50 Oxygen Delivery Method Room Air 12/23/24 10:50 BMI result Body Mass Index 26.3 General: Appears afebrile. No acute distress. Alert and oriented. Mood and affect appropriate. Follows and participates in conversation appropriately. Respiratory effort is unlabored. No cough. Able to transition from sit to stand unassisted. Ambulates with normal heel strike and toe off bilaterally. Eyes General: appearance normal, both eyes and all related structures Extrem General: Yes capillary refill normal, Yes no clubbing, cyanosis or edema and Yes no calf tenderness Psych Appearance: grossly normal and well kempt Mental Status: mental status grossly normal Speech and movement: Normal speech and movement present and Clear speech present Affect: normal affect Attitude: cooperative Thought process: Normal thought process present Thought content: Normal thought content present, suicidality (none), no hallucinations and Depressive thoughts present Insight: Good insight present (Psych) Judgement: Good judgement present (Psych) Results Reviewed Results Reviewed: MR LUMBAR SPINE WITHOUT CONTRAST 12/03/23 CLINICAL INFORMATION: Spondylolisthesis COMPARISON: Lumbar spine radiographs June 13, 2023. Images from prior lumbar spine MRI from June 13, 2012 are not available in PACS at time of dictation TECHNIQUE: MRI of the lumbar spine was obtained using routine sequences without contrast. FINDINGS: Slight lumbar levocurvature. Preserved lumbar lordosis. Grade 1 retrolisthesis at L1-L2 3 and grade 1 anterolisthesis at L4-L5 and L5-S1. Vertebral body heights are maintained. There is no suspicious osseous lesion. Diffusely coarsened appearance of the bony trabeculae throughout the spinal column and imaged pelvis can be correlated clinically for osteopenia. Diffuse desiccation with moderate to severe disc height loss posteriorly at L2-L3, to a lesser extent at L1-L2, and otherwise mild multilevel disc height loss. Marginally edematous Schmorl's node along the left aspect of the posterior L2 inferior endplate. Trace type I endplate changes posteriorly at L1-L2. Multilevel anterior osteophytic spurring is seen. Stress related marrow edema within the bilateral L5 pedicles. Level by level detail as follows: L1-L2: Disc bulge with superiorly migrated right subarticular/foraminal disc extrusion and moderate bilateral facet arthrosis with ligamentum flavum thickening. Moderate to severe spinal canal stenosis and asymmetric right subarticular zone narrowing with compression along the traversing right L2 nerve root. Severe right neural foraminal stenosis with compression of the exiting right L1 nerve root and mild left neural foraminal stenosis. L2-L3: Post laminectomy changes. Retrolisthesis with disc osteophyte complex. Moderate right and mild left facet arthrosis. The spinal canal is decompressed. Moderate to severe left and moderate right neural foraminal stenosis with mass effect along the exiting left greater than right L2 nerve roots. L3-L4: Disc bulge eccentric to the right with ventral annular fissure and moderate facet arthrosis with ligamentum flavum thickening. Mild spinal canal and mild bilateral neural foraminal narrowing. L4-L5: Advanced bilateral facet arthrosis with ligament flavum thickening, diastatic right facet joint effusion, and 1.0 cm craniocaudal dorsal epidural cyst presumably reflecting interspinous bursitis. Hypertrophied L4 and L5 spinous processes with obliterated interspinous interval and fluid distended interspinous bursa projecting into the adjacent paraspinal soft tissues. Unroofing of posterior disc material. 7 mm synovial cyst along the ventrolateral margin of the left facet joint projecting into the posterior left neural foramen. Moderate spinal canal and mild left greater than right neural foraminal stenosis. L5-S1: Advanced bilateral facet arthrosis with unroofing of posterior disc material. No spinal canal stenosis. Mild left without right neural foraminal stenosis. The conus medullaris terminates at the level of L1. The distal spinal cord is normal in appearance. No epidural fluid collection, hematoma, or mass. Moderate to severe fatty atrophy of the lower paraspinal musculature. Limited evaluation of the intra-abdominal structures without significant abnormalities. The abdominal aorta is of normal contour and caliber. Susceptibility artifact from left hip arthroplasty with asymmetric atrophy of the short left-sided external rotator and left psoas/iliopsoas muscles. Degenerative osteophytosis bridging the ventral sacroiliac joints. IMPRESSION: 1. At L1-L2, there is a superiorly migrated right subarticular/foraminal disc extrusion contributing to moderate to severe spinal canal stenosis and asymmetric right lateral recess narrowing with compression along the traversing right L2 nerve root. Severe right neural foraminal stenosis with compression of the exiting right L1 nerve root. 2. At L2-L3, there are post laminectomy changes. Moderate to severe left and moderate right neural foraminal stenosis with mass effect along the exiting left greater than right L2 nerve roots. 3. At L4-L5, there is advanced bilateral facet arthrosis with a diastatic right facet joint effusion which may reflect hypermobility and can be correlated with flexion and extension views. 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 7 mm synovial cyst along the ventrolateral margin of the left facet joint projecting into the posterior left neural foramen. Moderate spinal canal stenosis and mild left greater than right neural foraminal stenosis. 4. Diffusely coarsened appearance of the bony trabeculae throughout the spinal column and imaged pelvis can be correlated clinically for osteopenia. XR HIP 1 VIEW LEFT WITH PELVIS 09/06/24 HISTORY: Fall COMPARISON: Comparison is made with the prior examination dated 06/11/2021. FINDINGS: A single AP view of the pelvis and 2 views of the left hip are submitted. The patient is again noted to be status post left total hip arthroplasty. The orthopedic elements are in anatomic alignment. There is no radiographic evidence of loosening. There is no fracture or dislocation. There are vascular calcifications. IMPRESSION: Status post left total hip arthroplasty. XR KNEE 3 VIEWS LEFT, XR TIBIA FIBULA 2 VIEWS LEFT 09/06/24 HISTORY: Fall COMPARISON: There are no prior studies available for comparison. FINDINGS: Four views of the left knee and AP and lateral views of the left tibia and fibula are submitted. The bones are osteopenic. There is no fracture or dislocation. The joint spaces are preserved. There are vascular calcifications. IMPRESSION: Osteopenia. No evidence of fracture of the left knee or tibia and fibula. XR FINGERS RIGHT 09/06/24 HISTORY: 3rd digit pain COMPARISON: There are no prior studies available for comparison. FINDINGS: Three views of the right middle finger are submitted. The bones are osteopenic. There is no fracture or dislocation. 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 The soft tissues are unremarkable. IMPRESSION: Osteopenia. 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 Assessment & Plan Assessment & Plan (1) Lumbar radiculopathy: Code(s): M54.16 - Radiculopathy, lumbar region Category: Medical (2) Lumbar spinal stenosis: Code(s): M48.061 - Spinal stenosis, lumbar region without neurogenic claudication Category: Medical (3) Degeneration, intervertebral disc, cervical: Code(s): M50.30 - Other cervical disc degeneration, unspecified cervical region Category: Medical (4) Opioid contract exists: Code(s): Z79.891 - longterm (current) use of opiate analgesic Category: Medical (5) Failed back syndrome, lumbar: Code(s): M96.1 - Postlaminectomy syndrome, not elsewhere classified Category: Medical Plan Patient has shown accountability for her medication regimen and the pill count was accurate.?There is no evidence of misuse, abuse or diversion at this time. [employer] reviewed. Script for hydrocodone-acetaminophen 7.5-325 mg?#40/30 days sent with an advanced date of 01/11/25. Patient is aware of monitoring for side effects. Reviewed with the patient the risks associated with benzodiazepine and opioid use. All questions and concerns were answered and the patient is in agreement with the plan. Follow up in 4-5 weeks pill count and sooner if needed. Patient was informed and verbally consented to the use of an ambient scribe for clinic note documentation during this visit. Medications: Refilled hydrocodone-acetaminophen 7.5-325 mg Partial Fill upon patient request. 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
[2024-12-23 10:50] VITALS: BP 142/68; PULSE 62; RESP 16; O2SAT 98
--- OUTSIDE RECORDS SUMMARY | 2024-12-23 11:46 | XMS_ITS | Clinical Summary ---
Author Organization [facility] ity Address [address] [place] [address] Care Team Providers Care Career Developer Name Role Phone Unavailable Primary Care Provider [...] 11/28/1999 Zoster Vaccines (1 of 2) 11/28/1999 Colorectal Cancer Screening: Colonoscopy 01/29/2024 Falls Risk Assessment 01/29/2024 Hepatitis C Screening 01/29/2024 Osteoporosis Screening (Bone Density Screening) 01/29/2024 Social Influencers of Health Screening 01/29/2024 Depression Screening 04/21/2024 RSV Immunization Adult Patie nts (1 - 1-dose 75+ series) 2024 COVID-19 Vaccine ( - 2023-2 5 season) 2024 Influenza Vaccine (#1) 2024 HIB Vaccines [...]
--- OUTSIDE RECORDS SUMMARY | 2024-12-23 11:46 | XMS_ITS | Patient Health Record ---
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 Commercial Real Estate Agent Name Role Phone Haroon (RETIRED) Marcellus JACKSON [...] Problem Status W/U Status Risk Notes Problem [id number] Colon cancer screening (Z12.11) Active confirmed Problem [id number] Constipation, unspecified constipation type (K59.00) Active confirmed Plan Of Treatment Future Test Test Name Order Date COLONOSCOPY 07/02/2021 Insurance Providers Payer Name Payer Address Payer Phone Subscriber Number Group Number Insured Name Patient Relationship to Insured Coverage Start Date Coverage End Date [facility] [address] [place] [phone] [phone] [id number] JIM MCGINNIS Self - patient is the insured Medical (General) History Medical History History ICD Code Hypothyroidism Hypertension Arthritis Gastroesophageal reflux disease Surgical History Surgery Date(Month/Year) hysterectomy , uterine prolapse 2008 back surgery 2012 hip replacement 2019
== END 2024-12-23 10:55 | disposition home or self-care (01) ==
LOC: HO.PMC 10:26
PROVIDERS: PCP Family Medicine; Visit Provider Nurse Practitioner Family
DX: M54.16 Radiculopathy, lumbar region (principal); M48.061 Spinal stenosis, lumbar region without neurogenic claudication; M50.30 Other cervical disc degeneration, unspecified cervical region; Z79.891 Long term (current) use of opiate analgesic; M96.1 Postlaminectomy syndrome, not elsewhere classified
CPT/HCPCS: 99214; G2211

== ENCOUNTER → 2024-12-23 10:26 | Outpatient (BNVA) | payer MEDICARE, SELFPAY | PROVIDERS: PCP Family Medicine; Visit Provider Nurse Practitioner Family | DX: M54.16 Radiculopathy, lumbar region (principal); M48.061 Spinal stenosis, lumbar region without neurogenic claudication; M50.30 Other cervical disc degeneration, unspecified cervical region; M96.1 Postlaminectomy syndrome, not elsewhere classified; Z79.891 Long term (current) use of opiate analgesic | CPT/HCPCS: 99212 ==

== ENCOUNTER 2025-01-11 10:02 | Outpatient (AMB) | payer MEDICARE, SELFPAY ==
--- NOTE | 2025-01-11 10:04 | A.OFFPC_ITS ---
Vital Signs 01/11/25 10:13 Height 5 ft 1 in Weight 139 lb BMI 26.3 BP 152/72 H Blood Pressure Location Rt brachial Position Sitting Respiration 16 Pulse 72 Pulse Source Pulse Oximeter Temp 97.8 F Temp Source Temporal Artery Scan Pulse Oximetry (%) 98 Oxygen Delivery Method Room Air Intake Visit Reasons: trf care/ Dr Patiño Neighborhood Planner Required: No Accompanied by: Self / Same As Patient Allergies No Known Allergies Allergy (Unknown, Verified 01/11/25 10:05) Medication List - Last Reconciled 01/11/25 by Darwin Buchanan MD acetaminophen (Tylenol Extra Strength) 1,000 mg PO Q6H PRN albuterol sulfate 90 mcg/actuation inhalation aspirin 81 mg PO DAILY atorvastatin 80 mg PO DAILY clopidogrel (Plavix) 75 mg PO DAILY desonide 0.05% topical BID docusate sodium 100 mg PO DAILY Donut pillow As directed hydrocodone-acetaminophen 7.5-325 mg 1 tab PO DAILY PRN levothyroxine 88 mcg PO DAILY lisinopril 10 mg PO DAILY multivitamin 1 tab PO DAILY nitroglycerin 0.4 mg sublingual Q5M PRN ondansetron HCl 4 mg PO ONCE PRN vitamins A,C,F-hdrx-rrnyfb 4,296 mcg-226 mg-90 mg (PreserVision AREDS) 1 cap PO BID Tobacco use date assessed: 01/11/25 Fall risk assessment: 2 + Falls in past year Last assessed Fall Risk: 01/11/25 Dental Screening Dental Screen Date: 01/11/25 Did you have a dental visit in the last 12 months?: Yes Did you have a dental problem in the last 6 months where you did not have access to dental care?: No Was dental information given to patient?: Patient has dentist HPI HPI Comments History of Present Illness Details The patient is a 74-year-old female presenting for a routine follow-up to manage her cardiovascular health and chronic conditions. She experienced a myocardial infarction on January 29 of the previous year while on vacation, for which she received a coronary artery stent at [facility]. She currently takes atorvastatin 80 mg and Plavix 75 mg for the management of her cardi ovascular disease. Since the myocardial infarction, the patient reports no further cardiac events. For hypertension, she is on lisinopril 10 mg. She expresses concern about the high readings at today's visit and notes she was rushing, which may have impacted her blood pressure. She was previously on a combination including a beta-ethan but discontinued this due to low heart rate. Her hypothyroidism is managed with levothyroxine, which she has tolerated well. Chronic low back pain associated with degenerative changes has been ongoing for many years, and she is under pain management care. She reports undergoing previous therapies without describing a specific regimen. She uses hydrocodone (Nebo) occasionally for pain control, which adds to her occasional nausea episodes, for which she takes ondansetron as needed. The patient denies using her albuterol inhaler regularly as her Boronchtis is well-controlled. She has been evaluated by a lens grinder apprentice in June after a lung nodule was identified, and her pulmonary function was assessed as satisfactory though no recent imaging has been discussed other than a past scan in April. Medical History: - Essential Hypertension - Hypothyroidism - Hyperlipidemia - Cardiovascular Disease, status post-my ocardial infarction and stent placement - Chronic Obstructive Pulmonary Disease (COPD) - Lung nodule - Chronic back and neck pain - Seasonable Allergies Surgical History: - Coronary artery stent placement - Hip replacement - Hysterectomy (ovarian conservation); a pproximately 15 years ago Medications: - Lisinopril 10 mg orally for hypertensi on - Levothyroxine for hypothyroidism - Atorvastatin 80 mg orally for hyperlip idemia - Clopidogrel 75 mg orally for coronary artery stent - Albuterol inhaler as needed for COPD - Aspirin 81 mg for coronary artery sten t - Hydrocodone for chronic back pain - Ondansetron 4 mg as needed for nausea Family History: - Father had leukemia - Mother had heart disease - Maternal aunt had breast cancer Diagnostic Results: - Pulmonary evaluation and function test in June, reported satisfactory - Previous chest CT in April showed cally ng nodule Social: - Lives with - Ex-smoker: Stopped after myocardial in [facility]; smoked approximately 50 years - Occasional marijuana use - Does not consume alcohol currently [facility] Medical History (Updated 01/11/25 @ 10:42 by Darwin Buchanan MD) Varicose vein of leg Hyperlipidemia Pulmonary nodule Chronic cough Chronic bronchitis Benign essential HTN Arthritis GERD (gastroesophageal reflux disease) Lumbar radiculopathy, chronic Hypothyroidism Failed back syndrome, lumbar Surgical History (Updated 01/11/25 @ 10:38 by Darwin Buchanan MD) History of cardiac cath Hx of bladder repair surgery History of lumbar surgery History of hysterectomy History of total left hip replacement Family History Mother Heart attack Father Pacemaker Leukemia Social History Household Members: Spouse Housing: House Alcohol intake: never Patient Tobacco Use Status: Former Tobacco user Tobacco use type: Cigarette Cigarettes Per Day: 4 Years Smoked: 40 +/- e-Cigarette/Vaping Use: Never Used Second Hand Smoke Exposure: No Substance Use Type: Marijuana service: No Current occupational status: retired Questionnaire PHQ-9 Over the last 2 weeks, how often have you been bothered by any of the following problems? 1. Little interest or pleasure in doing things: not at all 2. Feeling down, depressed, or hopeless: not at all 3. Trouble falling or staying asleep, or sleeping too much: not at all 4. Feeling tired or having little energy: not at all 5. Poor appetite or overeating: not at all 6. Feeling bad about yourself - or that you are a failure or have let yourself or your family down: not at all 7. Trouble concentrating on things, such as reading the newspaper or watching television: not at all 8. Moving or speaking so slowly that other people could have noticed. Or the opposite - being so fidgety or restless that you have been moving around a lot more than usual: not at all 9. Thoughts that you would be better off or of hurting yourself in some way: not at all Total score: 0 Depression Screening Interpretation: Negative Depression Screening Done: Yes 33907 - PHQ-9 Billing: Yes Source: Developed by Drs. Hola Kebede, Piedad Hurtado, Darell Alford and colleagues, with an educational erica from [employer]. Thrive Questionnaire Date Thrive assessed: 01/11/25 I am a: Patient What is your living situation today?: I have a steady place to live Within the past 12 months, did the food you bought not last and you didn't have the money to get more?: Never true Within the past 12 months, did you worry whether your food would run out before you got money to buy more?: Never true Do you have trouble paying for medicines?: No Do you have trouble getting transportation to medical appointments?: No Do you have trouble paying your heating and electricity bill?: No Do you have trouble taking care of your child, family member or friend?: No Do you have trouble with day-to-day activities such as bathing, preparing meals, shopping, managing finances, etc.?: No Are you currently unemployed and looking for a job?: No Are you interested in more education?: No THRIVE Score: 0 AUDIT C Alcohol Use Questionnaire (AUDIT-C) 1. How often do you have a drink containing alcohol?: Never 3. How often do you have six or more drinks on one occasion?: Never Total Score: 0 Score Reviewed/Action Taken: Yes ESRENA-7 AMB Questionnaire SERENA-7 Date SERNEA - 7 assessed: 01/11/25 Feeling nervous, anxious, or on edge: 1 = Several days Not being able to stop or control worryin = Several days Worrying too much about different things: 3 = Nearly every day Trouble relaxin = Several days Being so restless that it is hard to sit still: 0 = Not at all Becoming easily annoyed or irritable: 0 = Not at all Feeling afraid as if something awful might happen: 0 = Not at all Total SERENA-7 score (0-4 normal; 5-9 mild; 10-14 moderate; 15-21 severe): 6 Source: Developed by Drs. Hola Kebede, Piedad Hurtado, Darell Alford and colleagues, with an educational erica from [employer]. SERENA-7 Assessment Billing SERENA-7 Assessment Tool: SERENA-7 Assessment 16764 Review of Systems Const Details: - Cardiovascular: Denies syncope or chest pain presently, reports vital compliance with medication - Respiratory: Denies frequent use of albuterol, denies dyspnea or wheezing currently - Musculoskeletal: Reports chronic low back pain and neck pain - Neurological: Denies new neurological symptoms - Mental Health: Reports occasional anxiety related to familial stresses, but manages well All systems reviewed & are unremarkable except as reviewed in HPI and above Physical exam (Primary Care) Vital Signs: Last Vital Signs Temp 97.8 F 01/11/25 10:13 Pulse 72 01/11/25 10:13 Resp 16 01/11/25 10:13 BP 152/72 H 01/11/25 10:13 Pulse Ox 98 01/11/25 10:13 Oxygen Delivery Method Room Air 01/11/25 10:13 BMI result Body Mass Index 26.3 Tobacco/Smoking Status: Tobacco use Status Tobacco use date assessed 01/11/25 01/11/25 10:15 Patient Tobacco Use Status Former Tobacco user 01/11/25 10:15 Tobacco use type Cigarette 01/11/25 10:15 e-Cigarette/Vaping Use Never Used 01/11/25 10:15 PHQ-9: PHQ-9 Score PHQ-9: Total score 0 01/11/25 10:29 Depression Screening Interpretation: Negative Thrive Assessment: Date of Thrive Assessment Date Thrive assessed 01/11/25 01/11/25 10:29 Const Other: General: Alert and oriented, Well nourished, No acute distress. Eye: Pupils are equal, round and reactive to light, Intact accommodation, Extraocular movements are intact, Normal conjunctiva, Vision unchanged. HENT: Normocephalic, Atraumatic, Tympanic membranes are clear, Normal hearing, Oral mucosa is moist, No pharyngeal erythema, Ear canals patent. Respiratory: Lungs CTA bilaterally, No wheeze, Respirations are non-labored. Cardiovascular: Regular rate, Regular rhythm, S1 auscultated, S2 auscultated, No murmur, Good pulses equal in all extremities, Normal peripheral perfusion, No edema. Gastrointestinal: Soft, Non-tender, Non-distended, Normal bowel sounds, No organomegaly. Musculoskeletal: Normal range of motion, Normal strength, No tenderness, No swelling, No deformity, Normal gait. Integumentary: Warm, Dry, [place], Intact, Varicosity noted on legs. Neurologic: Alert, Oriented, Normal sensory, Normal motor function, No focal defects, Cranial Nerves II-XII are grossly intact, Normal deep tendon reflexes. Psychiatric: Cooperative, Appropriate mood & affect, Normal judgment, Reports feeling anxious several days. Results Reviewed Results Reviewed: - Pulmonary evaluation and function test in June, reported satisfactory - Previous chest CT in April showed lung nodule Coding Level of Care Code New Pt Level 4 (34262) Complex EM visit Add On G2211 Diagnoses Essential hypertension I10 Stented coronary artery Z95.5 Chronic bilateral low back pain without sciatica M54.50; G89.29 Chronicity: chronic Back pain laterality: bilateral Sciatica presence: without sciatica Pulmonary nodule R91.1 Mixed simple and mucopurulent chronic bronchitis J41.8 Chronic bronchitis type: mixed simple and mucopurulent Other hyperlipidemia E78.49 Hyperlipidemia type: other hyperlipidemia Varicose veins of both lower extremities with pain I83.813 Varicose vein complication: pain Laterality: bilateral Additional Codes SERENA-7 Assessment Billing - SERENA-7 Assessment Tool: SERENA-7 Assessment 83503 ([id number]) PHQ-9 - 58330 - PHQ-9 Billing: Yes ([id number]) Assessment & Plan Assessment & Plan (1) Essential hypertension: Comment: - Blood pressure noted as elevated; recommended frequent home monitoring for six weeks. - Current Regiment: Lisinopril 10mg Daily (previously on metoprolol with complications of bradycardia) - Adjust medications if readings remain high; consideration for potential re- introduction of supportive therapy based on results. Code(s): I10 - Essential (primary) hypertension Category: Medical (2) Stented coronary artery: Comment: Centered in January of 2024 and follows with Cardiology - Continue clopidogrel, aspirin, and atorvastatin; adherence noted crucial for secondary prevention. Code(s): Z95.5 - Presence of coronary angioplasty implant and graft Category: Surgical (3) Low back pain: Comment: - Continue hydrocodone as per current need. - Reinforce multi-modal pain management at pain clinic. Code(s): M54.50 - Low back pain, unspecified Category: Medical Qualifiers: Chronicity: chronic Back pain laterality: bilateral Sciatica presence: without sciatica Qualified Code(s): M54.50 - Low back pain, unspecified; G89.29 - Other chronic pain (4) Pulmonary nodule: Comment: - CT scan ordered annually, such as next April, to monitor nodule. - Last scan in April of 2023 demonstrated a 4mm LLL Code(s): R91.1 - Solitary pulmonary nodule Category: Medical (5) Chronic bronchitis: Comment: - Maintain albuterol inhaler for emergency use. - Yearly evaluation of pulmonary status. Code(s): J42 - Unspecified chronic bronchitis Category: Medical Qualifiers: Chronic bronchitis type: mixed simple and mucopurulent Qualified Code(s): J41.8 - Mixed simple and mucopurulent chronic bronchitis (6) Hyperlipidemia: Comment: - Continue Atorvastatin 80mg QHS - Repeat Lipid Panel ordered today Code(s): E78.5 - Hyperlipidemia, unspecified Category: Medical Qualifiers: Hyperlipidemia type: other hyperlipidemia Qualified Code(s): E78.49 - Other hyperlipidemia (7) Varicose vein of leg: Comment: - Has varicosities in bilateral lower extremities that seen on exam with pain the along the area - Advised patient to use compression stockings for geriatric assistant with better blood flow Code(s): I83.90 - Asymptomatic varicose veins of unspecified lower extremity Category: Medical Qualifiers: Varicose vein complication: pain Laterality: bilateral Qualified Code(s): I83.813 - Varicose veins of bilateral lower extremities with pain Plan: Health maintenance: - Yearly mammogram scheduled for March - Lung nodule monitored with CT imaging next due in April - Colonoscopy follow-up due 2024 - Encourage compression stockings for venous insufficiency - Blood work to evaluate cholesterol, thyroid, and vitamin D levels Patient was informed and verbally consented to the use of an ambient scribe for clinic note documentation during this visit. Plan During the visit, we discussed the importance of maintaining controlled blood pressure given the patient's cardiovascular history. I recommended at-home blood pressure monitoring and a follow-up in six weeks to assess if adjustments in current medication regimens are needed. I emphasized adherence to statin and antiplatelet therapy for stent maintenance and cardiovascular protection. We also addressed the stable management of her hypothyroidism and the careful use of her albuterol for COPD. I advised compression stockings for the lower extremity varicosities. We concluded with patient consent for ongoing watchful waiting on the lung nodule through scheduled imaging in April. All queries and concerns were addressed, and follow-up instructions were provided in alignment with current health maintenance strategy. Orders: Orders Complete Blood Count Auto Diff Today Darwin Buchanan MD I10 - Essential (primary) h ypertension Comprehensive Met. Panel Today Darwin Buchanan MD I10 - Essential (primary) hypertension Lipid Panel Today Darwin Buchanan MD I10 - Essential (primary) hypertension Hemoglobin A1c Today Darwin Buchanan MD I10 - Essential (primary) hypertension TSH reflex Free T4 Today Darwin Buchanan MD I10 - Essential (primary) hypertension Vitamin D 25-OH Total Today Darwin Buchanan MD I10 - Essential (primary) hypertension Referrals Lung Cancer Screening Referral Darwin Buchanan MD R91.1 - Solitary pulmonary nodule Medications: New ondansetron HCl 4 mg PO ONCE PRN 30 tabs 0RF nausea and vomiting Darwin Buchanan MD Changed From hydrocodone-acetaminophen 7.5-325 mg Partial Fill upon patient request. 1.5 tabs PO DAILY 30 days PRN 40 tabs 0RF pain M53.3 - Sacrococcygeal disorders, not elsewhere classified, M54.50 - Low back pain, unspecified, M96.1 - Postlaminectomy syndrome, not elsewhere classified, Z79.891 - long-term (current) use of opiate analgesic To hydrocodone-acetaminophen 7.5-325 mg Partial Fill upon patient request. 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 - Continue all prescribed medications, especially clopidogrel, aspirin, and atorvastatin. - Return for blood pressure evaluation in six weeks. - For chest symptoms or changes in health status, seek medical evaluation. - Wear compression stockings or keep legs elevated to help with leg vein issues. - Schedule and attend routine screenings as planned, including March mammogram. - Reach out if experiencing medication side effects or changes in symptoms. - Maintain a smoke-free lifestyle and manage stress as needed.
[2025-01-11 10:13] VITALS: BP 152/72; PULSE 72; RESP 16; TEMP 36.6; O2SAT 98; BMI 26.3
--- OUTSIDE RECORDS SUMMARY | 2025-01-11 12:10 | XMS_ITS | Patient Health Record ---
Author Organization [facility] Address [address] [place] [address] Care Team Providers Care Invasive Cardiovascular Technologist Name Role Phone Haroon (RETIRED) Marcellus JACKSON Primary Care Provider Unavailable Ru Jackson Jr Unavailable [phone] Allergies Allergen (clinical drug ingredient) Drug/Non [...] Problem Status W/U Status Risk Notes Problem [id number] Colon cancer screening (Z12.11) Active confirmed Problem [id number] Constipation, unspecified constipation type (K59.00) Active confirmed Plan Of Treatment Future Test Test Name Order Date COLONOSCOPY 07/02/2021 Insurance Providers Payer Name Payer Address Payer Phone Subscriber Number Group Number Insured Name Patient Relationship to Insured Coverage Start Date Coverage End Date [facility] [place] [address] [place] [phone] [id number] JIM MCGINNIS Self - patient is the insured Medical (General) History Medical History History ICD Code Hypothyroidism Hypertension Arthritis Gastroesophageal reflux disease Surgical History Surgery Date(Month/Year) hysterectomy , uterine prolapse 2008 back surgery 2012 hip replacement 2019
--- OUTSIDE RECORDS SUMMARY | 2025-01-11 12:10 | XMS_ITS | Clinical Summary ---
Author Organization [facility] it[facility] Address [address] [place] [address] Care Team Providers Care Manager Part Name Role Phone Unavailable Primary Care Provider [...]
== END 2025-01-11 10:43 | disposition home or self-care (01) ==
LOC: HO.HMCHD 10:03
PROVIDERS: PCP Student in an Organized Health Care Education/Training Program; Visit Provider Student in an Organized Health Care Education/Training Program
DX: I10 Essential (primary) hypertension (principal); Z95.5 Presence of coronary angioplasty implant and graft; J41.8 Mixed simple and mucopurulent chronic bronchitis; M54.50 Low back pain, unspecified; G89.29 Other chronic pain; R91.1 Solitary pulmonary nodule; E78.49 Other hyperlipidemia; I83.813 Varicose veins of bilateral lower extremities with pain

== ENCOUNTER → 2025-01-11 10:02 | Outpatient (BNVA) | payer MEDICARE, SELFPAY | PROVIDERS: PCP Family Medicine; Visit Provider Student in an Organized Health Care Education/Training Program | DX: I10 Essential (primary) hypertension (principal); M54.50 Low back pain, unspecified; G89.29 Other chronic pain; R91.1 Solitary pulmonary nodule; J41.8 Mixed simple and mucopurulent chronic bronchitis; E78.49 Other hyperlipidemia; I83.813 Varicose veins of bilateral lower extremities with pain; Z79.82 Long term (current) use of aspirin; Z79.899 Other long term (current) drug therapy; Z95.5 Presence of coronary angioplasty implant and graft; Z13.31 Encounter for screening for depression; Z13.39 Encounter for screening examination for other mental health and behavioral disorders | CPT/HCPCS: 96127; 99202 ==

== ENCOUNTER 2025-01-27 10:07 | Outpatient (AMB) | payer MEDICARE, SELFPAY ==
--- NOTE | 2025-01-27 10:10 | MHC.OFFVIS ---
Vital Signs 01/27/25 10:25 Height 5 ft 1 in Weight 138 lb 8 oz BMI 26.2 BP 142/74 H Blood Pressure Location Rt brachial Position Sitting Pulse 64 Pulse Source Pulse Oximeter Pulse Oximetry (%) 98 Oxygen Delivery Method Room Air Intake Visit Reasons: PILL COUNT Intake Note: Katlyn comes in today for a pill count to hydrocodone-acetaminophen, patient should have 16 tablets and presents with 21 tablets which she last took 1/2 tablet last night 01/26/25 at 7pm. 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 Patient is supposed to have #16 pills, in her possession has #21 pills. This demonstrates a responsible attitude in regards to the medication regimen. Patient reports adequate analgesia on her current regimen on as needed basis with no noted significant side effects. The pain is rated at 3/10 and affects both the back, neck, left hip and leg. Patient reports current medication regime provides her adequate analgesia without side effects. She does occasionally take stool softener as needed for constipation. Denies any fever, cough, chills, abdominal pain, dyspnea, chest pain, shortness of breaths, weight loss, constipation, nausea, sedation, dizziness, or urinary retention. [facility] Medical History Varicose vein of leg Hyperlipidemia Pulmonary nodule Chronic cough Chronic bronchitis Benign essential HTN Arthritis GERD (gastroesophageal reflux disease) Lumbar radiculopathy, chronic Hypothyroidism Failed back syndrome, lumbar Surgical History History of cardiac cath Hx of bladder repair surgery History of lumbar surgery History of hysterectomy History of total left hip replacement Family History Mother Heart attack Father Pacemaker Leukemia Social History Household Members: Spouse Housing: House Alcohol intake: never Patient Tobacco Use Status: Former Tobacco user Tobacco use type: Cigarette Cigarettes Per Day: 4 Years Smoked: 40 +/- e-Cigarette/Vaping Use: Never Used Second Hand Smoke Exposure: No Substance Use Type: Marijuana service: No Current occupational status: retired Review of Systems Const All systems reviewed & are unremarkable except as noted in HPI and below Physical Exam Vital Signs: Last Vital Signs Pulse 64 01/27/25 10:25 BP 142/74 H 01/27/25 10:25 Pulse Ox 98 01/27/25 10:25 Oxygen Delivery Method Room Air 01/27/25 10:25 BMI result Body Mass Index 26.2 General: Appears afebrile. No acute distress. Alert and oriented. Mood and affect appropriate. Follows and participates in conversation appropriately. Respiratory effort is unlabored. No cough. Able to transition from sit to stand unassisted. Ambulates with normal heel strike and toe off bilaterally. Extrem General: Yes capillary refill normal, Yes no clubbing, cyanosis or edema and Yes no calf tenderness Psych Appearance: grossly normal and well kempt Mental Status: mental status grossly normal Speech and movement: Normal speech and movement present and Clear speech present Affect: normal affect Attitude: cooperative Thought process: Normal thought process present Thought content: Normal thought content present, suicidality (none), no hallucinations and Depressive thoughts present Insight: Good insight present (Psych) Judgement: Good judgement present (Psych) Results Reviewed Results Reviewed: MR LUMBAR SPINE WITHOUT CONTRAST 12/03/23 CLINICAL INFORMATION: Spondylolisthesis COMPARISON: Lumbar spine radiographs June 13, 2023. Images from prior lumbar spine MRI from June 13, 2012 are not available in PACS at time of dictation TECHNIQUE: MRI of the lumbar spine was obtained using routine sequences without contrast. FINDINGS: Slight lumbar levocurvature. Preserved lumbar lordosis. Grade 1 retrolisthesis at L1-L2 3 and grade 1 anterolisthesis at L4-L5 and L5-S1. Vertebral body heights are maintained. There is no suspicious osseous lesion. Diffusely coarsened appearance of the bony trabeculae throughout the spinal column and imaged pelvis can be correlated clinically for osteopenia. Diffuse desiccation with moderate to severe disc height loss posteriorly at L2-L3, to a lesser extent at L1-L2, and otherwise mild multilevel disc height loss. Marginally edematous Schmorl's node along the left aspect of the posterior L2 inferior endplate. Trace type I endplate changes posteriorly at L1-L2. Multilevel anterior osteophytic spurring is seen. Stress related marrow edema within the bilateral L5 pedicles. Level by level detail as follows: L1-L2: Disc bulge with superiorly migrated right subarticular/foraminal disc extrusion and moderate bilateral facet arthrosis with ligamentum flavum thickening. Moderate to severe spinal canal stenosis and asymmetric right subarticular zone narrowing with compression along the traversing right L2 nerve root. Severe right neural foraminal stenosis with compression of the exiting right L1 nerve root and mild left neural foraminal stenosis. L2-L3: Post laminectomy changes. Retrolisthesis with disc osteophyte complex. Moderate right and mild left facet arthrosis. The spinal canal is decompressed. Moderate to severe left and moderate right neural foraminal stenosis with mass effect along the exiting left greater than right L2 nerve roots. L3-L4: Disc bulge eccentric to the right with ventral annular fissure and moderate facet arthrosis with ligamentum flavum thickening. Mild spinal canal and mild bilateral neural foraminal narrowing. L4-L5: Advanced bilateral facet arthrosis with ligament flavum thickening, diastatic right facet joint effusion, and 1.0 cm craniocaudal dorsal epidural cyst presumably reflecting interspinous bursitis. Hypertrophied L4 and L5 spinous processes with obliterated interspinous interval and fluid distended interspinous bursa projecting into the adjacent paraspinal soft tissues. Unroofing of posterior disc material. 7 mm synovial cyst along the ventrolateral margin of the left facet joint projecting into the posterior left neural foramen. Moderate spinal canal and mild left greater than right neural foraminal stenosis. L5-S1: Advanced bilateral facet arthrosis with unroofing of posterior disc material. No spinal canal stenosis. Mild left without right neural foraminal stenosis. The conus medullaris terminates at the level of L1. The distal spinal cord is normal in appearance. No epidural fluid collection, hematoma, or mass. Moderate to severe fatty atrophy of the lower paraspinal musculature. Limited evaluation of the intra-abdominal structures without significant abnormalities. The abdominal aorta is of normal contour and caliber. Susceptibility artifact from left hip arthroplasty with asymmetric atrophy of the short left-sided external rotator and left psoas/iliopsoas muscles. Degenerative osteophytosis bridging the ventral sacroiliac joints. IMPRESSION: 1. At L1-L2, there is a superiorly migrated right subarticular/foraminal disc extrusion contributing to moderate to severe spinal canal stenosis and asymmetric right lateral recess narrowing with compression along the traversing right L2 nerve root. Severe right neural foraminal stenosis with compression of the exiting right L1 nerve root. 2. At L2-L3, there are post laminectomy changes. Moderate to severe left and moderate right neural foraminal stenosis with mass effect along the exiting left greater than right L2 nerve roots. 3. At L4-L5, there is advanced bilateral facet arthrosis with a diastatic right facet joint effusion which may reflect hypermobility and can be correlated with flexion and extension views. 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 7 mm synovial cyst along the ventrolateral margin of the left facet joint projecting into the posterior left neural foramen. Moderate spinal canal stenosis and mild left greater than right neural foraminal stenosis. 4. Diffusely coarsened appearance of the bony trabeculae throughout the spinal column and imaged pelvis can be correlated clinically for osteopenia. XR HIP 1 VIEW LEFT WITH PELVIS 09/06/24 HISTORY: Fall COMPARISON: Comparison is made with the prior examination dated 06/11/2021. FINDINGS: A single AP view of the pelvis and 2 views of the left hip are submitted. The patient is again noted to be status post left total hip arthroplasty. The orthopedic elements are in anatomic alignment. There is no radiographic evidence of loosening. There is no fracture or dislocation. There are vascular calcifications. IMPRESSION: Status post left total hip arthroplasty. XR KNEE 3 VIEWS LEFT, XR TIBIA FIBULA 2 VIEWS LEFT 09/06/24 HISTORY: Fall COMPARISON: There are no prior studies available for comparison. FINDINGS: Four views of the left knee and AP and lateral views of the left tibia and fibula are submitted. The bones are osteopenic. There is no fracture or dislocation. The joint spaces are preserved. There are vascular calcifications. IMPRESSION: Osteopenia. No evidence of fracture of the left knee or tibia and fibula. XR FINGERS RIGHT 09/06/24 HISTORY: 3rd digit pain COMPARISON: There are no prior studies available for comparison. FINDINGS: Three views of the right middle finger are submitted. The bones are osteopenic. There is no fracture or dislocation. 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 The soft tissues are unremarkable. IMPRESSION: Osteopenia. 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 Assessment & Plan Assessment & Plan (1) Lumbar radiculopathy: Code(s): M54.16 - Radiculopathy, lumbar region Category: Medical (2) Lumbar spinal stenosis: Code(s): M48.061 - Spinal stenosis, lumbar region without neurogenic claudication Category: Medical (3) Degeneration, intervertebral disc, cervical: Code(s): M50.30 - Other cervical disc degeneration, unspecified cervical region Category: Medical (4) Opioid contract exists: Code(s): Z79.891 - retirement (current) use of opiate analgesic Category: Medical (5) Failed back syndrome, lumbar: Code(s): M96.1 - Postlaminectomy syndrome, not elsewhere classified Category: Medical Plan Patient has shown accountability for her medication regimen and the pill count was accurate.?There is no evidence of misuse, abuse or diversion at this time. [facility] reviewed. Script for hydrocodone-acetaminophen 7.5-325 mg?#40/30 days sent with an advanced date of 02/10/25. Patient is aware of monitoring for side effects. Reviewed with the patient the risks associated with benzodiazepine and opioid use. All questions and concerns were answered and the patient is in agreement with the plan. Follow up in one month for pill count and sooner if needed. Medications: Changed From hydrocodone-acetaminophen 7.5-325 mg Partial Fill upon patient request. 1 tab PO DAILY PRN pain M53.3 - Sacrococcygeal disorders, not elsewhere classified, M54.50 - Low back pain, unspecified, M96.1 - Postlaminectomy syndrome, not elsewhere classified, Z79.891 - retirement (current) use of opiate analgesic To hydrocodone-acetaminophen 7.5-325 mg Partial Fill upon patient request. 1.5 tabs PO DAILY PRN 40 tabs 0RF pain 30 days M53.3 - Sacrococcygeal disorders, not elsewhere classified, M54.50 - Low back pain, unspecified, M96.1 - Postlaminectomy syndrome, not elsewhere classified, Z79.891 - manager terminal (current) use of opiate analgesic Coding Level of Care Code Est Pt Level 4 (97501) Complex EM visit Add On G2211 Diagnoses Lumbar radiculopathy M54.16 Lumbar spinal stenosis M48.061 Degeneration, intervertebral disc, cervical M50.30 Opioid contract exists Z79.891 Failed back syndrome, lumbar M96.1
[2025-01-27 10:25] VITALS: BP 142/74; PULSE 64; O2SAT 98; BMI 26.2
== END 2025-01-27 10:31 | disposition home or self-care (01) ==
LOC: HO.PMC 10:08
PROVIDERS: PCP Family Medicine; Visit Provider Nurse Practitioner Family
DX: M54.16 Radiculopathy, lumbar region (principal); M48.061 Spinal stenosis, lumbar region without neurogenic claudication; M50.30 Other cervical disc degeneration, unspecified cervical region; Z79.891 Long term (current) use of opiate analgesic; M96.1 Postlaminectomy syndrome, not elsewhere classified
CPT/HCPCS: 99214; G2211

== ENCOUNTER → 2025-01-27 10:07 | Outpatient (BNVA) | payer MEDICARE, SELFPAY | PROVIDERS: PCP Family Medicine; Visit Provider Nurse Practitioner Family | DX: M54.16 Radiculopathy, lumbar region (principal); M48.061 Spinal stenosis, lumbar region without neurogenic claudication; M50.30 Other cervical disc degeneration, unspecified cervical region; Z79.891 Long term (current) use of opiate analgesic; M96.1 Postlaminectomy syndrome, not elsewhere classified; M53.3 Sacrococcygeal disorders, not elsewhere classified | CPT/HCPCS: 99212 ==

== ENCOUNTER 2025-02-10 14:03 | Outpatient (AMB) | payer MEDICARE, SELFPAY ==
--- NOTE | 2025-02-10 14:05 | MHC.PC.OV ---
Vital Signs 02/10/25 14:14 Height 4 ft 11.45 in Weight 139 lb BMI 27.6 BP 136/70 Blood Pressure Location Lt brachial Position Sitting Respiration 18 Pulse 80 Pulse Source Pulse Oximeter Temp 97.6 F Temp Source Temporal Artery Scan Pulse Oximetry (%) 98 Oxygen Delivery Method Room Air Intake Visit Reasons: Left leg pain, swollen, varicose veins Authorization Nurse Required: No Accompanied by: Spouse Allergies azithromycin Adverse Reaction (Severe, Verified 02/10/25 14:13) stomach pain Tobacco use date assessed: 01/11/25 Dental Screening Dental Screen Date: 01/11/25 HPI HPI Comments History of Present Illness Details The patient is a 74-year-old female presenting with pain and swelling in one leg, associated with varicose veins. She reports that the affected leg has been sore for a couple of days, with the discomfort beginning approximately two days ago on Friday. She denies any injury, recent travel, particularly long flights, or unusual physical activity that could have precipitated the symptoms. The patient describes the pain as an aching sensation, primarily sore to the touch, with a noticeable bulge at the site of discomfort, likely attributed to the protruding varicose veins. She has had varicose veins for several years but reports that this level of discomfort and swelling is a recent development. Notably, she denies experiencing fevers, chills, or respiratory difficulties. The soreness does seem to alleviate somewhat when the leg is elevated but becomes more pronounced when standing or walking. She has not attempted any pharmacological interventions, such as taking ibuprofen or applying compression stockings. She expresses slight confusion regarding possible underlying conditions, showing a concern about the possibility of a blood clot but understanding the associated risks are relatively low. Medical History: - Varicose veins for several years Medications: - Aspirin (noted in conversation, but not as a directed treatment for current symptoms) Social History: - Denies recent travel, including long flights - No alcohol, drug, or tobacco use mentioned [facility] Medical History Varicose vein of leg Hyperlipidemia Pulmonary nodule Chronic cough Chronic bronchitis Benign essential HTN Arthritis GERD (gastroesophageal reflux disease) Lumbar radiculopathy, chronic Hypothyroidism Failed back syndrome, lumbar Surgical History History of cardiac cath Hx of bladder repair surgery History of lumbar surgery History of hysterectomy History of total left hip replacement Family History Mother Heart attack Father Pacemaker Leukemia Social History Household Members: Spouse Housing: House Alcohol intake: never Patient Tobacco Use Status: Former Tobacco user Tobacco use type: Cigarette Cigarettes Per Day: 4 Years Smoked: 40 +/- Packs per year/per ci.00 e-Cigarette/Vaping Use: Never Used Second Hand Smoke Exposure: No Substance Use Type: Marijuana service: No Current occupational status: retired Questionnaire Thrive Questionnaire Date Thrive assessed: 01/11/25 SERENA-7 AMB Questionnaire SERENA-7 Date SERENA - 7 assessed: 01/11/25 Source: Developed by Drs. Hola Kebede, Piedad Hurtado, Darell Alford and colleagues, with an educational erica from [employer]. Review of Systems Narrative - Cardiovascular: Denies fever, chills, reports leg pain and swelling - Respiratory: Denies difficulty breathing All systems reviewed & are unremarkable except as reviewed in HPI and above Physical exam (Primary Care) Vital Signs: Last Vital Signs Temp 97.6 F 02/10/25 14:14 Pulse 80 02/10/25 14:14 Resp 18 02/10/25 14:14 BP 136/70 02/10/25 14:14 Pulse Ox 98 02/10/25 14:14 Oxygen Delivery Method Room Air 02/10/25 14:14 BMI result Body Mass Index 27.6 Tobacco/Smoking Status: Tobacco use Status Tobacco use date assessed 01/11/25 02/10/25 14:09 Patient Tobacco Use Status Former Tobacco user 02/10/25 14:09 Tobacco use type Cigarette 02/10/25 14:09 e-Cigarette/Vaping Use Never Used 02/10/25 14:09 Thrive Assessment: Date of Thrive Assessment Date Thrive assessed 01/11/25 02/10/25 14:09 Narrative General: Alert and oriented, Well nourished, No acute distress. Eye: Pupils are equal, round and reactive to light, Intact accommodation, Extraocular movements are intact, Normal conjunctiva, Vision unchanged. HENT: Normocephalic, Atraumatic, Tympanic membranes are clear, Normal hearing, Oral mucosa is moist, No pharyngeal erythema, Ear canals patent. Respiratory: Lungs CTA bilaterally, No wheeze, Respirations are non-labored. Cardiovascular: Regular rate, Regular rhythm, S1 auscultated, S2 auscultated, No murmur, Good pulses equal in all extremities, Normal peripheral perfusion, No edema. Gastrointestinal: Soft, Non-tender, Non-distended, Normal bowel sounds, No organomegaly. Musculoskeletal: Normal range of motion, Normal strength, No tenderness, Mild Swelling in right leg, No deformity, Normal gait. Vacricosities bilaterally. LLE is warm to touch with tenderness below knee Integumentary: Warm, Dry, [place], Intact. Neurologic: Alert, Oriented, Normal sensory, Normal motor function, No focal defects, Cranial Nerves II-XII are grossly intact, Normal deep tendon reflexes. Psychiatric: Cooperative, Appropriate mood & affect, Normal judgment. Coding Level of Care Code Est Pt Level 4 (14342) Diagnoses Varicose veins of both lower extremities with pain I83.813 Varicose vein complication: pain Laterality: bilateral Essential hypertension I10 Other hyperlipidemia E78.49 Hyperlipidemia type: other hyperlipidemia Stented coronary artery Z95.5 Assessment & Plan Assessment & Plan (1) Varicose vein of leg: Comment: - Has varicosities in bilateral lower extremities that seen on exam with pain the along the area, with worsening tenderness below left knee - Could possibly secondary to superficial thrombophlebitis - offered treatment with symptomatic treatment of ibuprofen compression stockings and leg elevation or patient visit the emergency room for possible expedite an ultrasound. I explained to her the possibility of getting a stat ultrasound may be difficult and may not be completed within 24-48 hours. Patient verbalized understanding and was transferred to emergency room. Handout given to ED provider. Code(s): I83.90 - Asymptomatic varicose veins of unspecified lower extremity Category: Medical Qualifiers: Varicose vein complication: pain Laterality: bilateral Qualified Code(s): I83.813 - Varicose veins of bilateral lower extremities with pain (2) Essential hypertension: Comment: - Blood pressure stable - Current Regiment: Lisinopril 10mg Daily (previously on metoprolol with complications of bradycardia) - Continue same medications Code(s): I10 - Essential (primary) hypertension Category: Medical (3) Hyperlipidemia: Comment: - Continue Atorvastatin 80mg QHS Code(s): E78.5 - Hyperlipidemia, unspecified Category: Medical Qualifiers: Hyperlipidemia type: other hyperlipidemia Qualified Code(s): E78.49 - Other hyperlipidemia (4) Stented coronary artery: Comment: - Centered in January of 2024 and follows with Cardiology - Continue clopidogrel, aspirin, and atorvastatin; adherence noted crucial for secondary prevention. Code(s): Z95.5 - Presence of coronary angioplasty implant and graft Category: Surgical Plan I discussed the patient's symptoms in relation to varicose veins, highlighting the need to rule out the presence of a blood clot through ultrasound imaging if symptoms do not improve or worsen. I outlined the risks of a clot traveling to the lungs, though I indicated that in this case, it is unlikely. I advised that the best approach would be to have a workup done in the emergency room for prompt diagnostics, reiterating that the likelihood of immediate progression is low. I also addressed using ibuprofen for the management of pain and swelling and elevation of the affected limb as supportive measures in conjunction with compression therapy if available. I stressed the importance of monitoring for any rapid changes and seeking emergent care if the situation evolves acutely. Patient Instructions: - Take ibuprofen as advised for leg pain. - Elevate your leg when possible and consider using compression stockings if you have them. - Seek care at the emergency room for an immediate ultrasound if the pain is intolerable or if swelling worsens. - Go to the emergency room if new symptoms like shortness of breath occur.
[2025-02-10 14:14] VITALS: BP 136/70; PULSE 80; RESP 18; TEMP 36.4; O2SAT 98; BMI 27.6
--- OUTSIDE RECORDS SUMMARY | 2025-02-10 17:54 | XMS_ITS | Clinical Summary ---
Author Organization [facility] ity Address [address] [place] [address] Care Team Providers Care Fixture Fabricator Repairer Name Role Phone Unavailable Primary Care Provider Unavailabl e Social History Tobacco Use Types Packs/Day Years Used Date Smoking Tobacco: Never Assessed Comments Unknown Sex and Gender Information Value Date Recorded Sex Assigned at Not on file Legal Sex Female 11:39 AM EDT Gender Identity Not on file Sexual Orientation Not on file Plan of Treatment Health Maintenance Due Date Last Done Comments Colorectal Cancer Screening: Colonoscopy 1950 DTaP,Tdap,and Td Vaccines (1 - Tdap) 1968 Pneumococcal Vaccine: 50+ Ye ars (1 of 1 - PCV) 11/28/1999 Zoster Vaccines (1 of 2) 11/28/1999 Falls Risk Assessment 01/29/2024 Hepatitis C Screening [...]
--- OUTSIDE RECORDS SUMMARY | 2025-02-10 17:54 | XMS_ITS | Patient Health Record ---
Author Organization [facility] Address [address] [place] [address] Care Team Providers Care Senior Director Marketing Name Role Phone Haroon (RETIRED) Marcellus JACKSON [...] TABLET BY MILAGRO TH ONCE A DAY Oral; Duration: 90 Active HYDROcodone-Acetaminophen 7.5-325 MG Oral; Duration: 30 Active Diclofenac Sodium 1 % External; Duration: 30 Active Metoprolol Succinate ER 25 MG TAKE 1 TABLET BY MOUTH EVERY DAY AT BEDTIME DIRECTED Oral; Duration: 90 Active Golytely 236 GM as directed before colonoscopy Orally every 15 minutes; Duration: 1 day(s) 07/02/2021 Active Cimetidine 300 MG TAKE 1 TABLET BY MILAGRO TH EVERY DAY Oral; Duration: 90 Active Levothyroxine Sodium 88 MCG TAKE 1 TABLE T BY MOUTH EVERY DAY Oral; Duration: 90 Active Immunizations Vaccine Route Administration Date [...] Problem Status W/U Status Risk Notes Problem Colon cancer screening (069500477) Colon cancer screening (Z12.11) Active confirmed Problem Constipation (63629852) Constipation, unspecified constipation type (K59.00) Active confirmed Plan Of Treatment Future Test Test Name Order Date COLONOSCOPY 07/02/2021 Insurance Providers Payer Name Payer Address Payer Phone Subscriber Number Group Number Insured Name Patient Relationship to Insured Coverage Start Date Coverage End Date [facility] [address] [place] [phone] [id number] JIM MCGINNIS Self - patient is the insured Medical (General) History Medical History History ICD Code Hypothyroidism Hypertension Arthritis Gastroesophageal reflux disease Surgical History Surgery Date(Month/Year) hysterectomy , uterine prolapse 2008 back surgery 2012 hip replacement 2019
== END 2025-02-10 14:34 | disposition home or self-care (01) ==
PROVIDERS: PCP Student in an Organized Health Care Education/Training Program; Visit Provider Student in an Organized Health Care Education/Training Program
DX: I83.813 Varicose veins of bilateral lower extremities with pain (principal); I10 Essential (primary) hypertension; E78.49 Other hyperlipidemia; Z95.5 Presence of coronary angioplasty implant and graft

== ENCOUNTER → 2025-02-10 14:03 | Outpatient (BNVA) | payer MEDICARE, SELFPAY | PROVIDERS: PCP Family Medicine; Visit Provider Student in an Organized Health Care Education/Training Program | DX: I10 Essential (primary) hypertension (principal) | CPT/HCPCS: 99212 ==

== ENCOUNTER 2025-02-10 14:37 | Emergency (ER) | payer MEDICARE, SELFPAY ==
--- NOTE | ~2025-02-10 | US_ITS ---
EXAMINATION: US TRIPLEX LOWER EXTREMITY, LEFT CLINICAL INFORMATION: Calf pain COMPARISON: None available. TECHNIQUE: Color-flow triplex imaging with spectral analysis and compression Doppler were performed on the left lower extremity. FINDINGS: Respiratory variation, normal compression and augmented flow are noted throughout the left lower extremity. The visualized common femoral vein, superficial femoral vein, profunda femoral vein, popliteal vein and midcalf peroneal and posterior tibial venous segments show no evidence of deep venous thrombosis. The greater saphenous vein is noncompressible and distended with heterogeneous echogenic material in the region of the patient's pain in the proximal and mid calf. There is no flow on color Doppler and duplex. The saphenofemoral junction is patent. US/US venous duplex LE LT IMPRESSION: Superficial venous thrombosis is noted in the greater saphenous vein in the region of the patient's pain. No evidence of deep venous thrombosis involving the left lower extremity. Electronically signed by: Niall Sanchez MD 02/10/2025 04:50 PM EDT
[2025-02-10 14:48] VITALS: PULSE 74; RESP 16; TEMP 36.2; O2SAT 95; BMI 26.7
--- NOTE | 2025-02-10 15:21 | ED_ITS ---
HPI - Extremity Problem General Chief complaint: Extremity Problem Stated complaint: Knee Leg Pain Time Seen by Provider: 02/10/25 16:20 Source: patient Limitations: no limitations History of Present Illness ED Provider: Odilia Gutierrez PA-C HPI Narrative: 74-year-old female with a history of hypertension, hyperlipidemia, hypothyroidism, known coronary artery disease, prior NSTEMI status post coronary angioplasty,, COPD with chronic bronchitis, who presents with left leg pain and swelling. Patient was sent by primary care to rule out DVT. Associated focal redness and swelling associated with 1 of the varicosities in the left calf. Denies fever. Related Data Home Medications ?Medication ?Instructions ?Recorded ?Confirmed albuterol sulfate 90 mcg/actuation inhalation 02/17/20 01/11/25 aerosol inhaler levothyroxine 88 mcg tablet 88 mcg PO DAILY 02/17/20 0 01/11/25 lisinopril 10 mg tablet 10 mg PO DAILY 02/17/2012/21 docusate sodium 100 mg capsule 100 mg PO DAILY diarrhe a 10/12/21 01/11/25 desonide 0.05 % topical ointment topical BID 10/01/22 01/11/25 aspirin 81 mg tablet,delayed 81 mg PO DAILY 06/23/23 0 01/11/25 release nitroglycerin 0.4 mg sublingual 0.4 mg sublingual Q5M PRN 02/12/24 01/11/25 tablet acetaminophen 500 mg tablet 1,000 mg PO Q6H PRN 01/11/25 (Tylenol Extra Strength) multivitamin 1 tab PO DAILY 01/11/2512/21 vitamins A,C,H-braf-dcvswk 4,296 1 cap PO BID 01/11/25 01/11/25 mcg-226 mg-90 mg capsule (PreserVision AREDS) Previous Rx's ?Medication ?Instructions ?Recorded Donut pillow #1 ea 06/18/21 clopidogrel 75 mg tablet (Plavix) 75 mg PO DAILY #90 t abs 05/06/24 ondansetron HCl 4 mg tablet 4 mg PO DAILY PRN nausea a nd 01/11/25 vomiting #30 tabs hydrocodone 7.5 mg-acetaminophen 1.5 tab PO DAILY PRN pain 30 days 01/27/25 325 mg tablet #40 tabs atorvastatin 80 mg tablet 80 mg PO DAILY #90 tabs 01/19 Allergies Allergy/AdvReac Type Severity Reaction Status Date / Time azithromycin AdvReac Severe stomach Verified 02/10/25 14:52 pain Review of Systems Review of Systems: Yes all other systems are reviewed and are negative Constitutional: Constitutional: Denies fatigue and Denies fever(s) Cardiovascular: Cardiovascular: Denies chest pain, Reports leg edema and Denies dyspnea Respiratory: Respiratory: Denies dyspnea Musculoskeletal: Musculoskeletal: Denies arthralgias and Denies joint swelling Endocrine: Endocrine: Denies fatigue [facility] Past Medical History Attestation statement: The following information was validated with the patient. Medical History Varicose vein of leg Hyperlipidemia Pulmonary nodule Chronic cough Chronic bronchitis Benign essential HTN Arthritis GERD (gastroesophageal reflux disease) Lumbar radiculopathy, chronic Hypothyroidism Failed back syndrome, lumbar Surgical History History of cardiac cath Hx of bladder repair surgery History of lumbar surgery History of hysterectomy History of total left hip replacement Family History Family History Mother Heart attack Father Pacemaker Leukemia Social History Social History Household Members: Spouse Housing: House Alcohol intake: never Patient Tobacco Use Status: Former Tobacco user Tobacco use type: Cigarette Cigarettes Per Day: 4 Years Smoked: 40 +/- Smoked in Last 30 Days: No e-Cigarette/Vaping Use: Never Used Second Hand Smoke Exposure: No Use of substances other than those prescribed or required for medical reasons: No Substance Use Type: Marijuana Advance Directives: No Advance Directives Information Provided: No service: No Current occupational status: retired Physical Exam Vital Signs: Vital Signs: Last Vital Signs Temp 97.9 F 02/10/25 17:58 Pulse 62 02/10/25 17:58 Resp 18 02/10/25 17:58 BP 136/84 02/10/25 17:58 Pulse Ox 99 02/10/25 17:58 O2 Del Method Room Air 02/10/25 17:58 BMI result Body Mass Index 26.7 Const: Other: Alert well-appearing Orientation/consciousness: patient oriented x3 Resp: Effort & Inspection: normal respiratory effort Cardio: Other: Normal peripheral perfusion Skin: Other: Warm dry no rash Neuro: General: patient oriented x3, gait normal, no focal motor deficits and CN's II-XI intact bilaterally Extrem: Other: Subtle warmth and erythema posterior left calf inferior to the popliteal space, in relation to a varicosity Psych: Other: Cooperative Course Course Course Narrative: This is an RME: Additional HPI, ROS, PE not included below will be deferred to primary provider. RME assessment and note performed by: Estelita Mann PA-C This is a 74 y/o F, with a past medical history of hyperlipidemia, hypertension, GERD, hypothyroidism, who presents emergency department from primary care office with concerns of left leg pain. Sent in by primary care to rule out blood clot. Plan: Ultrasound Medical Decision Making Medical Decision Making MDM Narrative: 74-year-old female with a history of hypertension, hyperlipidemia, hypothyroidism, known coronary artery disease, prior NSTEMI status post coronary angioplasty,, COPD with chronic bronchitis, who presents with left leg pain and swelling. Patient was sent by primary care to rule out DVT. Associated focal redness and swelling associated with 1 of the varicosities in the left calf. Denies fever. No relevant chronic issues History: Per patient I have considered the following differential diagnoses: DVT, cellulitis, phlebitis, Chaudhry cyst Plan: Patient was sent here to rule out DVT. The ultrasound is completed, she has a an SVT, per up-to-date no indication for anticoagulation. Sending the patient with home care instructions. I have independently reviewed the following tests: DVT left lower extremity: US/US venous duplex LE LT IMPRESSION: Superficial venous thrombosis is noted in the greater saphenous vein in the region of the patient's pain. No evidence of deep venous thrombosis involving the left lower extremity. Low risk for VTE: no anticoagulation???Patients with isolated, uncomplicated SVT have a?low?risk for thromboembolism and do not initially need to be treated with anticoagulation [2,47,64,65 [email or web address] ]. This includes patients with: ?SVT remote from the saphenofemoral junction or saphenopopliteal junction, such as SVT involving the below-knee rather than the above-knee great saphenous vein ?Focal SVT with axial vein involvement (ie, <= cm in length) Differential Diagnosis Differential Diagnoses: The differential diagnosis associated with the presentation includes See medical decision-making Admission/Observation Consideration of admission/observation: Escalation of care including admission/observation considered Not applicable Radiology Impression Discussion of test interpretation with radiology: I have reviewed the radiologist's reading. Discharge Plan Discharge Clinical Impression: Acute superficial venous thrombosis of left lower extremity Patient Disposition: Home, Self-Care Instructions: Superficial Thrombophlebitis (ED) Additional Instructions: You were found to have a superficial clot in one of the veins in the left leg. See home care instructions. You can apply warm compresses. While ambulating throughout the day, wear compression sleeves. While resting elevate your legs above your heart. The recommendation is for no additional anticoagulation at this time. You can follow up with your primary care provider to have further discussion about this matter. Prescriptions: No Action clopidogrel [Plavix] 75 mg tablet 75 mg PO DAILY Qty: 90 2RF ondansetron HCl 4 mg tablet 4 mg PO DAILY PRN (Reason: nausea and vomiting) Qty: 30 0RF atorvastatin 80 mg tablet 80 mg PO DAILY Qty: 90 3RF lisinopril 10 mg tablet 10 mg PO DAILY levothyroxine 88 mcg tablet 88 mcg PO DAILY albuterol sulfate 90 mcg/actuation HFA aerosol [facility]er [facility] Instructions .Route Qty: 1 0RF Rx Instructions: As directed docusate sodium 100 mg capsule 100 mg PO DAILY multivitamin Tablet 1 tab PO DAILY acetaminophen [Tylenol Extra Strength] 500 mg tablet 1,000 mg PO Q6H PRN PreserVision AREDS 4,296 mcg-226 mg-90 mg capsule 1 cap PO BID hydrocodone-acetaminophen 7.5-325 mg tablet 1.5 tab PO DAILY PRN (Reason: pain) 30 Days Qty: 40 0RF Rx Instructions: Partial Fill upon patient request. desonide 0.05 % ointment topical BID aspirin 81 mg tablet,delayed release (DR/EC) 81 mg PO DAILY nitroglycerin 0.4 mg tablet, sublingual 0.4 mg sublingual Q5M PRN Rx Instructions: do not exceed 3 doses per episode Interventions: ED Discharge Assessment Last Done: 02/10/25 17:58 Discharge Date/Time: 02/10/25 17:58 Print Language: Mauritanian
[2025-02-10 17:56] VITALS: BP 136/84; PULSE 62; RESP 18; TEMP 36.6; O2SAT 99
[2025-02-10 17:58] VITALS: BP 136/84; PULSE 62; RESP 18; TEMP 36.6; O2SAT 99
== END 2025-02-10 17:58 | disposition home or self-care (01) ==
PROVIDERS: Emergency Provider Emergency Medicine; PCP Student in an Organized Health Care Education/Training Program
DX: I82.812 Embolism and thrombosis of superficial veins of left lower extremity (principal); R60.0 Localized edema; I25.10 Atherosclerotic heart disease of native coronary artery without angina pectoris; M79.605 Pain in left leg; Z79.899 Other long term (current) drug therapy; Z87.891 Personal history of nicotine dependence
CPT/HCPCS: 93971; 99212; 99284

== ENCOUNTER → 2025-02-10 14:52 | Outpatient (BNV) | payer MEDICARE, SELFPAY | PROVIDERS: Emergency Provider Emergency Medicine; PCP Student in an Organized Health Care Education/Training Program; Visit Provider Radiology Diagnostic Radiology | DX: I82.812 Embolism and thrombosis of superficial veins of left lower extremity (principal) | CPT/HCPCS: 93971 ==

== ENCOUNTER 2025-02-21 08:54 | Outpatient (REF) | payer MEDICARE, SELFPAY ==
--- OUTSIDE RECORDS SUMMARY | 2025-02-21 09:33 | XMS_ITS | Clinical Summary ---
Author Organization [facility] ity Address [address] [place] [address] Care Team Providers Care Press Manager Name Role Phone Unavailable Primary Care [...]
--- OUTSIDE RECORDS SUMMARY | 2025-02-21 09:33 | XMS_ITS | Patient Health Record ---
Author Organization [facility] Address [address] [place] [address] Care Team Providers Care School Office Assistant Name Role Phone Haroon (RETIRED) Marcellus JACKSON Primary Care Provider Unavailable Ru Jackson Jr Unavailable [phone] Allergies Allergen (clinical drug ingredient) Drug/Non [...] Status Risk Notes Problem Colon cancer screening (910464102) Colon cancer screening (Z12.11) Active confirmed Problem Constipation (68806408) Constipation, unspecified constipation type (K59.00) Active confirmed Plan Of Treatment Future Test Test Name Order Date COLONOSCOPY 07/02/2021 Insurance Providers Payer Name Payer Address Payer Phone Subscriber Number Group Number Insured Name Patient Relationship to Insured Coverage Start Date Coverage End Date [facility] [address] [place] [phone] [id number] JIM MCGINNIS Self - patient is the insured Medical (General) History Medical History History ICD Code Hypothyroidism Hypertension Arthritis Gastroesophageal reflux disease Surgical History Surgery Date(Month/Year) hysterectomy , uterine prolapse 2008 back surgery 2012 hip replacement 2019
[2025-02-21 14:11] LABS: MANUAL DIFF FLAG NO
[2025-02-21 14:15] LABS: Hematocrit 35.2 % (37.0-47.0); Hemoglobin 11.4 g/dl (12.0-16.0); Imm Gran Abs Auto 0.03 X10*3/uL (0.00-0.03); Imm Gran Pct Auto 0.6 % (0.0-0.4); Lymphocytes Absolute Auto 1.1 X10*3/uL (1.2-4.9); Mean Corpuscular HGB Conc 32.4 g/dl (31.0-35.0); Mean Corpuscular Hemoglobin 31.1 pg (27.0-33.0); Mean Corpuscular Volume 95.9 fL (80.0-98.0); NRBC Abs Auto 0.000 X10*3/uL (0.0-0.012); NRBC Pct Auto 0.0 /100WBC (0.0-0.2); Platelet Count 298 X10*3/uL (160-400); Red Blood Count 3.67 X10*6/uL (4.20-5.50); White Blood Count 4.7 X10*3/uL (4.8-10.8)
[2025-02-21 14:43] LABS: Alanine Aminotransferase 22 U/L (0-31); Albumin Level 4.1 g/dL (3.5-5.0); Alkaline Phosphatase 60 U/L (39-117); Anion Gap 9 (12-20); Aspartate Amino Transferase 38 U/L (5-31); Blood Urea Nitrogen 15 mg/dL (9-16); Calcium 8.8 mg/dL (8.4-10.2); Carbon Dioxide 25 mmol/L (22-29); Chloride 104 mmol/L (96-108); Cholesterol 121 mg/dL (<200); Estimated Glomerular Filt Rate > 60; HDL Cholesterol 57 mg/dL (>40); Potassium 4.2 mmol/L (3.3-5.1); Sodium 134 mmol/L (135-145); Total Protein 7.5 g/dL (6.5-8.0); Triglycerides 134 mg/dL (<150)
== END 2025-02-21 08:55 | disposition home or self-care (01) ==
LOC: HO.CHCLDS 08:54
PROVIDERS: Visit Provider Student in an Organized Health Care Education/Training Program
DX: I10 Essential (primary) hypertension (principal); Z13.1 Encounter for screening for diabetes mellitus
CPT/HCPCS: 36415; 80053; 80061; 82306; 83036; 84443; 85025

== ENCOUNTER 2025-02-22 10:25 | Outpatient (AMB) | payer MEDICARE, SELFPAY ==
--- NOTE | 2025-02-22 10:26 | MHC.PC.OV ---
Vital Signs 02/22/25 10:27 Height 5 ft 0.39 in Weight 139 lb BMI 26.8 BP 118/80 Blood Pressure Location Lt brachial Position Sitting Respiration 18 Pulse 68 Pulse Source Pulse Oximeter Temp 97.8 F Temp Source Temporal Artery Scan Pulse Oximetry (%) 98 Oxygen Delivery Method Room Air Intake Visit Reasons: 6 week f/u Accompanied by: Self / Same As Patient Allergies azithromycin Adverse Reaction (Severe, Verified 02/22/25 10:28) stomach pain Medication List - Last Reconciled 02/22/25 by Darwin Buchanan MD acetaminophen (Tylenol Extra Strength) 1,000 mg PO Q6H PRN albuterol sulfate 90 mcg/actuation inhalation aspirin 81 mg PO DAILY atorvastatin 80 mg PO DAILY clopidogrel (Plavix) 75 mg PO DAILY desonide 0.05% topical BID docusate sodium 100 mg PO DAILY Donut pillow As directed hydrocodone-acetaminophen 7.5-325 mg 1.5 tabs PO DAILY PRN 30 days ketorolac 0.5% drps ophthalmic (eye) levothyroxine 88 mcg PO DAILY lisinopril 10 mg PO DAILY multivitamin 1 tab PO DAILY nitroglycerin 0.4 mg sublingual Q5M PRN ondansetron HCl 4 mg PO DAILY PRN vitamins A,C,N-tvjo-epjobg 4,296 mcg-226 mg-90 mg (PreserVision AREDS) 1 cap PO BID Tobacco use date assessed: 01/11/25 Dental Screening Dental Screen Date: 01/11/25 HPI HPI Comments History of Present Illness Details The patient is a 74-year-old female presenting for follow-up after a recent hospitalization for left leg pain and swelling. During the hospital visit, she was diagnosed with a small, superficial blood clot in her leg. Since the hospitalization, her left leg pain has improved, and the swelling has gone down with the use of compression stockings and leg elevation. The area now appears like a bruise. The patient reports a history of varicose veins and has always had trouble with her left leg, which has also had a hip replacement. 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 The patient has a medical history significant for hyperlipidemia, managed with atorvastatin 80 mg, and coronary artery disease with a cardiac stent, for which she takes aspirin 81 mg and Plavix. She also has hypothyroidism treated with levothyroxine 88 mcg and hypertension managed with lisinopril 10 mg. She reports taking all medications as prescribed. She obtains Lincoln 7.5 mg from pain management for pain and takes Zofran as needed for associated nausea. Recent lab work from yesterday showed a stable hemoglobin, normal electrolytes, and good kidney function. Her HbA1c was 5.9%, indicating prediabetes, and her AST was mildly elevated at 38, which is stable compared to a prior level of 36. Her thyroid level is stable at 1.06, and her cholesterol panel was noted to be excellent with an LDL of 38 mg/dL and HDL of 57 mg/dL. The patient also reports a recent eye exam where she was diagnosed with cataracts that require removal. She experiences seeing halos and fireworks at night, which prevents her from driving after dark. Medical History: - Superficial thrombophlebitis of the left leg - Varicose veins - Hyperlipidemia - Coronary artery disease - Hypothyroidism - Hypertension - Prediabetes - Cataracts - Chronic pain Surgical History: - Left hip replacement - Cardiac stent placement Medications: - Atorvastatin 80 mg for high cholesterol - Aspirin 81 mg for heart disease - Plavix for cardiac stent - Lincoln 7.5 mg from pain management - Levothyroxine 88 mcg for hypothyroidism - Lisinopril 10 mg for blood pressure - Nitroglycerin as needed - Zofran as needed for nausea Family History: No family history was discussed. Diagnostic Results: - Labs (from the of this year): - Hemoglobin: Stable - Electrolytes: Normal - Kidney function: Good - A1c: 5.9% - AST: 38 U/L - TSH: 1.06 - Total Cholesterol: 121 mg/dL - LDL Cholesterol: 38 mg/dL - HDL Cholesterol: 57 mg/dL - Tests and Diagnostics: - Leg Ultrasound (recent): Showed a small, superficial blood clot. - Eye Exam (yesterday): Revealed cataracts requiring removal. Social History: - Employment: The patient is retired and has not worked in 13 years. 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 - Functional Status: The patient drives but avoids driving at night due to seeing halos and fireworks from her cataracts. [facility] Medical History (Updated 02/22/25 @ 10:58 by Darwin Buchanan MD) Cataracts, bilateral Superficial thrombophlebitis of left leg Osteopenia Essential hypertension Nicotine dependence, cigarettes, uncomplicated Varicose vein of leg Hyperlipidemia Pulmonary nodule Chronic cough Chronic bronchitis Arthritis GERD (gastroesophageal reflux disease) Lumbar radiculopathy, chronic Hypothyroidism Failed back syndrome, lumbar Surgical History (Updated 02/22/25 @ 10:58 by Darwin Buchanan MD) History of heart artery stent History of cardiac cath Hx of bladder repair surgery History of lumbar surgery History of hysterectomy History of total left hip replacement Family History Mother Heart attack Father Pacemaker Leukemia Social History Household Members: Spouse Housing: House Alcohol intake: never Patient Tobacco Use Status: Former Tobacco user Tobacco use type: Cigarette Cigarettes Per Day: 4 Years Smoked: 40 +/- e-Cigarette/Vaping Use: Never Used Second Hand Smoke Exposure: No Substance Use Type: Marijuana service: No Current occupational status: retired Questionnaire PHQ-9 Over the last 2 weeks, how often have you been bothered by any of the following problems? 1. Little interest or pleasure in doing things: not at all 2. Feeling down, depressed, or hopeless: not at all 3. Trouble falling or staying asleep, or sleeping too much: not at all 4. Feeling tired or having little energy: not at all 5. Poor appetite or overeating: not at all 6. Feeling bad about yourself - or that you are a failure or have let yourself or your family down: not at all 7. Trouble concentrating on things, such as reading the newspaper or watching television: not at all 8. Moving or speaking so slowly that other people could have noticed. Or the opposite - being so fidgety or restless that you have been moving around a lot more than usual: not at all 9. Thoughts that you would be better off or of hurting yourself in some way: not at all Total score: 0 Depression Screening Interpretation: Negative Depression Screening Done: Yes Source: Developed by Drs. Hola Kebede, Piedad Hurtado, Darell Alford and colleagues, with an educational erica from [employer]. Thrive Questionnaire Date Thrive assessed: 02/22/25 I am a: Patient What is your living situation today?: I have a steady place to live Within the past 12 months, did the food you bought not last and you didn't have the money to get more?: Never true Within the past 12 months, did you worry whether your food would run out before you got money to buy more?: Never true Do you have trouble paying for medicines?: No Do you have trouble getting transportation to medical appointments?: No Do you have trouble paying your heating and electricity bill?: No Do you have trouble taking care of your child, family member or friend?: No Do you have trouble with day-to-day activities such as bathing, preparing meals, shopping, managing finances, etc.?: No Are you currently unemployed and looking for a job?: No Are you interested in more education?: No THRIVE Score: 0 SERENA-7 AMB Questionnaire SERENA-7 Date SERENA - 7 assessed: 02/22/25 Feeling nervous, anxious, or on edge: 0 = Not at all Not being able to stop or control worryin = Not at all Worrying too much about different things: 0 = Not at all Trouble relaxin = Not at all Being so restless that it is hard to sit still: 0 = Not at all Becoming easily annoyed or irritable: 0 = Not at all Feeling afraid as if something awful might happen: 0 = Not at all Total SERENA-7 score (0-4 normal; 5-9 mild; 10-14 moderate; 15-21 severe): 0 Source: Developed by Drs. Hola Kebede, Piedad Hurtado, Darell Alford and colleagues, with an educational erica from [employer]. Review of Systems Narrative - Cardiovascular: Denies chest pain. - Respiratory: Denies shortness of breath. - Extremities: Reports improvement in left leg pain and swelling. - Gastrointestinal: Reports normal bowel and bladder function. - Neurological: Denies headaches or vision changes not attributed to cataracts. - Eyes: Reports seeing halos and fireworks at night. All systems reviewed & are unremarkable except as reviewed in HPI and above Physical exam (Primary Care) Vital Signs: Last Vital Signs Temp 97.8 F 02/22/25 10:27 Pulse 68 02/22/25 10:27 Resp 18 02/22/25 10:27 BP 118/80 02/22/25 10:27 Pulse Ox 98 02/22/25 10:27 Oxygen Delivery Method Room Air 02/22/25 10:27 BMI result Body Mass Index 26.8 Tobacco/Smoking Status: Tobacco use Status Tobacco use date assessed 01/11/25 02/22/25 10:32 Patient Tobacco Use Status Former Tobacco user 02/22/25 10:32 Tobacco use type Cigarette 02/22/25 10:32 e-Cigarette/Vaping Use Never Used 02/22/25 10:32 Depression Screening Interpretation: Negative Thrive Assessment: Date of Thrive Assessment Date Thrive assessed 01/11/25 02/22/25 10:32 Narrative General: +Alert and oriented, Well nourished, No acute distress. Eye: Pupils are equal, round and reactive to light, Intact accommodation, Extraocular movements are intact, Normal conjunctiva, Vision unchanged. Cataracts noted, surgery planned after holidays. HENT: Normocephalic, Atraumatic, Tympanic membranes are clear, Normal hearing, Oral mucosa is moist, No pharyngeal erythema, Ear canals patent. Respiratory: Lungs CTA bilaterally, No wheeze, Respirations are non-labored. Cardiovascular: Regular rate, Regular rhythm, S1 auscultated, S2 auscultated, No murmur, Good pulses equal in all extremities, Normal peripheral perfusion, No edema. Gastrointestinal: Soft, Non-tender, Non-distended, Normal bowel sounds, No organomegaly. Musculoskeletal: Normal range of motion, Normal strength, No tenderness, No swelling, No deformity, Normal gait. Noted history of hip replacement on the left leg. Integumentary: Warm, Dry, [place], Intact. Superficial blood clot noted, swelling has decreased, bruise present. Neurologic: Alert, Oriented, Normal sensory, Normal motor function, No focal defects, Cranial Nerves II-XII are grossly intact, Normal deep tendon reflexes. Psychiatric: Cooperative, Appropriate mood & affect, Normal judgment. Coding Level of Care Code Est Pt Level 4 (28799) Complex EM visit Add On G2211 Diagnoses Superficial thrombophlebitis of left leg I80.02 Varicose veins of both lower extremities with pain I83.813 Varicose vein complication: pain Laterality: bilateral Other hyperlipidemia E78.49 Hyperlipidemia type: other hyperlipidemia Hypothyroidism, unspecified type E03.9 Hypothyroidism type: unspecified Stented coronary artery Z95.5 Essential hypertension I10 Cataract of both eyes, unspecified cataract type H26.9 Cataract type: unspecified Chronic bilateral low back pain without sciatica M54.50; G89.29 Chronicity: chronic Back pain laterality: bilateral Sciatica presence: without sciatica Assessment & Plan Assessment & Plan (1) Superficial thrombophlebitis of left leg: Comment: - The patient is recovering well from a recent superficial clot with conservative measures including leg elevation and compression stockings. - Will continue conservative measures in the interim. Code(s): I80.02 - Phlebitis and thrombophlebitis of superficial vessels of left lower extremity Category: Medical (2) Varicose vein of leg: Comment: - A referral has been placed to Vascular Surgery to evaluate for venous procedures, such as ablation, to manage the underlying varicose veins and prevent recurrence. Code(s): I83.90 - Asymptomatic varicose veins of unspecified lower extremity Category: Medical Qualifiers: Varicose vein complication: pain Laterality: bilateral Qualified Code(s): I83.813 - Varicose veins of bilateral lower extremities with pain (3) Hyperlipidemia: Comment: - Exceptionally well-controlled on atorvastatin 80 mg, with an LDL of 38 mg/dL. - A dose reduction to 40 mg was discussed, but it was decided to defer this change to her insurance claims specialist, whom she will see in March. Code(s): E78.5 - Hyperlipidemia, unspecified Category: Medical Qualifiers: Hyperlipidemia type: other hyperlipidemia Qualified Code(s): E78.49 - Other hyperlipidemia (4) Hypothyroidism: Comment: - Stable and well-controlled on levothyroxine 88 mcg, with a TSH of 1.06. - Will continue the current dosage and plan to recheck TSH in 6 months. - Medication refills will be sent as needed. Code(s): E03.9 - Hypothyroidism, unspecified Category: Medical Qualifiers: Hypothyroidism type: unspecified Qualified Code(s): E03.9 - Hypothyroidism, unspecified (5) Stented coronary artery: Comment: - Stable. - The patient is adherent to aspirin and Plavix. Code(s): Z95.5 - Presence of coronary angioplasty implant and graft Category: Surgical (6) Essential hypertension: Comment: - Stable. - Will continue lisinopril 10 mg. Code(s): I10 - Essential (primary) hypertension Category: Medical (7) Cataracts, bilateral: Comment: - The patient was recently diagnosed after an eye exam and reports symptoms of night-vision difficulty. - She plans to have surgery after the holidays. Code(s): H26.9 - Unspecified cataract Category: Medical Qualifiers: Cataract type: unspecified Qualified Code(s): H26.9 - Unspecified cataract (8) Low back pain: Comment: - Managed by an outside pain management physician with Lincoln 7.5 mg. - The patient uses it rarely and takes Zofran for occasional nausea. Code(s): M54.50 - Low back pain, unspecified Category: Medical Qualifiers: Chronicity: chronic Back pain laterality: bilateral Sciatica presence: without sciatica Qualified Code(s): M54.50 - Low back pain, unspecified; G89.29 - Other chronic pain Plan: Health Maintenance: - Dietary counseling: Advised to reduce intake of sweets and sugary foods for prediabetes management. - Vascular health: Recommended continued use of compression stockings and leg elevation for venous insufficiency. - Screening/Specialty Care: Referred to Vascular Surgery for varicose vein management and advised to proceed with cataract surgery with ophthalmology. - Lab Monitoring: Plan to recheck thyroid labs in six months. Patient was informed and verbally consented to the use of an ambient scribe for clinic note documentation during this visit. Plan I had a detailed discussion with the patient regarding her recent hospitalization for a superficial blood clot. I explained that this type of clot does not require blood thinners but benefits from conservative measures like leg elevation and compression stockings, which she is already doing. I informed her that I have placed a referral to a vascular surgeon to discuss definitive treatment for her varicose veins to prevent future issues. I briefly described potential in-office procedures such as sclerotherapy or ablation. We reviewed her recent lab results, highlighting the new finding of prediabetes based on her A1c of 5.9%, and I advised her to reduce her sugar intake. I also praised her excellent cholesterol levels (LDL 38) and discussed the possibility of reducing her atorvastatin dose, but we agreed she should discuss this with her insurance claims specialist at her upcoming appointment in March. I reassured her that her thyroid and other chronic conditions are well-managed. We confirmed her medication list and adherence, and I sent a one-year refill for her Plavix. We discussed her plan for cataract surgery, and I recommended a follow-up appointment in our clinic in four months. The patient was agreeable to the plan. Medications: New levothyroxine 88 mcg PO DAILY 90 tabs 3RF Refilled ondansetron HCl 4 mg PO DAILY PRN 30 tabs 3RF nausea and vomiting Patient Instructions: - Continue to wear your compression stockings and elevate your legs by using your recliner. - Use warm or cold compresses on your leg to help with any remaining inflammation. - A referral has been made to a vascular specialist for your leg veins; their office will contact you for an appointment. - Try to cut back on sweets and sugary foods, as your blood sugar is in the prediabetes range. - Continue taking all of your medications as prescribed, especially the Plavix for your heart stent. - Do not change the dose of your cholesterol medicine (atorvastatin) until you have seen your heart doctor in March. - Proceed with your planned cataract surgery after the holidays to help improve your vision at night. - Please schedule a follow-up appointment here in four months.
[2025-02-22 10:27] VITALS: BP 118/80; PULSE 68; RESP 18; TEMP 36.6; O2SAT 98; BMI 26.8
--- OUTSIDE RECORDS SUMMARY | 2025-02-22 12:12 | XMS_ITS | Patient Health Record ---
Author Organization [facility] Address [address] [place] [address] Care Team Providers Care Quarryman Name Role Phone Haroon (RETIRED) Marcellus JACKSON Primary Care Provider Unavailable Ru Jackson Jr Unavailable [phone] 2 Allergies Allergen (clinical drug ingredient) Drug/Non [...] Status Risk Notes Problem Colon cancer screening (575321746) Colon cancer screening (Z12.11) Active confirmed Problem Constipation (72703135) Constipation, unspecified constipation type (K59.00) Active confirmed Plan Of Treatment Future Test Test Name Order Date COLONOSCOPY 07/02/2021 Insurance Providers Payer Name Payer Address Payer Phone Subscriber Number Group Number Insured Name Patient Relationship to Insured Coverage Start Date Coverage End Date [facility] [address] [place] [phone] [id number] JIM MCGINNIS Self - patient is the insured Medical (General) History Medical History History ICD Code Hypothyroidism Hypertension Arthritis Gastroesophageal reflux disease Surgical History Surgery Date(Month/Year) hysterectomy , uterine prolapse 2008 back surgery 2012 hip replacement 2019
--- OUTSIDE RECORDS SUMMARY | 2025-02-22 12:12 | XMS_ITS | Clinical Summary ---
Author Organization [facility] ity Address [address] [place] [address] Care Team Providers Care Sas Sql Developer Name Role Phone Unavailable Primary Care [...]
== END 2025-02-22 10:50 | disposition home or self-care (01) ==
LOC: HO.HMCHD 10:26
PROVIDERS: PCP Student in an Organized Health Care Education/Training Program; Visit Provider Student in an Organized Health Care Education/Training Program
DX: I80.02 Phlebitis and thrombophlebitis of superficial vessels of left lower extremity (principal); I83.813 Varicose veins of bilateral lower extremities with pain; E78.49 Other hyperlipidemia; E03.9 Hypothyroidism, unspecified; Z95.5 Presence of coronary angioplasty implant and graft; I10 Essential (primary) hypertension; H26.9 Unspecified cataract; M54.50 Low back pain, unspecified; G89.29 Other chronic pain

== ENCOUNTER → 2025-02-22 10:25 | Outpatient (BNVA) | payer MEDICARE, SELFPAY | PROVIDERS: PCP Student in an Organized Health Care Education/Training Program; Visit Provider Student in an Organized Health Care Education/Training Program | DX: I80.02 Phlebitis and thrombophlebitis of superficial vessels of left lower extremity (principal); I83.813 Varicose veins of bilateral lower extremities with pain | CPT/HCPCS: 99212 ==

== ENCOUNTER 2025-02-25 14:19 | Outpatient (AMB) | payer MEDICARE, SELFPAY ==
[2025-02-25 14:21] VITALS: BP 118/60; PULSE 67; O2SAT 97; BMI 27.1
--- NOTE | 2025-02-25 14:21 | A.OFFVIS_ITS ---
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 She quit back in January when she developed a heart attack. She has been having increasing cough chest congestion and episodes of bronchitis. Because of the frequent episodes she was referred to Pulmonary. Apparently the patient has had multiple x-rays back in March because of worsening cough. Ultimately in April she did undergo a CT scan of the chest demonstrating a pulmonary nodule measuring about 4 mm in size. I did personally reviewed. No significant other findings except for some emphysema and some atherosclerosis. The patient also had pulmonary function studies back in 2020 demonstrating no obstructive ventilatory defect that time. She is participating in the cardiac rehabilitation at this time. Will have her get PFTs again in the near future and then likely pulmonary rehabilitation will be also helpful for her. For now she can continue her rescue inhaler as needed and will provide her with an Acapella valve for her chronic bronchitis. 02/25/2025 the patient is here for pulmonary follow-up visit. Overall the patient has been doing well. She does have a cough. The cough is nonproductive in nature. I do believe is likely age-related. The patient has been on lisinopril for some time. She feels like her blood pressure has been well controlled with the medication though. I did review her pulmonary function studies. She does have evidence of small airways disease. Likely component of asthma. She has a rescue inhaler although she has not used it. She can also try using the inhaler as needed for her cough to see if she gets relief. In the meantime she does have a postnasal drip [facility] Medical History (Updated 02/27/25 @ 20:57 by Bimal Ivan MD) Cataracts, bilateral Superficial thrombophlebitis of left leg Osteopenia Essential hypertension Nicotine dependence, cigarettes, uncomplicated Varicose vein of leg Hyperlipidemia Pulmonary nodule Chronic cough Chronic bronchitis Arthritis GERD (gastroesophageal reflux disease) Lumbar radiculopathy, chronic Hypothyroidism Failed back syndrome, lumbar Surgical History (Updated 02/22/25 @ 10:58 by Darwin Buchanan MD) History of heart artery stent History of cardiac cath Hx of bladder repair surgery History of lumbar surgery History of hysterectomy History of total left hip replacement Family History Mother Heart attack Father Pacemaker Leukemia Social History Household Members: Spouse Housing: House Alcohol intake: never Patient Tobacco Use Status: Former Tobacco user Tobacco use type: Cigarette Cigarettes Per Day: 4 Years Smoked: 40 +/- e-Cigarette/Vaping Use: Never Used Second Hand Smoke Exposure: No Substance Use Type: Marijuana service: No Current occupational status: retired Review of Systems Const Denies fatigue and Denies fever(s) ENT Denies dizziness Card Denies chest pain and Denies dyspnea on exertion Resp Reports chest congestion, Reports cough and Denies dyspnea on exertion GI Denies hematochezia Musc Denies abnormal gait and Denies muscle weakness Neuro Denies abnormal gait and Denies dizziness Endo Denies fatigue Physical Exam Vital Signs: Last Vital Signs Pulse 67 02/25/25 14:21 BP 118/60 02/25/25 14:21 Pulse Ox 97 02/25/25 14:21 Oxygen Delivery Method Room Air 02/25/25 14:21 BMI result Body Mass Index 27.1 Const General: comfortable HEENT Head: Yes normocephalic Neck Neck: Yes supple Chest Chest palpation & inspection: normal inspection of the chest Resp Effort & Inspection: normal respiratory effort Auscultation: no rales, no rhonchi, no wheezes and diminished lung sounds Cardio Heart sounds: S1 normal heart sound present and S2 normal heart sound present GI Palpation (GI): Soft to palpation Skin General skin exam: no rashes or lesions noted Extrem General: Yes no clubbing, cyanosis or edema Assessment & Plan Assessment & Plan (1) Chronic bronchitis: Code(s): J42 - Unspecified chronic bronchitis Category: Medical Qualifiers: Chronic bronchitis type: mixed simple and mucopurulent Qualified Code(s): J41.8 - Mixed simple and mucopurulent chronic bronchitis (2) Chronic cough: Code(s): R05.3 - Chronic cough Category: Medical (3) Pulmonary nodule: Comment: - Last scan in April of 2023 demonstrated a 4mm LLL Code(s): R91.1 - Solitary pulmonary nodule Category: Medical Plan [place] as needed consider maintenace inhaler Consider MARCO to ARB Start Singulair repeat CT chest 04/2025 F/U 3-4 months Medications: New montelukast 10 mg PO DAILY 30 tabs 11RF 30 days J45.909 - Unspecified asthma, uncomplicated Coding Level of Care Code Est Pt Level 4 (50802) Complex EM visit Add On G2211 Diagnoses Mixed simple and mucopurulent chronic bronchitis J41.8 Chronic bronchitis type: mixed simple and mucopurulent Chronic cough R05.3 Pulmonary nodule R91.1 Time Spent (min) 16
--- OUTSIDE RECORDS SUMMARY | 2025-02-25 16:04 | XMS_ITS | Clinical Summary ---
Author Organization [facility] ity Address [address] [place] [address] Care Team Providers Care Community Health Representative Name Role Phone Unavailable Primary Care Provider [...]
--- OUTSIDE RECORDS SUMMARY | 2025-02-25 16:04 | XMS_ITS | Patient Health Record ---
Author Organization [facility] Address [address] [place] [address] Care Team Providers Care Player Services Representative Name Role Phone Haroon (RETIRED) Marcellus JACKSON [...] Status Risk Notes Problem Colon cancer screening ([id number]) Colon cancer screening (Z12.11) Active confirmed Problem Constipation (26567083) Constipation, unspecified constipation type (K59.00) Active confirmed Plan Of Treatment Future Test Test Name Order Date COLONOSCOPY 07/02/2021 Insurance Providers Payer Name Payer Address Payer Phone Subscriber Number Group Number Insured Name Patient Relationship to Insured Coverage Start Date Coverage End Date [facility] [address] [place] [phone] [id number] JIM MCGINNIS Self - patient is the insured Medical (General) History Medical History History ICD Code Hypothyroidism Hypertension Arthritis Gastroesophageal reflux disease Surgical History Surgery Date(Month/Year) hysterectomy , uterine prolapse 2008 back surgery 2012 hip replacement 2019
== END 2025-02-25 14:41 | disposition home or self-care (01) ==
LOC: HO.HPS 14:20
PROVIDERS: PCP Student in an Organized Health Care Education/Training Program; Visit Provider Hospitalist
DX: J41.8 Mixed simple and mucopurulent chronic bronchitis (principal); R05.3 Chronic cough; R91.1 Solitary pulmonary nodule
CPT/HCPCS: 99214; G2211

== ENCOUNTER → 2025-02-25 14:19 | Outpatient (BNVA) | payer MEDICARE, SELFPAY | PROVIDERS: PCP Student in an Organized Health Care Education/Training Program; Visit Provider Hospitalist | DX: J41.8 Mixed simple and mucopurulent chronic bronchitis (principal); R05.3 Chronic cough; R91.1 Solitary pulmonary nodule; Z87.891 Personal history of nicotine dependence | CPT/HCPCS: 99212 ==

== ENCOUNTER 2025-03-03 10:18 | Outpatient (AMB) | payer MEDICARE, SELFPAY ==
--- NOTE | 2025-03-03 10:19 | A.OFFVIS_ITS ---
Vital Signs 03/03/25 10:25 Height 5 ft Weight 139 lb 6 oz BMI 27.2 BP 134/60 Blood Pressure Location Lt brachial Position Sitting Pulse 65 Pulse Source Pulse Oximeter Pulse Oximetry (%) 99 Oxygen Delivery Method Room Air Intake Visit Reasons: Pill Count Intake Note: Katlyn comes in today for a pill count to hydrocodone-acetaminophen, patient should have 10 tablets and presents with 18 tablets which she last took yesterday evening 03/02/25. 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 Patient is supposed to have #10 pills, in her possession has #18 pills. This demonstrates a responsible attitude in regards to the medication regimen. Patient reports adequate analgesia on her current regimen on as needed basis with no noted significant side effects. The pain is rated at 3/10 and affects both the back, neck, left hip and leg. Patient reports current medication regime provides her adequate analgesia without side effects. She does occasionally take stool softener as needed for constipation. She reports a recent history of superficial thrombophlebitis, which was identified during a visit to the emergency room last month. The condition was managed with compression stockings, warm compresses and has since improved, although mild tenderness persists. The patient is currently on anticoagulation therapy with Plavix, which her primary care physician considered reducing, but she opted to consult her middle school counselor first. She plans to see a Vascular specialist in April for further evaluation. Denies any fever, cough, chills, abdominal pain, dyspnea, chest pain, shortness of breaths, weight loss, constipation, nausea, sedation, dizziness, or urinary retention. [facility] Medical History Cataracts, bilateral Superficial thrombophlebitis of left leg Osteopenia Essential hypertension Nicotine dependence, cigarettes, uncomplicated Varicose vein of leg Hyperlipidemia Pulmonary nodule Chronic cough Chronic bronchitis Arthritis GERD (gastroesophageal reflux disease) Lumbar radiculopathy, chronic Hypothyroidism Failed back syndrome, lumbar Surgical History History of heart artery stent History of cardiac cath Hx of bladder repair surgery History of lumbar surgery History of hysterectomy History of total left hip replacement Family History Mother Heart attack Father Pacemaker Leukemia Social History Household Members: Spouse Housing: House Alcohol intake: never Patient Tobacco Use Status: Former Tobacco user Tobacco use type: Cigarette Cigarettes Per Day: 4 Years Smoked: 40 +/- e-Cigarette/Vaping Use: Never Used Second Hand Smoke Exposure: No Substance Use Type: Marijuana service: No Current occupational status: retired Review of Systems Const All systems reviewed & are unremarkable except as noted in HPI and below Physical Exam General: Appears afebrile. Alert and oriented. Mood and affect appropriate. Follows and participates in conversation appropriately. Respiratory effort is unlabored. No cough. Able to transition from sit to stand unassisted. Ambulates with normal heel strike and toe off bilaterally. Extrem General: Yes capillary refill normal, Yes no clubbing, cyanosis or edema and Yes no calf tenderness Psych Appearance: grossly normal and well kempt Mental Status: mental status grossly normal Speech and movement: Normal speech and movement present and Clear speech present Affect: normal affect Attitude: cooperative Thought process: Normal thought process present Thought content: Normal thought content present, suicidality (none), no hallucinations and Depressive thoughts present Insight: Good insight present (Psych) Judgement: Good judgement present (Psych) Results Reviewed Results Reviewed: MR LUMBAR SPINE WITHOUT CONTRAST 12/03/23 CLINICAL INFORMATION: Spondylolisthesis COMPARISON: Lumbar spine radiographs June 13, 2023. Images from prior lumbar spine MRI from June 13, 2012 are not available in PACS at time of dictation TECHNIQUE: MRI of the lumbar spine was obtained using routine sequences without contrast. FINDINGS: Slight lumbar levocurvature. Preserved lumbar lordosis. Grade 1 retrolisthesis at L1-L2 3 and grade 1 anterolisthesis at L4-L5 and L5-S1. Vertebral body heights are maintained. There is no suspicious osseous lesion. Diffusely coarsened appearance of the bony trabeculae throughout the spinal column and imaged pelvis can be correlated clinically for osteopenia. Diffuse desiccation with moderate to severe disc height loss posteriorly at L2-L3, to a lesser extent at L1-L2, and otherwise mild multilevel disc height loss. Marginally edematous Schmorl's node along the left aspect of the posterior L2 inferior endplate. Trace type I endplate changes posteriorly at L1-L2. Multilevel anterior osteophytic spurring is seen. Stress related marrow edema within the bilateral L5 pedicles. Level by level detail as follows: L1-L2: Disc bulge with superiorly migrated right subarticular/foraminal disc extrusion and moderate bilateral facet arthrosis with ligamentum flavum thickening. Moderate to severe spinal canal stenosis and asymmetric right subarticular zone narrowing with compression along the traversing right L2 nerve root. Severe right neural foraminal stenosis with compression of the exiting right L1 nerve root and mild left neural foraminal stenosis. L2-L3: Post laminectomy changes. Retrolisthesis with disc osteophyte complex. Moderate right and mild left facet arthrosis. The spinal canal is decompressed. Moderate to severe left and moderate right neural foraminal stenosis with mass effect along the exiting left greater than right L2 nerve roots. L3-L4: Disc bulge eccentric to the right with ventral annular fissure and moderate facet arthrosis with ligamentum flavum thickening. Mild spinal canal and mild bilateral neural foraminal narrowing. L4-L5: Advanced bilateral facet arthrosis with ligament flavum thickening, diastatic right facet joint effusion, and 1.0 cm craniocaudal dorsal epidural cyst presumably reflecting interspinous bursitis. Hypertrophied L4 and L5 spinous processes with obliterated interspinous interval and fluid distended interspinous bursa projecting into the adjacent paraspinal soft tissues. Unroofing of posterior disc material. 7 mm synovial cyst along the ventrolateral margin of the left facet joint projecting into the posterior left neural foramen. Moderate spinal canal and mild left greater than right neural foraminal stenosis. L5-S1: Advanced bilateral facet arthrosis with unroofing of posterior disc material. No spinal canal stenosis. Mild left without right neural foraminal stenosis. The conus medullaris terminates at the level of L1. The distal spinal cord is normal in appearance. No epidural fluid collection, hematoma, or mass. Moderate to severe fatty atrophy of the lower paraspinal musculature. Limited evaluation of the intra-abdominal structures without significant abnormalities. The abdominal aorta is of normal contour and caliber. Susceptibility artifact from left hip arthroplasty with asymmetric atrophy of the short left-sided external rotator and left psoas/iliopsoas muscles. Degenerative osteophytosis bridging the ventral sacroiliac joints. IMPRESSION: 1. At L1-L2, there is a superiorly migrated right subarticular/foraminal disc extrusion contributing to moderate to severe spinal canal stenosis and asymmetric right lateral recess narrowing with compression along the traversing right L2 nerve root. Severe right neural foraminal stenosis with compression of the exiting right L1 nerve root. 2. At L2-L3, there are post laminectomy changes. Moderate to severe left and moderate right neural foraminal stenosis with mass effect along the exiting left greater than right L2 nerve roots. 3. At L4-L5, there is advanced bilateral facet arthrosis with a diastatic right facet joint effusion which may reflect hypermobility and can be correlated with flexion and extension views. 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 7 mm synovial cyst along the ventrolateral margin of the left facet joint projecting into the posterior left neural foramen. Moderate spinal canal stenosis and mild left greater than right neural foraminal stenosis. 4. Diffusely coarsened appearance of the bony trabeculae throughout the spinal column and imaged pelvis can be correlated clinically for osteopenia. XR HIP 1 VIEW LEFT WITH PELVIS 09/06/24 HISTORY: Fall COMPARISON: Comparison is made with the prior examination dated 06/11/2021. FINDINGS: A single AP view of the pelvis and 2 views of the left hip are submitted. The patient is again noted to be status post left total hip arthroplasty. The orthopedic elements are in anatomic alignment. There is no radiographic evidence of loosening. There is no fracture or dislocation. There are vascular calcifications. IMPRESSION: Status post left total hip arthroplasty. XR KNEE 3 VIEWS LEFT, XR TIBIA FIBULA 2 VIEWS LEFT 09/06/24 HISTORY: Fall COMPARISON: There are no prior studies available for comparison. FINDINGS: Four views of the left knee and AP and lateral views of the left tibia and fibula are submitted. The bones are osteopenic. There is no fracture or dislocation. The joint spaces are preserved. There are vascular calcifications. IMPRESSION: Osteopenia. No evidence of fracture of the left knee or tibia and fibula. XR FINGERS RIGHT 09/06/24 HISTORY: 3rd digit pain COMPARISON: There are no prior studies available for comparison. FINDINGS: Three views of the right middle finger are submitted. The bones are osteopenic. There is no fracture or dislocation. 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 The soft tissues are unremarkable. IMPRESSION: Osteopenia. 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 [facility] reviewed. Script for hydrocodone-acetaminophen 7.5-325 mg?#40/30 days sent with an advanced date of 03/14/25. Patient is aware of monitoring for side effects. Reviewed with the patient the risks associated with benzodiazepine and opioid use. All questions and concerns were answered and the patient is in agreement with the plan. Follow up in 4-5 weeks for pill count and sooner if needed. Medications: Refilled hydrocodone-acetaminophen 7.5-325 mg Partial Fill upon patient request. 1.5 tabs PO DAILY PRN 40 tabs 0RF pain 30 days M53.3 - Sacrococcygeal disorders, not elsewhere classified, M54.50 - Low back pain, unspecified, M96.1 - Postlaminectomy syndrome, not elsewhere classified, Z79.891 - [facility] (current) use of opiate analgesic Coding Level of Care Code Est Pt Level 4 (91456) Complex EM visit Add On G2211 Diagnoses Lumbar radiculopathy M54.16 Lumbar spinal stenosis M48.061 Degeneration, intervertebral disc, cervical M50.30 Opioid contract exists Z79.891 Failed back syndrome, lumbar M96.1
[2025-03-03 10:25] VITALS: BP 134/60; PULSE 65; O2SAT 99; BMI 27.2
--- OUTSIDE RECORDS SUMMARY | 2025-03-03 12:32 | XMS_ITS | Clinical Summary ---
Author Organization [facility] ity Address [address] [place] [address] Care Team Providers Care Landing Scaler Name Role Phone Unavailable Primary Care Provider [...] 75+ series) 2024 COVID-19 Vaccine ( - 2024-2 6 season) 2024 Influenza Vaccine (#1) 2024 HIB [...]
--- OUTSIDE RECORDS SUMMARY | 2025-03-03 12:32 | XMS_ITS | Patient Health Record ---
Author Organization [facility] Address [address] [place] [address] Care Team Providers Care Hat Forming Machine Operator Name Role Phone Haroon (RETIRED) Marcellus [...] Status Risk Notes Problem Colon cancer screening ([id number]) Colon cancer screening (Z12.11) Active confirmed Problem Constipation (70314615) Constipation, unspecified constipation type (K59.00) Active confirmed Plan Of Treatment Future Test Test Name Order Date COLONOSCOPY 07/02/2021 Insurance Providers Payer Name Payer Address Payer Phone Subscriber Number Group Number Insured Name Patient Relationship to Insured Coverage Start Date Coverage End Date [facility] [address] [place] [phone] [id number] JIM MCGINNIS Self - patient is the insured Medical (General) History Medical History History ICD Code Hypothyroidism Hypertension Arthritis Gastroesophageal reflux disease Surgical History Surgery Date(Month/Year) hysterectomy , uterine prolapse 2008 back surgery 2012 hip replacement 2019
== END 2025-03-03 10:36 | disposition home or self-care (01) ==
PROVIDERS: PCP Family Medicine; Visit Provider Nurse Practitioner Family
DX: M54.16 Radiculopathy, lumbar region (principal); M48.061 Spinal stenosis, lumbar region without neurogenic claudication; M50.30 Other cervical disc degeneration, unspecified cervical region; Z79.891 Long term (current) use of opiate analgesic; M96.1 Postlaminectomy syndrome, not elsewhere classified
CPT/HCPCS: 99214; G2211

== ENCOUNTER → 2025-03-03 10:18 | Outpatient (BNVA) | payer MEDICARE, SELFPAY | PROVIDERS: PCP Family Medicine; Visit Provider Nurse Practitioner Family | DX: M54.16 Radiculopathy, lumbar region (principal); M48.061 Spinal stenosis, lumbar region without neurogenic claudication; M50.30 Other cervical disc degeneration, unspecified cervical region; M96.1 Postlaminectomy syndrome, not elsewhere classified; Z51.81 Encounter for therapeutic drug level monitoring; Z79.891 Long term (current) use of opiate analgesic | CPT/HCPCS: 99212 ==

== ENCOUNTER 2025-04-07 10:34 | Outpatient (AMB) | payer MEDICARE, SELFPAY ==
--- NOTE | 2025-04-07 10:36 | MHC.OFFVIS ---
Vital Signs 04/07/25 10:47 Height 5 ft Weight 139 lb 4 oz BMI 27.2 BP 125/77 Blood Pressure Location Lt brachial Position Sitting Respiration 16 Pulse 67 Pulse Source Pulse Oximeter Pulse Oximetry (%) 98 Oxygen Delivery Method Room Air Intake Visit Reasons: Pill Count Intake Note: Katlyn comes in today for a pill count to hydrocodone-acetaminophen, patient should have 4 tablets and presents with 14 tablets which she last took 1/2 tab last night 04/06/25 at 9pm. Pain today 3/10 Domestic Cleaner Required: No Accompanied by: Self / Same As Patient Allergies azithromycin Adverse Reaction (Severe, Verified 04/07/25 10:47) stomach pain HPI Comments Details: Patient returns today for a pill count. Patient is supposed to have #4 pills, in her possession has #14 pills. This demonstrates a responsible attitude in regards to the medication regimen. Patient reports reasonable analgesia on her current regimen on as needed basis with no noted significant side effects. The pain is rated at 3/10 and affects both the back, neck, left hip and leg. Patient reports current medication regime provides her adequate analgesia without side effects and allows her to be more functional and less symptomatic. She does occasionally take stool softener as needed for constipation. The patient experienced two episodes of chest pain yesterday that were relieved with nitroglycerin. The pain was localized to her chest and radiated to her neck. The first episode occurred while she was out [place] shopping, and the second occurred later that night around 10:15 PM while she was lying in bed. She is scheduled to follow up with Cardiology this afternoon for these concerns. Currently, she denies any chest pain, pressure or tightness. Regarding her chronic pain management, the patient takes Vicodin on an as-needed basis. She reports minimal constipation, which she manages by taking Docusate every night. She denies experiencing chest pain when straining on a stool. Her pertinent medical history includes a cardiac event a year prior. She is concurrently on Plavix, which she takes in the morning, and atorvastatin 80 mg at bedtime. Denies any fever, cough, chills, abdominal pain, dyspnea, shortness of breaths, weight loss, constipation, nausea, sedation, dizziness, or urinary retention. [facility] Medical History Cataracts, bilateral Superficial thrombophlebitis of left leg Osteopenia Essential hypertension Nicotine dependence, cigarettes, uncomplicated Varicose vein of leg Hyperlipidemia Pulmonary nodule Chronic cough Chronic bronchitis Arthritis GERD (gastroesophageal reflux disease) Lumbar radiculopathy, chronic Hypothyroidism Failed back syndrome, lumbar Surgical History History of heart artery stent History of cardiac cath Hx of bladder repair surgery History of lumbar surgery History of hysterectomy History of total left hip replacement Family History Mother Heart attack Father Pacemaker Leukemia Social History Household Members: Spouse Housing: House Alcohol intake: never Patient Tobacco Use Status: Former Tobacco user Tobacco use type: Cigarette Cigarettes Per Day: 4 Years Smoked: 40 +/- e-Cigarette/Vaping Use: Never Used Second Hand Smoke Exposure: No Substance Use Type: Marijuana service: No Current occupational status: retired Review of Systems Const All systems reviewed & are unremarkable except as noted in HPI and below Denies body aches, Denies chills, Reports fatigue, Denies fever(s), Denies frequent falls, Denies headache(s), Denies malaise, Denies night sweats and Denies weakness ENT Denies headache(s) Card Reports as per HPI, Denies chest pain, Denies rapid heart rate, Denies claudication, Denies radiating jaw, neck or arm pain and Denies dyspnea Resp Denies dyspnea Neuro Denies frequent falls, Denies headache(s) and Denies weakness Endo Reports fatigue Physical Exam General: Appears afebrile. Alert and oriented. Mood and affect appropriate. Follows and participates in conversation appropriately. Respiratory effort is unlabored. No cough. Able to transition from sit to stand unassisted. Ambulates with normal heel strike and toe off bilaterally. Eyes General: appearance normal, both eyes and all related structures Resp Effort & Inspection: normal respiratory effort, able to speak in complete sentences, no cough, no respiratory distress and symmetric chest movement Cardio Jugular venous distension: no JVD Rate: regular rate Rhythm: regular rhythm Peripheral pulses: Peripheral pulses 2+ throughout Extrem General: Yes capillary refill normal, Yes no clubbing, cyanosis or edema and Yes no calf tenderness Psych Appearance: grossly normal and well kempt Mental Status: mental status grossly normal Speech and movement: Normal speech and movement present and Clear speech present Affect: normal affect Attitude: cooperative Thought process: Normal thought process present Thought content: Normal thought content present, suicidality (none), no hallucinations and Depressive thoughts present Insight: Good insight present (Psych) Judgement: Good judgement present (Psych) Results Reviewed Results Reviewed: MR LUMBAR SPINE WITHOUT CONTRAST 12/03/23 CLINICAL INFORMATION: Spondylolisthesis COMPARISON: Lumbar spine radiographs June 13, 2023. Images from prior lumbar spine MRI from June 13, 2012 are not available in PACS at time of dictation TECHNIQUE: MRI of the lumbar spine was obtained using routine sequences without contrast. FINDINGS: Slight lumbar levocurvature. Preserved lumbar lordosis. Grade 1 retrolisthesis at L1-L2 3 and grade 1 anterolisthesis at L4-L5 and L5-S1. Vertebral body heights are maintained. There is no suspicious osseous lesion. Diffusely coarsened appearance of the bony trabeculae throughout the spinal column and imaged pelvis can be correlated clinically for osteopenia. Diffuse desiccation with moderate to severe disc height loss posteriorly at L2-L3, to a lesser extent at L1-L2, and otherwise mild multilevel disc height loss. Marginally edematous Schmorl's node along the left aspect of the posterior L2 inferior endplate. Trace type I endplate changes posteriorly at L1-L2. Multilevel anterior osteophytic spurring is seen. Stress related marrow edema within the bilateral L5 pedicles. Level by level detail as follows: L1-L2: Disc bulge with superiorly migrated right subarticular/foraminal disc extrusion and moderate bilateral facet arthrosis with ligamentum flavum thickening. Moderate to severe spinal canal stenosis and asymmetric right subarticular zone narrowing with compression along the traversing right L2 nerve root. Severe right neural foraminal stenosis with compression of the exiting right L1 nerve root and mild left neural foraminal stenosis. L2-L3: Post laminectomy changes. Retrolisthesis with disc osteophyte complex. Moderate right and mild left facet arthrosis. The spinal canal is decompressed. Moderate to severe left and moderate right neural foraminal stenosis with mass effect along the exiting left greater than right L2 nerve roots. L3-L4: Disc bulge eccentric to the right with ventral annular fissure and moderate facet arthrosis with ligamentum flavum thickening. Mild spinal canal and mild bilateral neural foraminal narrowing. L4-L5: Advanced bilateral facet arthrosis with ligament flavum thickening, diastatic right facet joint effusion, and 1.0 cm craniocaudal dorsal epidural cyst presumably reflecting interspinous bursitis. Hypertrophied L4 and L5 spinous processes with obliterated interspinous interval and fluid distended interspinous bursa projecting into the adjacent paraspinal soft tissues. Unroofing of posterior disc material. 7 mm synovial cyst along the ventrolateral margin of the left facet joint projecting into the posterior left neural foramen. Moderate spinal canal and mild left greater than right neural foraminal stenosis. L5-S1: Advanced bilateral facet arthrosis with unroofing of posterior disc material. No spinal canal stenosis. Mild left without right neural foraminal stenosis. The conus medullaris terminates at the level of L1. The distal spinal cord is normal in appearance. No epidural fluid collection, hematoma, or mass. Moderate to severe fatty atrophy of the lower paraspinal musculature. Limited evaluation of the intra-abdominal structures without significant abnormalities. The abdominal aorta is of normal contour and caliber. Susceptibility artifact from left hip arthroplasty with asymmetric atrophy of the short left-sided external rotator and left psoas/iliopsoas muscles. Degenerative osteophytosis bridging the ventral sacroiliac joints. IMPRESSION: 1. At L1-L2, there is a superiorly migrated right subarticular/foraminal disc extrusion contributing to moderate to severe spinal canal stenosis and asymmetric right lateral recess narrowing with compression along the traversing right L2 nerve root. Severe right neural foraminal stenosis with compression of the exiting right L1 nerve root. 2. At L2-L3, there are post laminectomy changes. Moderate to severe left and moderate right neural foraminal stenosis with mass effect along the exiting left greater than right L2 nerve roots. 3. At L4-L5, there is advanced bilateral facet arthrosis with a diastatic right facet joint effusion which may reflect hypermobility and can be correlated with flexion and extension views. 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 7 mm synovial cyst along the ventrolateral margin of the left facet joint projecting into the posterior left neural foramen. Moderate spinal canal stenosis and mild left greater than right neural foraminal stenosis. 4. Diffusely coarsened appearance of the bony trabeculae throughout the spinal column and imaged pelvis can be correlated clinically for osteopenia. XR HIP 1 VIEW LEFT WITH PELVIS 09/06/24 HISTORY: Fall COMPARISON: Comparison is made with the prior examination dated 06/11/2021. FINDINGS: A single AP view of the pelvis and 2 views of the left hip are submitted. The patient is again noted to be status post left total hip arthroplasty. The orthopedic elements are in anatomic alignment. There is no radiographic evidence of loosening. There is no fracture or dislocation. There are vascular calcifications. IMPRESSION: Status post left total hip arthroplasty. XR KNEE 3 VIEWS LEFT, XR TIBIA FIBULA 2 VIEWS LEFT 09/06/24 HISTORY: Fall COMPARISON: There are no prior studies available for comparison. FINDINGS: Four views of the left knee and AP and lateral views of the left tibia and fibula are submitted. The bones are osteopenic. There is no fracture or dislocation. The joint spaces are preserved. There are vascular calcifications. IMPRESSION: Osteopenia. No evidence of fracture of the left knee or tibia and fibula. XR FINGERS RIGHT 09/06/24 HISTORY: 3rd digit pain COMPARISON: There are no prior studies available for comparison. FINDINGS: Three views of the right middle finger are submitted. The bones are osteopenic. There is no fracture or dislocation. 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 The soft tissues are unremarkable. IMPRESSION: Osteopenia. 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 Assessment & Plan Assessment & Plan (1) Lumbar radiculopathy: Code(s): M54.16 - Radiculopathy, lumbar region Category: Medical (2) Lumbar spinal stenosis: Code(s): M48.061 - Spinal stenosis, lumbar region without neurogenic claudication Category: Medical (3) Degeneration, intervertebral disc, cervical: Code(s): M50.30 - Other cervical disc degeneration, unspecified cervical region Category: Medical (4) Opioid contract exists: Code(s): Z79.891 - intermediate (current) use of opiate analgesic Category: Medical (5) Failed back syndrome, lumbar: Code(s): M96.1 - Postlaminectomy syndrome, not elsewhere classified Category: Medical Plan Patient has shown accountability for her medication regimen and the pill count was accurate.?There is no evidence of misuse, abuse or diversion at this time. [facility] for hydrocodone-acetaminophen 7.5-325 mg?#40/30 days sent with an advanced date of 04/15/25. Patient is aware of monitoring for side effects. Reviewed with the patient the risks associated with benzodiazepine and opioid use. The patient will follow up with her Cardiology team this afternoon for further evaluation of her new-onset chest pain. All questions and concerns were answered and the patient is in agreement with the plan. Follow up in 4-5 weeks for pill count and sooner if needed. Medications: Refilled hydrocodone-acetaminophen 7.5-325 mg Partial Fill upon patient request. 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
[2025-04-07 10:47] VITALS: BP 125/77; PULSE 67; RESP 16; O2SAT 98; BMI 27.2
--- OUTSIDE RECORDS SUMMARY | 2025-04-07 13:18 | XMS_ITS | Patient Health Record ---
Author Organization [facility] Address [address] [place] [address] Care Team Providers Care Latex Caster Name Role Phone Haroon (RETIRED) Marcellus JACKSON Primary Care Provider Unavailable Ru Jackson Jr Unavailable Allergies Allergen (clinical drug ingredient) Drug/Non Drug Allergy documented on EMR Reaction Allergy Type Onset Date Status zinc oxide Skin Protectant Unknown Drug Allergy Active Reason For Referral No Information Medications Medication SIG (Take, Route, Frequency, Duration) Notes Start Date End Date Status Lisinopril 10 MG Tablet TAKE 1 TABLET BY MOUTH ONCE A DAY Oral; Duration: 90 Active HYDROcodone-Acetaminophen 7.5-325 MG Tablet Oral; Duration: 30 Acti ve Diclofenac Sodium 1 % Gel External; Duration: 30 Active Metoprolol Succinate ER 25 MG Tablet Extended Release 24 Hour TAKE 1 TABLET BY MOUTH EVERY DAY AT BEDTIME DIRECTED Oral; Duration: 90 Active Golytely 236 GM Solution Reconstituted as directed before colonoscopy Orally every 15 minutes; Duration: 1 day(s) 07/02/2021 Active Cimetidine 300 MG Tablet TAKE 1 TABLET B Y MOUTH EVERY DAY Oral; Duration: 90 Active Levothyroxine Sodium 88 MCG Tablet TAKE 1 TABLET BY MOUTH EVERY DAY Oral; Duration: 90 Active Immunizations Vaccine Route Administration Date Status Comme nts Influenza Unknown 02/07/2021 Administered Social History Tobacco Use: Social History Observation Description Date Details (start date - stop date) Current Smoker NA - NA Social History Drugs/Alcohol: Social Info Question Answer Notes Alcohol Screen Did you have a drink containing alcohol in the past year? No Points 0 Interpretation Negative Tobacco Use: Social Info Question Answer Notes Tobacco Use/Smoking Patient is a current smoker How often do you smoke cigarettes? every day How many cigarettes a day do you smoke? 5 or less How soon after you wake up do you smoke your first cigarette? 31-60 minutes Additional Details Category Social Info Options Details Miscellaneous: Marital status: Occupation: retired Problems Problem Type SNOMED Code ICD Code Onset Dates Problem Status W/U Status Risk Notes Problem Colon cancer screening (149349827) Colon cancer screening (Z12.11) Active confirmed Problem Constipation (99224592) Constipation, unspecified constipation type (K59.00) Active confirmed Plan Of Treatment Future Test Test Name Order Date COLONOSCOPY 07/02/2021 Insurance Providers Payer Name Payer Address Payer Phone Subscriber Number Group Number Insured Name Patient Relationship to Insured Coverage Start Date Coverage End Date [facility] [id number] [place] [phone] [id number] JIM MCGINNIS Self - patient is the insured Medical (General) History Medical History History ICD Code Hypothyroidism Hypertension Arthritis Gastroesophageal reflux disease Surgical History Surgery Date(Month/Year) hysterectomy , uterine prolapse 2008 back surgery 2012 hip replacement 2019
--- OUTSIDE RECORDS SUMMARY | 2025-04-07 13:18 | XMS_ITS | Clinical Summary ---
Author Organization [facility] ity Address [address] [place] [address] Care Team Providers Care Hospice/Home Health Aide Name Role Phone Unavailable Primary Care Provider [...]
== END 2025-04-07 10:57 | disposition home or self-care (01) ==
LOC: HO.PMC 10:35
PROVIDERS: PCP Family Medicine; Visit Provider Nurse Practitioner Family
DX: M54.16 Radiculopathy, lumbar region (principal); M48.061 Spinal stenosis, lumbar region without neurogenic claudication; M50.30 Other cervical disc degeneration, unspecified cervical region; Z79.891 Long term (current) use of opiate analgesic; M96.1 Postlaminectomy syndrome, not elsewhere classified
CPT/HCPCS: 99214

== ENCOUNTER 2025-04-07 10:34 | Outpatient (REF) | payer MEDICARE, SELFPAY ==
[2025-04-07 15:48] LABS: MANUAL DIFF FLAG NO
[2025-04-07 15:50] LABS: Hematocrit 34.9 % (37.0-47.0); Hemoglobin 11.6 g/dl (12.0-16.0); Imm Gran Abs Auto 0.04 X10*3/uL (0.00-0.03); Imm Gran Pct Auto 0.7 % (0.0-0.4); Lymphocytes Absolute Auto 1.4 X10*3/uL (1.2-4.9); Mean Corpuscular HGB Conc 33.2 g/dl (31.0-35.0); Mean Corpuscular Hemoglobin 31.2 pg (27.0-33.0); Mean Corpuscular Volume 93.8 fL (80.0-98.0); NRBC Abs Auto 0.000 X10*3/uL (0.0-0.012); NRBC Pct Auto 0.0 /100WBC (0.0-0.2); Platelet Count 270 X10*3/uL (160-400); Red Blood Count 3.72 X10*6/uL (4.20-5.50); White Blood Count 6.0 X10*3/uL (4.8-10.8)
[2025-04-07 16:19] LABS: Troponin-I High Sensitivity < 2.7 ng/L (<3.5-17.0)
[2025-04-07 16:32] LABS: Anion Gap 10 (12-20); Blood Urea Nitrogen 16 mg/dL (9-16); Calcium 9.1 mg/dL (8.4-10.2); Carbon Dioxide 26 mmol/L (22-29); Chloride 102 mmol/L (96-108); Estimated Glomerular Filt Rate > 60; Potassium 4.2 mmol/L (3.3-5.1); Sodium 134 mmol/L (135-145)
== END 2025-04-07 10:35 | disposition home or self-care (01) ==
LOC: HO.LAB 10:34
PROVIDERS: Absent Provider Nurse Practitioner Family; PCP Family Medicine; Visit Provider Nurse Practitioner Family
DX: I20.89 Other forms of angina pectoris (principal); I21.4 Non-ST elevation (NSTEMI) myocardial infarction; I10 Essential (primary) hypertension; E78.49 Other hyperlipidemia; M54.16 Radiculopathy, lumbar region; M48.061 Spinal stenosis, lumbar region without neurogenic claudication; M50.30 Other cervical disc degeneration, unspecified cervical region; M96.1 Postlaminectomy syndrome, not elsewhere classified; Z87.891 Personal history of nicotine dependence
CPT/HCPCS: 36415; 80048; 84484; 85025; 93005; 99212

== ENCOUNTER 2025-04-07 14:38 | Outpatient (AMB) | payer MEDICARE, SELFPAY ==
--- NOTE | 2025-04-07 14:50 | MHC.OFFVIS ---
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 Required: No Accompanied by: Significant Other Allergies azithromycin Adverse Reaction (Severe, Verified 04/07/25 10:47) stomach pain Medication List - Last Reconciled 04/07/25 by JACI Escobedo acetaminophen (Tylenol Extra Strength) 1,000 mg PO Q6H PRN albuterol sulfate 90 mcg/actuation inhalation aspirin 81 mg PO DAILY atorvastatin 80 mg PO DAILY clopidogrel (Plavix) 75 mg PO DAILY desonide 0.05% topical BID docusate sodium 100 mg PO DAILY Donut pillow As directed hydrocodone-acetaminophen 7.5-325 mg 1.5 tabs PO DAILY PRN 30 days ketorolac 0.5% drps ophthalmic (eye) levothyroxine 88 mcg PO DAILY lisinopril 10 mg PO DAILY montelukast 10 mg PO DAILY 30 days multivitamin 1 tab PO DAILY nitroglycerin 0.4 mg sublingual Q5M PRN ondansetron HCl 4 mg PO DAILY PRN vitamins A,C,D-ozix-dglgla 4,296 mcg-226 mg-90 mg (PreserVision AREDS) 1 cap PO BID HPI HPI pt req- f/up: Details: The patient is a 74-year-old female presenting for follow-up of her coronary artery disease and evaluation of recent chest pressure. Yesterday, she experienced two episodes of pressure, which she describes as very similar but less intense than her prior heart attack. The first episode occurred while standing in line at the mall and resolved after taking a nitroglycerin tablet, while the second occurred at night while in bed and again resolved with nitroglycerine. This is not the first recurrence of symptoms since her stent placement; she had a similar episode last year after which resolved with two nitroglycerin tablets. She associates the symptoms with stress, particularly related to the holidays. She reports feeling fine today with no discomfort. Her cardiac history is significant for an NSTEMI in 2023, for which she underwent PCI of the circumflex artery. An echocardiogram from 02/01/2024 showed an EF of 60-65% with mild anterolateral hypokinesia. She has a history of intolerance to a long-acting nitroglycerin patch due to terrible headaches. Past medical history also includes hypertension, chronic bronchitis, GERD, and chronic back pain. She had a superficial blood clot in her leg about a month and a half ago, for which she was not prescribed additional anticoagulation. She reports being compliant with her medications, which include aspirin, atorvastatin, Plavix, and lisinopril. She does not formally exercise but is busy and able to use stairs in her home without issues. is present. [facility] Medical History Cataracts, bilateral Superficial thrombophlebitis of left leg Osteopenia Essential hypertension Nicotine dependence, cigarettes, uncomplicated Varicose vein of leg Hyperlipidemia Pulmonary nodule Chronic cough Chronic bronchitis Arthritis GERD (gastroesophageal reflux disease) Lumbar radiculopathy, chronic Hypothyroidism Failed back syndrome, lumbar Surgical History History of heart artery stent History of cardiac cath Hx of bladder repair surgery History of lumbar surgery History of hysterectomy History of total left hip replacement Family History Mother Heart attack Father Pacemaker Leukemia Social History Household Members: Spouse Housing: House Alcohol intake: never Patient Tobacco Use Status: Former Tobacco user Tobacco use type: Cigarette Cigarettes Per Day: 4 Years Smoked: 40 +/- e-Cigarette/Vaping Use: Never Used Second Hand Smoke Exposure: No Substance Use Type: Marijuana service: No Current occupational status: retired Review of Systems Const All systems reviewed & are unremarkable except as noted in HPI and below Denies chills, Denies fatigue, Denies fever(s), Denies frequent falls, Denies weakness, Denies weight gain and Denies weight loss ENT Denies dizziness Card Reports chest pain, Reports chest pain at rest (once), Reports chest pain with activity (once), Denies leg edema, Denies lightheadedness, Denies palpitations, Denies dyspnea and Denies dyspnea on exertion Resp Denies cough, Denies dyspnea and Denies dyspnea on exertion GI Denies hematochezia Musc Denies abnormal gait, Denies muscle weakness, Denies numbness, Denies radiating pain into limb and Denies tingling Neuro Denies abnormal gait, Denies dizziness, Denies frequent falls, Denies numbness, Denies tingling and Denies weakness Endo Denies fatigue and Denies palpitations Physical Exam Vital Signs: Last Vital Signs Pulse 63 04/07/25 14:53 BP 130/72 04/07/25 14:53 BMI result Body Mass Index 27.6 Const General: cooperative, healthy appearing, comfortable and no acute distress Orientation/consciousness: patient oriented x3 Neck Neck: Yes normal visual inspection Resp Effort & Inspection: normal respiratory effort Auscultation: clear to auscultation bilaterally, no rales, no rhonchi and no wheezes Cardio Rate: regular rate Rhythm: regular rhythm Heart sounds: S1 normal heart sound present, S2 normal heart sound present, no gallops, no murmurs and no rubs Neuro General: patient oriented x3 Extrem General: Yes normal to inspection, No no pedal edema and No calf tenderness Psych Appearance: grossly normal Mental Status: mental status grossly normal Speech and movement: Normal speech and movement present Office Procedures EKG Details: Today, read by me, Normal sinus rhythm, rate 63, Qtc 448ms [id number], Complete Assessment & Plan Assessment & Plan (1) Stable angina: Code(s): I20.89 - Other forms of angina pectoris Category: Medical Plan: Report of chest discomfort, similar to prior NSTEMI. Two episodes occurred yesterday, 1 [place] at the mall and 1 while in bed.-today she is feeling well, asymptomatic. EKG sinus rhythm with no acute ST or T-wave abnormalities. Will check troponin level to ensure no troponin leak following her episodes of discomfort. Will order a pharmacological nuclear stress test to assess for ischemia. Will check an echocardiogram to reassess for structural disease. Discussed addition of isosorbide and she declines. She wants to continue to use PRN nitroglycerin if needed. Will avoid beta-ethan use as she has baseline heart rate in the 60s. Continue aspirin and Plavix. Continue high-dose atorvastatin. Signs and symptoms of angina reviewed with her. Emergency care if needed. Call if having recurrent symptoms. Cardiology office visit 1 month. (2) NSTEMI (non-ST elevated myocardial infarction): Code(s): I21.4 - Non-ST elevation (NSTEMI) myocardial infarction Category: Medical Plan: NSTEMI 01/2024 with cardiac catheterization showing significant stenosis of left circumflex, NEHEMIAH placed. Echocardiogram at that time showed normal EF, mild anterior lateral hypokinesis, no significant valve abnormalities. Continue aspirin, Plavix, high-dose atorvastatin. (3) S/P coronary angioplasty: Code(s): Z98.61 - Coronary angioplasty status Category: Surgical Plan: As above (4) Stented coronary artery: Comment: 01/2024, left circumflex stent Code(s): Z95.5 - Presence of coronary angioplasty implant and graft Category: Surgical Plan: As above (5) Essential hypertension: Code(s): I10 - Essential (primary) hypertension Category: Medical Plan: Blood pressure goal less than 130/80. At goal today. No med changes made at this time. (6) Hyperlipidemia: Code(s): E78.5 - Hyperlipidemia, unspecified Category: Medical Qualifiers: Hyperlipidemia type: other hyperlipidemia Qualified Code(s): E78.49 - Other hyperlipidemia Plan: LDL goal less than 70. Labs done 02/21/2025 shows LDL 38. Continue high-dose statin at this time. Plan I explained to the patient that her recent chest pressure symptoms are concerning for a possible issue with her previous heart stent, such as new narrowing, even though they can last many years. I informed her that although her EKG today is reassuring, her symptoms warrant further investigation. We discussed the plan, which starts with a blood test today to check for any heart muscle damage. I explained that we will schedule a pharmacological nuclear stress test to check the blood flow through her coronary arteries, as she is unable to perform a treadmill test. I detailed the procedure, including the use of a vasodilator medication and its potential, transient side effects like nausea or shortness of breath. We also will schedule an echocardiogram for a sooner assessment of her heart function. I advised her to continue her current medications and use her as-needed nitroglycerin for any chest pain. I provided specific instructions on using up to three nitroglycerin tablets five minutes apart and emphasized that she should call 911 if her symptoms persist after the second tablet. I stressed that if her symptoms persist, worsen, or become as severe as her prior heart attack, she must go to the emergency department, as this could require an urgent cardiac catheterization. She was instructed to call us if she has more episodes, which may prompt us to push for a catheterization sooner. We will keep her scheduled follow-up appointment for May 03. Orders: Orders Basic Metabolic Panel Today I20.89 - Other forms of angina pectoris Troponin-I High Sensitivity Today I20.89 - Other forms of angina pectoris Complete Blood Count Auto Diff Today I20.89 - Other forms of angina pectoris Patient Instructions: - Please go to the hospital lab today for a blood test to check your heart. - We have ordered an ultrasound of your heart (echocardiogram) and a heart stress test. Our office will call you to schedule these tests, which will likely be in the next few weeks. - Continue to take all of your prescribed medications as directed. - If you experience chest pain, take one nitroglycerin tablet. If the pain is still there after 5 minutes, you can take a second tablet. If it continues after another 5 minutes, you may take a third. - If you still have chest discomfort after taking two or three nitroglycerin tablets, or if the pain is severe, you must call 911 or go to the nearest emergency room. - Please call our office if your chest pain episodes continue to happen. - Keep your scheduled follow-up appointment for May 03. Patient was informed and verbally consented to the use of an ambient scribe for clinic note documentation during this visit. Visit time spent on chart review, interview, assessment, orders, documentation. Coding Level of Care Code Est Pt Level 4 (27602) Add On Problem Visit Only Diagnoses Stable angina I20.89 NSTEMI (non-ST elevated myocardial infarction) I21.4 S/P coronary angioplasty Z98.61 Stented coronary artery Z95.5 Essential hypertension I10 Other hyperlipidemia E78.49 Hyperlipidemia type: other hyperlipidemia CPT Codes EKG - CPT: 75393-[id number], Complete ([id number]) Time Spent (min) 32
[2025-04-07 14:53] VITALS: BP 130/72; PULSE 63; BMI 27.6
--- OUTSIDE RECORDS SUMMARY | 2025-04-07 18:47 | XMS_ITS | Patient Health Record ---
[facility] Address [address] [place] [address] Care Team Providers Care Phlebotomy Services Representative Name Role Phone CarlosMaryam hansonberly Primary Care Provider Unavaila eduardo Black, Sheree Unavailable [phone] Allergies Allergen (clinical drug ingredient) Drug/Non Drug Allergy documented on EMR Reaction Allergy Type Onset Date Status Biaxin Unknown Drug Allergy Active sulfa stomach pain Drug Allergy Acti ve codeine codeine nausea Drug Allergy Active morphine Morphine nausea Drug Allergy Active azithromycin Azithromycin Unknown Drug Allergy A ctive erythromycin Erythromycin Unknown Drug Allergy A ctive Results Component Value Reference Range Notes X ray : Foot, left 3V Reviewed date:01/13/2025 07:50:24 PM Interpretation:See Examination above Performing Lab: Notes/Report: See Examination above X ray : Foot, right 3V Reviewed date:01/13/2025 07:50:11 PM Interpretation:See Examination above Performing Lab: Notes/Report: See Examination above Reason For Referral No Information Medications Medication SIG (Take, Route, Frequency, Duration) Notes Start Date End Date Status Atorvastatin Calcium 80 MG 1 tablet Oral ly Once a day Active Clopidogrel Bisulfate 75 MG 1 tablet Orally Once a day Active Levothyroxine Sodium 88 MCG 1 tablet Orally Once a day Active Lisinopril 10 MG 1 tablet Orally Once a day Active Famotidine 40 MG 1 tablet at bedtime Orally Once a day Not-Taking ASA 1 tab Oral Not-Takin g HYDROcodone-Acetaminophen 5-325 MG 1 tablet as needed Orally every 6 hrs Not-Taking Eucerin . as directed External ly bid to feet; Duration: 30 days 06/24/2014 Not-Taking Vicodin PRN Active Aspirin Active Social History Tobacco Use: Social History Observation Description Date Details (start date - stop date) Never Smoker NA - NA Tobacco use other than smoking: Question Answer Notes Are you an other tobacco user? No Tobacco Control (Standard) Question Answer Notes Tobacco use: Nonsmoker Additional Findings: Tobacco non-user Current no nsmoker AUDIT-C (Standard) Question Answer Notes Did you have a drink containing alcohol in the p ast year? No Points 0 Interpretation Negative Problems Problem Type SNOMED Code ICD Code Onset Dates Problem Status W/U Status Risk Notes Problem Acquired hammer toe of right foot (3921823459772885) Other hammer toe(s) (acquired), right foot (M20.41) Active confirmed Problem Acquired hammer toe of left foot (6810577481227610) Other hammer toe(s) (acquired), left foot (M20.42) Active confirmed Problem Plantar wart (21610332) Plantar wart (B07.0) Active confirmed Problem Closed fracture of phalanx of foot (06882442) Closed displaced fracture of proximal phalanx of lesser toe of left foot, initial encounter (S92.512A) Active confirmed Problem Localized, primary osteoarthritis of the ankle and/or foot (018179026) Arthritis of joint of lesser toe, left (M19.072) Active confirmed Problem Localized, primary osteoarthritis of the ankle and/or foot (435537265) Arthritis of joint of lesser toe, right (M19.071) Active confirmed Vital Signs Blood pressure diastolic 72 mm Hg 01/13/2025 Height 5ft 1.5in in 01/13/2025 Blood pressure systolic 119 mm Hg 01/13/2025 Weight 139 lbs 01/13/2025 BMI 25.84 kg/m2 01/13/2025 Procedures Procedure Date Ordered Date Performed Result Body Sit e 33901-Eaug Destruction, 1-14 01/13/2025 N/A Encounters Encounter Location Date Provider Diagnosis [facility] [address] [place] [address] 01/13/2025 Sheree Black Other hammer toe(s) (acquired), right foot M20.41 ; Arthritis of joint of lesser toe, right M19.071 ; Pain in left toe(s) M79.675 ; Other hammer toe(s) (acquired), left foot M20.42 ; Arthritis of joint of lesser toe, left M19.072 ; Right foot pain M79.671 ; Contusion of lesser toe of left foot without damage to nail, initial encounter S90.122A ; Pain in right toe(s) M79.674 ; Plantar wart B07.0 and Closed displaced fracture of proximal phalanx of lesser toe of left foot, initial encounter S92.512A Assessments Encounter Date Diagnosis (ICD Code) Assessment Notes Treatment Notes Treatment Clinical Notes Section Notes 01/13/2025 Other hammer toe(s) (acquired), right foot (ICD-10 - M20.41) 01/13/2025 Arthritis of joint of lesser toe, right (ICD-10 - M19.071) 01/13/2025 Pain in left toe(s) (ICD-10 - M79.675) 01/13/2025 Other hammer toe(s) (acquired), left foot (ICD-10 - M20.42) 01/13/2025 Arthritis of joint of lesser toe, left (ICD-10 - M19.072) 01/13/2025 Right foot pain (ICD-10 - M79.671) 01/13/2025 Contusion of lesser toe of left foot without damage to nail, initial encounter (ICD-10 - S90.122A) 01/13/2025 Pain in right toe(s) (ICD-10 - M79.674) 01/13/2025 Closed displaced fracture of proximal phalanx of lesser toe of left foot, initial encounter (ICD-10 - S92.512A) 01/13/2025 Plantar wart (ICD-10 - B07.0) Plan Of Treatment Pending Test Test Name Order Date [id number] Destruction, 05-0401/13/2025 Insurance Providers Payer Name Payer Address Payer Phone Subscriber Number Group Number Insured Name Patient Relationship to Insured Coverage Start Date Coverage End Date [employer] [address] [place] [address] [id number] Katlyn Hanna Self - patient is the insured Medical (General) History Medical History History ICD Code Measles Mumps Chicken pox Back,Hip,and Knee pain chronic sinusitis Thyroid disorder Hypertension Arthritis hip pain Anxiety covid-19 Heart disease High Blood Pressure Macular degeneration sinusitis thyroid Bone implants/screws Surgical History Surgery Date(Month/Year) hysterectomy 09/2009 bladder sling back surgery 07/2012 hip replacement 09/2018 Stent 01/2025
== END 2025-04-07 15:31 | disposition home or self-care (01) ==
LOC: HO.HCS 14:39
PROVIDERS: PCP Student in an Organized Health Care Education/Training Program; Visit Provider Nurse Practitioner Family
DX: I20.89 Other forms of angina pectoris (principal); I21.4 Non-ST elevation (NSTEMI) myocardial infarction; Z98.61 Coronary angioplasty status; Z95.5 Presence of coronary angioplasty implant and graft; I10 Essential (primary) hypertension; E78.49 Other hyperlipidemia
CPT/HCPCS: 93010; 99214; G2211